=== PATIENT | female | born 1960 | race Caucasian/White ===

== ENCOUNTER → 2016-09-11 | Outpatient (CLI) | payer OTHER ==
[~2016-09-11] MED LIST: ADV500INH INH; AGGR1CAP PO; ALBU17IN INH; AMLO10TA2 PO; ASMA220A2 INH; ASPI81TA7 PO; ASPI81TAEC PO; ATOR1TAB21 PO; ATOR40TA PO; BLOOKIT XX; BUSP15TA47 PO; CLOP75TA2 PO; COUM2.5T11 PO; CYMB1CAP PO; GABA300C3 PO; GLIM2TAB PO; GLIP5TAB2 PO; HUMA100I SC; HYDR-4274 PO; INSUDET SC; INSUH10VL SC; INSULADS SC; LANTINJ4 SC; LISI20TA PO; LORA0.5T PO; LOSA50TA21 PO; LYRI75CA PO; METF1000 PO; NEUR600T PO; NICO21PAT TD; NICO7PA TD; NICODIS TD; NORCOBULK PO; OMEP20CA3 PO; ONGL5TAB PO; PLAV75TA38 PO; PROAAER IN; SERT-141 PO; SERT25TA85 PO; SIMV40TA2 PO; SING10TA32 PO; TEMA30CA PO; TRIA EXT; WARF-18 PO; ZOLO50TA PO; ZYRT10TA2 PO
--- NOTE | 2016-09-12 22:03 | REP ---
PA and lateral chest 09/11/2016 Indication: Cough Comparison: AP portable chest 08/17/2016, PA and lateral chest 10/22/2015 Findings: Cardiomediastinal silhouette is normal. Lungs are clear bilaterally. There are mild degenerative changes in the thoracic spine. Soft tissues are within normal limits. Impression: No acute cardiopulmonary process or interval change Signed by Jennie Zaman MD 09/12/2016 09:54 P
== END ==
LOC: M RAD 14:58
PROVIDERS: ATTEND Physician Assistant
DX: R05 Cough (principal); R06.02 Shortness of breath

== ENCOUNTER 2016-09-15 14:30 | Outpatient (RCR) | payer OTHER | END 2016-09-22 | LOC: M PT 14:30 | PROVIDERS: ATTEND Family Medicine Addiction Medicine | DX: Z51.89 Encounter for other specified aftercare (principal); I63.9 Cerebral infarction, unspecified ==

== ENCOUNTER → 2016-09-30 | Outpatient (CLI) | payer OTHER ==
[~2016-09-30] MED LIST changes: +ALBU83IN INH; +ASPI32ECTA PO; +FLUTISP; +INSULANT SC; +NICO7DIS23 TD; +OMEP40CA2 PO
[2016-09-30 13:46] LABS: INR 2.2
== END ==
LOC: M LAB 12:53
PROVIDERS: ATTEND Family Medicine Addiction Medicine
DX: I63.9 Cerebral infarction, unspecified (principal)

== ENCOUNTER 2016-10-01 20:31 | Inpatient (IN) | payer OTHER ==
[~2016-10-01] VITALS: Ht 157.5 cm; Wt 81.7 kg
[~2016-10-01 20:31] MED LIST changes: -ALBU83IN INH; -ASPI32ECTA PO; -FLUTISP; -INSULANT SC; -NICO7DIS23 TD; -OMEP40CA2 PO
[2016-10-01 21:19] LABS: EOS # 0.3 K/mm3 (0.0-0.50); EOS % 6.2 % (0.0-3.0); LARGE UNSTAINED CELL # 0.1 K/mm3 (0.0-0.4); LARGE UNSTAINED CELL % 1.9 % (0.0-4.0); LYMPH # 1.4 K/mm3 (1.5-4.5); LYMPH % 26.9 % (24.0-44.0); MEAN CORPUSCULAR HEMOGLOBIN 29.2 pg (27.0-33.0); MEAN CORPUSCULAR HGB CONC 32.6 g/dl (32.0-36.5); MEAN CORPUSCULAR VOLUME 89.7 fl (80.0-96.0); MONO # 0.3 K/mm3 (0.0-0.8); NEUTROPHILS # 2.7 K/mm3 (1.8-7.7); NEUTROPHILS % 56.9 % (36.0-66.0); PLATELET COUNT, AUTOMATED 149 k/mm3 (150-450); RED CELL DISTRIBUTION WIDTH 11.7 % (11.5-14.5); WHITE BLOOD COUNT 4.7 K/mm3 (4.0-10.0)
--- NOTE | 2016-10-01 21:20 | REPUSA ---
CT of the head Clinical history: CVA. Comparison: 1220 16,016. Technique: Multiple axial CT images were obtained through the head without administration of contrast . Findings: The ventricles and sulci are symmetric bilaterally. There is no evidence of acute hemorrhag e or infarct. Diffuse scattered areas of low attenuation are seen throughout the subcortical white ma tter, and are grossly stable. There is no midline shift, mass effect, or extra-axial fluid collection . The osseous structures are unremarkable. The visualized paranasal sinuses and mastoid air cells are clear. Impression: No evidence of acute hemorrhage or infarct. Scattered subcortical low attenuation changes are stable since the prior study. This is consistent with chronic ischemic changes. If there is furt her clinical concern, MRI could be performed.
[2016-10-01 21:26] LABS: ANION GAP 8 MEQ/L (8-16); BLOOD UREA NITROGEN 5 MG/DL (7-18); CALCIUM LEVEL 8.8 MG/DL (8.5-10.1); CARBON DIOXIDE LEVEL 28 MEQ/L (21-32); CHLORIDE LEVEL 101 MEQ/L (98-107); CREATININE FOR GFR 0.84 MG/DL (0.55-1.02); GLOMERULAR FILTRATION RATE > 60.0 (>51); GLUCOSE, FASTING 367 MG/DL (70-105); POTASSIUM SERUM 3.7 MEQ/L (3.5-5.1); SODIUM LEVEL 137 MEQ/L (136-145)
[2016-10-01 21:29] LABS: INR 2.45
[2016-10-01] MEDS ORDERED: LORazepam 2 MG/ML VIAL (J2060) As Ordered ONE (23:39)
--- NOTE | 2016-10-02 00:40 | REPUSA ---
MRI of the brain without contrast clinical history: CVA. Comparison: CT, 10/01/2016, MRI 05/12/2016. Technique: Multiecho multiplanar MRI images of the brain were obtained without administration of cont rast. Diffusion weighted images with ADC mapping was also obtained. Findings: The ventricles and sulci are symmetric bilaterally. The brain parenchyma demonstrates extensive scatt ered areas of T2 hyperintensity throughout the periventricular and subcortical white matter. There is a focus of T2 shine through in the right sub cortical region, which is stable since the prior study . There is no midline shift, mass effect, or extra-axial fluid collection. The midline intracranial s tructures do not demonstrate any gross abnormalities. The cervical cranial junction is intact. The or bits are unremarkable. The visualized paranasal sinuses and mastoid air cells are clear. The osseous structures and superficial soft tissues are unremarkable. The vascular structures demonstrate appropr iate flow voids. Impression: No evidence of acute hemorrhage. Extensive diffuse chronic small vessel ischemic disease is stable since the prior study. No other acute findings.
--- NOTE | 2016-10-02 00:50 | REPUSA ---
MRA of the brain clinical history: CVA. Technique: [id number] MRA images of the brain were obtained without administration of contrast. 3 -D MIP images were also obtained. Findings: The focal stenosis of the left MCA M1 segment is grossly stable. There is moderate focal na rrowing of the right M1 segment. The distal MCA segments appear grossly unremarkable. Mild narrowing of the proximal right A1 segment is stable. The left A1 segment is unremarkable. The distal segments are within normal limits. The patient is left vertebral artery dominant, and the left vertebral arter y is hypertrophy. Basilar artery is within normal limits. Impression: 1. Focal stenosis of the distal half of the left M1 segment. 2. Focal stenosis of the middle third of the right M1 segment. 3. Mild stenosis of the right A1 segment. 4. Overall, no significant change since the prior study.
--- NOTE | 2016-10-02 01:35 | REP ---
Clinical: Cerebrovascular accident . Comparison: 09/11/2016 . Technique: PA view of the chest . Findings: The mediastinum and cardiac silhouette are normal. The lung byers are clear and without acute consolidation, effusion, or pneumothorax. The skeletal structures are intact and normal. Impression: 1. No acute cardiopulmonary process. Signed by Willis Dale MD 10/02/2016 01:27 A
[2016-10-02] MEDS ORDERED: ONDANSETRON 4MG/2ML VIAL (J2405) IV PRN (03:15)
[2016-10-02] MEDS ORDERED: FLUTISP (03:17)
[2016-10-02] MEDS ORDERED: SERT-141 PO (03:17)
[2016-10-02] MEDS ORDERED: OMEP40CA2 PO (03:17)
[2016-10-02] MEDS ORDERED: ALBU83IN INH (03:17)
[2016-10-02] MEDS ORDERED: NICO7DIS23 TD (03:19)
[2016-10-02] MEDS ORDERED: ASPI81TAEC PO (03:19)
[2016-10-02] MEDS ORDERED: INSULANT SC (03:19)
--- NOTE | 2016-10-02 03:20 | HPEPDOC ---
General Date of Admission 10/02/2016 Chief Complaint The patient is a 56-year-old female admitted with a reason for visit of Stroke Symptoms. History of Present Illness 56-year-old [id number] female with past medical history of recurrent CVAs, hypertension, uncontrolled diabetes mellitus, significant tobacco abuse, osteoporosis, fibromyalgia, anxiety, and depression presented to the ER with a chief complaint of right-sided paresthesias. Of note, the patient has unfortunately had four CVAs since February 2016. Her baseline deficits include left upper and left lower extremity paresthesias and mild weakness. The patient states that she has been adherent to her regimen of Coumadin and aspirin. She follows with Dr. Gregorio of neurology as an outpatient. At this time, the patient states that she started to feel paresthesias of the right upper and right lower extremities with associated visual blurring which began about 24-36 hours ago. She notes that the visual blurring has resolved but she still feels numbness and tingling in the right upper and right lower extremities. She notes that it has become difficult for her to ambulate with her walker due to the alteration in sensation. She denies any weakness in her extremities on the right side at this time. In addition, the patient denies any fevers, chills, facial droop, slurring of speech, abdominal pain, urinary/fecal incontinence, or any nausea/vomiting/diarrhea. In the ER, a CT scan of the head, and MRI/MRA of the brain were done which revealed no acute changes. The patient will be admitted to the hospitalist service under Dr. Chaney for further evaluation and management. Home Medications Scheduled (Asmanex 60 Metered Doses) 220 Mcg/Inh Aer 220 MCG INH QHS (Reported) (Losartan Potassium/Hydroc 50-12.5 mg) 1 Tab Tab 1 TAB PO DAILY (Reported) Aspirin (Aspirin EC) 325 Mg Tabec 325 MG PO DAILY Atorvastatin Calcium (Atorvastatin Calcium) 40 Mg Tab 40 MG PO QHS (Reported) Buspirone HCl (Buspirone HCl) 15 Mg Tab 15 MG PO TID (Reported) TAKES AT 0800, 1200, 1700 Cetirizine HCl (Zyrtec Allergy) 10 Mg Tab 10 MG PO DAILY (Reported) Fluticasone Propionate (Fluticasone Propionate) 50 Mcg/Act Spr 2 SPRAY NA DAILY (Reported) Gabapentin (Gabapentin) 300 Mg Cap 300 MG PO TID (Reported) TAKES AT 0800, 1200, 1700 Glimepiride (Glimepiride) 2 Mg Tab 2 MG PO DAILY (Reported) Insulin Aspart (Novolog) 100 U/Ml Inj 1 DOSE SC AC (Reported) PER SLIDING SCALE Insulin Glargine (Lantus) 1 Units/0.01 Ml Susp 38 UNITS SC QHS (Reported) Metformin Hydrochloride (Metformin HCl) 1,000 Mg Tab 1,000 MG PO BID (Reported ) Montelukast Sodium (Singulair) 10 Mg Tab 10 MG PO QHS (Reported) Nicotine (Nicotine 7MG Patch) 1 Patch Tdsy 1 PATCH TD DAILY (Reported) Omeprazole (Omeprazole) 40 Mg Cap 40 MG PO DAILY (Reported) Sertraline Hcl (Sertraline HCl) 50 Mg Tab 50 MG PO DAILY (Reported) Warfarin Sod (Warfarin Sodium) 2.5 Mg Tab 2.5 MG PO DAILY (Reported) TAKES AT 1700 WITH ASPIRIN 81 MG Scheduled PRN Albuterol Sulfate (Ventolin Hfa) 200 Puff/8 Gm Aers 2 PUFF INH Q4H PRN PRN SOB/ WHEEZING (Reported) Albuterol Sulfate (Albuterol Sulfate) 2.5 Mg/3 Ml Nebu 2.5 MG INH QID PRN PRN SHORTNESS OF BREATH (Reported) Hydroxyzine HCl (Hydroxyzine HCl) 50 Mg Tab 50 MG PO QHS PRN PRN SLEEP (Reported ) Allergies Coded Allergies: Ranitidine (Verified Allergy, Unknown, 03/22/16) Hives Past Medical History Medical History As noted in HPI Family History The patient's grandmother had COPD and CHF Social History * Smoker: other (the patient apparently smoked 3 packs per day at one point in the past. However, the patient states that she was smoking up to half a pack a day, but quit 3 days ago.) Alcohol: denies Drugs: denies Patient lives with her son and her brother. Ambulates with a rolling walker at baseline. Review of Symptoms Other systems 10 point review of systems negative unless otherwise specified in HPI. Physical Examination General Exam: Positive: Alert, Cooperative, No Acute Distress Eye Exam: Positive: EOMI, PERRLA ENT Exam: Positive: Atraumatic, Mucous membr. moist/pink Neck Exam: Negative: JVD Chest Exam: Positive: Clear to auscultation, Normal air movement Heart Exam: Positive: Normal S1, Normal S2, Rate Normal Telemetry: Positive: Sinus Abdomen Exam: Positive: Soft, Negative: Tenderness Extremity Exam: Negative: Edema, Tenderness Neuro Exam: Positive: Other (patient with intact 5 out of 5 strength of the right upper and right lower extremities. 4 out of 5 strength noted in the left upper and left lower extremities area. Decreased sensation to light palpation on the right sided extremities. Sensation to light palpation even more decreased on the left side.) Vital Signs As noted in EMR Laboratory Data Labs 24H Laboratory Tests 2 10/01/16 21:00: Activated Partial Thromboplast Time 54.5H, Anion Gap 8, White Blood Count 4.7, Red Blood Count 4.26, Hemoglobin 12.5, Hematocrit 38.2, Mean Corpuscular Volume 89.7, Mean Corpuscular Hemoglobin 29.2, Mean Corpuscular Hemoglobin Concent 32.6 , Red Cell Distribution Width 11.7, Platelet Count 149L, Neutrophils (%) (Auto) 56.9, Lymphocytes (%) (Auto) 26.9, Monocytes (%) (Auto) 7.0H, Eosinophils (%) ( Auto) 6.2H, Basophils (%) (Auto) 1.0, Neutrophils # (Auto) 2.7, Lymphocytes # ( Auto) 1.4L, Monocytes # (Auto) 0.3, Eosinophils # (Auto) 0.3, Basophils # (Auto ) 0.0, Blood Urea Nitrogen 5L, Creatinine 0.84, Sodium Level 137, Potassium Level 3.7, Chloride Level 101, Carbon Dioxide Level 28, Calcium Level 8.8, Glomerular Filtration Rate > 60.0, Large Unclassified Cells # 0.1, Large Unclassified Cells % 1.9, Prothromb Time International Ratio 2.45, Prothrombin Time 26.6H 10/01/16 21:25: Bedside Glucose (Misc Panel) 376H CBC/BMP Laboratory Tests 10/01/16 21:00 Calcium Level 8.8, Red Blood Count 4.26, Mean Corpuscular Volume 89.7, Mean Corpuscular Hemoglobin 29.2, Mean Corpuscular Hemoglobin Concent 32.6, Red Cell Distribution Width 11.7, Neutrophils (%) (Auto) 56.9, Lymphocytes (%) (Auto) 26.9, Monocytes (%) (Auto) 7.0 H, Eosinophils (%) (Auto) 6.2 H, Basophils (%) ( Auto) 1.0, Neutrophils # (Auto) 2.7, Lymphocytes # (Auto) 1.4 L, Monocytes # ( Auto) 0.3, Eosinophils # (Auto) 0.3, Basophils # (Auto) 0.0 Plan / VTE VTE Prophylaxis Ordered?: Yes (already on Coumadin with therapeutic INR) Plan Plan 1. Right sided Paresthesia of the upper and lower extremities in a patient with a history of recurrent CVA(s) CT scan of the head, MRI/MRA of the brain with no acute findings noted EKG noted to be in normal sinus rhythm Continue aspirin, Coumadin for now Transesophageal echo from 06/07 with no cardio-embolic source identified. Continue home Lipitor. Neurological checks Physical therapy I have extensively discussed the importance of the patient abstaining from tobacco use, as the patient states that she is still smoking as recently as 3 days ago. I also discussed the importance of the patient to control her blood sugar levels and monitor her blood pressure in an effort to decrease her risk of recurrent CVAs. Continue to monitor the patient on telemetry 2. Diabetes mellitus type 2 Hemoglobin A1c noted to be 9.2% approximately 6 weeks ago Continue Levemir 38 units daily at bedtime Sliding scale insulin 3. Asthma: Continue home Zyrtec, Singulair, and as needed albuterol 4. GERD: Continue PPI. 5. Fibromyalgia: Continue home Zoloft, BuSpar, Neurontin, and nightly Atarax. 6. Hypertension: Continue home losartan and hydrochlorothiazide. 7. Tobacco abuse: smoking cessation discussed as noted above DVT prophylaxis: on Coumadin The patient will be admitted under the service of , who will be following the patient starting on 10/02/2016 at 7 AM. MIGEL ALFARO MD Oct 02, 2016 03:20
[2016-10-02] MEDS ORDERED: GLUCOSE 4 GM CHEW TABLET PO PRN (03:30)
[2016-10-02] MEDS ORDERED: hydrOXYzine 50 MG TAB PO PRN (03:30)
[2016-10-02] MEDS ORDERED: ALBUTEROL SULFATE 2.5 MG/0.5 ML INH NEB SOLN INH PRN (03:30)
[2016-10-02] MEDS ORDERED: ALBUTEROL 90 MCG/ACT 8GM HFA INHALER INH PRN (03:30)
[2016-10-02] MEDS ORDERED: DEXTROSE 50% 50 ML SYRINGE IV PRN (03:30)
[2016-10-02] MEDS ORDERED: GLUCAGON FOR INJ 1 MG VIAL (J1610) SC PRN (03:30)
[2016-10-02 04:10] VITALS: BP 130/81
[2016-10-02] MEDS ORDERED: ACETAMINOPHEN TAB 650MG DOSE (2X325MG) As Ordered ONE ×2 (04:26→12:48)
[2016-10-02] MEDS: ACETAMINOPHEN TAB 650MG DOSE (2X325MG) PO PRN ×2 (04:32→12:49)
[2016-10-02 07:22] LABS: MEAN CORPUSCULAR HEMOGLOBIN 29.7 pg (27.0-33.0); MEAN CORPUSCULAR HGB CONC 33.3 g/dl (32.0-36.5); MEAN CORPUSCULAR VOLUME 89.1 fl (80.0-96.0); RED CELL DISTRIBUTION WIDTH 11.4 % (11.5-14.5); WHITE BLOOD COUNT 4.8 K/mm3 (4.0-10.0)
[2016-10-02 07:32] LABS: ANION GAP 7 MEQ/L (8-16); BLOOD UREA NITROGEN 6 MG/DL (7-18); CALCIUM LEVEL 8.5 MG/DL (8.5-10.1); CARBON DIOXIDE LEVEL 30 MEQ/L (21-32); CHLORIDE LEVEL 102 MEQ/L (98-107); CREATININE FOR GFR 0.73 MG/DL (0.55-1.02); GLOMERULAR FILTRATION RATE > 60.0 (>51); GLUCOSE, FASTING 160 MG/DL (70-105); POTASSIUM SERUM 3.5 MEQ/L (3.5-5.1); SODIUM LEVEL 139 MEQ/L (136-145)
[2016-10-02 07:44] LABS: INR 2.66
[2016-10-02 08:00] VITALS: BP 145/79
[2016-10-02] MEDS ORDERED: busPIRone 5 MG TAB As Ordered ONE (08:10)
[2016-10-02] MEDS ORDERED: HumaLOG INSULIN (NovoLOG) PER UNIT As Ordered ONE ×2 (08:19→12:43)
[2016-10-02] MEDS: busPIRone 5 MG TAB PO SCH ×3 (08:20→16:51)
[2016-10-02] MEDS: HumaLOG INSULIN (NovoLOG) PER UNIT SC SCH ×4 (08:21→21:00)
[2016-10-02] MEDS: OMEPRAZOLE 20 MG CAP PO SCH (08:28)
[2016-10-02] MEDS: SERTRALINE HCL 50 MG TAB PO SCH (08:29)
[2016-10-02] MEDS: NICOTINE 7 MG/24 HR TRANSDERMAL TD SCH (08:29)
[2016-10-02] MEDS: GABAPENTIN 300 MG CAP PO SCH ×3 (08:29→21:45)
[2016-10-02] MEDS: hydroCHLOROthiazide 12.5 MG CAPSULE PO SCH (08:29)
[2016-10-02] MEDS: LOSARTAN 50 MG TAB PO SCH (08:29)
[2016-10-02] MEDS: CETIRIZINE (ZyrTEC) 10 MG TAB PO SCH (08:29)
[2016-10-02] MEDS ORDERED: ALBUTEROL SULFATE 2.5 MG/0.5 ML INH NEB SOLN As Ordered ONE (08:29)
[2016-10-02 12:00] VITALS: BP 138/84
[2016-10-02 15:19] VITALS: BP 125/75
--- NOTE | 2016-10-02 15:24 | EDDOCDS ---
Nurse's Notes [facility] Name: Arlin Reardon Age: 56 yrs Sex: Female : 1960 Arrival Date: 10/01/2016 Time: 20:31 Bed I9 / 22 Private MD: Lana Jacobo Diagnosis: Transient cerebral ischemic attack, unspecified Presentation: 10/01 20:36 Presenting complaint: Patient states: Right arm numbness and right leg numbness started rs3 yesterday. reports of dizziness on and off since 6 pm. denies headache, blurred vision, slurred speech. H/o multiple TIA's. The last date and time the patient was known to be well was was at an unknown time on September 30, 2016. No acute neurological deficit is noted. Pre-hospital glucose is not applicable to this patient. Adult Sepsis Screening: The patient does not have new or worsening altered mentation. Patient's respiratory rate is less than 22. Systolic blood pressure is greater than 100. Patient has a qSOFA score of 0- Negative Sepsis Screen. Suicide/Homicide risk assessment- the patient denies having any suicidal and/or homicidal ideations and does not present with any other emotional, behavioral or mental health complaints. 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 Transition of care: patient was not received from another setting of care. 20:36 Acuity: CLARK Level 2 rs3 20:36 Method Of Arrival: Wheelchair rs3 Triage Assessment: 20:40 The onset of the patients symptoms was more than three hours ago. General: Appears in rs3 no apparent distress. Pain: Denies pain. HIV screening NA for this visit Offered previously. Neurological: Level of Consciousness is awake, alert, Reports numbness. Historical: - Allergies: Zantac (Hives); - Home Meds: 1. albuterol sulfate 90 mcg/actuation Inhl HFAA 2 puffs every 4 hours as needed 2. Asmanex Twisthaler 220 mcg (120 doses) inhalation aepb 1 puff once daily 3. atorvastatin 40 mg oral tab nightly 4. buspirone 15 mg Oral tab three times a day 5. cetirizine 10 mg oral tab 1 tab once daily 6. Coumadin 2.5 mg Oral tab 1 tab once daily 7. gabapentin 300 mg Oral cap 1 cap 3 times per day 8. glimepiride 2 mg Oral tab once daily 9. hydroxyzine HCl 50 mg Oral tab nightly as needed 10. Lantus 38 units Sub-Q nightly 11. losartan-hydrochlorothiazide 50-12.5 mg oral tab 1 tab once daily 12. metformin 1,000 mg Oral tab daily 13. Novolog sliding scale Sub-Q before meals 14. Singulair 10 mg Oral tab 1 tab once daily - PMHx: Asthma; CVA; Diabetes - IDDM: controlled; feet and hands go numb; GERD; - PSHx: Hysterectomy; Cholecystectomy; - Social history: Smoking status: Patient uses tobacco products, light tobacco smoker. No barriers to communication noted, Speaks appropriately for age. - Family history: Not pertinent. - : The pt / caregiver states he / she is on anticoagulants: coumadin. Home medication list is obtained from the patient. - Exposure Risk Screening:: None identified. Screenin/10 02:13 Screening information is obtained from the patient, family members. Fall risk: At risk ld5 due to numbness to legs. Assistance ADL's: requires no assistance with activities of daily living. Abuse/DV Screen: The patient / caregiver reports he/she is: not in a situation that causes fear, pain or injury. Nutritional screening: No deficits noted. Advance Directives: There is no active DNR order. home support is adequate. Assessment: 10/01 21:10 General: Appears in no apparent distress, Behavior is cooperative, pleasant. Pain: ld5 Denies pain. Neurological: Level of Consciousness is awake, alert, obeys commands, Oriented to person, place, time, Credit Adjuster are equal bilaterally Moves all extremities. Speech is normal, Facial symmetry appears normal, Facial symmetry: tongue is midline, Numbness in face, right arm, left arm, right leg and left leg Pt reports numbness worse on right side than left. Respiratory: Airway is patent Respiratory effort is even, unlabored, Reports cough that is non-productive, since yesterday. GI: Abdomen is obese, Bowel sounds present X 4 quads. Abd is soft and non tender X 4 quads. Reports nausea, Denies vomiting. Derm: Skin is intact, Skin is dry, Skin is redness to face. 21:36 General: Pt returned from CT. Tolerated well. Will continue to monitor. ld5 22:09 General: Pt laying in bed watching TV. A&O x3. Water and diet scott naomi given. Will ld5 continue to monitor. 22:40 General: Appears in no apparent distress, Behavior is appropriate for age, cooperative, ld5 Aware of plan for MRI. Will continue to monitor. 23:34 General: Pt resting quietly in bed. No complaints at this time. No change in symptoms. ld5 Will continue to monitor. 23:51 General: Pt having difficulty laying through MRI. This RN to MRI to medicate pt. Will ld5 continue to monitor. 10/02 00:18 General: Pt remains in MRI. ld5 01:01 General: Pt returned from MRI. Tolerated well. Denies pain. Respirations easy and ld5 unlabored. Will continue to monitor. 01:25 General: Appears in no apparent distress, Pt laying in bed with eyes closed. Call tian ld5 within reach. Will continue to monitor. 02:10 General: Pt sleeping. Aroused to voice. Updated pt and family on MRI result status. Pt ld5 reports comfortable at this time. Call tian within reach. Will continue to monitor. 02:47 General: Appears in no apparent distress. Respiratory: Airway is patent Respiratory ld5 effort is even, unlabored. 02:49 General: Hospitalist in to assess pt. ld5 03:05 General: Appears in no apparent distress, Behavior is appropriate for age, cooperative, ko2 pleasant. Pain: Denies pain. Neurological: Level of Consciousness is awake, alert, obeys commands. Neurological: Oriented to person, place, time, Credit Adjuster are equal bilaterally Moves all extremities. Speech is normal, Facial symmetry appears normal, Facial symmetry: tongue is midline, Pupils are PERRLA. Respiratory: Airway is patent Respiratory effort is even, unlabored. Derm: Skin is. 03:50 General: Report given to Derek Dodd RN. Please see [employer] for further ko2 documentation. Vital Signs: 10/01 20:32 BP 178 / 106; Pulse 94; Resp 18 S; Pulse Ox 97% on R/A; Weight 73.94 kg (R); Height 5 gr2 ft. 2 in. (157.48 cm) (R); Pain 4/10; 20:52 BP 137 / 93 (auto/); ld5 20:56 Pulse 92 MON; Pulse Ox 96% ; ld5 21:23 BP 130 / 72 (auto/); ld5 21:23 Pulse 84 MON; Pulse Ox 95% ; ld5 21:49 Temp 98.2; ld5 21:53 BP 129 / 83 (auto/); ld5 21:53 Pulse 86 MON; Pulse Ox 95% ; ld5 22:16 BP 128 / 77 (auto/); ld5 22:16 Pulse 82 MON; Pulse Ox 94% ; ld5 22:24 BP 120 / 78 (auto/); ld5 22:24 Pulse 84 MON; Pulse Ox 94% ; ld5 22:39 BP 137 / 72 (auto/); ld5 22:39 Pulse 80 MON; Pulse Ox 95% ; ld5 22:54 BP 142 / 76 (auto/); ld5 22:54 Pulse 78 MON; Pulse Ox 94% ; ld5 23:09 BP 128 / 66 (auto/); ld5 23:09 Pulse 78 MON; Pulse Ox 94% ; ld5 02 00:54 BP 141 / 87 (auto/); ld5 00:56 Pulse 80 MON; Resp 18; Temp 98; Pulse Ox 94% ; Pain 0/10; ld5 01:24 BP 134 / 74 (auto/); ld5 01:24 Pulse 76 MON; Pulse Ox 92% ; ld5 01:54 BP 132 / 72 (auto/); ld5 01:54 Pulse 74 MON; Pulse Ox 93% ; ld5 02:24 BP 149 / 84 (auto/); ld5 02:24 Pulse 72 MON; Pulse Ox 93% ; ld5 10/01 20:32 Body Mass Index 29.81 (73.94 kg, 157.48 cm) gr2 10/01 20:32 TEMP NEEDS TO BE TAKEN gr2 Vitals: 20:32 Log In Time: October 01, 2016 at 20:32. RN notified that patient meets Red Flag gr2 criteria. 21:26 Glucose Measurement D-stick in Triage- Hyperglycemia. ld5 ED Course: 20:32 Patient visited by Jeane Joyner. gr2 20:32 Lana Jacobo is Private Physician. gr2 20:32 Patient moved to Waiting gr2 20:35 Patient visited by Jeane Joyner. gr2 20:35 Patient moved to Pre RCE gr2 20:39 Triage Initiated rs3 20:41 Patient moved to 6 rs3 20:43 Derek Haque DO is Attending Physician. mm11 20:43 Patient visited by Derek Haque DO. mm11 20:55 Patient visited by Derek Haque DO. mm11 21:02 Basic Metabolic Profile Sent. ld5 21:02 CBC with Diff Sent. ld5 21:02 Partial Thromboplastin Time Sent. ld5 21:02 Prothrombin Time Profile\E\INR Sent. ld5 21:02 Type & Screen Sent. ld5 21:21 Patient visited by Zeinab Rivas PCA. cln 21:21 Patient visited by Barbara Mukherjee,ESTEFANIA. ld5 21:21 The patient / caregiver is instructed regarding the plan of care and ED course. ld5 Accompanied by Family Member, Patient has correct armband on for positive identification. Placed in gown. Bed in low position. Call light in reach. electronic device monitor on. Pulse ox on. NIBP on. 21:21 EKG done. (by ED staff). Reviewed by Derek Haque DO. cln 21:21 Inserted saline lock: 20 gauge in left forearm and blood collected. The patient ld5 tolerated the procedure well. Labs drawn. (by ED staff). Sent per order to lab. 21:34 Fingerstick Blood Sugar Sent. ld5 21:36 Patient visited by Barbara Mukherjee RN. ld5 21:50 Patient visited by Barbara Mukherjee RN. ld5 21:58 Patient moved to OBSERVATION mm11 22:09 Patient visited by Barbara Mukherjee RN. ld5 22:10 CT Head Without Contrast Returned. EDMS 22:19 [facility] Payment Agreement was scanned into [employer] and attached to record. ks16 23:35 Patient visited by Barbara Mukherjee RN. ld5 23:37 Patient moved to MRI ml3 23:37 Patient moved to OBSERVATION ml3 23:52 Patient visited by Barbara Mukherjee,ESTEFANIA. ld5 02 00:19 Patient visited by Barbara Mukherjee RN. ld5 00:41 -MRI-Brain without Returned. EDMS 01:02 Patient visited by Barbara Mukherjee RN. ld5 01:18 -MRA-Brain without contrast Returned. EDMS 01:25 Patient visited by Barbara Mukherjee RN. ld5 01:56 Chest, 1 View Returned. EDMS 02:14 Patient visited by Barbara Mukherjee RN. ld5 02:27 Edil Medellin is Hospitalizing Provider. mm11 02:47 Patient visited by Barbara Mukherjee RN. ld5 03:19 Patient moved to 7 aug 03:19 Patient moved to Admit Hold aug 07:55 Patient moved to I js13 09:30 T-Sheet-- Draft Copy was scanned into [employer] and attached to record. gb 15:21 No procedures done that require assistance. bcj 15:22 Patient visited by Ghanshyam Frankel RN. bcj Administered Medications: 10/01 23:48 Drug: LORazepam 1 mg [lorazepam 2 mg/mL injection solution (0.5 mL)] Route: IVP; Site: ld5 left forearm; Point of Care Testing: Blood Glucose: 21:26 Blood Glucose: 376 mg/dL; ld5 Ranges: Order Results: Lab Order: Basic Metabolic Profile; SPEC'M 10/01/16 21:00 Test: GLUCOSE, FASTING; Value: 367; Range: 70-105; Abnormal: Above high normal; Units: MG/DL; Status: F Test: BLOOD UREA NITROGEN; Value: 5; Range: 7-18; Abnormal: Below low normal; Units: MG/DL; Status: F Test: CREATININE FOR GFR; Value: 0.84; Range: 0.55-1.02; Units: MG/DL; Status: F Test: GLOMERULAR FILTRATION RATE; Value: > 60.0; Range: >51; Status: F Test: SODIUM LEVEL; Value: 137; Range: 136-145; Units: MEQ/L; Status: F Test: POTASSIUM SERUM; Value: 3.7; Range: 3.5-5.1; Units: MEQ/L; Status: F Test: CHLORIDE LEVEL; Value: 101; Range: 98-107; Units: MEQ/L; Status: F Test: CARBON DIOXIDE LEVEL; Value: 28; Range: 21-32; Units: MEQ/L; Status: F Test: ANION GAP; Value: 8; Range: 8-16; Units: MEQ/L; Status: F Test: CALCIUM LEVEL; Value: 8.8; Range: 8.5-10.1; Units: MG/DL; Status: F Test Note: ; Units are mL/min/1.73 m2 Chronic Kidney Disease Staging per NKF: Stage I & II GFR >=60 Normal to Mildly Decreased Stage III GFR 30-59 Moderately Decreased Stage IV GFR 15-29 Severely Decreased Stage V GFR <15 Very Little GFR Left ESRD GFR <15 on POULTRY PACKER Lab Order: CBC with Diff; SPEC'M 10/01/16 21:00 Test: WHITE BLOOD COUNT; Value: 4.7; Range: 4.0-10.0; Units: K/mm3; Status: F Test: RED BLOOD COUNT; Value: 4.26; Range: 4.00-5.40; Units: M/mm3; Status: F Test: HEMOGLOBIN; Value: 12.5; Range: 12.0-16.0; Units: g/dl; Status: F Test: HEMATOCRIT; Value: 38.2; Range: 36.0-47.0; Units: %; Status: F Test: MEAN CORPUSCULAR VOLUME; Value: 89.7; Range: 80.0-96.0; Units: fl; Status: F Test: MEAN CORPUSCULAR HEMOGLOBIN; Value: 29.2; Range: 27.0-33.0; Units: pg; Status: F Test: MEAN CORPUSCULAR HGB CONC; Value: 32.6; Range: 32.0-36.5; Units: g/dl; Status: F Test: RED CELL DISTRIBUTION WIDTH; Value: 11.7; Range: 11.5-14.5; Units: %; Status: F Test: PLATELET COUNT, AUTOMATED; Value: 149; Range: 150-450; Abnormal: Below low normal; Units: k/mm3; Status: F Test: NEUTROPHILS %; Value: 56.9; Range: 36.0-66.0; Units: %; Status: F Test: LYMPH %; Value: 26.9; Range: 24.0-44.0; Units: %; Status: F Test: MONO %; Value: 7.0; Range: 0.0-5.0; Abnormal: Above high normal; Units: %; Status: F Test: EOS %; Value: 6.2; Range: 0.0-3.0; Abnormal: Above high normal; Units: %; Status: F Test: BASO %; Value: 1.0; Range: 0.0-1.0; Units: %; Status: F Test: LARGE UNSTAINED CELL %; Value: 1.9; Range: 0.0-4.0; Units: %; Status: F Test: NEUTROPHILS #; Value: 2.7; Range: 1.8-7.7; Units: K/mm3; Status: F Test: LYMPH #; Value: 1.4; Range: 1.5-4.5; Abnormal: Below low normal; Units: K/mm3; Status: F Test: MONO #; Value: 0.3; Range: 0.0-0.8; Units: K/mm3; Status: F Test: EOS #; Value: 0.3; Range: 0.0-0.50; Units: K/mm3; Status: F Test: BASO #; Value: 0.0; Range: 0.0-0.2; Units: K/mm3; Status: F Test: LARGE UNSTAINED CELL #; Value: 0.1; Range: 0.0-0.4; Units: K/mm3; Status: F Lab Order: Partial Thromboplastin Time; [facility] 10/01/16 21:00 Test: PARTIAL THROMBOPLASTIN TIME; Value: 54.5; Range: 26.6-37.1; Abnormal: Above high normal; Units: SECONDS; Status: F Lab Order: Prothrombin Time Profile\E\INR; [facility] 10/01/16 21:00 Test: PROTHROMBIN TIME; Value: 26.6; Range: 12.3-14.5; Abnormal: Above high normal; Units: SECONDS; Status: F Test: INR; Value: 2.45; Status: F Test Note: ; THERAPUTIC HUMAN INR VALUES INDICATIONS NORMAL RANGES PROPHYLAXIS/TREATMENT OF: VENOUS THROMBOSIS 2.0-3.0 PULMONARY EMBOLISM 2.0-3.0 PREVENTION OF SYSTEMIC EMBOLISM FROM: TISSUE HEART VALVES 2.0-3.0 ACUTE MYOCARDIAL INFARCTION 2.0-3.0 VALVULAR HEART DISEASE 2.0-3.0 ATRIAL FIBRILLATION 2.0-3.0 MECHANICAL VALVES(HIGH RISK) 2.5-3.5 RECURRENT MYOCARDIAL INFARCTION 2.5-3.5 Lab Order: Type & Screen; [facility] 10/01/16 21:00 Test: BLOOD TYPE; Value: A POS; Status: F Test: AB SCREEN (INDIRECT FRANCISCO J)VIS; Value: NEGATIVE; Status: F Lab Order: Fingerstick Blood Sugar; [facility] 10/01/16 21:25 Test: BEDSIDE GLUCOSE; Value: 376; Range: 70-105; Abnormal: Above high normal; Units: MG/DL; Status: F Test Note: ; Doctor Notified Lab Order: BASIC METABOLIC PROFILE; [facility]' 10/02/16 07:02 Test: GLUCOSE, FASTING; Value: 160; Range: 70-105; Abnormal: Above high normal; Units: MG/DL; Status: F Test: BLOOD UREA NITROGEN; Value: 6; Range: 7-18; Abnormal: Below low normal; Units: MG/DL; Status: F Test: CREATININE FOR GFR; Value: 0.73; Range: 0.55-1.02; Units: MG/DL; Status: F Test: GLOMERULAR FILTRATION RATE; Value: > 60.0; Range: >51; Status: F Test: SODIUM LEVEL; Value: 139; Range: 136-145; Units: MEQ/L; Status: F Test: POTASSIUM SERUM; Value: 3.5; Range: 3.5-5.1; Units: MEQ/L; Status: F Test: CHLORIDE LEVEL; Value: 102; Range: 98-107; Units: MEQ/L; Status: F Test: CARBON DIOXIDE LEVEL; Value: 30; Range: 21-32; Units: MEQ/L; Status: F Test: ANION GAP; Value: 7; Range: 8-16; Abnormal: Below low normal; Units: MEQ/L; Status: F Test: CALCIUM LEVEL; Value: 8.5; Range: 8.5-10.1; Units: MG/DL; Status: F Test Note: ; Units are mL/min/1.73 m2 Chronic Kidney Disease Staging per NKF: Stage I & II GFR >=60 Normal to Mildly Decreased Stage III GFR 30-59 Moderately Decreased Stage IV GFR 15-29 Severely Decreased Stage V GFR <15 Very Little GFR Left ESRD GFR <15 on POULTRY PACKER Lab Order: COMPLETE BLOOD COUNT; SPEC' 10/02/16 07:02 Test: WHITE BLOOD COUNT; Value: 4.8; Range: 4.0-10.0; Units: K/mm3; Status: F Test: RED BLOOD COUNT; Value: 4.28; Range: 4.00-5.40; Units: M/mm3; Status: F Test: HEMOGLOBIN; Value: 12.7; Range: 12.0-16.0; Units: g/dl; Status: F Test: HEMATOCRIT; Value: 38.1; Range: 36.0-47.0; Units: %; Status: F Test: MEAN CORPUSCULAR VOLUME; Value: 89.1; Range: 80.0-96.0; Units: fl; Status: F Test: MEAN CORPUSCULAR HEMOGLOBIN; Value: 29.7; Range: 27.0-33.0; Units: pg; Status: F Test: MEAN CORPUSCULAR HGB CONC; Value: 33.3; Range: 32.0-36.5; Units: g/dl; Status: F Test: RED CELL DISTRIBUTION WIDTH; Value: 11.4; Range: 11.5-14.5; Abnormal: Below low normal; Units: %; Status: F Test: PLATELET COUNT, AUTOMATED; Value: 154; Range: 150-450; Units: k/mm3; Status: F Lab Order: PROTHROMBIN TIME PROFILE\E\INR; SPEC10/02/16 07:02 Test: PROTHROMBIN TIME; Value: 28.4; Range: 12.3-14.5; Abnormal: Above high normal; Units: SECONDS; Status: F Test: INR; Value: 2.66; Status: F Test Note: ; THERAPUTIC HUMAN INR VALUES INDICATIONS NORMAL RANGES PROPHYLAXIS/TREATMENT OF: VENOUS THROMBOSIS 2.0-3.0 PULMONARY EMBOLISM 2.0-3.0 PREVENTION OF SYSTEMIC EMBOLISM FROM: TISSUE HEART VALVES 2.0-3.0 ACUTE MYOCARDIAL INFARCTION 2.0-3.0 VALVULAR HEART DISEASE 2.0-3.0 ATRIAL FIBRILLATION 2.0-3.0 MECHANICAL VALVES(HIGH RISK) 2.5-3.5 RECURRENT MYOCARDIAL INFARCTION 2.5-3.5 Lab Order: Fingerstick Blood Sugar; SPEC10/02/16 12:00 Test: BEDSIDE GLUCOSE; Value: 188; Range: 70-105; Abnormal: Above high normal; Units: MG/DL; Status: F Radiology Order: CT Head Without Contrast Test: CT Head Without Contrast REASON FOR EXAMINATION: CVA >4.5hrs; ; CT of the head; Clinical history: CVA.; Comparison: 1220 16,016.; Technique: Multiple axial CT images were obtained through the head without administration of contrast; .; Findings: The ventricles and sulci are symmetric bilaterally. There is no evidence of acute hemorrhag; e or infarct. Diffuse scattered areas of low attenuation are seen throughout the subcortical white ma; tter, and are grossly stable. There is no midline shift, mass effect, or extra-axial fluid collection; . The osseous structures are unremarkable. The visualized paranasal sinuses and mastoid air cells are; clear.; Impression: No evidence of acute hemorrhage or infarct. Scattered subcortical low attenuation changes; are stable since the prior study. This is consistent with chronic ischemic changes. If there is furt; her clinical concern, MRI could be performed.; ; Radiology Order: Chest, 1 View Test: Chest, 1 View REASON FOR EXAMINATION: CVA >4.5hrs; Clinical: Cerebrovascular accident .; ; Comparison: 09/11/2016 .; ; Technique: PA view of the chest .; ; Findings:; The mediastinum and cardiac silhouette are normal. The lung byers are clear and; without acute consolidation, effusion, or pneumothorax. The skeletal structures; are intact and normal.; ; Impression:; 1. No acute cardiopulmonary process.; ; ; Signed by; Willis Dale MD 10/02/2016 01:27 A; Radiology Order: -MRA-Brain without contrast Test: -MRA-Brain without contrast REASON FOR EXAMINATION: CVA >4.5hrs; ; MRA of the brain; clinical history: CVA.; Technique: [id number] MRA images of the brain were obtained without administration of contrast. 3; -D MIP images were also obtained.; Findings: The focal stenosis of the left MCA M1 segment is grossly stable. There is moderate focal na; rrowing of the right M1 segment. The distal MCA segments appear grossly unremarkable. Mild narrowing; of the proximal right A1 segment is stable. The left A1 segment is unremarkable. The distal segments; are within normal limits. The patient is left vertebral artery dominant, and the left vertebral arter; y is hypertrophy. Basilar artery is within normal limits.; Impression:; 1. Focal stenosis of the distal half of the left M1 segment.; 2. Focal stenosis of the middle third of the right M1 segment.; 3. Mild stenosis of the right A1 segment.; 4. Overall, no significant change since the prior study.; ; Radiology Order: -MRI-Brain without Test: -MRI-Brain without REASON FOR EXAMINATION: CVA >4.5hrs; ; MRI of the brain without contrast; clinical history: CVA.; Comparison: CT, 10/01/2016, MRI 05/12/2016.; Technique: Multiecho multiplanar MRI images of the brain were obtained without administration of cont; rast. Diffusion weighted images with ADC mapping was also obtained.; Findings:; The ventricles and sulci are symmetric bilaterally. The brain parenchyma demonstrates extensive scatt; ered areas of T2 hyperintensity throughout the periventricular and subcortical white matter. There is; a focus of T2 shine through in the right sub cortical region, which is stable since the prior study; . There is no midline shift, mass effect, or extra-axial fluid collection. The midline intracranial s; tructures do not demonstrate any gross abnormalities. The cervical cranial junction is intact. The or; bits are unremarkable. The visualized paranasal sinuses and mastoid air cells are clear. The osseous; structures and superficial soft tissues are unremarkable. The vascular structures demonstrate appropr; iate flow voids.; Impression: No evidence of acute hemorrhage. Extensive diffuse chronic small vessel ischemic disease; is stable since the prior study. No other acute findings.; ; Outcome: 10/02 02:13 CT Study completed. MRI Study completed. ld5 02:28 Decision to Hospitalize by Provider. mm11 15:21 Discharge Assessment: patient administered narcotics - no. The following High Risk j Discharge criteria are identified: None. Admitted to PCU accompanied by nurse, accompanied by tech, via stretcher, on monitor, with chart. Condition: stable. Property :Personal belongings accompany Pt. 15:23 Patient left the ED. j Signatures: Dispatcher [employer] EDGhanshyam Aguirre RN RN bcj Newman, Jill New, RN RN jan Barnhardt, Gloria, Reg Reg Ten Michel, Automation Control Technician Unit ml3 Derek Haque DO DO mm11 Joy Padilla,RN RN rs3 Barbara Mukherjee,RN RN ld5 Isabel Martinez,RN RN js13 Jeane Joyner2 Sweetie PerryRN RN ko2 Lali Newton, Reg Reg ks16 Rob, Zeinab, STACK CLERK STACK CLERK cln MTDD
--- NOTE | 2016-10-02 15:24 | EDDOCDS ---
Physician Documentation [facility] Name: Arlin Reardon Age: 56 yrs Sex: Female : 1960 Arrival Date: 10/01/2016 Time: 20:31 Bed I9 Private MD: Lana Jacobo Disposition: 10/02/16 02:28 Hospitalization ordered by Edil Medellin for Inpatient Admission. Preliminary diagnosis is Transient cerebral ischemic attack, unspecified. - Bed requested for PCU. - Status is Inpatient Admission. bcj - Condition is Stable. - Problem is an acute exacerbation. - Symptoms have improved. Historical: - Allergies: Zantac (Hives); - Home Meds: 1. albuterol sulfate 90 mcg/actuation Inhl HFAA 2 puffs every 4 hours as needed 2. Asmanex Twisthaler 220 mcg (120 doses) inhalation aepb 1 puff once daily 3. atorvastatin 40 mg oral tab nightly 4. buspirone 15 mg Oral tab three times a day 5. cetirizine 10 mg oral tab 1 tab once daily 6. Coumadin 2.5 mg Oral tab 1 tab once daily 7. gabapentin 300 mg Oral cap 1 cap 3 times per day 8. glimepiride 2 mg Oral tab once daily 9. hydroxyzine HCl 50 mg Oral tab nightly as needed 10. Lantus 38 units Sub-Q nightly 11. losartan-hydrochlorothiazide 50-12.5 mg oral tab 1 tab once daily 12. metformin 1,000 mg Oral tab daily 13. Novolog sliding scale Sub-Q before meals 14. Singulair 10 mg Oral tab 1 tab once daily - PMHx: Asthma; CVA; Diabetes - IDDM: controlled; feet and hands go numb; GERD; - PSHx: Hysterectomy; Cholecystectomy; - Social history: Smoking status: Patient uses tobacco products, light tobacco smoker. No barriers to communication noted, Speaks appropriately for age. - Family history: Not pertinent. - : The pt / caregiver states he / she is on anticoagulants: coumadin. Home medication list is obtained from the patient. - Exposure Risk Screening:: None identified. Vital Signs: 10/01 20:32 BP 178 / 106; Pulse 94; Resp 18 S; Pulse Ox 97% on R/A; Weight 73.94 kg / 163.01 lbs gr2 (R); Height 5 ft. 2 in. (157.48 cm) (R); Pain 4/10; 20:52 BP 137 / 93 (auto/); ld5 20:56 Pulse 92 MON; Pulse Ox 96% ; ld5 21:23 BP 130 / 72 (auto/); ld5 21:23 Pulse 84 MON; Pulse Ox 95% ; ld5 21:49 Temp 98.2; ld5 21:53 BP 129 / 83 (auto/); ld5 21:53 Pulse 86 MON; Pulse Ox 95% ; ld5 22:16 BP 128 / 77 (auto/); ld5 22:16 Pulse 82 MON; Pulse Ox 94% ; ld5 22:24 BP 120 / 78 (auto/); ld5 22:24 Pulse 84 MON; Pulse Ox 94% ; ld5 22:39 BP 137 / 72 (auto/); ld5 22:39 Pulse 80 MON; Pulse Ox 95% ; ld5 22:54 BP 142 / 76 (auto/); ld5 22:54 Pulse 78 MON; Pulse Ox 94% ; ld5 23:09 BP 128 / 66 (auto/); ld5 23:09 Pulse 78 MON; Pulse Ox 94% ; ld5 02/ 00:54 BP 141 / 87 (auto/); ld5 00:56 Pulse 80 MON; Resp 18; Temp 98; Pulse Ox 94% ; Pain 0/10; ld5 01:24 BP 134 / 74 (auto/); ld5 01:24 Pulse 76 MON; Pulse Ox 92% ; ld5 01:54 BP 132 / 72 (auto/); ld5 01:54 Pulse 74 MON; Pulse Ox 93% ; ld5 02:24 BP 149 / 84 (auto/); ld5 02:24 Pulse 72 MON; Pulse Ox 93% ; ld5 10/01 20:32 Body Mass Index 29.81 (73.94 kg, 157.48 cm) gr2 10/01 20:32 TEMP NEEDS TO BE TAKEN gr2 MDM: 20:56 RN interventions must not delay CT ordered. mm11 20:56 Captain/Airline Pilot/Pulse Ox/q 15 min VS ordered. mm11 20:56 Accucheck ordered. mm11 20:56 IV Saline Lock ordered. mm11 20:56 Neuro VS q 15 Minutes ordered. mm11 20:56 Patient must be on CC stretcher and weighed via bed scale ordered. mm11 20:56 Rhythm Strip to chart ordered. mm11 20:58 Chest, 1 View Ordered. EDMS 20:58 Basic Metabolic Profile Ordered. EDMS 20:58 CBC with Diff Ordered. EDMS 20:58 Partial Thromboplastin Time Ordered. EDMS 20:58 Prothrombin Time Profile\E\INR Ordered. EDMS 20:58 Type & Screen Ordered. EDMS 20:58 CT Head Without Contrast Ordered. EDMS 20:58 ECG WITH READING ER PHYS+CARDIAG ordered. EDMS 21:34 Fingerstick Blood Sugar Ordered. EDMS 21:41 Basic Metabolic Profile Reviewed. mm11 21:41 CBC with Diff Reviewed. mm11 21:41 Partial Thromboplastin Time Reviewed. mm11 21:41 Prothrombin Time Profile\E\INR Reviewed. mm11 21:41 Fingerstick Blood Sugar Reviewed. mm11 21:58 MRI Screening Tool - Place on chart, inform RN ordered. mm11 21:58 Misc. Nursing Order ordered. mm11 22:00 -MRA-Brain without contrast Ordered. EDMS 22:00 -MRI-Brain without Ordered. EDMS 22:02 Financial registration complete. [email or web address] 22:06 Type & Screen Reviewed. mm11 22:19 [facility] Payment Agreement was scanned into [employer] and attached to record. [email or web address] 22:23 The patient was assigned to Observation Status due to uncertainty of mm11 diagnosis/disposition, and remained under my care. 22:26 MRI Screening Tool - Place on chart, inform RN complete. ml3 22:35 CT Head Without Contrast Reviewed. mm11 23:38 LORazepam 1 mg IVP once ordered. mm11 10/02 02:20 BED REQUEST+ADM ordered. EDMS 03:08 CONSISTENT CARBOHYDRATES ordered. EDMS 03:08 BASIC METABOLIC PROFILE Ordered. EDMS 03:08 COMPLETE BLOOD COUNT Ordered. EDMS 03:08 PROTHROMBIN TIME PROFILE\E\INR Ordered. EDMS 03:09 PHYSICAL THERAPY EVAL & TREAT ordered. EDMS 03:09 Admission / Observation Status ordered. EDMS 09:30 T-Sheet-- Draft Copy was scanned into [employer] and attached to record. gb Point of Care Testing: Blood Glucose: 10/01 21:26 Blood Glucose: 376 mg/dL; ld5 Ranges: Administered Medications: 23:48 Drug: LORazepam 1 mg [lorazepam 2 mg/mL injection solution (0.5 mL)] Route: IVP; Site: ld5 left forearm; Signatures: Dispatcher [employer] EDGhanshyam Aguirre, RN RN Sona Liu, Reg Reg gb CandidoPaulinaRachel, Electromechanical Equipment Assembler Unit ml3 Derke Haque, DO mm11 Joy Padilla RN RN rs3 Barbara Mukherjee RN RN ld5 Francesco Goodrich, JOB COUNSELOR JOB COUNSELOR jrd Lali Newton, Reg Reg ks16 The chart was reviewed and I authenticate all verbal orders and agree with the evaluation and treatment provided.Attachments: 22:19 [facility] Payment Agreement [email or web address] 10/02 09:30 T-Sheet-- Draft Copy gb MTDD
[2016-10-02 15:45] VITALS: BP 130/74
[2016-10-02] MEDS: WARFARIN SOD 2.5 MG TAB PO SCH (16:51)
[2016-10-02] MEDS ORDERED: ASPIRIN 81 MG ENTERIC TAB PO SCH (17:00)
[2016-10-02] MEDS ORDERED: SLF 3 ML SYR IV PRN (18:15)
[2016-10-02 20:00] VITALS: BP 130/72
[2016-10-02] MEDS ORDERED: LEVEMIR (INSULIN DETEMIR) 1 UNITS/0.01ML SC SCH (21:00)
--- NOTE | 2016-10-02 21:16 | ECGEPIP ---
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
[2016-10-02] MEDS: SLF 3 ML SYR IV SCH (21:45)
[2016-10-02] MEDS: ATORVASTATIN 20 MG TAB PO SCH (21:45)
[2016-10-02] MEDS: MONTELUKAST 10 MG TAB PO SCH (21:45)
[2016-10-03] VITALS: BP 121/67
[2016-10-03 04:00] VITALS: BP 167/82
[2016-10-03] MEDS: SLF 3 ML SYR IV SCH ×3 (05:43→20:41)
[2016-10-03 05:48] LABS: MEAN CORPUSCULAR HEMOGLOBIN 29.3 pg (27.0-33.0); MEAN CORPUSCULAR HGB CONC 32.9 g/dl (32.0-36.5); MEAN CORPUSCULAR VOLUME 89.3 fl (80.0-96.0); RED CELL DISTRIBUTION WIDTH 11.6 % (11.5-14.5)
[2016-10-03 05:59] LABS: INR 2.59
[2016-10-03 06:00] LABS: ANION GAP 6 MEQ/L (8-16); BLOOD UREA NITROGEN 9 MG/DL (7-18); CALCIUM LEVEL 8.7 MG/DL (8.5-10.1); CARBON DIOXIDE LEVEL 31 MEQ/L (21-32); CHLORIDE LEVEL 103 MEQ/L (98-107); CREATININE FOR GFR 0.69 MG/DL (0.55-1.02); GLOMERULAR FILTRATION RATE > 60.0 (>51); GLUCOSE, FASTING 205 MG/DL (70-105); POTASSIUM SERUM 3.5 MEQ/L (3.5-5.1); SODIUM LEVEL 140 MEQ/L (136-145)
[2016-10-03 08:00] VITALS: BP 138/87
[2016-10-03] MEDS: GABAPENTIN 300 MG CAP PO SCH ×3 (08:39→20:40)
[2016-10-03] MEDS: CETIRIZINE (ZyrTEC) 10 MG TAB PO SCH (08:39)
[2016-10-03] MEDS: NICOTINE 7 MG/24 HR TRANSDERMAL TD SCH (08:39)
[2016-10-03] MEDS: hydroCHLOROthiazide 12.5 MG CAPSULE PO SCH (08:39)
[2016-10-03] MEDS: busPIRone 5 MG TAB PO SCH ×3 (08:39→17:14)
[2016-10-03] MEDS: LOSARTAN 50 MG TAB PO SCH (08:39)
[2016-10-03] MEDS: SERTRALINE HCL 50 MG TAB PO SCH (08:39)
[2016-10-03] MEDS: OMEPRAZOLE 20 MG CAP PO SCH (08:39)
[2016-10-03] MEDS: HumaLOG INSULIN (NovoLOG) PER UNIT SC SCH ×4 (08:40→20:17)
--- NOTE | 2016-10-03 11:34 | REP ---
CT BRAIN WITHOUT CONTRAST: 10/03/2016. Comparison: MRI brain, MRA brain, CT brain 10/01/2016. History: Recurrent TIAs. New numbness right chest. Noncontrast images of the brain were provided. Soft tissue and bone windows are reviewed. Old lacunar infarcts in the right basal ganglia noted. Extensive heterogeneous low attenuation white matter findings bilaterally suggesting small vessel ischemic change. There is no intra or extra-axial hemorrhage, mass, mass effect or edema. No atrophy evident. No midline shift, lateral, third and fourth ventricles were normal. Basal cisterns intact. There is heavy vascular calcification in the basilar artery, less severe in the carotid siphons. Mastoids intact. Sinuses show mucosal thickening bilateral ethmoids, frontal, sphenoid sinuses intact. Calvarium and skull base without fracture or focal lesion. Impression: 1. Fairly extensive chronic small vessel white matter ischemic changes of aging, old lacunar infarct right basal ganglia without vascular territory infarct, hemorrhage, mass or mass effect. 2. No ventriculomegaly or atrophy. No midline shift. 3. No intra or extra-axial hemorrhage, acute infarct, mass, edema or other significant finding. Signed by Twin Lundy MD 10/03/2016 07:33 P
[2016-10-03] MEDS ORDERED: GABAPENTIN 100 MG CAP PO ONE (11:45)
[2016-10-03] MEDS ORDERED: MORPHINE 2 MG/ML 1ML SYRINGE IV ONE (11:45)
[2016-10-03 12:00] VITALS: BP 133/77
[2016-10-03] MEDS: ASPIRIN ENTERIC 325 MG TAB PO SCH (12:20)
[2016-10-03] MEDS: metFORMIN (GLUCOPHAGE) 1000 MG TABLET PO SCH ×2 (12:20→20:40)
[2016-10-03 16:00] VITALS: BP 128/70
--- NOTE | 2016-10-03 16:21 | IPN ---
DATE: 10/03/2016 Patient is seen and examined at the bedside. Chart has been reviewed. She complains of right upper chest numbness which is new from yesterday. Continues to have left upper extremity weakness and numbness and right lower extremity and upper extremity paresthesias. Patient is currently on aspirin and Coumadin. VITAL SIGNS: Temperature 97.1, pulse 70, respiratory rate 18, blood pressure 138/87, 95% on room air. Generally, patient's face is symmetric, patient answers questions appropriately, speech is fluent. Some dysmetria [id number] testing, otherwise upper extremity motor function is 4/5, left lower extremity and left upper extremity, sensation is diminished on the right side, on the chest, right arm, and lower extremity. Lungs are clear to auscultation. No wheezing, rales, or rhonchi. Heart S1, S2, sinus rhythm. Abdomen is soft, nontender, nondistended. Positive bowel sounds. Extremities have no cyanosis or clubbing. LABORATORY DATA: CBC and metabolic panel have been reviewed. INR is therapeutic at 2.59. Glucose 188-376. White count 5, hemoglobin 11, hematocrit 36, platelet count 156. Sodium 140, potassium 3.5, chloride 103, bicarbonate 31, BUN 9, creatinine 0.69, glucose 205. Imaging studies have been reviewed. ASSESSMENT AND PLAN: This is a 56-year-old female with history of recurrent CVAs, on chronic Coumadin, therapeutic INR, on aspirin 81 daily, hypertension, uncontrolled diabetes, tobacco abuse, osteoporosis, fibromyalgia, anxiety and depression, presented to the emergency room with complaints of right-sided paresthesias with four prior CVAs in February 2016. Imaging studies included MRI and MRA of the brain which appears to be unchanged since prior study, there is focal stenosis, distal half of the left M1 segment, as well as middle third of the right M1 segment, mild stenosis right A1 segment. MRI of the brain shows no evidence of acute hemorrhage, extensive diffuse chronic small vessel ischemic disease which is stable since the prior study, no other acute findings. Patient was admitted to telemetry. Vital signs remain stable, sinus rhythm, with episodes of bradycardia, ventricular rate of 57 at 4 a.m. this morning while patient was asleep. Patient, otherwise, still continues to complain of paresthesias, now on the right chest. No other neurological complaints this morning. 1. Recurrent transient ischemic attacks (TIAs) with persistent complaints of right-sided paresthesias. Will repeat CT of the head today. Continue with neurological checks. Recommendations, per the patient, from neurology was to increase aspirin to 325, continue with Coumadin, continue on Lipitor. 2. Physical therapy evaluation and treatment. 3. Type 2 diabetes. Continue on Levemir 38 units nightly. Consistent carbohydrate diet. 4. Neuropathy. Continue with gabapentin. 5. Hyperlipidemia. Continue on Lipitor. 6. History of asthma. Continue on Singulair. 7. Reflux disease. On Prilosec. 8. Depression. On Zoloft. 9. Hypertension. Stable on hydrochlorothiazide and Cozaar. DISPOSITION: Patient, if repeat CT of the head is unremarkable, may be transferred to medical/surgical floor. Physical therapy (PT) clearance prior to discharge home. Await further recommendations from neurology. EZIO
[2016-10-03] MEDS: WARFARIN SOD 2.5 MG TAB PO SCH (17:14)
[2016-10-03 20:00] VITALS: BP 124/70
[2016-10-03] MEDS: MONTELUKAST 10 MG TAB PO SCH (20:40)
[2016-10-03] MEDS: LEVEMIR (INSULIN DETEMIR) 1 UNITS/0.01ML SC SCH (20:40)
[2016-10-03] MEDS: ATORVASTATIN 20 MG TAB PO SCH (20:40)
[2016-10-04] VITALS: BP 131/90
[2016-10-04 05:23] LABS: MEAN CORPUSCULAR HEMOGLOBIN 29.4 pg (27.0-33.0); MEAN CORPUSCULAR HGB CONC 33.2 g/dl (32.0-36.5); MEAN CORPUSCULAR VOLUME 88.6 fl (80.0-96.0); RED CELL DISTRIBUTION WIDTH 11.7 % (11.5-14.5); WHITE BLOOD COUNT 6.1 K/mm3 (4.0-10.0)
[2016-10-04] MEDS: SLF 3 ML SYR IV SCH ×3 (05:26→20:56)
[2016-10-04 05:31] LABS: INR 2.33
[2016-10-04 05:40] LABS: ANION GAP 7 MEQ/L (8-16); BLOOD UREA NITROGEN 10 MG/DL (7-18); CALCIUM LEVEL 8.8 MG/DL (8.5-10.1); CARBON DIOXIDE LEVEL 30 MEQ/L (21-32); CHLORIDE LEVEL 105 MEQ/L (98-107); CREATININE FOR GFR 0.73 MG/DL (0.55-1.02); GLOMERULAR FILTRATION RATE > 60.0 (>51); GLUCOSE, FASTING 142 MG/DL (70-105); POTASSIUM SERUM 3.7 MEQ/L (3.5-5.1); SODIUM LEVEL 142 MEQ/L (136-145)
[2016-10-04] MEDS: HumaLOG INSULIN (NovoLOG) PER UNIT SC SCH ×4 (07:57→20:56)
[2016-10-04 08:12] VITALS: BP 162/94
[2016-10-04] MEDS: hydroCHLOROthiazide 12.5 MG CAPSULE PO SCH (08:27)
[2016-10-04] MEDS: GABAPENTIN 300 MG CAP PO SCH ×3 (08:27→20:55)
[2016-10-04] MEDS: metFORMIN (GLUCOPHAGE) 1000 MG TABLET PO SCH ×2 (08:28→20:55)
[2016-10-04] MEDS: ASPIRIN ENTERIC 325 MG TAB PO SCH (08:28)
[2016-10-04] MEDS: LOSARTAN 50 MG TAB PO SCH (08:29)
[2016-10-04] MEDS: SERTRALINE HCL 50 MG TAB PO SCH (08:29)
[2016-10-04] MEDS: OMEPRAZOLE 20 MG CAP PO SCH (08:29)
[2016-10-04] MEDS: CETIRIZINE (ZyrTEC) 10 MG TAB PO SCH (08:29)
[2016-10-04] MEDS ORDERED: ASPI32ECTA PO (08:38)
[2016-10-04] MEDS: busPIRone 5 MG TAB PO SCH ×3 (10:37→17:25)
[2016-10-04 11:23] VITALS: BP_SYST 156; BP_DIAS 70; BP_DIAS 71
[2016-10-04] MEDS: NICOTINE 7 MG/24 HR TRANSDERMAL TD SCH (12:25)
[2016-10-04 14:00] VITALS: BP 138/68
--- NOTE | 2016-10-04 16:24 | EDDOCDS ---
Physician Documentation [facility] Name: Arlin Reardon Age: 56 yrs Sex: Female : 1960 Arrival Date: 10/01/2016 Time: 20:31 Bed I9 Private MD: Lana Jacobo Disposition: 10/02/16 02:28 Hospitalization ordered by Edil Medellin for Inpatient Admission. Preliminary diagnosis is Transient cerebral ischemic attack, unspecified. - Bed requested for PCU. - Status is Inpatient Admission. bcj - Condition is Stable. - Problem is an acute exacerbation. - Symptoms have improved. Historical: - Allergies: Zantac (Hives); - Home Meds: 1. albuterol sulfate 90 mcg/actuation Inhl HFAA 2 puffs every 4 hours as needed 2. Asmanex Twisthaler 220 mcg (120 doses) inhalation aepb 1 puff once daily 3. atorvastatin 40 mg oral tab nightly 4. buspirone 15 mg Oral tab three times a day 5. cetirizine 10 mg oral tab 1 tab once daily 6. Coumadin 2.5 mg Oral tab 1 tab once daily 7. gabapentin 300 mg Oral cap 1 cap 3 times per day 8. glimepiride 2 mg Oral tab once daily 9. hydroxyzine HCl 50 mg Oral tab nightly as needed 10. Lantus 38 units Sub-Q nightly 11. losartan-hydrochlorothiazide 50-12.5 mg oral tab 1 tab once daily 12. metformin 1,000 mg Oral tab daily 13. Novolog sliding scale Sub-Q before meals 14. Singulair 10 mg Oral tab 1 tab once daily - PMHx: Asthma; CVA; Diabetes - IDDM: controlled; feet and hands go numb; GERD; - PSHx: Hysterectomy; Cholecystectomy; - Social history: Smoking status: Patient uses tobacco products, light tobacco smoker. No barriers to communication noted, Speaks appropriately for age. - Family history: Not pertinent. - : The pt / caregiver states he / she is on anticoagulants: coumadin. Home medication list is obtained from the patient. - Exposure Risk Screening:: None identified. Vital Signs: 10/01 20:32 BP 178 / 106; Pulse 94; Resp 18 S; Pulse Ox 97% on R/A; Weight 73.94 kg / 163.01 lbs gr2 (R); Height 5 ft. 2 in. (157.48 cm) (R); Pain 4/10; 20:52 BP 137 / 93 (auto/); ld5 20:56 Pulse 92 MON; Pulse Ox 96% ; ld5 21:23 BP 130 / 72 (auto/); ld5 21:23 Pulse 84 MON; Pulse Ox 95% ; ld5 21:49 Temp 98.2; ld5 21:53 BP 129 / 83 (auto/); ld5 21:53 Pulse 86 MON; Pulse Ox 95% ; ld5 22:16 BP 128 / 77 (auto/); ld5 22:16 Pulse 82 MON; Pulse Ox 94% ; ld5 22:24 BP 120 / 78 (auto/); ld5 22:24 Pulse 84 MON; Pulse Ox 94% ; ld5 22:39 BP 137 / 72 (auto/); ld5 22:39 Pulse 80 MON; Pulse Ox 95% ; ld5 22:54 BP 142 / 76 (auto/); ld5 22:54 Pulse 78 MON; Pulse Ox 94% ; ld5 23:09 BP 128 / 66 (auto/); ld5 23:09 Pulse 78 MON; Pulse Ox 94% ; ld5 02/ 00:54 BP 141 / 87 (auto/); ld5 00:56 Pulse 80 MON; Resp 18; Temp 98; Pulse Ox 94% ; Pain 0/10; ld5 01:24 BP 134 / 74 (auto/); ld5 01:24 Pulse 76 MON; Pulse Ox 92% ; ld5 01:54 BP 132 / 72 (auto/); ld5 01:54 Pulse 74 MON; Pulse Ox 93% ; ld5 02:24 BP 149 / 84 (auto/); ld5 02:24 Pulse 72 MON; Pulse Ox 93% ; ld5 10/01 20:32 Body Mass Index 29.81 (73.94 kg, 157.48 cm) gr2 10/01 20:32 TEMP NEEDS TO BE TAKEN gr2 MDM: 20:56 RN interventions must not delay CT ordered. mm11 20:56 Air Transport Professionals/Pulse Ox/q 15 min VS ordered. mm11 20:56 Accucheck ordered. mm11 20:56 IV Saline Lock ordered. mm11 20:56 Neuro VS q 15 Minutes ordered. mm11 20:56 Patient must be on CC stretcher and weighed via bed scale ordered. mm11 20:56 Rhythm Strip to chart ordered. mm11 20:58 Chest, 1 View Ordered. EDMS 20:58 Basic Metabolic Profile Ordered. EDMS 20:58 CBC with Diff Ordered. EDMS 20:58 Partial Thromboplastin Time Ordered. EDMS 20:58 Prothrombin Time Profile\E\INR Ordered. EDMS 20:58 Type & Screen Ordered. EDMS 20:58 CT Head Without Contrast Ordered. EDMS 20:58 ECG WITH READING ER PHYS+CARDIAG ordered. EDMS 21:34 Fingerstick Blood Sugar Ordered. EDMS 21:41 Basic Metabolic Profile Reviewed. mm11 21:41 CBC with Diff Reviewed. mm11 21:41 Partial Thromboplastin Time Reviewed. mm11 21:41 Prothrombin Time Profile\E\INR Reviewed. mm11 21:41 Fingerstick Blood Sugar Reviewed. mm11 21:58 MRI Screening Tool - Place on chart, inform RN ordered. mm11 21:58 Misc. Nursing Order ordered. mm11 22:00 -MRA-Brain without contrast Ordered. EDMS 22:00 -MRI-Brain without Ordered. EDMS 22:02 Financial registration complete. [email or web address] 22:06 Type & Screen Reviewed. mm11 22:19 [facility] Payment Agreement was scanned into [employer] and attached to record. [email or web address] 22:23 The patient was assigned to Observation Status due to uncertainty of mm11 diagnosis/disposition, and remained under my care. 22:26 MRI Screening Tool - Place on chart, inform RN complete. ml3 22:35 CT Head Without Contrast Reviewed. mm11 23:38 LORazepam 1 mg IVP once ordered. mm11 10/02 02:20 BED REQUEST+ADM ordered. EDMS 03:08 CONSISTENT CARBOHYDRATES ordered. EDMS 03:08 BASIC METABOLIC PROFILE Ordered. EDMS 03:08 COMPLETE BLOOD COUNT Ordered. EDMS 03:08 PROTHROMBIN TIME PROFILE\E\INR Ordered. EDMS 03:09 PHYSICAL THERAPY EVAL & TREAT ordered. EDMS 03:09 Admission / Observation Status ordered. EDMS 09:30 T-Sheet-- Draft Copy was scanned into [employer] and attached to record. gb 10/03 17:24 ECG/EKG was scanned into [employer] and attached to record. gb 17:25 Radiology Report was scanned into [employer] and attached to record. gb Point of Care Testing: Blood Glucose: 10/01 21:26 Blood Glucose: 376 mg/dL; ld5 Ranges: Administered Medications: 23:48 Drug: LORazepam 1 mg [lorazepam 2 mg/mL injection solution (0.5 mL)] Route: IVP; Site: ld5 left forearm; Signatures: Dispatcher [employer] EDMS Ghanshyam Frankel, RN RN bcj Sona Liang, Reg Reg gb CandidoPaulinaRachel, Seo Engineer Unit ml3 Derek Haque, DO DO mm11 Joy Padilla RN RN rs3 Barbara Mukherjee RN RN ld5 Fracnesco Goodrich, BELT SEWER BELT SEWER Lali Wayne, Reg Reg [email or web address] The chart was reviewed and I authenticate all verbal orders and agree with the evaluation and treatment provided.Attachments: 22:19 [facility] Payment Agreement [email or web address] 10/02 09:30 T-Sheet-- Draft Copy 10/03 17:24 ECG/EKG Chart Complete MTDD
--- NOTE | 2016-10-04 16:24 | EDDOCDS ---
Nurse's Notes [facility] Name: Arlin Reardon Age: 56 yrs Sex: Female : 1960 Arrival Date: 10/01/2016 Time: 20:31 Bed I9 / 22 Private MD: Lana Jacobo Diagnosis: Transient cerebral ischemic attack, unspecified Presentation: 10/01 20:36 Presenting complaint: Patient states: Right arm numbness and right leg numbness started rs3 yesterday. reports of dizziness on and off since 6 pm. denies headache, blurred vision, slurred speech. H/o multiple TIA's. The last date and time the patient was known to be well was was at an unknown time on September 30, 2016. No acute neurological deficit is noted. Pre-hospital glucose is not applicable to this patient. Adult Sepsis Screening: The patient does not have new or worsening altered mentation. Patient's respiratory rate is less than 22. Systolic blood pressure is greater than 100. Patient has a qSOFA score of 0- Negative Sepsis Screen. Suicide/Homicide risk assessment- the patient denies having any suicidal and/or homicidal ideations and does not present with any other emotional, behavioral or mental health complaints. Status: Patient is not a counseling services manager or dependent. Transition of care: patient was not received from another setting of care. 20:36 Acuity: CLARK Level 2 rs3 20:36 Method Of Arrival: Wheelchair rs3 Triage Assessment: 20:40 The onset of the patients symptoms was more than three hours ago. General: Appears in rs3 no apparent distress. Pain: Denies pain. HIV screening NA for this visit Offered previously. Neurological: Level of Consciousness is awake, alert, Reports numbness. Historical: - Allergies: Zantac (Hives); - Home Meds: 1. albuterol sulfate 90 mcg/actuation Inhl HFAA 2 puffs every 4 hours as needed 2. Asmanex Twisthaler 220 mcg (120 doses) inhalation aepb 1 puff once daily 3. atorvastatin 40 mg oral tab nightly 4. buspirone 15 mg Oral tab three times a day 5. cetirizine 10 mg oral tab 1 tab once daily 6. Coumadin 2.5 mg Oral tab 1 tab once daily 7. gabapentin 300 mg Oral cap 1 cap 3 times per day 8. glimepiride 2 mg Oral tab once daily 9. hydroxyzine HCl 50 mg Oral tab nightly as needed 10. Lantus 38 units Sub-Q nightly 11. losartan-hydrochlorothiazide 50-12.5 mg oral tab 1 tab once daily 12. metformin 1,000 mg Oral tab daily 13. Novolog sliding scale Sub-Q before meals 14. Singulair 10 mg Oral tab 1 tab once daily - PMHx: Asthma; CVA; Diabetes - IDDM: controlled; feet and hands go numb; GERD; - PSHx: Hysterectomy; Cholecystectomy; - Social history: Smoking status: Patient uses tobacco products, light tobacco smoker. No barriers to communication noted, Speaks appropriately for age. - Family history: Not pertinent. - : The pt / caregiver states he / she is on anticoagulants: coumadin. Home medication list is obtained from the patient. - Exposure Risk Screening:: None identified. Screenin/10 02:13 Screening information is obtained from the patient, family members. Fall risk: At risk ld5 due to numbness to legs. Assistance ADL's: requires no assistance with activities of daily living. Abuse/DV Screen: The patient / caregiver reports he/she is: not in a situation that causes fear, pain or injury. Nutritional screening: No deficits noted. Advance Directives: There is no active DNR order. home support is adequate. Assessment: 10/01 21:10 General: Appears in no apparent distress, Behavior is cooperative, pleasant. Pain: ld5 Denies pain. Neurological: Level of Consciousness is awake, alert, obeys commands, Oriented to person, place, time, Appeals Referee are equal bilaterally Moves all extremities. Speech is normal, Facial symmetry appears normal, Facial symmetry: tongue is midline, Numbness in face, right arm, left arm, right leg and left leg Pt reports numbness worse on right side than left. Respiratory: Airway is patent Respiratory effort is even, unlabored, Reports cough that is non-productive, since yesterday. GI: Abdomen is obese, Bowel sounds present X 4 quads. Abd is soft and non tender X 4 quads. Reports nausea, Denies vomiting. Derm: Skin is intact, Skin is dry, Skin is redness to face. 21:36 General: Pt returned from CT. Tolerated well. Will continue to monitor. ld5 22:09 General: Pt laying in bed watching TV. A&O x3. Water and diet scott naomi given. Will ld5 continue to monitor. 22:40 General: Appears in no apparent distress, Behavior is appropriate for age, cooperative, ld5 Aware of plan for MRI. Will continue to monitor. 23:34 General: Pt resting quietly in bed. No complaints at this time. No change in symptoms. ld5 Will continue to monitor. 23:51 General: Pt having difficulty laying through MRI. This RN to MRI to medicate pt. Will ld5 continue to monitor. 10/02 00:18 General: Pt remains in MRI. ld5 01:01 General: Pt returned from MRI. Tolerated well. Denies pain. Respirations easy and ld5 unlabored. Will continue to monitor. 01:25 General: Appears in no apparent distress, Pt laying in bed with eyes closed. Call tian ld5 within reach. Will continue to monitor. 02:10 General: Pt sleeping. Aroused to voice. Updated pt and family on MRI result status. Pt ld5 reports comfortable at this time. Call tian within reach. Will continue to monitor. 02:47 General: Appears in no apparent distress. Respiratory: Airway is patent Respiratory ld5 effort is even, unlabored. 02:49 General: Hospitalist in to assess pt. ld5 03:05 General: Appears in no apparent distress, Behavior is appropriate for age, cooperative, ko2 pleasant. Pain: Denies pain. Neurological: Level of Consciousness is awake, alert, obeys commands. Neurological: Oriented to person, place, time, Appeals Referee are equal bilaterally Moves all extremities. Speech is normal, Facial symmetry appears normal, Facial symmetry: tongue is midline, Pupils are PERRLA. Respiratory: Airway is patent Respiratory effort is even, unlabored. Derm: Skin is. 03:50 General: Report given to Derek Dodd RN. Please see [facility] for further ko2 documentation. Vital Signs: 10/01 20:32 BP 178 / 106; Pulse 94; Resp 18 S; Pulse Ox 97% on R/A; Weight 73.94 kg (R); Height 5 gr2 ft. 2 in. (157.48 cm) (R); Pain 4/10; 20:52 BP 137 / 93 (auto/); ld5 20:56 Pulse 92 MON; Pulse Ox 96% ; ld5 21:23 BP 130 / 72 (auto/); ld5 21:23 Pulse 84 MON; Pulse Ox 95% ; ld5 21:49 Temp 98.2; ld5 21:53 BP 129 / 83 (auto/); ld5 21:53 Pulse 86 MON; Pulse Ox 95% ; ld5 22:16 BP 128 / 77 (auto/); ld5 22:16 Pulse 82 MON; Pulse Ox 94% ; ld5 22:24 BP 120 / 78 (auto/); ld5 22:24 Pulse 84 MON; Pulse Ox 94% ; ld5 22:39 BP 137 / 72 (auto/); ld5 22:39 Pulse 80 MON; Pulse Ox 95% ; ld5 22:54 BP 142 / 76 (auto/); ld5 22:54 Pulse 78 MON; Pulse Ox 94% ; ld5 23:09 BP 128 / 66 (auto/); ld5 23:09 Pulse 78 MON; Pulse Ox 94% ; ld5 02 00:54 BP 141 / 87 (auto/); ld5 00:56 Pulse 80 MON; Resp 18; Temp 98; Pulse Ox 94% ; Pain 0/10; ld5 01:24 BP 134 / 74 (auto/); ld5 01:24 Pulse 76 MON; Pulse Ox 92% ; ld5 01:54 BP 132 / 72 (auto/); ld5 01:54 Pulse 74 MON; Pulse Ox 93% ; ld5 02:24 BP 149 / 84 (auto/); ld5 02:24 Pulse 72 MON; Pulse Ox 93% ; ld5 10/01 20:32 Body Mass Index 29.81 (73.94 kg, 157.48 cm) gr2 10/01 20:32 TEMP NEEDS TO BE TAKEN gr2 Vitals: 20:32 Log In Time: October 01, 2016 at 20:32. RN notified that patient meets Red Flag gr2 criteria. 21:26 Glucose Measurement D-stick in Triage- Hyperglycemia. ld5 ED Course: 20:32 Patient visited by Jeane Joyner. gr2 20:32 Lana Jacobo is Private Physician. gr2 20:32 Patient moved to Waiting gr2 20:35 Patient visited by Jeane Joyner. gr2 20:35 Patient moved to Pre RCE gr2 20:39 Triage Initiated rs3 20:41 Patient moved to 6 rs3 20:43 Derek Haque DO is Attending Physician. mm11 20:43 Patient visited by Derek Haque DO. mm11 20:55 Patient visited by Derek Haque DO. mm11 21:02 Basic Metabolic Profile Sent. ld5 21:02 CBC with Diff Sent. ld5 21:02 Partial Thromboplastin Time Sent. ld5 21:02 Prothrombin Time Profile\E\INR Sent. ld5 21:02 Type & Screen Sent. ld5 21:21 Patient visited by Zeinab Rivas PCA. cln 21:21 Patient visited by Barbara Mukherjee,ESTEFANIA. ld5 21:21 The patient / caregiver is instructed regarding the plan of care and ED course. ld5 Accompanied by Family Member, Patient has correct armband on for positive identification. Placed in gown. Bed in low position. Call light in reach. snuff packing machine operator on. Pulse ox on. NIBP on. 21:21 EKG done. (by ED staff). Reviewed by Derek Haque DO. cln 21:21 Inserted saline lock: 20 gauge in left forearm and blood collected. The patient ld5 tolerated the procedure well. Labs drawn. (by ED staff). Sent per order to lab. 21:34 Fingerstick Blood Sugar Sent. ld5 21:36 Patient visited by Barbara Mukherjee RN. ld5 21:50 Patient visited by Barbara Mukherjee RN. ld5 21:58 Patient moved to OBSERVATION mm11 22:09 Patient visited by Barbara Mukherjee RN. ld5 22:10 CT Head Without Contrast Returned. EDMS 22:19 [facility] Payment Agreement was scanned into [employer] and attached to record. ks16 23:35 Patient visited by Barbara Mukherjee RN. ld5 23:37 Patient moved to MRI ml3 23:37 Patient moved to OBSERVATION ml3 23:52 Patient visited by Barbara Mukherjee,ESTEFANIA. ld5 02 00:19 Patient visited by Barbara Mukherjee RN. ld5 00:41 -MRI-Brain without Returned. EDMS 01:02 Patient visited by Barbara Mukherjee RN. ld5 01:18 -MRA-Brain without contrast Returned. EDMS 01:25 Patient visited by Barbara Mukherjee RN. ld5 01:56 Chest, 1 View Returned. EDMS 02:14 Patient visited by Barbara Mukherjee RN. ld5 02:27 Edil Medellin is Hospitalizing Provider. mm11 02:47 Patient visited by Barbara Mukherjee RN. ld5 03:19 Patient moved to 7 aug 03:19 Patient moved to Admit Hold aug 07:55 Patient moved to I js13 09:30 T-Sheet-- Draft Copy was scanned into [employer] and attached to record. gb 15:21 No procedures done that require assistance. bcj 15:22 Patient visited by Ghanshyam Frankel RN. bcj 10/03 17:24 ECG/EKG was scanned into [employer] and attached to record. gb 17:25 Radiology Report was scanned into [employer] and attached to record. gb Administered Medications: 10/01 23:48 Drug: LORazepam 1 mg [lorazepam 2 mg/mL injection solution (0.5 mL)] Route: IVP; Site: ld5 left forearm; Point of Care Testing: Blood Glucose: 21:26 Blood Glucose: 376 mg/dL; ld5 Ranges: Order Results: Lab Order: Basic Metabolic Profile; [facility] 10/01/16 21:00 Test: GLUCOSE, FASTING; Value: 367; Range: 70-105; Abnormal: Above high normal; Units: MG/DL; Status: F Test: BLOOD UREA NITROGEN; Value: 5; Range: 7-18; Abnormal: Below low normal; Units: MG/DL; Status: F Test: CREATININE FOR GFR; Value: 0.84; Range: 0.55-1.02; Units: MG/DL; Status: F Test: GLOMERULAR FILTRATION RATE; Value: > 60.0; Range: >51; Status: F Test: SODIUM LEVEL; Value: 137; Range: 136-145; Units: MEQ/L; Status: F Test: POTASSIUM SERUM; Value: 3.7; Range: 3.5-5.1; Units: MEQ/L; Status: F Test: CHLORIDE LEVEL; Value: 101; Range: 98-107; Units: MEQ/L; Status: F Test: CARBON DIOXIDE LEVEL; Value: 28; Range: 21-32; Units: MEQ/L; Status: F Test: ANION GAP; Value: 8; Range: 8-16; Units: MEQ/L; Status: F Test: CALCIUM LEVEL; Value: 8.8; Range: 8.5-10.1; Units: MG/DL; Status: F Test Note: ; Units are mL/min/1.73 m2 Chronic Kidney Disease Staging per NKF: Stage I & II GFR >=60 Normal to Mildly Decreased Stage III GFR 30-59 Moderately Decreased Stage IV GFR 15-29 Severely Decreased Stage V GFR <15 Very Little GFR Left ESRD GFR <15 on SUPERSONIC ENGINEER Lab Order: CBC with Diff; SPEC'M 10/01/16 21:00 Test: WHITE BLOOD COUNT; Value: 4.7; Range: 4.0-10.0; Units: K/mm3; Status: F Test: RED BLOOD COUNT; Value: 4.26; Range: 4.00-5.40; Units: M/mm3; Status: F Test: HEMOGLOBIN; Value: 12.5; Range: 12.0-16.0; Units: g/dl; Status: F Test: HEMATOCRIT; Value: 38.2; Range: 36.0-47.0; Units: %; Status: F Test: MEAN CORPUSCULAR VOLUME; Value: 89.7; Range: 80.0-96.0; Units: fl; Status: F Test: MEAN CORPUSCULAR HEMOGLOBIN; Value: 29.2; Range: 27.0-33.0; Units: pg; Status: F Test: MEAN CORPUSCULAR HGB CONC; Value: 32.6; Range: 32.0-36.5; Units: g/dl; Status: F Test: RED CELL DISTRIBUTION WIDTH; Value: 11.7; Range: 11.5-14.5; Units: %; Status: F Test: PLATELET COUNT, AUTOMATED; Value: 149; Range: 150-450; Abnormal: Below low normal; Units: k/mm3; Status: F Test: NEUTROPHILS %; Value: 56.9; Range: 36.0-66.0; Units: %; Status: F Test: LYMPH %; Value: 26.9; Range: 24.0-44.0; Units: %; Status: F Test: MONO %; Value: 7.0; Range: 0.0-5.0; Abnormal: Above high normal; Units: %; Status: F Test: EOS %; Value: 6.2; Range: 0.0-3.0; Abnormal: Above high normal; Units: %; Status: F Test: BASO %; Value: 1.0; Range: 0.0-1.0; Units: %; Status: F Test: LARGE UNSTAINED CELL %; Value: 1.9; Range: 0.0-4.0; Units: %; Status: F Test: NEUTROPHILS #; Value: 2.7; Range: 1.8-7.7; Units: K/mm3; Status: F Test: LYMPH #; Value: 1.4; Range: 1.5-4.5; Abnormal: Below low normal; Units: K/mm3; Status: F Test: MONO #; Value: 0.3; Range: 0.0-0.8; Units: K/mm3; Status: F Test: EOS #; Value: 0.3; Range: 0.0-0.50; Units: K/mm3; Status: F Test: BASO #; Value: 0.0; Range: 0.0-0.2; Units: K/mm3; Status: F Test: LARGE UNSTAINED CELL #; Value: 0.1; Range: 0.0-0.4; Units: K/mm3; Status: F Lab Order: Partial Thromboplastin Time; [facility] 10/01/16 21:00 Test: PARTIAL THROMBOPLASTIN TIME; Value: 54.5; Range: 26.6-37.1; Abnormal: Above high normal; Units: SECONDS; Status: F Lab Order: Prothrombin Time Profile\E\INR; [facility] 10/01/16 21:00 Test: PROTHROMBIN TIME; Value: 26.6; Range: 12.3-14.5; Abnormal: Above high normal; Units: SECONDS; Status: F Test: INR; Value: 2.45; Status: F Test Note: ; THERAPUTIC HUMAN INR VALUES INDICATIONS NORMAL RANGES PROPHYLAXIS/TREATMENT OF: VENOUS THROMBOSIS 2.0-3.0 PULMONARY EMBOLISM 2.0-3.0 PREVENTION OF SYSTEMIC EMBOLISM FROM: TISSUE HEART VALVES 2.0-3.0 ACUTE MYOCARDIAL INFARCTION 2.0-3.0 VALVULAR HEART DISEASE 2.0-3.0 ATRIAL FIBRILLATION 2.0-3.0 MECHANICAL VALVES(HIGH RISK) 2.5-3.5 RECURRENT MYOCARDIAL INFARCTION 2.5-3.5 Lab Order: Type & Screen; [facility] 10/01/16 21:00 Test: BLOOD TYPE; Value: A POS; Status: F Test: AB SCREEN (INDIRECT FRANCISCO J)VIS; Value: NEGATIVE; Status: F Lab Order: Fingerstick Blood Sugar; [facility] 10/01/16 21:25 Test: BEDSIDE GLUCOSE; Value: 376; Range: 70-105; Abnormal: Above high normal; Units: MG/DL; Status: F Test Note: ; Doctor Notified Lab Order: BASIC METABOLIC PROFILE; [facility] 10/02/16 07:02 Test: GLUCOSE, FASTING; Value: 160; Range: 70-105; Abnormal: Above high normal; Units: MG/DL; Status: F Test: BLOOD UREA NITROGEN; Value: 6; Range: 7-18; Abnormal: Below low normal; Units: MG/DL; Status: F Test: CREATININE FOR GFR; Value: 0.73; Range: 0.55-1.02; Units: MG/DL; Status: F Test: GLOMERULAR FILTRATION RATE; Value: > 60.0; Range: >51; Status: F Test: SODIUM LEVEL; Value: 139; Range: 136-145; Units: MEQ/L; Status: F Test: POTASSIUM SERUM; Value: 3.5; Range: 3.5-5.1; Units: MEQ/L; Status: F Test: CHLORIDE LEVEL; Value: 102; Range: 98-107; Units: MEQ/L; Status: F Test: CARBON DIOXIDE LEVEL; Value: 30; Range: 21-32; Units: MEQ/L; Status: F Test: ANION GAP; Value: 7; Range: 8-16; Abnormal: Below low normal; Units: MEQ/L; Status: F Test: CALCIUM LEVEL; Value: 8.5; Range: 8.5-10.1; Units: MG/DL; Status: F Test Note: ; Units are mL/min/1.73 m2 Chronic Kidney Disease Staging per NKF: Stage I & II GFR >=60 Normal to Mildly Decreased Stage III GFR 30-59 Moderately Decreased Stage IV GFR 15-29 Severely Decreased Stage V GFR <15 Very Little GFR Left ESRD GFR <15 on SUPERSONIC ENGINEER Lab Order: COMPLETE BLOOD COUNT; [facility] 10/02/16 07:02 Test: WHITE BLOOD COUNT; Value: 4.8; Range: 4.0-10.0; Units: K/mm3; Status: F Test: RED BLOOD COUNT; Value: 4.28; Range: 4.00-5.40; Units: M/mm3; Status: F Test: HEMOGLOBIN; Value: 12.7; Range: 12.0-16.0; Units: g/dl; Status: F Test: HEMATOCRIT; Value: 38.1; Range: 36.0-47.0; Units: %; Status: F Test: MEAN CORPUSCULAR VOLUME; Value: 89.1; Range: 80.0-96.0; Units: fl; Status: F Test: MEAN CORPUSCULAR HEMOGLOBIN; Value: 29.7; Range: 27.0-33.0; Units: pg; Status: F Test: MEAN CORPUSCULAR HGB CONC; Value: 33.3; Range: 32.0-36.5; Units: g/dl; Status: F Test: RED CELL DISTRIBUTION WIDTH; Value: 11.4; Range: 11.5-14.5; Abnormal: Below low normal; Units: %; Status: F Test: PLATELET COUNT, AUTOMATED; Value: 154; Range: 150-450; Units: k/mm3; Status: F Lab Order: PROTHROMBIN TIME PROFILE\E\INR; SPEC10/02/16 07:02 Test: PROTHROMBIN TIME; Value: 28.4; Range: 12.3-14.5; Abnormal: Above high normal; Units: SECONDS; Status: F Test: INR; Value: 2.66; Status: F Test Note: ; THERAPUTIC HUMAN INR VALUES INDICATIONS NORMAL RANGES PROPHYLAXIS/TREATMENT OF: VENOUS THROMBOSIS 2.0-3.0 PULMONARY EMBOLISM 2.0-3.0 PREVENTION OF SYSTEMIC EMBOLISM FROM: TISSUE HEART VALVES 2.0-3.0 ACUTE MYOCARDIAL INFARCTION 2.0-3.0 VALVULAR HEART DISEASE 2.0-3.0 ATRIAL FIBRILLATION 2.0-3.0 MECHANICAL VALVES(HIGH RISK) 2.5-3.5 RECURRENT MYOCARDIAL INFARCTION 2.5-3.5 Lab Order: Fingerstick Blood Sugar; SPEC'10/02/16 12:00 Test: BEDSIDE GLUCOSE; Value: 188; Range: 70-105; Abnormal: Above high normal; Units: MG/DL; Status: F Radiology Order: CT Head Without Contrast Test: CT Head Without Contrast REASON FOR EXAMINATION: CVA >4.5hrs; ; CT of the head; Clinical history: CVA.; Comparison: 1220 16,016.; Technique: Multiple axial CT images were obtained through the head without administration of contrast; .; Findings: The ventricles and sulci are symmetric bilaterally. There is no evidence of acute hemorrhag; e or infarct. Diffuse scattered areas of low attenuation are seen throughout the subcortical white ma; tter, and are grossly stable. There is no midline shift, mass effect, or extra-axial fluid collection; . The osseous structures are unremarkable. The visualized paranasal sinuses and mastoid air cells are; clear.; Impression: No evidence of acute hemorrhage or infarct. Scattered subcortical low attenuation changes; are stable since the prior study. This is consistent with chronic ischemic changes. If there is furt; her clinical concern, MRI could be performed.; ; Radiology Order: Chest, 1 View Test: Chest, 1 View REASON FOR EXAMINATION: CVA >4.5hrs; Clinical: Cerebrovascular accident .; ; Comparison: 09/11/2016 .; ; Technique: PA view of the chest .; ; Findings:; The mediastinum and cardiac silhouette are normal. The lung byers are clear and; without acute consolidation, effusion, or pneumothorax. The skeletal structures; are intact and normal.; ; Impression:; 1. No acute cardiopulmonary process.; ; ; Signed by; Willis Dale MD 10/02/2016 01:27 A; Radiology Order: -MRA-Brain without contrast Test: -MRA-Brain without contrast REASON FOR EXAMINATION: CVA >4.5hrs; ; MRA of the brain; clinical history: CVA.; Technique: [id number] MRA images of the brain were obtained without administration of contrast. 3; -D MIP images were also obtained.; Findings: The focal stenosis of the left MCA M1 segment is grossly stable. There is moderate focal na; rrowing of the right M1 segment. The distal MCA segments appear grossly unremarkable. Mild narrowing; of the proximal right A1 segment is stable. The left A1 segment is unremarkable. The distal segments; are within normal limits. The patient is left vertebral artery dominant, and the left vertebral arter; y is hypertrophy. Basilar artery is within normal limits.; Impression:; 1. Focal stenosis of the distal half of the left M1 segment.; 2. Focal stenosis of the middle third of the right M1 segment.; 3. Mild stenosis of the right A1 segment.; 4. Overall, no significant change since the prior study.; ; Radiology Order: -MRI-Brain without Test: -MRI-Brain without REASON FOR EXAMINATION: CVA >4.5hrs; ; MRI of the brain without contrast; clinical history: CVA.; Comparison: CT, 10/01/2016, MRI 05/12/2016.; Technique: Multiecho multiplanar MRI images of the brain were obtained without administration of cont; rast. Diffusion weighted images with ADC mapping was also obtained.; Findings:; The ventricles and sulci are symmetric bilaterally. The brain parenchyma demonstrates extensive scatt; ered areas of T2 hyperintensity throughout the periventricular and subcortical white matter. There is; a focus of T2 shine through in the right sub cortical region, which is stable since the prior study; . There is no midline shift, mass effect, or extra-axial fluid collection. The midline intracranial s; tructures do not demonstrate any gross abnormalities. The cervical cranial junction is intact. The or; bits are unremarkable. The visualized paranasal sinuses and mastoid air cells are clear. The osseous; structures and superficial soft tissues are unremarkable. The vascular structures demonstrate appropr; iate flow voids.; Impression: No evidence of acute hemorrhage. Extensive diffuse chronic small vessel ischemic disease; is stable since the prior study. No other acute findings.; ; Outcome: 10/02 02:13 CT Study completed. MRI Study completed. ld5 02:28 Decision to Hospitalize by Provider. mm11 15:21 Discharge Assessment: patient administered narcotics - no. The following High Risk [facility] Discharge criteria are identified: None. Admitted to PCU accompanied by nurse, accompanied by tech, via stretcher, on monitor, with chart. Condition: stable. Property :Personal belongings accompany Pt. 15:23 Patient left the ED. [facility] Signatures: Dis[facility] Ghanshyam Nelson RN RN bcj Newman, Jill New, RN RN jan Barnhardt, Sona, Reg Reg gb Candido, Ten, Asset Protection Detective Unit ml3 Derek Haque, DO DO mm11 Joy Padilla,RN RN rs3 Barbara Mukherjee,RN RN ld5 Isabel Martinez,RN RN js13 Jeane Joyner gr2 Sweetie Perry,RN RN [id number] Lali Newton, Reg Reg ks16 Rob, Zeinab, VISUAL MERCHANDISING SPECIALIST VISUAL MERCHANDISING SPECIALIST cln Chart Complete MTDD
--- NOTE | 2016-10-04 16:24 | EDDOCDS ---
Physician Documentation [facility] Name: Arlin Reardon Age: 56 yrs Sex: Female : 1960 Arrival Date: 10/01/2016 Time: 20:31 Bed I9 Private MD: Lana Jacobo Disposition: 10/02/16 02:28 Hospitalization ordered by Edil Medellin for Inpatient Admission. Preliminary diagnosis is Transient cerebral ischemic attack, unspecified. - Bed requested for PCU. - Status is Inpatient Admission. bcj - Condition is Stable. - Problem is an acute exacerbation. - Symptoms have improved. Historical: - Allergies: Zantac (Hives); - Home Meds: 1. albuterol sulfate 90 mcg/actuation Inhl HFAA 2 puffs every 4 hours as needed 2. Asmanex Twisthaler 220 mcg (120 doses) inhalation aepb 1 puff once daily 3. atorvastatin 40 mg oral tab nightly 4. buspirone 15 mg Oral tab three times a day 5. cetirizine 10 mg oral tab 1 tab once daily 6. Coumadin 2.5 mg Oral tab 1 tab once daily 7. gabapentin 300 mg Oral cap 1 cap 3 times per day 8. glimepiride 2 mg Oral tab once daily 9. hydroxyzine HCl 50 mg Oral tab nightly as needed 10. Lantus 38 units Sub-Q nightly 11. losartan-hydrochlorothiazide 50-12.5 mg oral tab 1 tab once daily 12. metformin 1,000 mg Oral tab daily 13. Novolog sliding scale Sub-Q before meals 14. Singulair 10 mg Oral tab 1 tab once daily - PMHx: Asthma; CVA; Diabetes - IDDM: controlled; feet and hands go numb; GERD; - PSHx: Hysterectomy; Cholecystectomy; - Social history: Smoking status: Patient uses tobacco products, light tobacco smoker. No barriers to communication noted, Speaks appropriately for age. - Family history: Not pertinent. - : The pt / caregiver states he / she is on anticoagulants: coumadin. Home medication list is obtained from the patient. - Exposure Risk Screening:: None identified. Vital Signs: 10/01 20:32 BP 178 / 106; Pulse 94; Resp 18 S; Pulse Ox 97% on R/A; Weight 73.94 kg / 163.01 lbs gr2 (R); Height 5 ft. 2 in. (157.48 cm) (R); Pain 4/10; 20:52 BP 137 / 93 (auto/); ld5 20:56 Pulse 92 MON; Pulse Ox 96% ; ld5 21:23 BP 130 / 72 (auto/); ld5 21:23 Pulse 84 MON; Pulse Ox 95% ; ld5 21:49 Temp 98.2; ld5 21:53 BP 129 / 83 (auto/); ld5 21:53 Pulse 86 MON; Pulse Ox 95% ; ld5 22:16 BP 128 / 77 (auto/); ld5 22:16 Pulse 82 MON; Pulse Ox 94% ; ld5 22:24 BP 120 / 78 (auto/); ld5 22:24 Pulse 84 MON; Pulse Ox 94% ; ld5 22:39 BP 137 / 72 (auto/); ld5 22:39 Pulse 80 MON; Pulse Ox 95% ; ld5 22:54 BP 142 / 76 (auto/); ld5 22:54 Pulse 78 MON; Pulse Ox 94% ; ld5 23:09 BP 128 / 66 (auto/); ld5 23:09 Pulse 78 MON; Pulse Ox 94% ; ld5 02/ 00:54 BP 141 / 87 (auto/); ld5 00:56 Pulse 80 MON; Resp 18; Temp 98; Pulse Ox 94% ; Pain 0/10; ld5 01:24 BP 134 / 74 (auto/); ld5 01:24 Pulse 76 MON; Pulse Ox 92% ; ld5 01:54 BP 132 / 72 (auto/); ld5 01:54 Pulse 74 MON; Pulse Ox 93% ; ld5 02:24 BP 149 / 84 (auto/); ld5 02:24 Pulse 72 MON; Pulse Ox 93% ; ld5 10/01 20:32 Body Mass Index 29.81 (73.94 kg, 157.48 cm) gr2 10/01 20:32 TEMP NEEDS TO BE TAKEN gr2 MDM: 20:56 RN interventions must not delay CT ordered. mm11 20:56 Sales Attendant/Pulse Ox/q 15 min VS ordered. mm11 20:56 Accucheck ordered. mm11 20:56 IV Saline Lock ordered. mm11 20:56 Neuro VS q 15 Minutes ordered. mm11 20:56 Patient must be on CC stretcher and weighed via bed scale ordered. mm11 20:56 Rhythm Strip to chart ordered. mm11 20:58 Chest, 1 View Ordered. EDMS 20:58 Basic Metabolic Profile Ordered. EDMS 20:58 CBC with Diff Ordered. EDMS 20:58 Partial Thromboplastin Time Ordered. EDMS 20:58 Prothrombin Time Profile\E\INR Ordered. EDMS 20:58 Type & Screen Ordered. EDMS 20:58 CT Head Without Contrast Ordered. EDMS 20:58 ECG WITH READING ER PHYS+CARDIAG ordered. EDMS 21:34 Fingerstick Blood Sugar Ordered. EDMS 21:41 Basic Metabolic Profile Reviewed. mm11 21:41 CBC with Diff Reviewed. mm11 21:41 Partial Thromboplastin Time Reviewed. mm11 21:41 Prothrombin Time Profile\E\INR Reviewed. mm11 21:41 Fingerstick Blood Sugar Reviewed. mm11 21:58 MRI Screening Tool - Place on chart, inform RN ordered. mm11 21:58 Misc. Nursing Order ordered. mm11 22:00 -MRA-Brain without contrast Ordered. EDMS 22:00 -MRI-Brain without Ordered. EDMS 22:02 Financial registration complete. [email or web address] 22:06 Type & Screen Reviewed. mm11 22:19 [facility] Payment Agreement was scanned into SendGrid and attached to record. ks16 22:23 The patient was assigned to Observation Status due to uncertainty of mm11 diagnosis/disposition, and remained under my care. 22:26 MRI Screening Tool - Place on chart, inform RN complete. ml3 22:35 CT Head Without Contrast Reviewed. mm11 23:38 LORazepam 1 mg IVP once ordered. mm11 10/02 02:20 BED REQUEST+ADM ordered. EDMS 03:08 CONSISTENT CARBOHYDRATES ordered. EDMS 03:08 BASIC METABOLIC PROFILE Ordered. EDMS 03:08 COMPLETE BLOOD COUNT Ordered. EDMS 03:08 PROTHROMBIN TIME PROFILE\E\INR Ordered. EDMS 03:09 PHYSICAL THERAPY EVAL & TREAT ordered. EDMS 03:09 Admission / Observation Status ordered. EDMS 09:30 T-Sheet-- Draft Copy was scanned into SendGrid and attached to record. gb 10/03 17:24 ECG/EKG was scanned into [employer] and attached to record. gb 17:25 Radiology Report was scanned into SendGrid and attached to record. gb Point of Care Testing: Blood Glucose: 10/01 21:26 Blood Glucose: 376 mg/dL; ld5 Ranges: Administered Medications: 23:48 Drug: LORazepam 1 mg [lorazepam 2 mg/mL injection solution (0.5 mL)] Route: IVP; Site: ld5 left forearm; Signatures: Dispatcher [employer] EDMS Ghanshyam Frankel, RN RN bcj Sona Liang, Reg Reg gb CandidoPaulinaRachel, Assistant Manager Retail Unit ml3 Derek Haque, DO DO mm11 Joy Padilla RN RN rs3 Barbara Mukherjee RN RN ld5 Francesco Goodrich, RENDERING EQUIPMENT TENDER RENDERING EQUIPMENT TENDER Lali Wayne, Reg Reg ks16 The chart was reviewed and I authenticate all verbal orders and agree with the evaluation and treatment provided.Attachments: 22:19 [facility] Payment Agreement [email or web address] 10/02 09:30 T-Sheet-- Draft Copy 10/03 17:24 ECG/EKG Chart Complete MTDD
--- NOTE | 2016-10-04 17:16 | IPN ---
DATE: 10/04/2016 The patient has no new complaints aside from chronic right lower extremity and left lower extremity weakness. Repeat CT of the head was unremarkable yesterday despite complaints of paresthesia on the right anterior chest. Temperature 97.1, pulse 63, respiratory rate 18, blood pressure 162/94, 95% on room air. LUNGS: Clear to auscultation. No wheezing, rales or rhonchi. HEART: S1, S2. Sinus rhythm. ABDOMEN: Soft, nontender, nondistended. Positive bowel sounds. EXTREMITIES: No cyanosis, clubbing or pitting edema. NEUROLOGIC: The patient continues to have decreased motor function in the left lower and upper extremities, 4/5, sensation is diminished on the right side on the chest, right arm and lower extremity. Tongue is midline. The patient is able to speak in full sentences. No facial asymmetry. Complete blood count (CBC) and metabolic panel and fingersticks have been reviewed. ASSESSMENT AND PLAN: This is a 56-year-old female with a history of CVA, multiple transient ischemic attacks on chronic Coumadin, therapeutic, on aspirin 81 mg daily, hypertension, diabetes, tobacco abuse, osteoporosis, fibromyalgia, anxiety, and depression, who presented to the emergency room with complaints of right sided paresthesias with four prior CVAs in February 2016. Imaging studies included MRI and MRA, appears to be unchanged since prior study with focal stenosis in the distal half of the left M1 segment, as well as middle third of the right M1 segment, mild stenosis of right A1 segment. No acute hemorrhage. No other acute findings. The patient was admitted to telemetry. Remains stable. The patient had an episode of sinus bradycardia with a ventricular rate of 47 at 4:00 a.m. while the patient was asleep. Continues to complain of some paresthesia in the right chest. Repeat CT of the head was unremarkable. Recurrent TIA, prior history of CVA. The patient has been taking Coumadin and appears to be therapeutic. She appears to be compliant with her medications. Her aspirin has been changed to 325 mg daily. Awaiting any other formal recommendations from Dr. Zamora. Physical therapy (PT) has cleared the patient for discharge home. If no further recommendations from Dr. Zamora, neurology, the patient may be discharged home on Wednesday on increased dose of aspirin. 2. Type 2 diabetes. Levemir has been increased to 40 units for better glycemic control. 3. Neuropathy. On gabapentin. 4. Hyperlipidemia. On Lipitor. 5. History of asthma. On Singulair. Nebulizers as needed. 6. Reflux. On Prilosec. 7. Depression. On Zoloft. 8. Hypertension. Stable on hydrochlorothiazide and Cozaar. DISPOSITION: The patient is medically stable for transfer to medical/surgical floor. Await clearance from neurology prior to discharge home on Wednesday. GABID
[2016-10-04] MEDS: WARFARIN SOD 2.5 MG TAB PO SCH (17:25)
[2016-10-04] MEDS: ACETAMINOPHEN TAB 650MG DOSE (2X325MG) PO PRN (17:25)
[2016-10-04] MEDS ORDERED: MORPHINE 2 MG/ML 1ML SYRINGE IV ONE (19:00)
[2016-10-04] MEDS ORDERED: GABAPENTIN 100 MG CAP PO ONE (19:00)
[2016-10-04] MEDS: MONTELUKAST 10 MG TAB PO SCH (20:55)
[2016-10-04] MEDS: ATORVASTATIN 20 MG TAB PO SCH (20:55)
[2016-10-04] MEDS: LEVEMIR (INSULIN DETEMIR) 1 UNITS/0.01ML SC SCH (20:56)
[2016-10-04 22:00] VITALS: BP 134/77
[2016-10-05 06:00] VITALS: BP 156/88
[2016-10-05] MEDS: SLF 3 ML SYR IV SCH ×2 (06:18→14:00)
[2016-10-05] MEDS: ACETAMINOPHEN TAB 650MG DOSE (2X325MG) PO PRN ×2 (06:19→12:27)
[2016-10-05 06:24] LABS: MEAN CORPUSCULAR HEMOGLOBIN 29.8 pg (27.0-33.0); MEAN CORPUSCULAR HGB CONC 33.4 g/dl (32.0-36.5); MEAN CORPUSCULAR VOLUME 89.1 fl (80.0-96.0); RED CELL DISTRIBUTION WIDTH 11.9 % (11.5-14.5); WHITE BLOOD COUNT 6.2 K/mm3 (4.0-10.0)
[2016-10-05 06:25] LABS: INR 2.27
[2016-10-05 06:26] LABS: ANION GAP 7 MEQ/L (8-16); BLOOD UREA NITROGEN 12 MG/DL (7-18); CALCIUM LEVEL 8.9 MG/DL (8.5-10.1); CARBON DIOXIDE LEVEL 31 MEQ/L (21-32); CHLORIDE LEVEL 105 MEQ/L (98-107); GLOMERULAR FILTRATION RATE > 60.0 (>51); GLUCOSE, FASTING 180 MG/DL (70-105); POTASSIUM SERUM 3.8 MEQ/L (3.5-5.1); SODIUM LEVEL 143 MEQ/L (136-145)
[2016-10-05] MEDS: HumaLOG INSULIN (NovoLOG) PER UNIT SC SCH ×2 (08:52→12:22)
[2016-10-05] MEDS: NICOTINE 7 MG/24 HR TRANSDERMAL TD SCH (08:53)
[2016-10-05] MEDS: busPIRone 5 MG TAB PO SCH ×2 (08:53→12:23)
[2016-10-05] MEDS: OMEPRAZOLE 20 MG CAP PO SCH (08:53)
[2016-10-05 08:54] VITALS: BP 163/77
[2016-10-05] MEDS: ASPIRIN ENTERIC 325 MG TAB PO SCH (08:54)
[2016-10-05] MEDS: GABAPENTIN 300 MG CAP PO SCH (08:54)
[2016-10-05] MEDS: SERTRALINE HCL 50 MG TAB PO SCH (08:54)
[2016-10-05] MEDS: metFORMIN (GLUCOPHAGE) 1000 MG TABLET PO SCH (08:54)
[2016-10-05] MEDS: CETIRIZINE (ZyrTEC) 10 MG TAB PO SCH (08:54)
[2016-10-05] MEDS: hydroCHLOROthiazide 12.5 MG CAPSULE PO SCH (08:54)
[2016-10-05] MEDS: LOSARTAN 50 MG TAB PO SCH (08:54)
--- NOTE | 2016-10-05 13:06 | DSES ---
DATE OF ADMISSION: 10/02/2016 DATE OF DISCHARGE: CONSULTANTS: Dr. Zamora, neurologist. PRIMARY DISCHARGE DIAGNOSES: 1. Recurrent transient ischemic attack. 2. CVA with right upper and lower extremity paresthesias. 3. Type 2 diabetes. 4. Chronic neuropathy. 5. Hyperlipidemia. 6. Asthma. 7. Reflux. 8. Depression. 9. Hypertension. DISCHARGE MEDICATIONS: - aspirin 325 daily - albuterol sulfate 2 puffs every 4 hours as needed - albuterol nebulizer four times a day as needed - Asmanex 220 mcg inhaled at bedtime - atorvastatin 40 at bedtime - buspirone 15 mg three times a day - Zyrtec 10 mg daily - fluticasone 2 sprays daily - gabapentin 300 mg three times a day - glimepiride 2 mg daily - hydroxyzine 50 mg at bedtime - insulin sliding scale - Lantus insulin 30 units at bedtime - losartan 50/12.5 one tablet daily - metformin 1 gram twice a day - Singulair 10 mg at bedtime - nicotine patch 7 mg patch daily - Prilosec 40 daily - Sertraline 50 daily - warfarin 2.5 mg daily The patient requested reevaluation of her neuropathic medication gabapentin due to persistent neuropathy in the right lower extremity for her outpatient primary care physician to adjust. The patient is to have immediate followup with Dr. Zamora due to recurrent transient ischemic attack (TIA) symptoms for further management. HOSPITAL COURSE: This is a 56-year-old female with history of CVA, multiple TIAs on chronic Coumadin, therapeutic on admission, on chronic 81 mg of aspirin, hypertension, diabetes, tobacco abuse, osteoporosis, fibromyalgia, anxiety, and depression who presented to the emergency room (ER) with complaints of right sided paresthesias with four prior CVAs in February 2016 who had been on chronic Coumadin which was therapeutic on admission. Imaging studies to evaluate right sided paresthesias included MRI/MRA that appears to be unchanged since prior study with focal stenosis distal half of the left M1 segment as well as middle third of the right M1 segment, mild stenosis of the right A1 segment. No acute hemorrhage or other acute findings. The patient was admitted to telemetry and remained stable with sinus bradycardiac with ventricular rate of 47 at 4:00 a.m. while the patient was asleep. No other issues on telemetry. The patient was stable for transfer to the medical-surgical floor. She complained of right sided numbness on the chest. Repeat CT of the head was unremarkable. The patient was increased on the aspirin to 325 daily and continued on her therapeutic dose of Coumadin. She has passed a home safety evaluation, but did have multiple complaints of right leg paresthesias with gabapentin resumed in the hospital. The patient is to follow up with her neurologist as an outpatient for further evaluation of her paresthesias. EZIO
== END 2016-10-05 15:04 | disposition home or self-care (01) | DRG 47 ==
LOC: M ED 20:31 → M ED INP 10-02 03:01 → M PCU 10-02 15:28 → M MSPAV 10-04 08:05
PROVIDERS: ADMIT Internal Medicine; ATTEND General Practice
DX: G45.9 Transient cerebral ischemic attack, unspecified (principal); G62.9 Polyneuropathy, unspecified; I10 Essential (primary) hypertension; I69.961 Other paralytic syndrome following unspecified cerebrovascular disease affecting right dominant side; E11.9 Type 2 diabetes mellitus without complications; E78.5 Hyperlipidemia, unspecified; J45.909 Unspecified asthma, uncomplicated; K21.9 Gastro-esophageal reflux disease without esophagitis; F32.9 Major depressive disorder, single episode, unspecified; M79.7 Fibromyalgia; Z87.891 Personal history of nicotine dependence; Z79.82 Long term (current) use of aspirin; Z79.01 Long term (current) use of anticoagulants; Z79.899 Other long term (current) drug therapy; Z79.51 Long term (current) use of inhaled steroids; Z86.73 Personal history of transient ischemic attack (TIA), and cerebral infarction without residual deficits; Z79.4 Long term (current) use of insulin; Z88.8 Allergy status to other drugs, medicaments and biological substances

== ENCOUNTER → 2016-11-13 | Outpatient (CLI) | payer OTHER ==
[~2016-11-13] MED LIST changes: +ALBU83IN INH; +ASPI32ECTA PO; +FLUTISP; +INSULANT SC; +NICO7DIS23 TD; +OMEP40CA2 PO; -SERT-141 PO; +SERT25TA PO; -SERT25TA85 PO; +SERT50TA PO
--- NOTE | 2016-11-13 16:12 | REP ---
MRI LUMBAR SPINE WITHOUT CONTRAST: HISTORY: Paresthesias. COMPARISON: 05/06/2012 Decreased signal intensity on T2-weighted images is present in the L3-4 through L5-S1 intervertebral discs. The discs are decreased in height. These findings are consistent with disc degeneration. There is no disc bulge or herniation at the L1-2 through L3-4 levels. The nerves exit the neural foramina without compression. A diffuse disc bulge is present at the L4-5 level. There is minimal compression of the thecal sac. There is hypertrophy of the posterior articulating facets. The L4 nerves exit the neural foramina without compression. A diffuse disc bulge and small left paracentral disc protrusion are present at the L5-S1 level. The disc protrusion abuts the left S1 nerve. There is no thecal sac compression. The right S1 nerve is normal. There is hypertrophy of the posterior articulating facets. The L5 nerves exit the neural foramina without compression. The conus medullaris is normal in appearance terminating at the level of the T12-L1 intervertebral disc. A hemangioma is present in the T11 vertebral body. Normal signal intensity is present in the lumbar vertebral bodies. IMPRESSION: 1. Diffuse disc bulge at the L4-5 level with minimal thecal sac compression. 2. Diffuse disc bulge and small left paracentral disc protrusion at the L5-S1 level. The disc protrusion abuts the left S1 nerve. There is no significant change compared to the previous study. Signed by Jones Goetz MD 11/13/2016 04:13 P
--- NOTE | 2016-11-13 16:15 | REP ---
MR CERVICAL SPINE WITHOUT CONTRAST: HISTORY: Paresthesias. COMPARISON: 05/06/2012 A small right paracentral disc protrusion is present at the C3-4 level. There is minimal effacement of the thecal sac without spinal cord compression. Uncinate process hypertrophy is present on the right. This produces moderate narrowing of the right C3 neural foramen. The left C3 neural foramina is patent. A disc bulge is present at the C5-6 level. There is minimal effacement of the thecal sac without spinal cord compression. The C5 neural foramina are patent. A disc bulge is present at the C6-7 level. There is minimal effacement of the thecal sac without spinal cord compression. The C6 neural foramina are patent. There is no other disc bulge or herniation. The remaining neural foramina are patent. The spinal cord is normal in signal intensity. Normal signal intensity is present in the cervical vertebral bodies. 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 Normal signal intensity is present in the cervical vertebral bodies. IMPRESSION: There is cervical spondylosis at the C3-4, C5-6, and C6-7 levels without spinal cord compression. The foraminal narrowing at the C3-4 level is a new finding. Signed by Jones Goetz MD 11/13/2016 04:25 P
== END ==
LOC: M RAD 13:20
PROVIDERS: ATTEND Psychiatry & Neurology Neurology
DX: M43.02 Spondylolysis, cervical region (principal); R20.2 Paresthesia of skin; M51.26 Other intervertebral disc displacement, lumbar region

== ENCOUNTER → 2017-05-13 | Outpatient (REF) | payer OTHER, MEDICAID ==
[~2017-05-13] MED LIST changes: +ASPI1TAB PO; +ASPI1TAB15 PO; +ASPI325T24 PO; -ASPI32ECTA PO; -ASPI81TA7 PO; -ATOR40TA PO; +ATOR40TA75 PO; -COUM2.5T11 PO; +COUM2.5T17 PO; +CYCL10TA PO; +GABA-282 PO; -GABA300C3 PO; +GABA600T PO; -HYDR-4274 PO; +HYDR50TA70 PO; -LOSA50TA21 PO; +LOSA50TA5 PO; +METF10004 PO; +NICO7DIS2 TD; -NICO7DIS23 TD; +PLAV1TAB2 PO; -PLAV75TA38 PO
[2017-05-13 14:46] LABS: INR 1.66
[2017-05-13 14:49] LABS: ALBUMIN 3.2 GM/DL (3.2-5.2); ALBUMIN/GLOBULIN RATIO 0.73 (1.00-1.93); ALKALINE PHOSPHATASE 116 U/L (45-117); ALT/SGPT 41 U/L (12-78); ANION GAP 7 MEQ/L (8-16); AST/SGOT 35 U/L (15-37); BILIRUBIN,TOTAL 0.3 MG/DL (0.2-1.0); BLOOD UREA NITROGEN 11 MG/DL (7-18); CALCIUM LEVEL 9.3 MG/DL (8.5-10.1); CARBON DIOXIDE LEVEL 30 MEQ/L (21-32); CHLORIDE LEVEL 103 MEQ/L (98-107); CHOLESTEROL LEVEL 130 MG/DL (<200); GLOMERULAR FILTRATION RATE > 60.0 (>51); GLUCOSE, FASTING 367 MG/DL (70-105); POTASSIUM SERUM 4.3 MEQ/L (3.5-5.1); SODIUM LEVEL 140 MEQ/L (136-145); TOTAL PROTEIN 7.6 GM/DL (6.4-8.2); TRIGLYCERIDES LEVEL 149 MG/DL (<150)
== END ==
LOC: M LAB REF 08:05
PROVIDERS: ATTEND Family Medicine Addiction Medicine
DX: I63.9 Cerebral infarction, unspecified (principal); E11.9 Type 2 diabetes mellitus without complications

== ENCOUNTER 2017-05-25 13:47 | Inpatient (IN) | payer MEDICAID, OTHER ==
[~2017-05-25] VITALS: Ht 157.5 cm; Wt 78.6 kg
[2017-05-25] MEDS: BUDESONIDE 180MCG INHALER (PULMICORT FLEXHALER) INH SCH (00:16)
[~2017-05-25 13:47] MED LIST changes: -ASPI1TAB PO; -CYCL10TA PO; -GABA600T PO
[2017-05-25] MEDS ORDERED: CYCL10TA PO (14:22)
--- NOTE | 2017-05-25 14:29 | REP ---
CT Head without contrast HISTORY: Infarction COMPARISON: 10/03/2016 Areas of decreased attenuation are present in the basal ganglia. These represent old lacunar infarctions. Areas of decreased attenuation are present in the periventricular and subcortical white matter. This represents small-vessel ischemic disease. There is no intraparenchymal hemorrhage, acute infarct, mass or midline shift. The ventricular system is normal in appearance. There is no extra cerebral collection. There is no fracture. The visualized sinuses are clear. IMPRESSION: 1. Old bilateral basal ganglia lacunar infarctions. 2. Small vessel ischemic disease. Signed by Jones Goetz MD 05/25/2017 02:20 P
[2017-05-25 14:56] LABS: BASO # 0.1 10^3/uL (0.0-0.2); BASO % 0.9 % (0.0-1.0); EOS # 0.1 10^3/uL (0.0-0.50); EOS % 1.6 % (0.0-3.0); IMMATURE GRANULOCYTE % 0.4 % (0-0); LYMPH # 1.9 10^3/uL (1.5-4.5); MEAN CORPUSCULAR HEMOGLOBIN 28.9 pg (27.0-33.0); MEAN CORPUSCULAR HGB CONC 34.2 g/dl (32.0-36.5); MEAN CORPUSCULAR VOLUME 84.5 fl (80.0-96.0); MONO # 0.6 10^3/uL (0.0-0.8); MONO % 7.4 % (0.0-5.0); NEUTROPHILS # 5.2 10^3/uL (1.8-7.7); NEUTROPHILS % 65.7 % (36.0-66.0); PLATELET COUNT, AUTOMATED 165 10^3/uL (150-450); WHITE BLOOD COUNT 7.9 10^3/uL (4.0-10.0)
[2017-05-25 15:00] LABS: ADD MORPHOLOGY? NO
[2017-05-25 15:03] LABS: INR 1.52
[2017-05-25 15:12] LABS: ANION GAP 9 MEQ/L (8-16); BLOOD UREA NITROGEN 9 MG/DL (7-18); CALCIUM LEVEL 9.1 MG/DL (8.5-10.1); CARBON DIOXIDE LEVEL 28 MEQ/L (21-32); CHLORIDE LEVEL 97 MEQ/L (98-107); CREATININE FOR GFR 0.74 MG/DL (0.55-1.02); GLOMERULAR FILTRATION RATE > 60.0 (>51); GLUCOSE, FASTING 344 MG/DL (70-105); POTASSIUM SERUM 3.8 MEQ/L (3.5-5.1); SODIUM LEVEL 134 MEQ/L (136-145)
--- NOTE | 2017-05-25 15:21 | REP ---
CHEST, PORTABLE, SINGLE VIEW: COMPARISON: 10/01/2016 There is no evidence of acute infiltrate. No pleural effusion is seen. The heart is normal in size. The mediastinal silhouette is unremarkable. The visualized osseous structures are intact. IMPRESSION: No acute pulmonary disease. Signed by Dhaval Kelly MD 05/25/2017 04:16 P
[2017-05-25] MEDS ORDERED: ASPI325T24 PO (16:11)
[2017-05-25] MEDS ORDERED: GABA600T PO (16:11)
[2017-05-25] MEDS ORDERED: LORazepam 2 MG/ML VIAL (J2060) IV STA (16:34)
[2017-05-25] MEDS ORDERED: CYCLOBENZAPRINE 10 MG TAB PO PRN (16:45)
[2017-05-25] MEDS ORDERED: hydrOXYzine 50 MG TAB PO PRN (16:45)
[2017-05-25] MEDS ORDERED: GLUCOSE 4 GM CHEW TABLET PO PRN (16:45)
[2017-05-25] MEDS ORDERED: ALBUTEROL 90 MCG/ACT 8GM HFA INHALER INH PRN (16:45)
[2017-05-25] MEDS ORDERED: DEXTROSE 50% 50 ML SYRINGE IV PRN (16:45)
[2017-05-25] MEDS ORDERED: GLUCAGON FOR INJ 1 MG VIAL (J1610) SC PRN (16:45)
[2017-05-25] MEDS ORDERED: ONDANSETRON 4MG/2ML VIAL (J2405) IV PRN (16:45)
[2017-05-25] MEDS: HumaLOG INSULIN (NovoLOG) PER UNIT SC SCH ×2 (17:30→21:00)
--- NOTE | 2017-05-25 17:49 | HPEPDOC ---
General Date of Admission 05/25/17 Other Providers PCP: Donnell Ariza MD Chief Complaint The patient is a 57-year-old female admitted with a reason for visit of WEAK. Source: Patient Exam Limitations: No limitations History of Present Illness Mrs. Reardon is a 57 y/o female with hx of recurrent CVA's, last one occurring 09/2016, HTN, DM, and hx of tobacco abuse presenting for paresthesias to right side of her body accompanied by weakness. Pt notes that at baseline she has numbness and weakness to both her left upper and lower extremities due to deficits from previous strokes and ambulates with a walker due to this. She reports that two weeks ago she initially noted RLE "numbness" that she further describes as ants crawling on the affected areas and tingling. She notes that has progressively worsened and is still present now. She states that 2 days ago the sxs progressed further and she began to experience them in her right upper extremity also including the hand and fingertips. She notes that she has also had intermittent right arm shooting pain associated with neck pain. notes that she does not currently have neck pain, but that the area is tender to palpation. She reports that she now feels unsteady even with the walker due to the progression of her sxs. Pt also notes having a TINOCO yesterday that resolved this AM. She states the TINOCO was associated with nausea, phonophobia and photophobia. Pt denies any other focal neurological deficits, confusion, or any vomiting. Pt had negative CT head in the ED. MRI/MRA brain pending. Home Medications Scheduled (Asmanex 60 Metered Doses) 220 Mcg/Inh Aer, 220 MCG INH QHS, (Reported) (Losartan Potassium/Hydroc 50-12.5 mg) 1 Tab Tab, 1 TAB PO DAILY, (Reported) Aspirin (Aspirin EC) 325 Mg Tabec, 325 MG PO QPM, (Reported) TAKES AT 1700 WITH WARFARIN Atorvastatin Calcium (Atorvastatin Calcium) 40 Mg Tab, 40 MG PO QHS, (Reported) Cetirizine HCl (Zyrtec Allergy) 10 Mg Tab, 10 MG PO DAILY, (Reported) Fluticasone Propionate (Fluticasone Propionate) 50 Mcg/Act Spr, 2 SPRAY NA DAILY , (Reported) Gabapentin (Gabapentin) 600 Mg Tab, 600 MG PO BID, (Reported) Glimepiride (Glimepiride) 2 Mg Tab, 2 MG PO DAILY, (Reported) Insulin Aspart (Novolog) 100 U/Ml Inj, 1 DOSE SC AC, (Reported) PER SLIDING SCALE Insulin Glargine (Lantus) 1 Units/0.01 Ml Susp, 50 UNITS SC QHS, (Reported) Metformin Hydrochloride (Metformin HCl) 1,000 Mg Tab, 1,000 MG PO BID, (Reported ) Montelukast Sodium (Singulair) 10 Mg Tab, 10 MG PO QHS, (Reported) Omeprazole (Omeprazole) 40 Mg Cap, 40 MG PO DAILY, (Reported) Sertraline Hcl (Sertraline HCl) 50 Mg Tab, 50 MG PO DAILY, (Reported) Warfarin Sod (Warfarin Sodium) 2.5 Mg Tab, 2.5 MG PO QPM, (Reported) TAKES AT 1700 WITH ASPIRIN Scheduled PRN Albuterol Sulfate (Ventolin Hfa) 200 Puff/8 Gm Aers, 2 PUFF INH Q4H PRN for SOB/ WHEEZING, (Reported) Cyclobenzaprine HCl (Cyclobenzaprine HCl) 10 Mg Tab, 10 MG PO TID PRN for MUSCLE SPASMS, (Reported) Hydroxyzine HCl (Hydroxyzine HCl) 50 Mg Tab, 50 MG PO QHS PRN for SLEEP, ( Reported) Allergies Coded Allergies: Ranitidine (Verified Allergy, Unknown, 03/22/16) Hives SEASONAL ALLERGIES (Unverified Allergy, Unknown, 05/25/17) Past Medical History Medical History 1. Recurrent CVAs 2. HTN 3. DM 4. Osteoporosis 5. Fibromyalgia 6. Anxiety 7. Depression 8. Tobacco abuse Surgical History 1. Hysterectomy 2. Cholecystectomy Family History Father- COPD, [place] Mother-COPD Social History * Smoker: current smoker (smokes 1ppd, used to smoke 3-4ppd until last year) Alcohol: Denies Drugs: denies Recent Travel/Sick Contacts: Reports: Recent travel Review of Symptoms Constitutional: Reports: Weakness, Denies: Chills, Fever, Malaise, Night Sweats, Fatigue, Weight Loss, Lethargy , Other Eyes: Reports: Vision change (A few days ago in the AM, resolved on its own), Denies: Pain, Conjunctivae inflammation, Eyelid inflammation, Redness, Other ENT: Reports: Head Aches (resolved), Denies: Ear Pain, Dysphagia, Sinus Congestion, Post Nasal Drip, Sore Throat, Epistaxis, Other Symptoms Skin: Denies: Rash Pulmonary: Denies: Dyspnea, Cough, Pleuritic Chest Pain, Other Symptoms Cardiovascular: Denies: Chest Pain, Palpitations, Orthopnea, Paroxysmal Noc. Dyspnea, Edema, Lt Headedness, Other Symptoms Gastrointestinal: Reports: Nausea (resolved, associated with TINOCO), Denies: Vomiting, Abdominal Pain, Diarrhea, Constipation, Melena, Hematochezia, Other Symptoms Genitourinary: Denies: Dysuria, Frequency, Incontinence, Hematuria, Retention, Other Symptoms Hematologic: Denies: Bruising Musculoskeletal: Reports: Neck Pain, Shoulder Pain, Arm Pain, Hand Pain, Muscle Pain, Denies: Back Pain, Leg Pain, Foot Pain, Joint Pain Neurological: Reports: Weakness, Numbness, Denies: Incoordination, Change in speech, Confusion Psych: Reports: Mood Normal, Denies: Anxiety Physical Examination General Exam: Positive: Alert, Cooperative, No Acute Distress Eye Exam: Positive: PERRLA, Conjunctiva & lids normal, EOMI, Negative: Sclera icteric, Ptosis ENT Exam: Positive: Atraumatic, Mucous membr. moist/pink, Pharynx Normal Neck Exam: Positive: Supple, +2 carotid pulse wo bruit, Negative: JVD, Lymphadenopathy Chest Exam: Positive: Clear to auscultation, Normal air movement, Negative: Rales, Rhonchi, Wheezing, Diminished Heart Exam: Positive: Rate Normal, Regular Rhythm, Normal S1, Normal S2, Negative: Gallops, Murmurs, Rubs Telemetry: Positive: No significant arrhythmia, Sinus Abdomen Exam: Positive: Normal bowel sounds, Soft, Negative: Tenderness, Hepatospenomegaly Extremity Exam: Positive: Normal pulses, Negative: Edema Skin Exam: Positive: Nl turgor and temperature, Negative: Rash Neuro Exam: Positive: Normal Speech, Strength at 5/5 X4 ext (LLE 4/5 strength, strength 5/5 RLE, 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, normal dorsi and plantarflexion, strength 5/5 both upper and lower extremities.), Sensation Intact (patient reports paresthesias, however, sensation intact and equal on both upper and lower extremities bilaterally), Cranial Nerves 3-12 NL, Reflexes 2+ (biceps, triceps, patellar) Psych Exam: Positive: Mental status NL, Oriented x 3 Vital Signs Vital Signs Date Time Temp Pulse Resp B/P (MAP) Pulse Ox O2 Delivery O2 Flow Rate FiO2 05/25/17 15:38 60 164/89 (114) 95 05/25/17 14:06 96.7 20 Room Air Laboratory Data Labs 24H Laboratory Tests 2 05/25/17 14:31: Bedside Glucose (Misc Panel) 333H 05/25/17 14:35: Immature Granulocyte % (Auto) 0.4H, White Blood Count 7.9, Red Blood Count 4.84 , Hemoglobin 14.0, Hematocrit 40.9, Mean Corpuscular Volume 84.5, Mean Corpuscular Hemoglobin 28.9, Mean Corpuscular Hemoglobin Concent 34.2, Red Cell Distribution Width 12.0, Platelet Count 165, Neutrophils (%) (Auto) 65.7, Lymphocytes (%) (Auto) 24.0, Monocytes (%) (Auto) 7.4H, Eosinophils (%) (Auto) 1.6, Basophils (%) (Auto) 0.9, Neutrophils # (Auto) 5.2, Lymphocytes # (Auto) 1.9, Monocytes # (Auto) 0.6, Eosinophils # (Auto) 0.1, Basophils # (Auto) 0.1, Immature Granulocyte # (Auto) 0.0, Nucleated Red Blood Cells % (auto) 0.0, Prothrombin Time 18.7H, Prothromb Time International Ratio 1.52, Activated Partial Thromboplast Time 34.9, Anion Gap 9, Glomerular Filtration Rate > 60.0, Blood Urea Nitrogen 9, Creatinine 0.74, Sodium Level 134L, Potassium Level 3.8, Chloride Level 97L, Carbon Dioxide Level 28, Calcium Level 9.1 CBC/BMP Laboratory Tests 05/25/17 14:35 Red Blood Count 4.84, Mean Corpuscular Volume 84.5, Mean Corpuscular Hemoglobin 28.9, Mean Corpuscular Hemoglobin Concent 34.2, Red Cell Distribution Width 12.0 , Neutrophils (%) (Auto) 65.7, Lymphocytes (%) (Auto) 24.0, Monocytes (%) (Auto ) 7.4 H, Eosinophils (%) (Auto) 1.6, Basophils (%) (Auto) 0.9, Neutrophils # ( Auto) 5.2, Lymphocytes # (Auto) 1.9, Monocytes # (Auto) 0.6, Eosinophils # (Auto ) 0.1, Basophils # (Auto) 0.1, Calcium Level 9.1 RAD Interpretation STUDY: CT head without contrast Rad Actions: Report Reviewed (Old bilateral basal ganglia lacunar infarctions. Small vessel ischemic disease.) STUDY: CXR Rad Actions: Report Reviewed (No acute pulmonary disease.) Problems (1) Paresthesia of right upper and lower extremity Status: Acute Problem Text: Pt with hx of recurrent CVAs, has had extensive workup for other causes of recurrent strokes and is on chronic anticoagulation. Initial CT head in the ED with no evidence of acute ischemia, EKG without acute changes. Pt had echo completed 05/2016 without evidence of cardio embolic source. She remains symptomatic. Because of the progressive worsening paresthesias over the prolonged course though, there is a possibility that this may be neuropathy. Plan for neuro checks q4hrs, MRI/MRA of the brain, continue patient's ASA 325mg daily, as well as her statin. Pt will be observed on telemetry and will have PT consult. We will increase patient's statin from 40mg to 80mg and patient's Coumadin to 3mg from 2.5mg as patient's INR is subtherapeutic at 1.5. (2) Type 2 diabetes mellitus with neurologic complication, with long-term current use of insulin Status: Chronic Response to Treatment: Stable Problem Text: Will continue patient's Glimepiride and Levemir and ISS for added coverage if needed. (3) HTN (hypertension) Status: Chronic Response to Treatment: Stable Problem Text: Will continue to monitor her BP and at this time will continue her home regimen of Losartan and HCTZ. (4) Asthma, mild intermittent Status: Chronic Response to Treatment: Stable Problem Text: will continue patient's albuterol prn, singulair and pulmicort. (5) Chronic GERD Status: Chronic Problem Text: Continue home Omeprazole. (6) Tobacco dependence Status: Chronic Response to Treatment: Stable Problem Text: Smoking cessation was discussed with the patient. (7) Hypercholesterolemia Status: Chronic Response to Treatment: Stable Problem Text: Patient's statin increased to high dose. Atorvastatin increased from 40mg to 80mg. (8) Fibromyalgia Status: Chronic Response to Treatment: Stable Problem Text: will continue patient's Gabapentin, Zoloft, Atarax and Flexeril. (9) Depression Status: Chronic Response to Treatment: Stable Problem Text: Continue patient's Zoloft. (10) Lacunar stroke Status: Chronic Plan / VTE VTE Prophylaxis Ordered?: Yes (Pt currently on Coumadin, dose increased. ) ANDREA MG DO May 25, 2017 17:29
[2017-05-25] MEDS ORDERED: NICOTINE POLACRILEX 2 MG GUM PO PRN (18:45)
--- NOTE | 2017-05-25 19:00 | REPUSA ---
MRA of the brain clinical history: bilateral weakness. Comparison: 10/01/2016. Technique: [id number] MRA images of the brain were obtained without administration of contrast. 3 -D MIP images were also obtained. Findings: The focal high-grade stenosis of the right M1 segment of the middle cerebral artery is slig htly worsened when compared to the prior study. Moderate focal narrowing of the M1 segment of the lef t middle cerebral artery is stable. The left vertebral arteries dominant. The narrowing of the right A1 segment of the anterior cerebral artery is not well visualized on the current examination. No evid ence of aneurysm or thrombosis is demonstrated. The basilar artery is within normal limits. Impression: 1. Slight worsening of the focal high-grade stenosis of the right M1 segment of the right middle cere bral artery. 2. Stable focal stenosis of the M1 segment of the left middle cerebral artery. 3. No other new findings.
--- NOTE | 2017-05-25 19:00 | REPUSA ---
MRI of the brain. Clinical history: bilateral weakness. Comparison: 10/01/2016 Technique: Multiecho multiplanar MRI images of the brain were obtained without administration of cont rast. Diffusion weighted images with ADC mapping was also obtained. Findings: The ventricles and sulci are symmetric bilaterally. The brain parenchyma demonstrates extensive, diff use T2 hyperintensity throughout the periventricular and subcortical white matter. There is no midlin e shift, mass effect, or extra-axial fluid collection. The midline intracranial structures do not dem onstrate any gross abnormalities. The cervical cranial junction is intact. The orbits are unremarkabl e. The visualized paranasal sinuses and mastoid air cells are clear. The osseous structures and super ficial soft tissues are unremarkable. The vascular structures demonstrate appropriate flow voids. Impression: No acute evidence of hemorrhage or infarct. Moderately severe stable chronic small vessel ischemic disease.
[2017-05-25] MEDS: LEVEMIR (INSULIN DETEMIR) 1 UNITS/0.01ML SC SCH (21:00)
[2017-05-25 23:15] VITALS: BP 145/84
[2017-05-25] MEDS: MONTELUKAST 10 MG TAB PO SCH (23:29)
[2017-05-25] MEDS: ATORVASTATIN 20 MG TAB PO SCH (23:29)
[2017-05-25] MEDS: ASPIRIN ENTERIC 325 MG TAB PO SCH (23:30)
[2017-05-25] MEDS: GABAPENTIN 300 MG CAP PO SCH (23:30)
[2017-05-25] MEDS: WARFARIN SOD 3 MG TAB PO SCH (23:30)
[2017-05-25] MEDS ORDERED: SLF 3 ML SYR IV PRN (23:45)
[2017-05-26 04:00] VITALS: BP 120/85
[2017-05-26] MEDS: SLF 3 ML SYR IV SCH ×3 (05:06→21:22)
[2017-05-26 06:00] LABS: MEAN CORPUSCULAR HGB CONC 34.2 g/dl (32.0-36.5); WHITE BLOOD COUNT 8.6 10^3/uL (4.0-10.0)
[2017-05-26 06:14] LABS: INR 1.65
--- NOTE | 2017-05-26 06:23 | ECGEPIP ---
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
[2017-05-26 06:25] LABS: ANION GAP 5 MEQ/L (8-16); BLOOD UREA NITROGEN 15 MG/DL (7-18); CALCIUM LEVEL 8.8 MG/DL (8.5-10.1); CARBON DIOXIDE LEVEL 29 MEQ/L (21-32); CHLORIDE LEVEL 101 MEQ/L (98-107); CREATININE FOR GFR 0.63 MG/DL (0.55-1.02); GLOMERULAR FILTRATION RATE > 60.0 (>51); GLUCOSE, FASTING 333 MG/DL (70-105); POTASSIUM SERUM 3.5 MEQ/L (3.5-5.1); SODIUM LEVEL 135 MEQ/L (136-145)
[2017-05-26 08:00] VITALS: BP 119/77
[2017-05-26] MEDS: HumaLOG INSULIN (NovoLOG) PER UNIT SC SCH ×4 (08:05→21:00)
[2017-05-26] MEDS: SERTRALINE HCL 50 MG TAB PO SCH (08:06)
[2017-05-26] MEDS: GABAPENTIN 300 MG CAP PO SCH ×2 (08:06→21:21)
[2017-05-26] MEDS: hydroCHLOROthiazide 12.5 MG CAPSULE PO SCH (08:06)
[2017-05-26] MEDS: OMEPRAZOLE 20 MG CAP PO SCH (08:06)
[2017-05-26] MEDS: CETIRIZINE (ZyrTEC) 10 MG TAB PO SCH (08:06)
[2017-05-26] MEDS: LOSARTAN 50 MG TAB PO SCH (08:06)
[2017-05-26] MEDS: BUDESONIDE 180MCG INHALER (PULMICORT FLEXHALER) INH SCH ×2 (09:00→20:05)
[2017-05-26 12:00] VITALS: BP 125/85
[2017-05-26] MEDS: GLIMEPIRIDE 2 MG TAB PO SCH (12:24)
[2017-05-26] MEDS: FLUTICASONE PROP 0.05% NASAL SPRAY 16 GM (FLONASE) SCH (12:25)
[2017-05-26] MEDS ORDERED: LORazepam 2 MG/ML VIAL (J2060) IV ONE (13:00)
[2017-05-26] MEDS ORDERED: LEVEMIR (INSULIN DETEMIR) 1 UNITS/0.01ML SC ONE (14:30)
[2017-05-26 16:00] VITALS: BP 116/75
[2017-05-26] MEDS: WARFARIN SOD 3 MG TAB PO SCH (16:57)
[2017-05-26 20:00] VITALS: BP 119/69
[2017-05-26] MEDS: LEVEMIR (INSULIN DETEMIR) 1 UNITS/0.01ML SC SCH (21:20)
[2017-05-26] MEDS: ASPIRIN ENTERIC 325 MG TAB PO SCH (21:21)
[2017-05-26] MEDS: MONTELUKAST 10 MG TAB PO SCH (21:21)
[2017-05-26] MEDS: ATORVASTATIN 20 MG TAB PO SCH (21:21)
[2017-05-27 00:43] VITALS: BP 107/71
--- NOTE | 2017-05-27 01:30 | REPUSA ---
REASON FOR EXAM: Paresthesia. TECHNIQUE: Axial and sagittal T1 and T2 weighted images were obtained. Fat suppressed images were als o obtained. COMPARISON: None. FINDINGS: Moderate diffuse spondylotic changes. Findings are demonstrated by disc dehydration, disc space narro wing, osteophyte formation and degenerative endplate changes. There is normal signal intensity from the visualized bone marrow without evidence of replacement or a cute fracture. The visualized portions of the spinal cord are unremarkable. The visualized portions of the posterior fossa are unremarkable. There is normal cervical lordosis. The vertebral alignment is within normal limits. Evaluation of the individual levels revealed the following: C1-C2: There is no evidence of disk herniation. The spinal canal is not narrowed. There is no evidenc e of neural foramina narrowing. C2-C3: There is a diffuse disc bulge. The spinal canal is not narrowed. There is mild bilateral neura l foramina narrowing. C3-C4: There is mild diffuse disc bulge. The spinal canal is not narrowed. There is moderate right an d mild left neural foramina narrowing. C4-C5: There is mild diffuse disc bulge. The spinal canal is not narrowed. There is moderate right an d mild left neural foramina narrowing. C5-C6: There is mild diffuse disc bulge. The spinal canal is not narrowed. There is moderate right an d mild left neural foramina narrowing. C6-C7: There is mild diffuse disc bulge. The spinal canal is not narrowed. There is moderate right an d mild left neural foramina narrowing. Impression: Spondylosis. Multilevel degenerative disc disease. Thank you for your kind referral of this patient. We appreciate opportunity to participate in this pa tient's care.
--- NOTE | 2017-05-27 01:30 | REPUSA ---
PROCEDURE: MRI LUMBAR SPINE. REASON FOR EXAM: Right lower extremity numbness. TECHNIQUE: Axial and sagittal T1 and T2 weighted images were obtained. Fat suppressed images were als o obtained. COMPARISON: None. FINDINGS: Mild diffuse spondylotic changes. Findings are demonstrated by diffuse disc dehydration, disc space n arrowing, osteophyte formation and degenerative endplate changes. There is normal signal intensity from the visualized bone marrow without evidence of replacement or a cute fracture. The conus is unremarkable. Straightening of the lumbar lordosis. This can be secondary to muscular spasm and pain. The vertebral alignment is within normal limits. Evaluation of the individual levels revealed the following: L5-S1: There is mild diffuse disc bulge. Superimposed broad-based left paracentral/posterolateral dis c protrusion measuring 4.5 mm in its largest anteroposterior dimension. Bilateral facet joint arthrop athy. The spinal canal is not narrowed. There is mild bilateral neural foramina narrowing. L4-5: There is mild diffuse disc bulge. Bilateral facet joint arthropathy and ligamentum flavum hyper trophy. The spinal canal is not narrowed. There is mild bilateral neural foramina narrowing. L3-4: There is mild diffuse disc bulge. Bilateral facet joint arthropathy and ligamentum flavum hyper trophy. The spinal canal is not narrowed. There is mild bilateral neural foramina narrowing. L2-3: There is mild diffuse disc bulge. Bilateral facet joint arthropathy and ligamentum flavum hyper trophy. The spinal canal is not narrowed. There is mild bilateral neural foramina narrowing. L1-2: There is no evidence of disk herniation. The spinal canal is not narrowed. There is no evidence of neural foramina narrowing. Normal visualized paraspinous soft tissue structures. Impression: Spondylosis. Multilevel degenerative disc disease. Thank you for your kind referral of this patient. We appreciate the opportunity to participate in thi s patient's care.
[2017-05-27 04:00] VITALS: BP 121/89
[2017-05-27 05:44] LABS: MEAN CORPUSCULAR HEMOGLOBIN 29.1 pg (27.0-33.0); MEAN CORPUSCULAR HGB CONC 34.1 g/dl (32.0-36.5); MEAN CORPUSCULAR VOLUME 85.4 fl (80.0-96.0); RED CELL DISTRIBUTION WIDTH 12.1 % (11.5-14.5); WHITE BLOOD COUNT 9.2 10^3/uL (4.0-10.0)
[2017-05-27 05:59] LABS: INR 1.9
[2017-05-27 06:10] LABS: ANION GAP 7 MEQ/L (8-16); BLOOD UREA NITROGEN 15 MG/DL (7-18); CALCIUM LEVEL 8.7 MG/DL (8.5-10.1); CARBON DIOXIDE LEVEL 31 MEQ/L (21-32); CHLORIDE LEVEL 101 MEQ/L (98-107); GLOMERULAR FILTRATION RATE > 60.0 (>51); GLUCOSE, FASTING 172 MG/DL (70-105); POTASSIUM SERUM 3.6 MEQ/L (3.5-5.1); SODIUM LEVEL 139 MEQ/L (136-145)
[2017-05-27] MEDS: SLF 3 ML SYR IV SCH ×2 (06:25→15:24)
[2017-05-27 08:00] VITALS: BP 117/77
[2017-05-27] MEDS: BUDESONIDE 180MCG INHALER (PULMICORT FLEXHALER) INH SCH (08:18)
[2017-05-27] MEDS ORDERED: INFLUENZA QUADRIVALENT PF VACCINE 0.5ML SYRINGE (90686) IM ONE (09:00)
[2017-05-27] MEDS: HumaLOG INSULIN (NovoLOG) PER UNIT SC SCH ×2 (09:15→12:27)
[2017-05-27 09:17] VITALS: BP 121/89
[2017-05-27] MEDS: GLIMEPIRIDE 2 MG TAB PO SCH (09:17)
[2017-05-27] MEDS: GABAPENTIN 300 MG CAP PO SCH (09:17)
[2017-05-27] MEDS: LOSARTAN 50 MG TAB PO SCH (09:17)
[2017-05-27] MEDS: OMEPRAZOLE 20 MG CAP PO SCH (09:18)
[2017-05-27] MEDS: hydroCHLOROthiazide 12.5 MG CAPSULE PO SCH (09:18)
[2017-05-27] MEDS: SERTRALINE HCL 50 MG TAB PO SCH (09:18)
[2017-05-27] MEDS: FLUTICASONE PROP 0.05% NASAL SPRAY 16 GM (FLONASE) SCH (09:18)
[2017-05-27] MEDS: CETIRIZINE (ZyrTEC) 10 MG TAB PO SCH (09:18)
[2017-05-27] MEDS ORDERED: ASPI1TAB PO (11:16)
[2017-05-27] MEDS ORDERED: WARF-18 PO (11:16)
--- NOTE | 2017-05-27 17:06 | DS.PDOC ---
Discharge Summary General Date of Admission May 25, 2017 at 18:26 Date of Discharge 05/27/17 Attending Physician: VANESA RODRIGUEZ MD Discharge Summary PROCEDURES PERFORMED DURING STAY: None. ADMITTING/DISCHARGE DIAGNOSES: 1. Paresthesia in the right upper and lower extremity 2. Disc herniation in the cervical and lumbar spine 3. Right and left MCA stenosis 4. Diabetes mellitus 5. GERD 6. Hypertension 7. Tobacco abuse 8. Fibromyalgia 9. Depression 10. 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 H/o DVT COMPLICATIONS/CHIEF COMPLAINT: Paresthesia on the right upper extremity and lower extremity. HISTORY OF PRESENT ILLNESS/HOSPITAL COURSE: This is a 57-year-old female past medical history of CVA, depression, fibromyalgia, hypertension presents complaining of paresthesias in the right upper and lower extremities. Patient stated that she was moving many objects out of her house, after which she started to develop right upper and lower extremity paresthesias. Patient denied any focal weakness. No facial droop. Or ataxia. The patient was noted to have intact sensation as well as strength in the bilateral upper and lower extremity is. She did have MRI brain that was negative for stroke. She did however have stenosis of the right and left MCA. This was discussed with , who recommended observation as stenting does not improve mortality. The patient does follow-up with Dr. Zamora outpatient. He did recommend continuation of the Coumadin as well as 81 mg of aspirin daily. She also had MRI of the cervical and lumbar spine as disc herniation was likely the cause of her paresthesias. She had no spinal cord compromise. Patient is now hemodynamically stable, and will be discharged home. She will need to follow-up with PCP and neurology in 1 week. DISCHARGE MEDICATIONS: Please see below. ALLERGIES: Please see below. PHYSICAL EXAMINATION ON DISCHARGE: Vitals: (see below) General: No acute distress, laying comfortably in bed. HEENT: Moist mucous membranes. Neck: No JVD or lymphadenopathy Cardiac: RRR, No murmurs Pulm: Clear to auscultation b/l. No wheezing, rhonchi Abd: NT/ND + BS Ext: No edema or cyanosis Neuro: Strength 5/5 BUE and BLE. CN 2-12 intact. ; Mildly aphasia from prior stroke F to N intact Negative pronator drift. Negative Babinki. Sensation to fine touch/pinprick intact. LABORATORY DATA: Please see below. IMAGING: MRI brain on 05/25/17 Impression: No acute evidence of hemorrhage or infarct. Moderately severe stable chronic small vessel ischemic disease. MRA brain on 05/25/17 Impression: 1. Slight worsening of the focal high-grade stenosis of the right M1 segment of the right middle cerebral artery. 2. Stable focal stenosis of the M1 segment of the left middle cerebral artery. 3. No other new findings. MRI cervical spine 05/26/17 Impression: Spondylosis. Multilevel degenerative disc disease. MRI lumbar spine 05/26/17 Impression: Spondylosis. Multilevel degenerative disc disease PROGNOSIS: Guarded ACTIVITY: As tolerated. DIET: Low-sodium DISCHARGE PLAN/DISPOSITION: Home with home health DISCHARGE INSTRUCTIONS: 1. Follow-up with PCP and neurology in 1 week. Return to the ED in if symptoms worsen. Patient was also given a prescription for an INR checked as her INR was subtherapeutic. This result on the to be sent to her primary care physician. DISCHARGE CONDITION: Stable. TIME SPENT ON DISCHARGE: Greater than 30 minutes. Vital Signs/I&Os Vital Signs Date Time Temp Pulse Resp B/P (MAP) Pulse Ox O2 Delivery O2 Flow Rate FiO2 05/27/17 09:17 121/89 05/27/17 08:00 97.0 83 18 93 Room Air I&O- Last 24 Hours up to 6 AM 05/28/17 06:00 Intake Total 720 ml Output Total 1400 ml Balance -680 ml Laboratory Data Labs 24H Laboratory Tests 2 05/26/17 21:19: Bedside Glucose (Misc Panel) 156H 05/27/17 05:26: Prothrombin Time 22.4H, Prothromb Time International Ratio 1.90, Anion Gap 7L, Glomerular Filtration Rate > 60.0, Blood Urea Nitrogen 15, Creatinine 0.70, Sodium Level 139, Potassium Level 3.6, Chloride Level 101, Carbon Dioxide Level 31, Calcium Level 8.7 05/27/17 11:47: Bedside Glucose (Misc Panel) 240H CBC/BMP Laboratory Tests 05/27/17 05:26 Red Blood Count 4.74, Mean Corpuscular Volume 85.4, Mean Corpuscular Hemoglobin 29.1, Mean Corpuscular Hemoglobin Concent 34.1, Red Cell Distribution Width 12.1 , Calcium Level 8.7 FSBS Laboratory Tests Test 05/26/17 21:19 05/27/17 11:47 Range/Units Bedside Glucose (Misc Panel) 156 240 70-105 MG/DL Discharge Medications Scheduled (Asmanex 60 Metered Doses) 220 Mcg/Inh Aer, 220 MCG INH QHS, (Reported) (Losartan Potassium/Hydroc 50-12.5 mg) 1 Tab Tab, 1 TAB PO DAILY, (Reported) Aspirin (Aspirin 81) 81 Mg Tab, 81 MG PO DAILY Atorvastatin Calcium (Atorvastatin Calcium) 40 Mg Tab, 40 MG PO QHS, (Reported) Cetirizine HCl (Zyrtec Allergy) 10 Mg Tab, 10 MG PO DAILY, (Reported) Fluticasone Propionate (Fluticasone Propionate) 50 Mcg/Act Spr, 2 SPRAY NA DAILY , (Reported) Gabapentin (Gabapentin) 600 Mg Tab, 600 MG PO BID, (Reported) Glimepiride (Glimepiride) 2 Mg Tab, 2 MG PO DAILY, (Reported) Insulin Aspart (Novolog) 100 U/Ml Inj, 1 DOSE SC AC, (Reported) PER SLIDING SCALE Insulin Glargine (Lantus) 1 Units/0.01 Ml Susp, 50 UNITS SC QHS, (Reported) Metformin Hydrochloride (Metformin HCl) 1,000 Mg Tab, 1,000 MG PO BID, (Reported ) Montelukast Sodium (Singulair) 10 Mg Tab, 10 MG PO QHS, (Reported) Omeprazole (Omeprazole) 40 Mg Cap, 40 MG PO DAILY, (Reported) Sertraline Hcl (Sertraline HCl) 50 Mg Tab, 50 MG PO DAILY, (Reported) Warfarin Sod (Warfarin Sodium) 2.5 Mg Tab, 3 MG PO QPM TAKES AT 1700 WITH ASPIRIN Scheduled PRN Albuterol Sulfate (Ventolin Hfa) 200 Puff/8 Gm Aers, 2 PUFF INH Q4H PRN for SOB/ WHEEZING, (Reported) Cyclobenzaprine HCl (Cyclobenzaprine HCl) 10 Mg Tab, 10 MG PO TID PRN for MUSCLE SPASMS, (Reported) Hydroxyzine HCl (Hydroxyzine HCl) 50 Mg Tab, 50 MG PO QHS PRN for SLEEP, ( Reported) Allergies Coded Allergies: Ranitidine (Verified Allergy, Unknown, 03/22/16) Hives SEASONAL ALLERGIES (Unverified Allergy, Unknown, 05/25/17) VANESA RODRIGUEZ MD May 27, 2017 17:06
--- NOTE | 2017-05-27 17:22 | IPNPDOC ---
Text Note Date of Service The patient was seen on 05/26/17. Late note. NOTE Subjective: Patient feels well her paresthesias on the right upper and lower extremity has resolved. No focal weakness. States she was moving boxes with her family which they took to the dump. After which, she started to develop numbness and tingling in her right upper and lower extremity. No dysphagia/ facial droop. Objective: Vitals: (see below) General: No acute distress, laying comfortably in bed. HEENT: Moist mucous membranes. Neck: No JVD or lymphadenopathy Cardiac: RRR, No murmurs Pulm: Clear to auscultation b/l. No wheezing, rhonchi Abd: NT/ND + BS Ext: No edema or cyanosis Vitals: (see below) General: No acute distress, laying comfortably in bed. HEENT: Moist mucous membranes. Neck: No JVD or lymphadenopathy Cardiac: RRR, No murmurs Pulm: Clear to auscultation b/l. No wheezing, rhonchi Abd: NT/ND + BS Ext: No edema or cyanosis Neuro: Strength 5/5 BUE and BLE. CN 2-12 intact. ; Mildly aphasia from prior stroke F to N intact Negative pronator drift. Negative Babinki. Sensation to fine touch/pinprick intact. Labs (see below) Images: MRI brain on 05/25/17 Impression: No acute evidence of hemorrhage or infarct. Moderately severe stable chronic small vessel ischemic disease. MRA brain on 05/25/17 Impression: 1. Slight worsening of the focal high-grade stenosis of the right M1 segment of the right middle cerebral artery. 2. Stable focal stenosis of the M1 segment of the left middle cerebral artery. 3. No other new findings. Assessment/Plan 1. Right Upper and lower extremity paresthesias likely from disc herniation. We will obtain MRI of the cervical and lumbar spine. Neurologically intact. MRI of the brain negative for stroke. Likely secondary to her extensive activities while moving. 2. Disc herniation in the cervical and lumbar spine- physical therapy 3. Right and left MCA stenosis - will speak to Dr. Gunter about this today and obtain recommendations 4. Diabetes mellitus- SSI 5. GERD, PPI 6. Hypertension - continue current meds 7. Tobacco abuse- cessation counseling 8. Fibromyalgia - continue home meds 9. Depression- continue home meds 10. 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 History of DVT on Coumadin. Coumadin dosage increased 3 mg daily. DVT prophy: Coumadin Prognosis guarded. I did go for the patient's MRI results and she verbalized understanding. She follows up with Dr. Zamora, however her last one was in September. VS,Fishbone, I+O VS, Fishbone, I+O Laboratory Tests 05/27/17 05:26 Red Blood Count 4.74, Mean Corpuscular Volume 85.4, Mean Corpuscular Hemoglobin 29.1, Mean Corpuscular Hemoglobin Concent 34.1, Red Cell Distribution Width 12.1 , Calcium Level 8.7 Vital Signs Date Time Temp Pulse Resp B/P (MAP) Pulse Ox O2 Delivery O2 Flow Rate FiO2 05/27/17 09:17 121/89 05/27/17 08:00 97.0 83 18 93 Room Air I&O- Last 24 Hours up to 6 AM 05/28/17 06:00 Intake Total 720 ml Output Total 1400 ml Balance -680 ml VANESA RODRIGUEZ MD May 27, 2017 17:22
== END 2017-05-27 16:51 | disposition home health service (06) | DRG 347 ==
LOC: EDBD 13:47 → M ED 13:47 → M ED INP 18:26 → M PCU 23:16
PROVIDERS: ADMIT Internal Medicine; ATTEND Internal Medicine
DX: M51.26 Other intervertebral disc displacement, lumbar region (principal); I69.954 Hemiplegia and hemiparesis following unspecified cerebrovascular disease affecting left non-dominant side; I10 Essential (primary) hypertension; M50.20 Other cervical disc displacement, unspecified cervical region; E11.9 Type 2 diabetes mellitus without complications; K21.9 Gastro-esophageal reflux disease without esophagitis; F17.200 Nicotine dependence, unspecified, uncomplicated; M79.7 Fibromyalgia; F32.9 Major depressive disorder, single episode, unspecified; I69.920 Aphasia following unspecified cerebrovascular disease; Z79.899 Other long term (current) drug therapy; Z79.82 Long term (current) use of aspirin; Z79.4 Long term (current) use of insulin; R29.818 Other symptoms and signs involving the nervous system; E78.00 Pure hypercholesterolemia, unspecified

== ENCOUNTER → 2017-08-11 | Outpatient (REF) | payer OTHER, MEDICAID ==
[~2017-08-11] MED LIST changes: +ASPI1TAB PO; +CYCL10TA PO; +GABA600T PO
[2017-08-11 17:31] LABS: INR 1.67
== END ==
LOC: M LAB REF 16:53
PROVIDERS: ATTEND Family Medicine Addiction Medicine
DX: I63.9 Cerebral infarction, unspecified (principal)

== ENCOUNTER → 2017-09-14 | Outpatient (REF) | payer OTHER ==
[2017-09-14 17:37] LABS: INR 1.65
== END ==
LOC: M LAB REF 16:41
DX: I63.9 Cerebral infarction, unspecified (principal)

== ENCOUNTER → 2018-02-15 | Outpatient (REF) | payer OTHER ==
[2018-02-15 17:55] LABS: INR 2.66; PROTHROMBIN TIME 29.5 SECONDS (12.4-14.5)
== END ==
LOC: M LAB REF 16:26
DX: I63.9 Cerebral infarction, unspecified (principal); Z79.01 Long term (current) use of anticoagulants

== ENCOUNTER → 2018-04-28 | Outpatient (REF) | payer OTHER ==
[2018-04-28 12:58] LABS: BASO # 0.1 10^3/uL (0.0-0.2); EOS # 0.2 10^3/uL (0.0-0.50); EOS % 2.1 % (0.0-3.0); HEMATOCRIT 44.9 % (36.0-47.0); HEMOGLOBIN 15.1 g/dl (12.0-15.5); IMMATURE GRANULOCYTE % 0.1 % (0-3.0); LYMPH # 2.5 10^3/uL (1.5-4.5); MEAN CORPUSCULAR HEMOGLOBIN 29.5 pg (27.0-33.0); MEAN CORPUSCULAR HGB CONC 33.6 g/dl (32.0-36.5); MEAN CORPUSCULAR VOLUME 87.7 fl (80.0-96.0); MONO # 0.5 10^3/uL (0.0-0.8); MONO % 6.8 % (0.0-5.0); NEUTROPHILS # 4.1 10^3/uL (1.8-7.7); PLATELET COUNT, AUTOMATED 172 10^3/uL (150-450); RED BLOOD COUNT 5.12 10^6/uL (4.00-5.40); RED CELL DISTRIBUTION WIDTH 12.1 % (11.5-14.5); WHITE BLOOD COUNT 7.2 10^3/uL (4.0-10.0)
[2018-04-28 13:23] LABS: ALBUMIN 3.6 GM/DL (3.2-5.2); ALBUMIN/GLOBULIN RATIO 0.73 (1.00-1.93); ALKALINE PHOSPHATASE 91 U/L (45-117); ALT/SGPT 31 U/L (12-78); ANION GAP 9 MEQ/L (8-16); AST/SGOT 20 U/L (7-37); BILIRUBIN,TOTAL 0.3 MG/DL (0.2-1.0); BLOOD UREA NITROGEN 9 MG/DL (7-18); CALCIUM LEVEL 9.7 MG/DL (8.5-10.1); CARBON DIOXIDE LEVEL 32 MEQ/L (21-32); CHLORIDE LEVEL 99 MEQ/L (98-107); CREATININE FOR GFR 0.69 MG/DL (0.55-1.30); GLOMERULAR FILTRATION RATE > 60.0 (>51); GLUCOSE, FASTING 260 MG/DL (70-100); POTASSIUM SERUM 4.1 MEQ/L (3.5-5.1); SODIUM LEVEL 140 MEQ/L (136-145); TOTAL PROTEIN 8.5 GM/DL (6.4-8.2)
[2018-04-28 15:33] LABS: ESTIMATED AVERAGE GLUCOSE 286 MG/DL (60-110); HEMOGLOBIN A1c 11.6 %
== END ==
LOC: M SFHCPLAZ 10:23
DX: I10 Essential (primary) hypertension (principal); E11.69 Type 2 diabetes mellitus with other specified complication

== ENCOUNTER → 2018-05-12 | Outpatient (REF) | payer OTHER ==
[2018-05-12 13:44] LABS: INR 1.32; PROTHROMBIN TIME 16.6 SECONDS (12.1-14.4)
== END ==
LOC: M SFHCPLAZ 11:08
DX: Z51.81 Encounter for therapeutic drug level monitoring (principal)

== ENCOUNTER → 2018-05-23 | Outpatient (REF) | payer OTHER ==
[2018-05-23 13:34] LABS: CHOLESTEROL LEVEL 200 MG/DL (<200); CHOLESTEROL RISK RATIO 5.882 (<5); FREE T4 0.96 NG/DL (0.76-1.46); HDL CHOLESTEROL 34 MG/DL (>40); LDL CHOLESTEROL 118 MG/DL (<100); NON-HDL-C 166 MG/DL; TRIGLYCERIDES LEVEL 239 MG/DL (<150)
== END ==
LOC: M SFHCPLAZ 09:30
DX: F41.9 Anxiety disorder, unspecified (principal); Z51.81 Encounter for therapeutic drug level monitoring; E78.00 Pure hypercholesterolemia, unspecified

== ENCOUNTER 2018-08-04 18:15 | Emergency (ER) | payer OTHER ==
[2018-08-04] MEDS: NS 1,000 ML IV (20:04)
[2018-08-04] MEDS: ACETAMINOPHEN 325 MG TAB PO (20:04)
[2018-08-04 20:13] LABS: BASO # 0.1 10^3/uL (0.0-0.2); EOS # 0.1 10^3/uL (0.0-0.50); EOS % 2.4 % (0.0-3.0); HEMATOCRIT 38.3 % (36.0-47.0); HEMOGLOBIN 12.9 g/dl (12.0-15.5); IMMATURE GRANULOCYTE % 0.3 % (0-3.0); LYMPH # 1.9 10^3/uL (1.5-4.5); LYMPH % 31.3 % (24.0-44.0); MEAN CORPUSCULAR HEMOGLOBIN 29.4 pg (27.0-33.0); MEAN CORPUSCULAR HGB CONC 33.7 g/dl (32.0-36.5); MEAN CORPUSCULAR VOLUME 87.2 fl (80.0-96.0); MONO # 0.6 10^3/uL (0.0-0.8); MONO % 9.2 % (0.0-5.0); NEUTROPHILS # 3.3 10^3/uL (1.8-7.7); NEUTROPHILS % 55.8 % (36.0-66.0); PLATELET COUNT, AUTOMATED 132 10^3/uL (150-450); RED BLOOD COUNT 4.39 10^6/uL (4.00-5.40); RED CELL DISTRIBUTION WIDTH 11.9 % (11.5-14.5)
[2018-08-04 20:39] LABS: ANION GAP 6 MEQ/L (8-16); BLOOD UREA NITROGEN 11 MG/DL (7-18); CALCIUM LEVEL 8.4 MG/DL (8.5-10.1); CARBON DIOXIDE LEVEL 28 MEQ/L (21-32); CHLORIDE LEVEL 102 MEQ/L (98-107); CREATININE FOR GFR 0.83 MG/DL (0.55-1.30); GLOMERULAR FILTRATION RATE > 60.0 (>51); GLUCOSE, FASTING 434 MG/DL (70-100); POTASSIUM SERUM 4.3 MEQ/L (3.5-5.1); SODIUM LEVEL 136 MEQ/L (136-145)
[2018-08-04] MEDS ORDERED: ISOVUE-370 76% 100ML VIAL (Q9967) As Ordered (20:55)
[2018-08-04] MEDS: HumuLIN R (REGULAR) INSULIN (NovoLIN R) **100U/ML** PER UNIT IV (21:17)
[2018-08-04 22:16] LABS: APPEARANCE, URINE CLEAR (CLEAR); BACTERIA, URINE AUTO NEGATIVE (NEGATIVE); BILIRUBIN, URINE AUTO NEGATIVE (NEGATIVE); BLOOD, URINE BLOOD NEGATIVE (NEGATIVE); COLOR, URINE STRAW (YELLOW); GLUCOSE, URINE (UA) AUTO 3+ mg/dL (NEGATIVE); KETONE, URINE AUTO NEGATIVE (NEGATIVE); LEUKOCYTE ESTERASE, URINE AUTO TRACE (NEGATIVE); NITRITE, URINE AUTO NEGATIVE (NEGATIVE); PROTEIN, URINE AUTO NEGATIVE (NEGATIVE); RBC, URINE AUTO 2 /HPF (0-3); SQUAMOUS EPITHELIAL CELL UR AU 2 /HPF (0-6); UROBILINOGEN, URINE AUTO 0.2 mg/dL (0.0-2.0); WBC, URINE AUTO 2 /HPF (0-3)
[2018-08-04 22:49] LABS: BEDSIDE GLUCOSE 278 MG/DL (70-105)
[2018-08-04] MEDS: FLUCONAZOLE 50MG TABLET PO (22:59)
== END 2018-08-04 23:08 | disposition home or self-care (01) ==
LOC: M ED 18:15
DX: B37.3 Candidiasis of vulva and vagina (principal); R10.2 Pelvic and perineal pain; N95.2 Postmenopausal atrophic vaginitis; E11.65 Type 2 diabetes mellitus with hyperglycemia; K76.0 Fatty (change of) liver, not elsewhere classified; I10 Essential (primary) hypertension; E78.5 Hyperlipidemia, unspecified; Z86.718 Personal history of other venous thrombosis and embolism; Z86.73 Personal history of transient ischemic attack (TIA), and cerebral infarction without residual deficits; K57.32 Diverticulitis of large intestine without perforation or abscess without bleeding; J30.2 Other seasonal allergic rhinitis; Z72.0 Tobacco use; Z79.01 Long term (current) use of anticoagulants; Z79.899 Other long term (current) drug therapy; Z88.8 Allergy status to other drugs, medicaments and biological substances
CPT/HCPCS: Q9967

== ENCOUNTER → 2018-09-05 | Outpatient (REF) | payer OTHER ==
[~2018-09-05] MED LIST changes: +ADME100I2 SQ; -AMLO10TA2 PO; +AMLO10TA5 PO; -ASPI325T24 PO; +ASPI325T25 PO; +DIFL150T PO; -GABA-282 PO; +GABA-843 PO; -GABA600T PO; +GABA600T4 PO; +LEVO25TA5 PO; +NICO21DI34 TD; -NICODIS TD; +TOUJ1.2I SQ; +ZYRT10CA5 PO; -ZYRT10TA2 PO
[2018-09-05 13:56] LABS: BASO # 0.1 10^3/uL (0.0-0.2); BASO % 0.9 % (0.0-1.0); EOS # 0.1 10^3/uL (0.0-0.50); EOS % 1.6 % (0.0-3.0); HEMATOCRIT 42.1 % (36.0-47.0); HEMOGLOBIN 14.2 g/dl (12.0-15.5); LYMPH # 2.1 10^3/uL (1.5-4.5); LYMPH % 25.8 % (24.0-44.0); MEAN CORPUSCULAR HEMOGLOBIN 29.5 pg (27.0-33.0); MEAN CORPUSCULAR HGB CONC 33.7 g/dl (32.0-36.5); MEAN CORPUSCULAR VOLUME 87.5 fl (80.0-96.0); MONO # 0.5 10^3/uL (0.0-0.8); MONO % 5.6 % (0.0-5.0); NEUTROPHILS # 5.4 10^3/uL (1.8-7.7); NEUTROPHILS % 65.6 % (36.0-66.0); PLATELET COUNT, AUTOMATED 213 10^3/uL (150-450); RED BLOOD COUNT 4.81 10^6/uL (4.00-5.40); WHITE BLOOD COUNT 8.2 10^3/uL (4.0-10.0)
[2018-09-05 14:03] LABS: INR 1.19; PROTHROMBIN TIME 15.3 SECONDS (12.1-14.4)
[2018-09-05 14:29] LABS: ALBUMIN 3.5 GM/DL (3.2-5.2); ALT/SGPT 33 U/L (12-78); BILIRUBIN,TOTAL 0.3 MG/DL (0.2-1.0); BLOOD UREA NITROGEN 11 MG/DL (7-18); CALCIUM LEVEL 9.2 MG/DL (8.5-10.1); CARBON DIOXIDE LEVEL 30 MEQ/L (21-32); CHLORIDE LEVEL 98 MEQ/L (98-107); FREE T4 1.07 NG/DL (0.76-1.46); GLOMERULAR FILTRATION RATE > 60.0 (>51); GLUCOSE, FASTING 302 MG/DL (70-100); POTASSIUM SERUM 4.1 MEQ/L (3.5-5.1); SODIUM LEVEL 136 MEQ/L (136-145); TOTAL PROTEIN 8.5 GM/DL (6.4-8.2)
[2018-09-05 14:45] LABS: HEMOGLOBIN A1c 13.5 %
[2018-09-06 10:42] LABS: DRVV SCREEN 52.5 SEC
[2018-09-06 10:53] LABS: PTT LUPUS TYPE ANTICOAG SCREEN 1.2 (0-1.2)
[2018-09-06 11:01] LABS: DRVV CONFIRM 44.8 SEC; LUPUS CONFIRM RATIO 1.1
[2018-09-06 11:05] LABS: NORMALIZED RATIO 1.09 (0.00-1.20)
[2018-09-07 00:10] LABS: CARDIOLIPIN IGA ANTIBODY <9 APL U/mL (0-11); CARDIOLIPIN IGG ANTIBODY <9 GPL U/mL (0-14); CARDIOLIPIN IGM ANTIBODY 38 MPL U/mL (0-12)
== END ==
LOC: M SFHCPLAZ 10:59
PROVIDERS: ATTEND Physician Assistant Medical
DX: Z51.81 Encounter for therapeutic drug level monitoring (principal); Z79.899 Other long term (current) drug therapy; Z86.718 Personal history of other venous thrombosis and embolism; K21.9 Gastro-esophageal reflux disease without esophagitis; E11.69 Type 2 diabetes mellitus with other specified complication; E03.9 Hypothyroidism, unspecified

== ENCOUNTER → 2018-10-04 | Outpatient (CLI) | payer OTHER ==
[~2018-10-04] MED LIST changes: +GASTROGRAFIN SOLUTION 30ML (Q9963) As Ordered ONE; +ISOVUE-370 76% 100ML VIAL (Q9967) As Ordered ONE
--- NOTE | 2018-10-04 14:36 | REP ---
CT of the abdomen and pelvis without and with IV contrast and with oral contrast: Comparison is 08/04/2018. The visualized lung byers are unremarkable. The hepatic parenchyma is homogeneous on both phases of the study. There are surgical clips in the gallbladder fossa. The pancreas and spleen are normal size and unremarkable. The adrenals are unremarkable. The kidneys are unremarkable. The abdominal aorta is unremarkable. There is no periaortic adenopathy or mass. There is no bowel distension or obstruction. There are diverticula in the descending colon and sigmoid colon without CT evidence of acute diverticulitis. There is no ascites. Pelvis: There is no ascites or adenopathy. There is a hysterectomy. Vaginal cuff and adnexa are unremarkable. The bladder is unremarkable. There is fullness of the perivaginal soft tissues on the right, similar to the comparison study, possibly a Bartholin cyst, unchanged. Impression: Hysterectomy and cholecystectomy. Diverticulosis without diverticulitis. Fullness in the right perivaginal soft tissues, possibly a Bartholin cyst, unchanged. Electronically Signed by Dhaval Rojas MD 10/04/2018 02:27 P
== END ==
LOC: M RAD 11:05
PROVIDERS: ATTEND Physician Assistant Medical
DX: R10.9 Unspecified abdominal pain (principal)
CPT/HCPCS: 74178; Q9963; Q9967

== ENCOUNTER → 2018-10-20 | Outpatient (REF) | payer OTHER ==
[~2018-10-20] MED LIST changes: -GASTROGRAFIN SOLUTION 30ML (Q9963) As Ordered ONE; -ISOVUE-370 76% 100ML VIAL (Q9967) As Ordered ONE
[2018-10-22 00:09] LABS: BETA 2 MICROGLOBULIN 2.6 mg/L (0.6-2.4); CARDIOLIPIN IGA ANTIBODY <9 APL U/mL (0-11); CARDIOLIPIN IGG ANTIBODY <9 GPL U/mL (0-14); CARDIOLIPIN IGM ANTIBODY 28 MPL U/mL (0-12)
== END ==
LOC: M SFHCPLAZ 08:14
PROVIDERS: ATTEND Physician Assistant Medical
DX: Z86.718 Personal history of other venous thrombosis and embolism (principal); Z79.01 Long term (current) use of anticoagulants

== ENCOUNTER → 2019-11-24 | Outpatient (CLI) | payer OTHER ==
[~2019-11-24] MED LIST changes: +ASPI-255 PO; -ASPI1TAB PO; -ASPI325T25 PO; +ASPI81TA26 PO; -GLIM2TAB PO; +GLIM2TAB4 PO; -LISI20TA PO; +LISI20TA19 PO; +OMEP1CAP73 PO; -OMEP20CA3 PO; -OMEP40CA2 PO; +OMEP40CA97 PO; +SERT-141 PO; -SERT25TA PO; +SERT25TA85 PO; -SERT50TA PO; -TRIA EXT; +[UNRECOGNIZED DRUG - CODE] EXT
[2019-11-24 10:56] LABS: HEMOGLOBIN A1c 11.8 %
[2019-11-24 11:14] LABS: CREATININE, URINE 90.1 MG/DL; MAU/CREAT RATIO 114.3 MCG/MG (0.0-30.0)
[2019-11-24 11:17] LABS: ALBUMIN 3.6 GM/DL (3.2-5.2); ALT/SGPT 50 U/L (12-78); BILIRUBIN,TOTAL 0.4 MG/DL (0.2-1.0); BLOOD UREA NITROGEN 13 MG/DL (7-18); CALCIUM LEVEL 10.1 MG/DL (8.8-10.2); CARBON DIOXIDE LEVEL 32 MEQ/L (21-32); CHLORIDE LEVEL 99 MEQ/L (98-107); CHOLESTEROL LEVEL 160 MG/DL (<200); CHOLESTEROL RISK RATIO 4.102 (<5); CREATININE FOR GFR 0.89 MG/DL (0.55-1.30); FREE T4 0.98 NG/DL (0.76-1.46); GLOMERULAR FILTRATION RATE > 60.0 (>45); GLUCOSE, FASTING 418 MG/DL (70-100); HDL CHOLESTEROL 39 MG/DL (>40); LDL CHOLESTEROL 90 MG/DL (<100); NON-HDL-C 121 MG/DL; POTASSIUM SERUM 3.8 MEQ/L (3.5-5.1); SODIUM LEVEL 134 MEQ/L (136-145); TOTAL PROTEIN 8.4 GM/DL (6.4-8.2); TRIGLYCERIDES LEVEL 156 MG/DL (<150)
== END ==
LOC: M LAB 09:52
PROVIDERS: ATTEND Nurse Practitioner Family
DX: E78.2 Mixed hyperlipidemia (principal); I10 Essential (primary) hypertension; E11.42 Type 2 diabetes mellitus with diabetic polyneuropathy

== ENCOUNTER → 2020-01-08 | Outpatient (CLI) | payer OTHER ==
[~2020-01-08] MED LIST changes: +CYCL-707 PO; -CYCL10TA PO
--- NOTE | 2020-01-09 06:47 | REP ---
Clinical: Lung screening. History smoking. Comparison: None Technique: Axial low-dose noncontrast images from the thoracic inlet to the upper abdomen using lung screening technique. Findings: The lung byers are well-aerated. No consolidation, significant nodule or mass lesion is appreciated. No pleural effusion/reaction or pneumothorax. Tracheobronchial tree is patent. Mediastinum demonstrates mild atherosclerotic changes of the coronary arteries without cardiomegaly. Impression: Lung-RADS category I. No nodule or suspicious abnormality. Electronically Signed by Willis Dale MD 01/09/2020 06:37 A
== END ==
LOC: M RAD 13:26
PROVIDERS: ATTEND Nurse Practitioner Family
DX: Z12.2 Encounter for screening for malignant neoplasm of respiratory organs (principal); F17.210 Nicotine dependence, cigarettes, uncomplicated

== ENCOUNTER 2020-05-15 20:53 | Emergency (ER) | payer OTHER ==
[~2020-05-15] VITALS: Ht 157.5 cm; Wt 70.5 kg
[~2020-05-15 20:53] MED LIST changes: -AMLO10TA5 PO; +AMLO1TAB25 PO; +ASPI-546 PO; -ASPI1TAB15 PO; -LISI20TA19 PO; +LISI20TA35 PO
[2020-05-15 21:45] VITALS: BP 143/59
[2020-05-15] MEDS ORDERED: CLOP75TA2 PO (22:25)
[2020-05-15] MEDS ORDERED: BASA100I SQ (22:25)
[2020-05-15] MEDS ORDERED: AMLO2.5T3 PO (22:25)
--- NOTE | 2020-05-15 22:26 | REPVR ---
PROCEDURE INFORMATION: Exam: XR Chest, 1 View Exam date and time: 05/15/2020 9:51 PM Age: 60 years old Clinical indication: Other: Chest pain TECHNIQUE: Imaging protocol: XR of the chest Views: 1 view. COMPARISON: CR PORTABLE CHEST X-RAY 2017-05-25 14:23 FINDINGS: Lungs: Unremarkable. No consolidation. Pleural space: Unremarkable. No pleural effusion. No pneumothorax. Heart/Mediastinum: Unremarkable. No cardiomegaly. Bones/joints: Unremarkable. IMPRESSION: No acute findings. Electronically signed by: Balta Rhodes On 05/15/2020 22:26:40 PM
--- NOTE | 2020-05-16 20:52 | ECGEPIP ---
[facility] [place] - ED Test Date: 2020-05-15 Pat Name: BRIDGER SALMERON Department: Room: - Gender: Female Drafter Detail: kk : 1960 Requested By: Jose Browne Order Number: [id number] Reading MD: Nadia Avila Measurements Intervals [place] Rate: 87 P: 72 NH: 186 QRS: -5 QRSD: 90 T: 72 QT: 367 QTc: 443 Interpretive Statements SINUS RHYTHM INFERIOR MYOCARDIAL INFARCTION, OF INDETERMINATE AGE ANTERIOR INFARCT, INDETERMINATE AGE DECREASED RATE 05/25/17 Electronically Signed on 05-16-2020 20:52:25 EDT by Nadia Avila
== END 2020-05-15 23:01 | disposition home or self-care (01) ==
LOC: M ED 20:53
DX: R07.89 Other chest pain (principal); I11.0 Hypertensive heart disease with heart failure; E11.9 Type 2 diabetes mellitus without complications; E78.5 Hyperlipidemia, unspecified; J44.9 Chronic obstructive pulmonary disease, unspecified; F33.9 Major depressive disorder, recurrent, unspecified; Z86.718 Personal history of other venous thrombosis and embolism; Z86.73 Personal history of transient ischemic attack (TIA), and cerebral infarction without residual deficits; J30.2 Other seasonal allergic rhinitis; Z88.8 Allergy status to other drugs, medicaments and biological substances; Z79.51 Long term (current) use of inhaled steroids; Z79.899 Other long term (current) drug therapy; Z79.84 Long term (current) use of oral hypoglycemic drugs

== ENCOUNTER 2020-06-07 21:39 | Emergency (ER) | payer OTHER ==
[~2020-06-07] VITALS: Ht 157.5 cm; Wt 68.2 kg
[~2020-06-07 21:39] MED LIST changes: +AMLO2.5T3 PO; +BASA100I SQ
[2020-06-07] MEDS ORDERED: GABA600T4 PO (23:41)
[2020-06-07] MEDS ORDERED: NORCO, ANEXSIA 5/325MG TABLET (HYDROcodone/ACETAMINOPHEN) PO ONE (23:45)
[2020-06-08 00:01] VITALS: BP 178/88
== END 2020-06-08 00:04 | disposition home or self-care (01) ==
LOC: M ED 21:39
DX: E11.40 Type 2 diabetes mellitus with diabetic neuropathy, unspecified (principal); I10 Essential (primary) hypertension; Z86.73 Personal history of transient ischemic attack (TIA), and cerebral infarction without residual deficits; J30.2 Other seasonal allergic rhinitis; Z79.4 Long term (current) use of insulin; Z79.899 Other long term (current) drug therapy

== ENCOUNTER → 2020-06-10 | Outpatient (CLI) | payer OTHER ==
[~2020-06-10] MED LIST changes: +NEUR300C PO; +OXYC1TAB23 PO
--- NOTE | 2020-06-10 09:16 | REP ---
INDICATION: ESSENTIAL HYPERTENSION CKD 1 COMPARISON: None TECHNIQUE: Real time reardon scale ultrasound examination using curved array transducer followed by color Doppler evaluation of the renal vasculature. FINDINGS: The bilateral kidneys demonstrate mild cortical thinning and increased central sinus fat consistent with chronic age-related renal changes. No hydronephrosis, nephrolithiasis, significant cystic or renal mass lesion appreciated. Right kidney measures 11.5 x 5.9 x 5.9 cm. Left kidney measures 10.9 x 4.8 x 5.0 cm. Bladder is under distended. Color Doppler evaluation was significantly limited due to overlying bowel gas primarily obscuring visualization of the left renal artery. Peak aortic velocity: 73 centimeters/second RIGHT KIDNEY Renal arterial velocity: 96 centimeters/second Renal-aortic ratio: 1.31 Intrarenal resistive indices: 0.69-0.73 Intrarenal acceleration times: 0.031-0.045 LEFT KIDNEY Renal arterial velocity: Not obtainable Renal-aortic ratio: Not obtainable Intrarenal resistive indices: 0.67-0.70 Intrarenal acceleration times: 0.022-0.033 IMPRESSION: 1. Kidneys demonstrate generalized age-related changes as noted above. 2. Limited Doppler interrogation without definite evidence for renal arterial stenosis. Consider MRA or CTA for further investigation if necessary. <Electronically signed by Willis Dale > 06/10/20 [id number]
== END ==
LOC: M RAD 07:10
PROVIDERS: ATTEND Nurse Practitioner Family
DX: I12.9 Hypertensive chronic kidney disease with stage 1 through stage 4 chronic kidney disease, or unspecified chronic kidney disease (principal); N18.1 Chronic kidney disease, stage 1

== ENCOUNTER 2020-06-16 15:53 | Emergency (ER) | payer OTHER ==
[~2020-06-16] VITALS: Ht 157.5 cm; Wt 68.2 kg
[~2020-06-16 15:53] MED LIST changes: -NEUR300C PO; -OXYC1TAB23 PO
[2020-06-16 16:15] VITALS: BP 152/81
[2020-06-16] MEDS ORDERED: PERCOCET 5MG/325MG TAB PO ONE (16:45)
--- NOTE | 2020-06-16 17:09 | REPVR ---
PROCEDURE INFORMATION: Exam: US Duplex Lower Extremity Veins, Bilateral Exam date and time: 06/16/2020 5:00 PM Age: 60 years old Clinical indication: Pain; Other: Bilateral legs - neuropathy; Additional info: Foot/calf pain TECHNIQUE: Imaging protocol: Real-time duplex ultrasound of the extremities with 2-D reardon scale, color Doppler flow and spectral waveform analysis with image documentation. Complete exam focused on the bilateral lower extremity veins. COMPARISON: US Duplex, Ext,LOWER veins,unilat 06/17/2017 2:47 PM FINDINGS: Right deep veins: Unremarkable. The common femoral, femoral and popliteal veins are patent without thrombus. Normal Doppler waveforms. Normal compressibility and/or augmentation response. Right superficial veins: Saphenofemoral junction is patent without thrombus. Left deep veins: Unremarkable. The common femoral, femoral and popliteal veins are patent without thrombus. Normal Doppler waveforms. Normal compressibility and/or augmentation response. Left superficial veins: Saphenofemoral junction is patent without thrombus. Soft tissues: Unremarkable. IMPRESSION: No evidence of deep vein thrombosis in the lower extremities bilaterally. Electronically signed by: Antonio Nieves On 06/16/2020 17:08:58 PM
[2020-06-16] MEDS ORDERED: OXYC1TAB23 PO (17:15)
[2020-06-16] MEDS ORDERED: OXYCODONE/APAP 5MG/325MG(BULK FOR ED) 1 TABLET PO ONE (17:30)
== END 2020-06-16 17:29 | disposition home or self-care (01) ==
LOC: M ED 15:53 → EDBD 15:53 → M ED 17:29
DX: E11.40 Type 2 diabetes mellitus with diabetic neuropathy, unspecified (principal); I25.10 Atherosclerotic heart disease of native coronary artery without angina pectoris; K21.9 Gastro-esophageal reflux disease without esophagitis; Z86.718 Personal history of other venous thrombosis and embolism; Z86.73 Personal history of transient ischemic attack (TIA), and cerebral infarction without residual deficits; Z79.899 Other long term (current) drug therapy

== ENCOUNTER 2020-06-23 20:58 | Emergency (ER) | payer OTHER ==
[~2020-06-23] VITALS: Ht 157.5 cm; Wt 73.5 kg
[~2020-06-23 20:58] MED LIST changes: +OXYC1TAB23 PO
[2020-06-23 20:59] VITALS: BP 189/81
[2020-06-23] MEDS ORDERED: HumuLIN R (REGULAR) INSULIN (NovoLIN R) **100U/ML** PER UNIT SC STA (22:18)
[2020-06-23] MEDS ORDERED: GABAPENTIN 300 MG CAP PO ONE (22:30)
[2020-06-23] MEDS ORDERED: PERCOCET 5MG/325MG TAB PO ONE (22:30)
--- NOTE | 2020-06-23 23:14 | REPVR ---
PROCEDURE INFORMATION: Exam: US Duplex Lower Extremity Veins, Bilateral Exam date and time: 06/23/2020 11:03 PM Age: 60 years old Clinical indication: Pain; Leg, lower; Bilateral; Additional info: Calf pain/tenderness, diff walking TECHNIQUE: Imaging protocol: Real-time duplex ultrasound of the extremities with 2-D reardon scale, color Doppler flow and spectral waveform analysis with image documentation. Complete exam focused on the bilateral lower extremity veins. COMPARISON: US Duplex, Ext LOWER veins, bilat 06/16/2020 4:50 PM FINDINGS: Right deep veins: Unremarkable. The common femoral, femoral and popliteal veins are patent without thrombus. Normal Doppler waveforms. Normal compressibility and/or augmentation response. Right superficial veins: Saphenofemoral junction is patent without thrombus. Left deep veins: Unremarkable. The common femoral, femoral and popliteal veins are patent without thrombus. Normal Doppler waveforms. Normal compressibility and/or augmentation response. Left superficial veins: Saphenofemoral junction is patent without thrombus. Soft tissues: Unremarkable. IMPRESSION: No sonographic evidence of deep vein thrombosis. Electronically signed by: Nimesh Velez On 06/23/2020 23:14:48 PM
[2020-06-23] MEDS ORDERED: NEUR300C PO (23:29)
[2020-06-23] MEDS ORDERED: OXYCODONE/APAP 5MG/325MG(BULK FOR ED) 1 TABLET PO ONE (23:45)
== END 2020-06-23 23:48 | disposition home or self-care (01) ==
LOC: M ED 20:58
DX: M79.671 Pain in right foot (principal); M79.672 Pain in left foot; E11.9 Type 2 diabetes mellitus without complications; I10 Essential (primary) hypertension; J44.9 Chronic obstructive pulmonary disease, unspecified; Z86.73 Personal history of transient ischemic attack (TIA), and cerebral infarction without residual deficits; Z87.891 Personal history of nicotine dependence; J30.2 Other seasonal allergic rhinitis; Z88.8 Allergy status to other drugs, medicaments and biological substances; Z79.84 Long term (current) use of oral hypoglycemic drugs; Z79.899 Other long term (current) drug therapy

== ENCOUNTER 2020-06-30 15:06 | Emergency (ER) | payer OTHER ==
[~2020-06-30] VITALS: Ht 157.5 cm; Wt 73.2 kg
[~2020-06-30 15:06] MED LIST changes: +NEUR300C PO
[2020-06-30] MEDS ORDERED: ACET-897 PO (15:28)
[2020-06-30] MEDS ORDERED: GABA-843 (15:28)
[2020-06-30] MEDS ORDERED: traMADol 50 MG TAB PO ONE (16:45)
[2020-06-30] MEDS ORDERED: TRAM50TA2 PO (17:29)
[2020-06-30] MEDS ORDERED: METF-877 PO (17:29)
[2020-06-30 17:43] VITALS: BP 170/87
== END 2020-06-30 17:46 | disposition home or self-care (01) ==
LOC: M ED 15:06
DX: E11.40 Type 2 diabetes mellitus with diabetic neuropathy, unspecified (principal); Z79.4 Long term (current) use of insulin; Z79.51 Long term (current) use of inhaled steroids; Z79.899 Other long term (current) drug therapy; Z87.891 Personal history of nicotine dependence; Z88.8 Allergy status to other drugs, medicaments and biological substances

== ENCOUNTER 2020-07-21 12:42 | Emergency (ER) | payer OTHER ==
[~2020-07-21] VITALS: Ht 157.5 cm; Wt 68.2 kg
[~2020-07-21 12:42] MED LIST changes: +ACET-897 PO; +METF-877 PO; +TRAM50TA2 PO
[2020-07-21] MEDS ORDERED: LOSA100T5 (12:54)
[2020-07-21] MEDS ORDERED: DULO1CAP6 (12:54)
[2020-07-21] MEDS ORDERED: PANT40TA29 (12:54)
[2020-07-21] MEDS ORDERED: GABAPENTIN 300 MG CAP PO ONE (14:00)
[2020-07-21] MEDS ORDERED: ONDANSETRON 4 MG ORAL DISINTEGRATING TAB PO ONE (14:00)
[2020-07-21] MEDS ORDERED: ONDA4TAB6 PO (14:25)
[2020-07-21 14:29] VITALS: BP 136/85
== END 2020-07-21 14:33 | disposition home or self-care (01) ==
LOC: M ED 12:42
DX: E11.40 Type 2 diabetes mellitus with diabetic neuropathy, unspecified (principal); M79.671 Pain in right foot; M79.672 Pain in left foot; R11.0 Nausea; Z86.73 Personal history of transient ischemic attack (TIA), and cerebral infarction without residual deficits; Z79.899 Other long term (current) drug therapy; Z79.4 Long term (current) use of insulin; Z79.51 Long term (current) use of inhaled steroids
CPT/HCPCS: 99284; Q0162

== ENCOUNTER 2020-09-04 21:11 | Emergency (ER) | payer OTHER ==
[~2020-09-04] VITALS: Ht 165.1 cm; Wt 77.3 kg
[~2020-09-04 21:11] MED LIST changes: +DULO1CAP6; +GABA-282 PO; -GABA-843 PO; +LOSA100T5; +ONDA4TAB6 PO; +PANT40TA29
--- OUTSIDE RECORDS SUMMARY | 2020-09-04 21:16 | CCD ---
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 Interpretation Code Description Data Octavia e(s) Supporting Document(s) Glucose, Fasting 418 mg/dL 70-100 Above upper panic limits [facility] Creatinine For GFR 0.89 mg/dL 0.55-1.30 [facility] ([facility] Blood Urea Nitrogen 13 mg/dL 7-18 [facility] ([facility] Glomerular Filtration Rate Laboratory test result [facility] ([facility] <content>Units are mL/min/1.73 m2</content>
<content></content>
<content>Chronic Kidney Disease Staging per [facility]:</content>
<content></content>
<content>Stage I & II GFR >=60 Normal to Mildly Decreased</content>
<content>Stage III GFR 30- 59 Moderately Decreased</content>
<content>Stage IV GFR 15-29 Severely Decreased</content>
<content>Stage V GFR <15 Very Little GFR Left</content>
<content>ESRD GFR <15 on STARCH TREATING ASSISTANT</content>
<content></content> Sodium Level 134 meq/L 136-145 [facility] ([facility] Potassium Serum 3.8 meq/L 3.5-5.1 [facility] Chloride Level 99 meq/L 98-107 [facility] Carbon Dioxide Level 32 meq/L 21-32 [facility] ([facility] Anion Gap 3 meq/L 8-16 [facility] Ast/Sgot 49 U/L 7-37 [facility] Alt/SGPT 50 U/L 12-78 [facility] ([facility] Calcium Level 10.1 mg/dL 8.8-10.2 [facility] ([facility] Albumin 3.6 GM/DL 3.2-5.2 [facility] ([facility] Total Protein 8.4 GM/DL 6.4-8.2 [facility] ([facility] Bilirubin,Total 0.4 mg/dL 0.2-1.0 [facility] ([facility] Alkaline Phosphatase 119 U/L 45-117 [facility] ([facility] Albumin/Globulin Ratio 0.75 1.00-1.93 AL [facility] ([facility] Procedure Social History Code Duration Value Status Description Data Source(s ) Smoking 11/08/2019 12:00:00 AM EDT Unknown if ever smoked comp leted Unknown if ever smoked [facility] ([facility]) Smoking 10/25/2019 12:00:00 AM EST Unknown if ever smoked comp leted Unknown if ever smoked [facility] ([facility]) Smoking 10/13/2019 12:00:00 AM EST Unknown if ever smoked comp leted Unknown if ever smoked [facility] ([facility]) Smoking 09/20/2019 12:00:00 AM EST Unknown if ever smoked comp leted Unknown if ever smoked [facility] ([facility]) Vital Signs ID Date Data Source UNK Name Value Range Interpretation Code Description Data Source(s) Body mass index (BMI) [Ratio] 30.2 kg/m2 30.2 k g/m2 [facility] Heart rate 97 /min 97 /min [facility] Diastolic blood pressure 101 mm[Hg] 101 mm[Hg] [facility] Systolic blood pressure 180 mm[Hg] 180 mm[Hg] M [facility] ([facility] Body weight 165.00 [lb_av] 165.00 [lb_av] [facility] ([facility] Body height 62 [in_i] 62 [in_i] [facility] ([facility] 5'2" Body mass index (BMI) [Ratio] 28.2 kg/m2 28.2 k g/m2 [facility] ([facility] Oxygen saturation in Arterial blood by Pulse oximetry 97 % 97 % [facility] Body weight 159.38 [lb_av] 159.38 [lb_av] [facility] ([facility] Body height 63 [in_i] 63 [in_i] [facility] 5'3" Respiratory rate 20 /min 20 /min [facility] ( [facility] Body temperature 98.3 [degF] 98.3 [degF] [facility] Heart rate 96 /min 96 /min [facility] Diastolic blood pressure 77 mm[Hg] 77 mm[Hg] [facility] Systolic blood pressure 120 mm[Hg] 120 mm[Hg] M [facility] ([facility] Diastolic blood pressure 88 mm[Hg] 88 mm[Hg] [facility] P-98 Systolic blood pressure 157 mm[Hg] 157 mm[Hg] M [facility] ([facility] P-98 Body mass index (BMI) [Ratio] 28.5 kg/m2 28.5 k g/m2 [facility] Oxygen saturation in Arterial blood by Pulse oximetry 94 % 94 % [facility] Body weight 161.12 [lb_av] 161.12 [lb_av] [facility] ([facility] Body height 63 [in_i] 63 [in_i] [facility] 5'3" Respiratory rate 16 /min 16 /min [facility] ( [facility] Body temperature 96.8 [degF] 96.8 [degF] [facility] Heart rate 86 /min 86 /min [facility] Diastolic blood pressure 65 mm[Hg] 65 mm[Hg] [facility] Systolic blood pressure 105 mm[Hg] 105 mm[Hg] [facility] ([facility] Body mass index (BMI) [Ratio] 28.3 kg/m2 28.3 k g/m2 [facility] Heart rate 103 /min 103 /min [facility] Diastolic blood pressure 90 mm[Hg] 90 mm[Hg] [facility] Systolic blood pressure 160 mm[Hg] 160 mm[Hg] M [facility] ([facility] Body weight 155.00 [lb_av] 155.00 [lb_av] [facility] ([facility] Body height 62 [in_i] 62 [in_i] [facility] ([facility] 5'2"
--- OUTSIDE RECORDS SUMMARY | 2020-09-04 21:16 | CCD | Continuity of Care Document ---
Author Author Arlin MATTHEW DPNora Organization Unknown Address [address] [place] [address], [facility] [address] [place] [address] Phone [phone] Care Team Providers Care [employer] Librarian Name Role Phone Jones Weaver DO SARITHAM [phone] Problems Active Problems Provider Date Osteochondropathy Phill Matthew DPM Onset: 09/22/2019 Onychomycosis Phill Matthew DPM Onset: 09/22/2019 Type 2 diabetes mellitus with diabetic polyneuropathy Phill Matthew DPM Onset: 09/22/2019 Plantar fascial fibromatosis Phill Matthew DPM Onset: 09/2019 Social History Type Date Description Comments Sex Unknown ETOH Use Denies alcohol use Tobacco Use Start: Unknown Patient is a current smoker, smo kes every day 3-4 ppd smoker since 1989 Allergies, Adverse Reactions, Alerts Description No Known Drug Allergies Medications Active Medications SIG Qnty Indications Ordering Provide r Date Duloxetine HCL 60mg Caps DR Part 1 by mouth every day 60caps Phill Matthew DPM 07/11/2020 Aspercreme W/Lidocaine 4% Cream apply to foot 2-3 times daily as needed 1units Phill Matthew DPM 03/20/2020 Gabapentin 600mg Tablets Take One Tablet By Mouth Twice Daily Unknown Metformin HCL 1000mg Tablets Take One Tablet By Mouth Twice Daily With Meals Unknown Clopidogrel Bisulfate 75mg Tablets Take One Tablet By Mouth Once Daily Unknown 0 Cetirizine HCL 10mg Tablets Take One Tablet By Mouth Once Daily Unknown Losartan Potassium/Hydrochlorothiazide 100-25mg Tablets Take One Tablet By Mouth Every Day Unknow n Sertraline HCL 50mg Tablets Take One And One-Half Tablets By Mouth Once Daily Unknown Amlodipine Besylate 2.5mg Tablets Take One Tablet By Mouth Once Daily Unknown Montelukast Sodium 10mg Tablets Take One Tablet By Mouth Once Daily Unknown Admelog Solostar 100 Unit/ML Solution Pen-Inject Inject as Directed Per Sliding Scale Thr ee Times Daily With Meals, Max Daily Dose50 units Unknown Basaglar Kwikpen 100 Unit/ML Solution Pen-Inject Inject 50 Units Subcutaneously AT Bedtime Unknown Hydroxyzine HCL 50mg Tablets Unknown Immunizations Description No Information Available Vital Signs Date Vital Result Comment 03/20/2020 9:38am Height 62 inches 5'2" Weight 165.00 lb BP Systolic 180 mmHg BP Diastolic 101 mmHg Heart Rate 97 /min BMI (Body Mass Index) 30.2 kg/m2 09/15/2019 9:25am Height 62 inches 5'2" Weight 155.00 lb BP Systolic 160 mmHg BP Diastolic 90 mmHg Heart Rate 103 /min BMI (Body Mass Index) 28.3 kg/m2 Results Description No Information Available Procedures Date Code Description Status 07/11/2020 71733 Debridement 6-10 Nails Electric Completed 07/11/2020 86887 Paring/Cut Benign Lesion 2 To 4 Completed Medical Devices Description No Information Available Encounters Type Date Location Provider Dx Diagnosis Office Visit 03/20/2020 9:45a [facility] Phill Matthew DPM M72.2 Plantar fascial fibromatosis E11.42 Type 2 diabetes mellitus wit h diabetic polyneuropathy Assessments Date Code Description Provider 07/11/2020 B35.1 Tinea unguium Phill Matthew DPM 07/11/2020 E11.42 Type 2 diabetes mellitus with di abetic polyneuropathy Phill Matthew DPM 07/11/2020 L84 Corns and callosities Phill Matthew DPM 05/22/2020 E11.42 Type 2 diabetes mellitus with di abetic polyneuropathy Phill Matthew DPM 05/22/2020 M72.2 Plantar fascial fibromatosis And paz Matthew DPM 03/20/2020 M72.2 Plantar fascial fibromatosis And paz Matthew DPM 03/20/2020 E11.42 Type 2 diabetes mellitus with di abetic polyneuropathy Phill Matthew DPM Plan of Treatment Future Appointment(s):* 09/19/2020 2:45 pm - Phill Matthew DPM at [facility] Functional Status Description No Information Available Mental Status Description No Information Available Referrals Description No Information Available
--- OUTSIDE RECORDS SUMMARY | 2020-09-04 21:16 | CCD | Continuity of Care Document ---
Author Author Arlin MATTHEW DPNora Organization Unknown Address [address] [place] [address], [address] [place] [address] Phone [phone] Care Team Providers Care Belt Turner Name Role Phone Jones Weaver DO SARITHAM [phone] Problems Active Problems Provider Date Osteochondropathy Phill [...] kg/m2 Results Description No Information Available Procedures Description No Information Available Medical Devices Description No Information Available Encounters Type Date Location Provider Dx Diagnosis Office Visit 03/20/2020 9:45a [place] [facility] Phill Matthew DPM M72.2 Plantar fascial fibromatosis E11.42 Type 2 diabetes mellitus wit h diabetic polyneuropathy Assessments Date Code Description Provider 05/22/2020 E11.42 Type 2 diabetes mellitus with di abetic polyneuropathy Phill Matthew DPM 05/22/2020 M72.2 Plantar fascial fibromatosis And paz Matthew DPM 03/20/2020 M72.2 Plantar fascial fibromatosis And paz Matthew DPM 03/20/2020 E11.42 Type 2 diabetes mellitus with di abetic polyneuropathy Phill Matthew DPM Plan of Treatment Future Appointment(s):* 09/19/2020 2:45 pm - Phill Matthew DPM at [facility] Functional Status Description No Information Available Mental Status Description No Information Available Referrals Description No Information Available
[2020-09-04 21:19] VITALS: BP 135/93
--- NOTE | 2020-09-04 22:55 | REPVR ---
PROCEDURE INFORMATION: Exam: CT Maxillofacial Without Contrast Exam date and time: 09/04/2020 10:17 PM Age: 60 years old Clinical indication: Eye pain and nose pain; Bilateral; Additional info: Fall TECHNIQUE: Imaging protocol: Computed tomography images of the face without contrast. Radiation optimization: All CT scans at this facility use at least one of these dose optimization techniques: automated exposure control; mA and/or kV adjustment per patient size (includes targeted exams where dose is matched to clinical indication); or iterative reconstruction. COMPARISON: No relevant prior studies available. FINDINGS: Orbital cavity: Orbital emphysema. Associated opacification of the right ethmoid sinus and right medial orbital extraconal hemorrhage. Bones/joints: Comminuted displaced right lamina papyracea fracture. Comminuted displaced right frontal process maxilla and nasal bone. Subtle nondisplaced nasal septal fracture. Paranasal sinuses: Opacification of the right ethmoid sinus related to fractures Soft tissues: Right periorbital soft tissue swelling and soft tissue emphysema. Prominent left vertebral calcification. IMPRESSION: Right periorbital soft tissue swelling and soft tissue emphysema. Orbital emphysema. Comminuted displaced right lamina papyracea fracture. Associated opacification of the right ethmoid sinus and right medial orbital extraconal hemorrhage. Comminuted displaced right frontal process maxilla and nasal bone. Subtle nondisplaced nasal septal fracture. Electronically signed by: Balta Rhodes On 09/04/2020 22:54:53 PM
--- NOTE | 2020-09-04 23:00 | REPVR ---
PROCEDURE INFORMATION: Exam: CT Head Without Contrast Exam date and time: 09/04/2020 10:17 PM Age: 60 years old Clinical indication: Injury or trauma; Fall; Blunt trauma (contusions or hematomas) TECHNIQUE: Imaging protocol: Computed tomography of the head without contrast. Radiation optimization: All CT scans at this facility use at least one of these dose optimization techniques: automated exposure control; mA and/or kV adjustment per patient size (includes targeted exams where dose is matched to clinical indication); or iterative reconstruction. COMPARISON: CT Head without contrast 05/25/2017 2:10 PM FINDINGS: Brain: Extensive white matter changes have worsened since the previous exam. No intracranial hemorrhage or infarct. No midline shift or mass effect. Cerebral ventricles: No ventriculomegaly. Bones/joints: Comminuted mildly displaced right nasal bone fractures. Mildly displaced fracture of the right lamina papyracea. Paranasal sinuses: Visualized sinuses are unremarkable. No fluid levels. Mastoid air cells: Visualized mastoid air cells are well aerated. Orbital cavity: Small amount of air is noted in the right orbit. Globes appear intact. No orbital hematoma. Soft tissues: Mild facial soft tissue swelling. IMPRESSION: 1. Worsening white matter microvascular disease. 2. No acute intracranial abnormality. 3. Displaced right nasal bone fractures and lamina papyracea fracture. Electronically signed by: Balaji Marcus On 09/04/2020 23:00:13 PM
--- NOTE | 2020-09-04 23:05 | REPVR ---
PROCEDURE INFORMATION: Exam: CT Cervical Spine Without Contrast Exam date and time: 09/04/2020 10:17 PM Age: 60 years old Clinical indication: Injury or trauma; Fall; Blunt trauma TECHNIQUE: Imaging protocol: Computed tomography images of the cervical spine without contrast. Radiation optimization: All CT scans at this facility use at least one of these dose optimization techniques: automated exposure control; mA and/or kV adjustment per patient size (includes targeted exams where dose is matched to clinical indication); or iterative reconstruction. COMPARISON: No relevant prior studies available. 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 Normal spinal curvature, vertebral body heights, and alignment. No spinal fracture or acute subluxation. Discs/Spinal canal/Neural foramina: Diffuse degenerative disc space loss with degenerative disc osteophyte complexes, facet arthropathy, and ligamentum flavum thickening causes up to mild to moderate spinal and foraminal stenosis, greatest at C4-C6. Lungs: Lung apices are normal. Soft tissues: Unremarkable. IMPRESSION: No acute vertebral fracture/subluxation. Electronically signed by: Balta Rhodes On 09/04/2020 23:05:11 PM
[2020-09-04] MEDS ORDERED: NORCO, ANEXSIA 5/325MG TABLET (HYDROcodone/ACETAMINOPHEN) PO ONE (23:30)
[2020-09-04] MEDS ORDERED: AUGM875T28 PO (23:34)
[2020-09-04] MEDS ORDERED: CIPR0.3S6 OD (23:34)
[2020-09-04] MEDS ORDERED: CIPROFLOXACIN 0.3% OPHTH SOLN 2.5ML OD ONE (23:45)
[2020-09-04] MEDS ORDERED: NORCO 5/325MG TABLET (BULK FOR ED) PO ONE (23:45)
[2020-09-04] MEDS ORDERED: AUGMENTIN 875 MG TAB PO ONE (23:45)
--- OUTSIDE RECORDS SUMMARY | 2020-09-04 23:58 | CCD ---
Author Author [facility] Organization [facility] Address Unknown Phone Unavailable Care Team Providers Care Director Automotive Name Role Phone Prisca CHICAS DPM Unavailable [...] Unavailable Unavailable Patsy Ariza MD Unavailable Unavailable Patys Ariza MD Unavailable Unavailable Patsy Ariza MD [...] Patsy Ariza MD Unavailable Unavailable Pleskach, Jennifer VALET Unavailable Unavailable Pleskach, Jennifer VALET Unavailable Unavailable Pleskach, Jennifer VALET Unavailable Unavailable Pleskach, Jennifer VALET Unavailable Unavailable Pleskach, Jennifer VALET Unavailable Unavailable Pleskach, Jennifer VALET Unavailable Unavailable Pleskach, Jennifer VALET Unavailable Unavailable Pleskach, Jennifer VALET Unavailable Unavailable Pleskach, Jennifer VALET Unavailable Unavailable Pleskach, Jennifer VALET Unavailable Unavailable Pleskach, Jennifer VALET Unavailable Unavailable Pleskach, Jennifer VALET Unavailable Unavailable Pleskach, Jennifer VALET Unavailable Unavailable Pleskach, Jennifer VALET Unavailable Unavailable Pleskach, Jennifer VALET Unavailable Unavailable Pleskach, Jennifer VALET Unavailable Unavailable Pleskach, Jennifer VALET Unavailable Unavailable Pleskach, Jennifer VALET Unavailable Unavailable Pleskach, Jennifer VALET Unavailable Unavailable Pleskach, Jennifer VALET Unavailable Unavailable Pleskach, Jennifer VALET Unavailable Unavailable Pleskach, Jennifer VALET Unavailable Unavailable Pleskach, Jennifer VALET Unavailable Unavailable Pleskach, Jennifer VALET Unavailable Unavailable Pleskach, Jennifer VALET Unavailable Unavailable Pleskach, Jennifer VALET Unavailable Unavailable Pleskach, Jennifer VALET Unavailable Unavailable Pleskach, Jennifer VALET Unavailable Unavailable Omayra Burks Unavailable Jessee Zamora MD Unavailable Unavailable Jessee [...] is protected by Article 27-F of the [facility] Public Health law. If you continue you may have access to information: Regarding HIV / AIDS; Provided by facilities licensed or operated by the [facility] Office of Mental Health; or Provided by the [facility] Office for People With Developmental Disabilities. If such information is present, then the following [facility] mandated warning applies: This information has [...] law may result in a fine or intermediate sentence or both. A general authorization for the release of medical or other information is NOT sufficient authorization for further disc losure. Allergies and Adverse Reactions Type Description Substance Reaction Status Data Source(s ) Propensity to adverse reactions to substance Hay Fever Hay Fever Active [facility] ([facility]) Drug Allergy Drug Allergy NKDA [facility] ([facility] Family History Family Member Name Family Member Gender Family Member Status Date o f Status Description Data Source(s) Unknown Male Problem [facility] ([facility]) Unknown Female Problem [facility] ([facility]) Unknown Female Problem [facility] ([facility]) Encounters Encounter Providers Location Date Indications Data Source(s ) Outpatient Attender: Donnell Ariza MD 04/03/2020 01:52:01 PM EDT [facility] Outpatient Attender: JOHANNA CHICAS [facility] Office 02/21 09:45:00 AM EDT [facility] ([facility] Outpatient Referrer: Catherine Zamora MD 01/23/2020 06:00:0 0 AM EDT [facility] Radiology Imaging Outpatient Attender: Jennifer Acevedo [facility] Main Office 12/26/2019 0 1:00:00 PM EDT [facility] ([facility] [id number]"Psychotherapy Attender: Omayra Burks [facility] 11/08/2019 03:15:00 AM EDT - 11/08/2019 03:15:00 AM EDT [facility] ([facility]) Attender: Omayra Burks 11/08/2019 12:00:00 AM EDT [facility] ([facility]) CPST Service Professional Individual Counseling (Adult ) Attender: Omayra Burks [facility] 10/25/2019 12:15:00 PM EST - 10/25/2019 12 :15:00 PM EST [facility] ([facility]) Attender: Omayra Burks 10/25/2019 12:00:00 AM EST [facility] ([facility]) Extended Individual Psychotherapy - 45 min Attender: Tommy Burks [facility] 10/13/2019 12:30:00 PM EST - 10/13/2019 12:30:00 PM EST [facility] ([facility]) Attender: Omayra Burks 10/13/2019 12:00:00 AM EST [facility] ([facility]) Outpatient Attender: Jennifer Acevedo [facility] Main Office 10/04/2019 0 9:00:00 AM EST [facility] ([facility] CPST Service Professional Individual Counseling (Adult ) Attender: Omayra Burks [facility] 09/20/2019 01:15:00 AM EST - 09/20/2019 01 :15:00 AM EST [facility] ([facility]) Attender: Omayra Burks 09/20/2019 12:00:00 AM EST [facility] ([facility]) Outpatient Attender: Donnell Ariza MD 08/18/2019 09:01:00 PM [facility] Outpatient Attender: Donnell Ariza MD FP 08/18/2019 12:11:00 PM [facility] Outpatient Attender: Donnell Ariza MD FP 08/11/2019 12:27:00 PM [facility] Immunizations Vaccine Date Status Description Data Source(s) New in 2012. IIV4 10/04/2019 08:44:00 AM EST completed [facility] ([facility] Medications Medication Brand Name Start Date Product Form Dose Route Admi nistrative Instructions Pharmacy Instructions Status Indications Reaction Description Data Source(s) duloxetine 60 MG Delayed Release Oral Capsule Duloxetine HCL 07/11/2020 12:00:00 AM EST ORAL active [facility] ([facility] 600 mg 06/09/2020 12:00:00 AM EDT tablet 90 TAKE ONE TABLET BY MOUTH THREE TIMES A DAY TAKE ONE TABLET BY MOUTH THREE TIMES A DAY SOLD: 06/09/2020 [employer] Lidocaine Hydrochloride 40 MG/ML Topical Cream Aspercreme [...] [facility] ([facility] B-D Pen Marathon Ultra Fine 3 12/26/2019 12:00:00 AM EDT active [facility] ([facility] Azithromycin 250 MG Oral Tablet Azithromycin 10/04/2019 12:00:00 AM EST completed [facility] ([facility] 100-25 mg 07/15/2019 12:00:00 AM EST tablet 30 TAKE ONE TABLET BY MOUTH EVERY DAY TAKE ONE TABLET BY MOUTH EVERY DAY SOLD: 07/26/2019 [facility] Insurance Providers Payer name Policy type / Coverage type Policy ID Covered republican ID Covered republican's relationship to recio Policy Recio Plan Information [facility] COMMUNITY PLAN MCDHMO [id number] SP [id number] [facility](MCAID) O [id number] S [id number] Managed Care - [facility] P [id number] S [id number] Medicaid S [id number] S [id number] [employer] COMMUNITY PLAN MCDHMO [id number] SP [id number] [facility] COMMUNTY PLAN [id number] 18 [id number] No Fault (NF) Workers Compensation [id number] Self [id number] [place] Part [place] [id number] Self [id number] Private Insurance Medigap Part B [id number] Self [id number] [facility] Community Plan Commercial [id number] Self [id number] [facility] Community Plan Commercial [id number] Self [id number] UNHC COMMUNITY PLAN XIX MC [id number] 18 [id number] UNHC COMMUNITY PLAN MCDHMO [id number] SP [id number] [facility] Communty Plan Medicaid [id number] Self [id number] [facility] Communty Plan Medicaid [id number] Self [id number] [facility]-Medicaid [id number] UNHC COMMUNITY PLAN MCDHMO [id number] SP [id number] [facility]-Medicaid [id number] [facility]-Medicaid [id number] [facility] [id number] [facility]-Medicaid [id number] [facility]-Medicaid [id number] [facility] [id number] ANSI-Medicaid [id number] ANSI-Medicaid [id number] ANSI-Medicaid [id number] ANSI-Medicaid [id number] ANSI-Medicaid [id number] ANSI-Medicaid [id number] ANSI-Medicaid [id number] ANSI-Medicaid [id number] ANSI-Medicaid [id number] ANSI-Medicaid [id number] ANSI-Medicaid [id number] ANSI-Medicaid [id number] ANSI-Medicaid [id number] ANSI-Medicaid [id number] ANSI-Medicaid [id number] ANSI-Medicaid [id number] ANSI-Medicaid [id number] ANSI-Medicaid [id number] ANSI-Medicaid [id number] ANSI-Medicaid [id number] ANSI-Medicaid [id number] ANSI-Medicaid [id number] ANSI-Medicaid [id number] [employer]HC COMMUNITY PLAN MCDHMO [id number] SP [id number] Managed Care - [facility] P [id number] S [id number] MEDICAID [id number] SP [id number] Medicaid S [id number] S [id number] UNHC COMMUNITY PLAN MCDHMO [id number] SP [id number] UNHC COMMUNITY PLAN MCDHMO [id number] SP [id number] [employer]HC COMMUNITY PLAN MCDHMO [id number] SP [id number] [employer]HC COMMUNITY PLAN MCDHMO [id number] SP [id number] [facility](MCAID) O [id number] S [id number] [employer]HC COMMUNITY PLAN MCDHMO [id number] SP [id number] [facility](MCAID) O [id number] S [id number] MEDICAID PIA [id number] S [id number] UNHC COMMUNITY PLAN MCDHMO [id number] SP [id number] Medicaid S [id number] S [id number] Managed Care - [facility] P [id number] S [id number] [place]ig[place] Part B Self Private Insurance Medigap Part B Self [facility] Community Plan Commercial Self Managed Care - [facility] P UNAVAILABLE S UNAVAILABLE BLUE CROSS PETER PLAN [id number] SP [id number] UNHC AMERICHOICE XIX HMO [id number] 18 [id number] EXCE[employer] BCBS P [id number] S [id number] BLUE CROSS PETER PLAN [id number] SP [id number] BLUE CROSS BLUE SHIELD-CLINIC [id number] 18 [id number] MEDICAID W [id number] S [id number] MEDICAID - CLINIC [id number] Problems, Conditions, and Diagnoses Code Display Name Description Problem Type Effective Dates Data Source(s) 78275008 Plantar fascial fibromatosis Plantar fascial fibromato sis Problem 03/24/2020 12:00:00 AM EDT [facility] ([facility] F33.0 Major depressive disorder, recurrent, mi ld Major Depressive Disorder, Recurrent episode, Mild Condition 11/08/2019 12:00:00 AM EDT [facility] ([facility]) Type 2 diabetes mellitus with diabetic p olyneuropathy Type 2 diabetes mellitus with diabetic polyneuropathy Problem 09/22/2019 12:00:00 AM EST [facility] ([facility] 625360581 Onychomycosis Onychomycosis Problem 09/22/2019 12:00:00 AM EST [facility] ([facility] [id number] Osteochondropathy Osteochondropathy Problem 09/22/2019 12:00:00 AM EST [facility] Surgeries/Procedures Procedure Description Date Indications Data Source(s) PARING/CUTTING BENIGN HYPERKERATOTIC LESION 2-4 2019 12:00:00 AM EST [facility] DEBRIDEMENT NAIL ANY METHOD 6/> 07/11/2020 12:00:00 AM EST [facility] ([facility] [id number]"Psychotherapy 0 12:00:00 AM EDT - 11/08/2019 12:00:00 AM EDT [facility] ([facility]) [id number]"Psychotherapy 11/08/2019 12:00:00 AM [facility] CPST Service Professional Individual Counseling (Adult) 10/25/2019 12:00:00 AM EST - 10/25/2019 12:00:00 AM EST [facility] ([facility]) CPST Service Professional Individual Counseling (Adult) 10/25/2019 12:00:00 AM EST [facility] ([facility]) Extended Individual Psychotherapy - 45 min 10/13/2019 12:00:00 AM EST - 10/13/2019 12:00:00 AM EST [facility] ([facility]) Extended Individual Psychotherapy - 45 min 0 12:00:00 AM EST [facility] ([facility]) Brief Emotional/Behav Assessment W/ Scoring Doc Per Standard Inst 10/04/2019 12:00:00 AM EST [facility] ([facility] CPST Service Professional Individual Counseling (Adult) 09/20/2019 12:00:00 AM EST - 09/20/2019 12:00:00 AM EST [facility] ([facility]) CPST Service Professional Individual Counseling (Adult) 09/20/2019 12:00:00 AM EST [facility] ([facility]) Results ID Date Data Source [id number] 11/24/2019 09:58:00 AM EDT [facility] ([facility] Name Value Range Interpretation Code Description Data Octavia rce(s) Supporting Document(s) Thyrotropin [Units/volume] in Serum or Plasma 1.740 uIU/ML 0.358-3.74 0 [facility] ([facility] Thyroxine (T4) free [Mass/volume] in Serum or Plasma 0.98 ng/dL 0.76- 1.46 [facility] ([facility] ID Date Data Source [id number] 11/24/2019 09:58:00 AM EDT [facility] ([facility] Name Value Range Interpretation Code Description Data Octavia rce(s) Supporting Document(s) Creatinine, Urine 90.1 mg/dL [facility] ([facility] Malb Urine Siemens 103.0 mg/L [facility] ([facility] Jaya/Creat Ratio 114.3 MCG/MG 0.0-30.0 [facility] ([facility] THE [place] [employer] STATES THAT MICROALBUMINURIA IS PRESENT IF THE MICROALBUMIN/CREATININE RATIO EXCEEDS 30 MCG/MG. THE THRESHOLD FOR CLINICAL ALBUMINURIA IS REACHED AT 300 MCG/MG. THE CLASSIFICATION OF A PATIENT SHOULD BE BASED UPON AT LEAST 2 OF 3 ABNORMAL RESULTS ON SPECIMENS COLLECTED WITHIN A 3 TO 6 MONTH TIME FRAME. ID Date Data Source [id number] 11/24/2019 09:58:00 AM EDT [facility] ([facility] Name Value Range Interpretation Code Description Data Octavia rce(s) Supporting Document(s) Estimated Average Glucose 292 mg/dL 60-110 [facility] ([facility] Hemoglobin A1c 11.8 % [facility] ([facility] REFERENCE RANGES: 4.5-5.6% NORMAL 5.7-6.4% SUGGESTS IMPAIRED GLUCOSE META BOLISM >= 6.5% ABNORMAL ID Date Data Source [id number] 11/24/2019 09:58:00 AM EDT [facility] ([facility] [...] [facility] ID Date Data Source [id number] 11/24/2019 09:58:00 AM EDT [facility] ([facility] [...] Little GFR Left</content>
<content>ESRD GFR <15 on SEED PACKER</content>
<content></content> Sodium Level 134 meq/L 136-145 [facility] [...] [facility] Albumin/Globulin Ratio 0.75 1.00-1.93 SC [facility] ([facility] Procedure Social History Code Duration Value Status Description Data Source(s ) Smoking 11/08/2019 12:00:00 AM EDT Unknown if ever smoked comp leted Unknown if ever smoked [facility] ([facility]) Smoking 10/25/2019 12:00:00 AM EST Unknown if ever smoked comp leted Unknown if ever smoked [facility] ([facility]) Smoking 10/13/2019 12:00:00 AM EST Unknown if ever smoked comp leted Unknown if ever smoked [facility] ([facility]) Smoking 09/20/2019 12:00:00 AM EST Unknown if ever smoked comp leted Unknown if ever smoked [facility] ([facility]) Vital Signs ID Date Data Source UNK [...] weight 155.00 [lb_av] 155.00 [lb_av] [facility] T ([facility] Body height 62 [in_i] 62 [in_i] [facility] ([facility] 5'2"
--- NOTE | 2020-09-07 06:48 | ED PDOC ---
Post-Departure Follow-Up ct head and ct max fac faxed to [facility] and dr joon berry for fu Jeni Esteves MD Sep 07, 2020 06:48
== END 2020-09-05 00:03 | disposition home or self-care (01) ==
LOC: M ED 21:11
DX: S02.2XXA Fracture of nasal bones, initial encounter for closed fracture (principal); S02.31XA Fracture of orbital floor, right side, initial encounter for closed fracture; S01.81XA Laceration without foreign body of other part of head, initial encounter; S05.11XA Contusion of eyeball and orbital tissues, right eye, initial encounter; W22.09XA Striking against other stationary object, initial encounter; Y92.019 Unspecified place in single-family (private) house as the place of occurrence of the external cause; Y93.9 Activity, unspecified; Y99.9 Unspecified external cause status; I11.9 Hypertensive heart disease without heart failure; Z86.73 Personal history of transient ischemic attack (TIA), and cerebral infarction without residual deficits; E11.9 Type 2 diabetes mellitus without complications; Z79.4 Long term (current) use of insulin; Z79.899 Other long term (current) drug therapy; Z88.8 Allergy status to other drugs, medicaments and biological substances; F17.200 Nicotine dependence, unspecified, uncomplicated

== ENCOUNTER 2021-01-25 09:38 | Inpatient (IN) | payer OTHER ==
[~2021-01-25] VITALS: Ht 160 cm; Wt 66.4 kg
[~2021-01-25 09:38] MED LIST changes: +ASPI-569 PO; -ASPI81TAEC PO; +AUGM875T28 PO; +CIPR0.3S6 OD; -DULO1CAP6; +DULO1CAP6 PO; -PANT40TA29; +PANT40TA29 PO
[2021-01-25 10:09] LABS: BASO # 0.1 10^3/uL (0.0-0.2); BASO % 0.9 % (0.0-1.0); EOS # 0.2 10^3/uL (0.0-0.5); EOS % 3.1 % (0.0-3.0); HEMATOCRIT 36.8 % (36.0-47.0); HEMOGLOBIN 12.5 g/dl (12.0-15.5); LYMPH % 38.4 % (24.0-44.0); MEAN CORPUSCULAR HEMOGLOBIN 29.5 pg (27.0-33.0); MEAN CORPUSCULAR VOLUME 86.8 fl (80.0-96.0); MONO # 0.6 10^3/uL (0.0-0.8); MONO % 8.3 % (2.0-8.0); NEUTROPHILS # 3.8 10^3/uL (1.5-8.5); NEUTROPHILS % 48.9 % (36.0-66.0); PLATELET COUNT, AUTOMATED 165 10^3/uL (150-450); RED BLOOD COUNT 4.24 10^6/uL (4.00-5.40); WHITE BLOOD COUNT 7.7 10^3/uL (4.0-10.0)
[2021-01-25] MEDS ORDERED: ISOVUE-370 76% 100ML VIAL As Ordered ONE (10:18)
--- NOTE | 2021-01-25 10:24 | REP ---
INDICATION: DKA COMPARISON: 05/15/2020 TECHNIQUE: Portable AP view of the chest FINDINGS: The mediastinum and cardiac silhouette are stable and within normal limits for portable technique. The lung byers are clear without acute consolidation, effusion, or pneumothorax. Skeletal structures are intact. IMPRESSION: No acute cardiopulmonary process appreciated. <Electronically signed by Willis Dale > 01/25/21 1026
[2021-01-25 10:43] LABS: HEMOGLOBIN A1c 11.8 %
[2021-01-25 10:46] LABS: ALBUMIN 3.1 GM/DL (3.2-5.2); ALT/SGPT 28 U/L (12-78); BILIRUBIN,DIRECT < 0.1 MG/DL (0.0-0.2); BILIRUBIN,TOTAL 0.3 MG/DL (0.2-1.0); CK-MB VALUE MASS < 1.0 NG/ML (<3.6); CPK CREATINE PHOSPHOKINASE 53 U/L (26-192); LIPASE 312 U/L (73-393); MAGNESIUM LEVEL 1.6 MG/DL (1.8-2.4); MB/CK RELATIVE INDEX 1.89 (< OR =4); PHOSPHORUS LEVEL 3.8 MG/DL (2.5-4.9); TOTAL PROTEIN 7.4 GM/DL (6.4-8.2); TROPONIN I 0.02 NG/ML (< 0.10)
[2021-01-25 10:52] LABS: VENOUS BASE EXCESS 3.8 (-2.0-2.0); VENOUS HCO3 30.4 MEQ/L (23.0-27.0); VENOUS O2 SATURATION 84.8 % (60.0-80.0); VENOUS PARTIAL PRESSURE CO2 55.1 mmHg (38.0-50.0); VENOUS PARTIAL PRESSURE O2 48.9 mmHg (30.0-50.0); VENOUS STANDARD HCO3 27.6 MEQ/L; VENOUS TOTAL CO2 32.1 MEQ/L (24.0-28.0)
--- NOTE | 2021-01-25 11:00 | REP ---
INDICATION: CVA - Nursing interventions must not delay CT COMPARISON: 09/04/2020 TECHNIQUE: Axial noncontrast images from the skull base to the thoracic inlet with coronal reformations. This CT examination was performed using the following dose reduction techniques: Automated exposure control, adjustment of mA and/or kv according to the patient's size, and use of iterative reconstruction technique. FINDINGS: Atrophy with significant periventricular leukomalacia and microvascular ischemic changes are appreciated and similar to recent prior examination. The ventricles and sulci are symmetric. Kelly-white differentiation is maintained. There is no evidence for acute intracranial hemorrhage, mass/mass effect, pathology or infarction. No extra-axial fluid collection. Calvarium is intact. Paranasal sinuses and mastoid air cells are clear. Extensive atherosclerotic changes again noted to the internal carotid arteries and vertebrobasilar system. IMPRESSION: Atrophy and microvascular ischemic changes. No acute intracranial hemorrhage, infarction, or mass/mass effect. <Electronically signed by Willis Dale > 01/25/21 [id number]
--- NOTE | 2021-01-25 11:05 | REP ---
INDICATION: CVA - Nursing interventions must not delay CT. COMPARISON: None. TECHNIQUE: Axial contrast-enhanced images were obtained from the thoracic inlet to the skull base with coronal and sagittal reformations using 100 cc Isovue 370 intravenous contrast material. Maximal intensity projection and multiplanar re-formation images along with 3-D rendered imaging of the arterial vasculature. This CT examination was performed using the following dose reduction techniques: Automated exposure control, adjustment of mA and/or kv according to the patient's size, and the use of iterative reconstruction technique. FINDINGS: The common carotid arteries, carotid bulbs and visualized portions of the external and the internal carotid arteries are essentially symmetric and normal. There is minimal bilateral calcified plaque at the level of the carotid bulbs without significant stenosis or occlusion. The vertebral bodies are patent with dominant left vertebral artery noted and very narrow but patent right vertebral artery to the level of the skull base where significant atheromatous plaquing is then identified of the left vertebral artery without occlusion. IMPRESSION: Essentially normal CT angiography of the carotid arteries through the neck <Electronically signed by Willis Dale > 01/25/21 1102
[2021-01-25 11:06] LABS: INR 0.99; PROTHROMBIN TIME 13.3 SECONDS (12.5-14.3)
[2021-01-25 11:07] LABS: PARTIAL THROMBOPLASTIN TIME 27.2 SECONDS (24.2-38.5)
--- NOTE | 2021-01-25 11:20 | REPVR ---
PROCEDURE INFORMATION: Exam: CT Angiography Head With Contrast, Arteriography Exam date and time: 01/25/2021 10:26 AM Age: 60 years old Clinical indication: Other: CVA - nursing interventions must not delay CT TECHNIQUE: Imaging protocol: Computed tomography angiography of the head with contrast. Exam focused on the arteries. 3D rendering (Not supervised by radiologist): MIP and/or 3D reconstructed images were created by the technologist. Radiation optimization: All CT scans at this facility use at least one of these dose optimization techniques: automated exposure control; mA and/or kV adjustment per patient size (includes targeted exams where dose is matched to clinical indication); or iterative reconstruction. Contrast material: ISOVUE 370; Contrast volume: 75 ml; Contrast route: INTRAVENOUS (IV); COMPARISON: CT Head without contrast 09/04/2020 9:59 PM FINDINGS: There is no high-grade stenosis, occlusion, aneurysm, dissection, or other acute abnormality of the distal internal carotid arteries, basilar artery, anterior, middle, or posterior cerebral arteries. No evidence of high flow vascular malformation. Severe calcified intracranial atherosclerosis. There is likely a stent in the distal left vertebral artery and potentially small stents versus severe atherosclerotic calcifications in the distal internal carotid arteries. No intracranial mass, mass effect or midline shift, hemorrhage, or abnormal extra-axial fluid collection. No obstructive ventriculomegaly. IMPRESSION: No high-grade stenosis or occlusion of the major [place] vasculature. Electronically signed by: Richard Au On 01/25/2021 11:20:06 AM
[2021-01-25] MEDS ORDERED: HumuLIN R (REGULAR) INSULIN (NovoLIN R) **100U/ML** PER UNIT IV ONE (11:45)
[2021-01-25 12:34] LABS: OSMOLALITY SERUM 307 MOSM/KG (280-301)
[2021-01-25] MEDS ORDERED: MAG SULF 1GM/100ML (MAG RUN) 1 GM in IV 1 EA IV ONE (12:35)
[2021-01-25] MEDS ORDERED: POTASSIUM CHLORIDE 10 MEQ SR TABLET PO ONE (12:35)
[2021-01-25] MEDS ORDERED: LORazepam 2 MG/ML VIAL IV STA (12:50)
[2021-01-25] MEDS ORDERED: DEXTROSE 50% 50 ML SYRINGE IV PRN (13:10)
[2021-01-25] MEDS ORDERED: GLUCAGON INJ 1MG VIAL SC PRN (13:10)
[2021-01-25] MEDS ORDERED: GLUCOSE 4GM CHEW TABLET PO PRN (13:10)
--- NOTE | 2021-01-25 14:15 | HPEPDOC ---
General Date of Admission January 25, 2021 Date of Service: Jan 25, 2021 Chief Complaint The patient is a 60-year-old female admitted with a reason for visit of lightheadedness and weakness Source: Patient History of Present Illness Mrs. Reardon is a 60-year-old female with 4 previous CVAs, diabetes mellitus, and current smoker who presents dizziness and worsening weakness. She has residual symptoms from her previous CVAs. This morning when she woke up, she felt lightheaded. Denies vertigo. Her left side felt weaker than normal. She went to go speak with her son who was concerned that her speech was more slurred than normal. When she arrived to the ED, her vitals were stable. No fever, tachycardia, tachypnea, or hypertension. She was doing well at room air. Glucose is elevated at 436. ED provider performed at NIH score of 6. 1 for left arm, 1 for left leg, 1 for moderate aphasia, 1 for left sensory, and 2 for vision. She had trouble with left field of view with both eyes. She also is positive for ataxic gait. Otherwise, CT head negative ICH or CVA, CT angio neck is normal, CT angio head is negative for high grade stenosis. Admission was called for stroke like symptoms. When I saw the patient, she denied any fever, chest pain, abdominal pain, diarrhea, or dysuria. She has a chronic cough due to COPD and current smoking. She denies dyspnea, but reports pleuritic chest pain with deep breath. Her symptoms has not improved since this morning. Patient will be admitted for CVA work up, weakness, and slurred speech. Home Medications Scheduled Amlodipine Besylate (Amlodipine Besylate) 2.5 Mg Tablet, 2.5 M PO DAILY, (Reported) Atorvastatin Calcium (Atorvastatin Calcium) 40 Mg Tab, 40 MG PO QHS, (Reported) Clopidogrel Bisulfate (Clopidogrel) 75 Mg Tablet, 75 MG PO DAILY, (Reported) Duloxetine Hcl (Duloxetine HCl) 60 Mg Capsule.dr, 60 MG PO DAILY, (Reported) Insulin Glargine,Hum.rec.anlog (Basaglar Kwikpen U-100) 100 Unit/1 Ml Insuln.pen, 50 UNITS SQ BID, (Reported) Insulin Lispro (Admelog Solostar) 100 Unit/Ml Inj, 1 DOSE SQ TID, (Reported) PER SLIDING SCALE Losartan/Hydrochlorothiazide (Losartan-Hctz 50-12.5 mg Tab) 1 Tab Tab, 1 TAB PO DAILY, (Reported) Metformin HCl (Metformin HCl) 1,000 Mg Tab, 1,000 MG PO BID, (Reported) Pantoprazole Sodium (Pantoprazole Sodium) 40 Mg Tablet.dr, 40 MG PO DAILY, (Reported) Allergies Coded Allergies: SEASONAL ALLERGIES (Verified Allergy, Unknown, 06/23/20) ranitidine (Verified Allergy, Unknown, 06/23/20) Past Medical History Medical History 1. Type 2 diabetes mellitus on insulin. 2. Hypertension 3. GERD 4. CAD 5. Allergic rhinitis 6. Depression 7. History of CVA 4 with residual effects. Speech, left arm, left leg, right leg. Difficulty walking up and down the stairs. Uses a walker and a cane 8. Chronic diastolic dysfunction on echocardiogram 9. Mild pulmonary hypertension on echocardiogram 10. History of TIA 11. Internal hemorrhoids 12. Diverticulosis Surgical History 1. Cholecystectomy 2. Salpingectomy Family History Father: , history of heart disease Mother: , history of heart disease Social History * Smoker: current smoker (4 years) Alcohol: Denies Drugs: denies A-FIB/CHADSVASC A-FIB History Current/History of A-Fib/PAF?: No Review of Systems Constitutional: Reports: Weakness; Denies: Chills, Fever Eyes: Denies: Vision change ENT: Denies: Sore Throat Skin: Denies: Rash Pulmonary: Reports: Cough (chronic), Pleuritic Chest Pain (with deep breath); Denies: Dyspnea Cardiovascular: Denies: Chest Pain Gastrointestinal: Denies: Abdominal Pain, Diarrhea Genitourinary: Denies: Dysuria Hematologic: Denies: Bruising Neurological: Reports: Other Symptoms (paresthesias in hands and legs) Psych: Denies: Anxiety, Depression Physical Examination General Exam: Positive: Alert, Cooperative Eye Exam: Positive: EOMI; Negative: Sclera icteric ENT Exam: Positive: Atraumatic Neck Exam: Positive: Supple Chest Exam: Positive: Clear to auscultation, Diminished Heart Exam: Positive: Rate Normal, Regular Rhythm Abdomen Exam: Positive: Normal bowel sounds, Soft; Negative: Tenderness Extremity Exam: Negative: Edema Neuro Exam: Positive: Other (mild right facial droop otherwise cranial nerves II through XII grossly within normal limits); Negative: Normal Speech (slurred speech) Psych Exam: Positive: Mental status NL, Mood NL Vital Signs Vital Signs Date Time Temp Pulse Resp B/P (MAP) Pulse Ox O2 Delivery O2 Flow Rate FiO2 01/25/21 11:00 84 16 153/83 (106) 97 Room Air 01/25/21 09:47 98.1 Laboratory Data Labs 24H Laboratory Tests 2 01/25/21 09:58: Immature Granulocyte % (Auto) 0.4, Neutrophils (%) (Auto) 48.9, Lymphocytes (%) (Auto) 38.4, Monocytes (%) (Auto) 8.3H, Eosinophils (%) (Auto) 3.1H, Basophils (%) (Auto) 0.9, Neutrophils # (Auto) 3.8, Lymphocytes # (Auto) 3.0, Monocytes # (Auto) 0.6, Eosinophils # (Auto) 0.2, Basophils # (Auto) 0.1, Nucleated Red Blood Cells % (auto) 0.0, Estimated Mean Plasma Glucose 292H, Hemoglobin A1c 11.8, Osmolality 307H, Phosphorus Level 3.8, Magnesium Level 1.6L, Total Bilirubin 0.3, Direct Bilirubin < 0.1, Aspartate Amino Transf (AST/SGOT) 24, Alanine Aminotransferase (ALT/SGPT) 28, Alkaline Phosphatase 99, Total Creatine Kinase 53, Creatine Kinase MB < 1.0, Creatine Kinase MB Relative Index 1.89, Troponin I 0.02, Total Protein 7.4, Albumin 3.1L, Albumin/Globulin Ratio 0.7L, Lipase 312, B-Hydroxybutyrate 0.70 01/25/21 10:03: POC Glucose (Misc Panel) 436H, POC Sodium (Misc Panel) 138, POC Potassium (Misc Panel) 3.3L, POC Chloride (Misc Panel) 95L, POC Total CO2 (Misc Panel) 31.0H, POC Blood Urea Nitrogen (Misc Panel 14, POC Ionized Calcium (Misc Panel) 5.0, POC Creatinine (Misc Panel) 0.7, POC Hematocrit (Misc Panel) 39.0 01/25/21 10:20: Prothrombin Time 13.3, Prothromb Time International Ratio 0.99, Activated Partial Thromboplast Time 27.2 01/25/21 10:24: Blood Gas Bicarbonate Standard 27.6, Venous Blood pH 7.360, Venous Blood Partial Pressure CO2 55.1H, Venous Blood Partial Pressure O2 48.9, Venous Blood Total Carbon Dioxide 32.1H, Venous Blood HCO3 30.4H, Venous Blood Oxygen Saturation 84.8H, Venous Blood Base Excess 3.8H 01/25/21 10:38: Bedside Glucose (Misc Panel) 387H CBC/BMP Laboratory Tests 01/25/21 09:58 Microbiology Microbiology 01/25/21 Respiratory Virus Panel (PCR) ([facility]) - Final, Complete Assessment/Plan Mrs. Reardon is a 60-year-old female with 4 previous CVAs, diabetes mellitus, and current smoker who presents dizziness and worsening weakness. Patient will be admitted for CVA work up. CT head negative ICH or CVA, CT angio neck is normal, CT angio head is negative for high grade stenosis. Will obtain MRI. Will monitor on telemetry. Otherwise, HbA1c of 11.8. PT/OT/ST ordered. MRI returned negative. Patient may have other causes for weakness. We'll optimize blood sugar and blood pressure. We'll look for UTI. Plan / VTE VTE Prophylaxis Ordered?: Yes Plan Plan 1. Worsening slurred speech and weakness -CT head negative ICH or CVA, CT angio neck is normal, CT angio head is negative for high grade stenosis -MRI negative for acute stroke Unclear etiology, will check UA for UTI. We'll work on optimizing blood sugar and blood pressure. -HbA1c of 11.8 -Monitor on telemetry -PT/OT/ST 2. Diabetes mellitus HbA1c of 11.8 -Continue Basal insulin -Add on sliding scale insulin -Carbohydrate consistent diet 3. COPD -Not in acute exacerbation -Continue inhalers 4. Hypertension Continue losartan, amlodipine, and hydrocodone thiazide 5. History of CVAs No acute stroke during this admission Continue Plavix and Cymbalta Continue atorvastatin 6. DVT ppx -SCD and TEDs Disposition: Pending clinical improvement JOSE HAAS DO Jan 25, 2021 14:15
--- NOTE | 2021-01-25 14:26 | REPVR ---
PROCEDURE INFORMATION: Exam: MR Head Without Contrast Exam date and time: 01/25/2021 1:59 PM Age: 60 years old Clinical indication: Weakness, extremity; Patient HX: Leftg sided wkness - HX CVA x 4 TECHNIQUE: Imaging protocol: MR of the head without contrast. COMPARISON: CT Head without contrast 01/25/2021 10:25 AM FINDINGS: Brain: Mild generalized cerebral volume loss. There are extensive scattered and confluent areas of white matter T2 hyperintensity including involvement of the periventricular white matter, nonspecific in distribution. No acute ischemic infarction. No acute intracranial hemorrhage. Cerebral ventricles: No ventriculomegaly. Bones/joints: Unremarkable. Paranasal sinuses: Normal as visualized. Mastoid air cells: No mastoid effusion. Orbital cavity: Unremarkable. Soft tissues: Unremarkable. IMPRESSION: 1. No acute intracranial abnormality. 2. Extensive white matter disease. Electronically signed by: Richard Au On 01/25/2021 14:26:07 PM
[2021-01-25 14:57] VITALS: BP 164/96
[2021-01-25] MEDS: CLOPIDOGREL 75 MG TAB PO SCH (15:58)
[2021-01-25] MEDS: PANTOPRAZOLE 40MG TAB (PROTONIX) PO SCH (15:58)
[2021-01-25] MEDS: DULoxetine 30 MG CAP (CYMBALTA) PO SCH (15:58)
[2021-01-25] MEDS: hydroCHLOROthiazide 12.5 MG CAPSULE PO SCH (15:59)
[2021-01-25] MEDS: LOSARTAN 50MG TABLET PO SCH (15:59)
[2021-01-25] MEDS ORDERED: **hydrALAZINE HCL** 25 MG TAB PO PRN (17:20)
[2021-01-25] MEDS: HumaLOG INSULIN (NovoLOG) PER UNIT SC SCH ×2 (18:28→20:04)
--- NOTE | 2021-01-25 19:51 | ECGEPIP ---
[facility] - ED Test Date: 2021-01-25 Pat Name: BRIDGER SALMERON Department: Room: - Gender: Female Cardiac Cath Lab Technologist: HC : 1960 Requested By: Jeni Dominguez Order Number: [id number] Reading MD: Jeni Dominguez Measurements Intervals [place] Rate: 92 P: 71 LA: 172 QRS: 3 QRSD: 94 T: 58 QT: 408 QTc: 504 Interpretive Statements Normal sinus rhythm Cannot rule out Inferior infarct , age undetermined Cannot rule out Anterior infarct , age undetermined Nonspecific ST T wave changes cw 05/15/[address] T wave changes Electronically Signed on 01-25-2021 19:50:53 EDT by Jeni Dominguez
[2021-01-25] MEDS: ATORVASTATIN 20 MG TAB PO SCH (20:03)
[2021-01-25] MEDS: LEVEMIR (INSULIN DETEMIR) 1 UNITS/0.01ML SC SCH (20:04)
[2021-01-25 22:00] VITALS: BP 168/74
[2021-01-26 06:00] VITALS: BP 157/87
[2021-01-26 06:47] LABS: HEMATOCRIT 37.6 % (36.0-47.0); HEMOGLOBIN 12.6 g/dl (12.0-15.5); MEAN CORPUSCULAR HEMOGLOBIN 29.1 pg (27.0-33.0); MEAN CORPUSCULAR HGB CONC 33.5 g/dl (32.0-36.5); MEAN CORPUSCULAR VOLUME 86.8 fl (80.0-96.0); PLATELET COUNT, AUTOMATED 172 10^3/uL (150-450); RED BLOOD COUNT 4.33 10^6/uL (4.00-5.40); WHITE BLOOD COUNT 7.8 10^3/uL (4.0-10.0)
[2021-01-26 07:15] LABS: BLOOD UREA NITROGEN 18 MG/DL (7-18); CALCIUM LEVEL 9.2 MG/DL (8.8-10.2); CARBON DIOXIDE LEVEL 31 MEQ/L (21-32); CHLORIDE LEVEL 104 MEQ/L (98-107); CREATININE FOR GFR 0.73 MG/DL (0.55-1.30); GLOMERULAR FILTRATION RATE > 60.0 (>45); GLUCOSE, FASTING 245 MG/DL (70-100); POTASSIUM SERUM 3.9 MEQ/L (3.5-5.1); SODIUM LEVEL 140 MEQ/L (136-145)
[2021-01-26] MEDS: hydroCHLOROthiazide 12.5 MG CAPSULE PO SCH (08:54)
[2021-01-26] MEDS: LOSARTAN 50MG TABLET PO SCH (08:55)
[2021-01-26] MEDS: CLOPIDOGREL 75 MG TAB PO SCH (08:55)
[2021-01-26] MEDS: DULoxetine 30 MG CAP (CYMBALTA) PO SCH (08:55)
[2021-01-26] MEDS: PANTOPRAZOLE 40MG TAB (PROTONIX) PO SCH (08:55)
[2021-01-26] MEDS: LEVEMIR (INSULIN DETEMIR) 1 UNITS/0.01ML SC SCH ×2 (08:56→20:10)
[2021-01-26] MEDS: HumaLOG INSULIN (NovoLOG) PER UNIT SC SCH ×4 (08:57→20:09)
[2021-01-26 14:00] VITALS: BP 173/99
[2021-01-26] MEDS: cefTRIAXone SOD 1 GM in D5W MINI-BAG PLUS 50 ML IV SCH (15:50)
--- NOTE | 2021-01-26 16:20 | IPNPDOC ---
Subjective Date Seen The patient was seen on 01/26/21. Subjective Chief Complaint/HPI Mrs. Reardon is a 60-year-old female with 4 previous CVAs, diabetes mellitus, and current smoker who presents dizziness and worsening weakness. This morning, she was still feeling weaker than normal. It has not improved since last night and it is worsen than 2 weeks ago. We were able to obtain a urine sample which demonstrates pyuria and bacteria. Her UTI is most likely causing her weakness. Patient was started on Ceftriaxone, pending urine cultures Objective Physical Examination General Exam: Positive: Alert, Cooperative Eye Exam: Positive: EOMI; Negative: Sclera icteric ENT Exam: Positive: Atraumatic Neck Exam: Positive: Supple Chest Exam: Positive: Clear to auscultation, Diminished Heart Exam: Positive: Rate Normal, Regular Rhythm Abdomen Exam: Positive: Normal bowel sounds, Soft; Negative: Tenderness Extremity Exam: Negative: Edema Neuro Exam: Positive: Other (mild right facial droop otherwise cranial nerves II through XII grossly within normal limits); Negative: Normal Speech (slurred speech) Psych Exam: Positive: Mental status NL, Mood NL Assessment /Plan Assessment Mrs. Reardon is a 60-year-old female with 4 previous CVAs, diabetes mellitus, and current smoker who presents dizziness and worsening weakness. Patient will be admitted for CVA work up. CT head negative ICH or CVA, CT angio neck is normal, CT angio head is negative for high grade stenosis. Will obtain MRI. Will monitor on telemetry. Otherwise, HbA1c of 11.8. PT/OT/ST ordered. MRI returned negative, but her UA is suggestive of UTI. This may be the cause of her weakness. Patient was empirically started on ceftriaxone, pending culture results. Plan/VTE VTE Prophylaxis Ordered?: Yes Plan 1. Worsening slurred speech and weakness -CT head negative ICH or CVA, CT angio neck is normal, CT angio head is negative for high grade stenosis -MRI negative for acute stroke -Monitor on telemetry -PT/OT/ST -UA suggestive of UTI which could explain her symptoms 2. UTI -Started on Ceftriaxone -Pending urine cultures 3. Diabetes mellitus HbA1c of 11.8 -Increased Basal insulin from 40u BID to 50u BID -Continue sliding scale insulin -Carbohydrate consistent diet 4. COPD -Not in acute exacerbation -Continue inhalers 5. Hypertension Continue losartan and hydrochlorothiazide -Increased amlodipine from 2.5mg qD to 5mg qD 6. History of CVAs No acute stroke during this admission Continue Plavix and Cymbalta Continue atorvastatin 7. DVT ppx -SCD and TEDs Disposition: Pending clinical improvement VS, I&O, 24H, [place] Vital Signs/I&O Vital Signs Date Time Temp Pulse Resp B/P (MAP) Pulse Ox O2 Delivery O2 Flow Rate FiO2 01/26/21 08:55 157/87 01/26/21 08:55 77 01/26/21 06:00 98.0 18 100 Room Air I&O- Last 24 Hours up to 6 AM 01/26/21 06:00 Intake Total 810 ml Output Total 1000 ml Balance -190 ml Laboratory Data 24H LABS Laboratory Tests 2 01/25/21 14:50: Bedside Glucose (Misc Panel) 315H 01/25/21 18:14: Bedside Glucose (Misc Panel) 294H 01/25/21 19:30: Bedside Glucose (Misc Panel) 286H 01/26/21 05:36: Nucleated Red Blood Cells % (auto) 0.0, Anion Gap 5L, Glomerular Filtration Rate > 60.0, Calcium Level 9.2 01/26/21 08:51: Urine Color YELLOW, Urine Appearance CLOUDYH, Urine pH 5.0, Urine Specific [place] 1.026, Urine Protein 1+H, Urine Glucose (UA) 3+H, Urine Ketones NEGATIVE, Urine Blood NEGATIVE, Urine Nitrite NEGATIVE, Urine Bilirubin NEGATIVE, Urine Urobilinogen 2.0H, Urine Leukocyte Esterase TRACEH, Urine WBC (Auto) 35H, Urine RBC (Auto) 2, Urine Hyaline Casts (Auto) 0, Urine Bacteria (Auto) 3+H, Urine Squamous Epithelial Cells 1, Urine Mucus (Auto) SMALL, Urine Sperm (Auto) 01/26/21 11:39: Bedside Glucose (Misc Panel) 240H CBC/BMP Laboratory Tests 01/26/21 05:36 Microbiology Microbiology 01/26/21 Urine Culture, Received Pending 01/25/21 Respiratory Virus Panel (PCR) ([facility]) - Final, Complete JOSE HAAS DO Jan 26, 2021 14:14
[2021-01-26 18:00] VITALS: BP 152/89
[2021-01-26] MEDS: ATORVASTATIN 20 MG TAB PO SCH (20:09)
[2021-01-26 22:00] VITALS: BP 151/81
[2021-01-27 06:00] VITALS: BP 123/69
[2021-01-27 06:29] LABS: BLOOD UREA NITROGEN 18 MG/DL (7-18); CALCIUM LEVEL 9.3 MG/DL (8.8-10.2); CARBON DIOXIDE LEVEL 31 MEQ/L (21-32); CHLORIDE LEVEL 104 MEQ/L (98-107); CREATININE FOR GFR 0.72 MG/DL (0.55-1.30); GLOMERULAR FILTRATION RATE > 60.0 (>45); GLUCOSE, FASTING 136 MG/DL (70-100); POTASSIUM SERUM 3.5 MEQ/L (3.5-5.1); SODIUM LEVEL 140 MEQ/L (136-145)
[2021-01-27 06:31] LABS: HEMATOCRIT 38.1 % (36.0-47.0); HEMOGLOBIN 13.2 g/dl (12.0-15.5); MEAN CORPUSCULAR HEMOGLOBIN 29.9 pg (27.0-33.0); MEAN CORPUSCULAR HGB CONC 34.6 g/dl (32.0-36.5); MEAN CORPUSCULAR VOLUME 86.4 fl (80.0-96.0); PLATELET COUNT, AUTOMATED 170 10^3/uL (150-450); RED BLOOD COUNT 4.41 10^6/uL (4.00-5.40)
[2021-01-27] MEDS: hydroCHLOROthiazide 12.5 MG CAPSULE PO SCH (08:33)
[2021-01-27] MEDS: DULoxetine 30 MG CAP (CYMBALTA) PO SCH (08:33)
[2021-01-27] MEDS: PANTOPRAZOLE 40MG TAB (PROTONIX) PO SCH (08:33)
[2021-01-27] MEDS: HumaLOG INSULIN (NovoLOG) PER UNIT SC SCH ×4 (08:34→20:48)
[2021-01-27] MEDS: CLOPIDOGREL 75 MG TAB PO SCH (08:34)
[2021-01-27] MEDS: amLODIPine 5 MG TAB PO SCH (08:34)
[2021-01-27] MEDS: LOSARTAN 50MG TABLET PO SCH (08:35)
[2021-01-27] MEDS: LEVEMIR (INSULIN DETEMIR) 1 UNITS/0.01ML SC SCH ×2 (08:35→20:48)
--- NOTE | 2021-01-27 10:20 | IPNPDOC ---
Subjective Date Seen The patient was seen on 01/27/21. Subjective Chief Complaint/HPI Mrs. Reardon is a 60-year-old female with 4 previous CVAs, diabetes mellitus, and current smoker who presents dizziness and worsening weakness. Yesterday, she was started on antibiotics for UTI. This morning, she is feeling better. Slurred speech has improved and weakness has improved. Will still have PT/OT/ST evaluate. Otherwise, pending urine culture results. Objective Physical Examination General Exam: Positive: Alert, Cooperative Eye Exam: Positive: EOMI; Negative: Sclera icteric ENT Exam: Positive: Atraumatic Neck Exam: Positive: Supple Chest Exam: Positive: Clear to auscultation, Diminished Heart Exam: Positive: Rate Normal, Regular Rhythm Abdomen Exam: Positive: Normal bowel sounds, Soft; Negative: Tenderness Extremity Exam: Negative: Edema Neuro Exam: Positive: Other (mild right facial droop otherwise cranial nerves II through XII grossly within normal limits) Psych Exam: Positive: Mental status NL, Mood NL Assessment /Plan Assessment Mrs. Reardon is a 60-year-old female with 4 previous CVAs, diabetes mellitus, and current smoker who presents dizziness and worsening weakness. Patient will be admitted for CVA work up. CT head negative ICH or CVA, CT angio neck is normal, CT angio head is negative for high grade stenosis. Will obtain MRI. Will monitor on telemetry. Otherwise, HbA1c of 11.8. PT/OT/ST ordered. MRI returned negative, but her UA is suggestive of UTI. This may be the cause of her weakness. Patient was empirically started on ceftriaxone, pending culture results. Plan/VTE VTE Prophylaxis Ordered?: Yes Plan 1. Worsening slurred speech and weakness -CT head negative ICH or CVA, CT angio neck is normal, CT angio head is negative for high grade stenosis -MRI negative for acute stroke -Monitor on telemetry -PT/OT/ST -UA suggestive of UTI which could explain her symptoms. Started on antibiotics and weakness and speech improved 2. UTI -Ceftriaxone day 2 -Pending urine cultures 3. Diabetes mellitus HbA1c of 11.8 -Increased Basal insulin from 40u BID to 50u BID -Continue sliding scale insulin -Carbohydrate consistent diet 4. COPD -Not in acute exacerbation -Continue inhalers 5. Hypertension Continue losartan and hydrochlorothiazide -Increased amlodipine from 2.5mg qD to 5mg qD 6. History of CVAs No acute stroke during this admission Continue Plavix and Cymbalta Continue atorvastatin 7. DVT ppx -SCD and TEDs Disposition: Pending urine culture results VS, I&O, 24H, [place] Vital Signs/I&O Vital Signs Date Time Temp Pulse Resp B/P (MAP) Pulse Ox O2 Delivery O2 Flow Rate FiO2 01/27/21 08:34 79 149/89 01/27/21 06:00 97.1 17 98 Room Air I&O- Last 24 Hours up to 6 AM 01/27/21 06:00 Intake Total 1380 ml Output Total 300 ml Balance 1080 ml Laboratory Data 24H LABS Laboratory Tests 2 01/26/21 11:39: Bedside Glucose (Misc Panel) 240H 01/26/21 16:24: Bedside Glucose (Misc Panel) 224H 01/26/21 20:03: Bedside Glucose (Misc Panel) 224H 01/27/21 05:45: Nucleated Red Blood Cells % (auto) 0.0, Anion Gap 5L, Glomerular Filtration Rate > 60.0, Calcium Level 9.3 CBC/BMP Laboratory Tests 01/27/21 05:45 Microbiology Microbiology 01/26/21 Urine Culture, Received Pending 01/25/21 Respiratory Virus Panel (PCR) ([facility]) - Final, Complete JOSE HAAS DO Jan 27, 2021 10:20
[2021-01-27 14:00] VITALS: BP 131/83
[2021-01-27] MEDS: cefTRIAXone SOD 1 GM in D5W MINI-BAG PLUS 50 ML IV SCH (16:10)
[2021-01-27] MEDS: ATORVASTATIN 20 MG TAB PO SCH (20:48)
[2021-01-27] MEDS ORDERED: traMADol 50 MG TAB PO ONE (21:55)
[2021-01-27 22:00] VITALS: BP 125/75
[2021-01-28 06:00] VITALS: BP 142/79
[2021-01-28 06:27] LABS: HEMATOCRIT 38.3 % (36.0-47.0); HEMOGLOBIN 12.9 g/dl (12.0-15.5); MEAN CORPUSCULAR HEMOGLOBIN 29.4 pg (27.0-33.0); MEAN CORPUSCULAR HGB CONC 33.7 g/dl (32.0-36.5); MEAN CORPUSCULAR VOLUME 87.2 fl (80.0-96.0); PLATELET COUNT, AUTOMATED 165 10^3/uL (150-450); RED BLOOD COUNT 4.39 10^6/uL (4.00-5.40); WHITE BLOOD COUNT 8.5 10^3/uL (4.0-10.0)
[2021-01-28 06:46] LABS: BLOOD UREA NITROGEN 18 MG/DL (7-18); CALCIUM LEVEL 9.4 MG/DL (8.8-10.2); CARBON DIOXIDE LEVEL 33 MEQ/L (21-32); CHLORIDE LEVEL 104 MEQ/L (98-107); CREATININE FOR GFR 0.71 MG/DL (0.55-1.30); GLOMERULAR FILTRATION RATE > 60.0 (>45); GLUCOSE, FASTING 124 MG/DL (70-100); SODIUM LEVEL 140 MEQ/L (136-145)
[2021-01-28] MEDS: PANTOPRAZOLE 40MG TAB (PROTONIX) PO SCH (08:11)
[2021-01-28] MEDS: LOSARTAN 50MG TABLET PO SCH (08:11)
[2021-01-28] MEDS: hydroCHLOROthiazide 12.5 MG CAPSULE PO SCH (08:11)
[2021-01-28] MEDS: DULoxetine 30 MG CAP (CYMBALTA) PO SCH (08:11)
[2021-01-28] MEDS: amLODIPine 5 MG TAB PO SCH (08:12)
[2021-01-28] MEDS: CLOPIDOGREL 75 MG TAB PO SCH (08:12)
[2021-01-28] MEDS: LEVEMIR (INSULIN DETEMIR) 1 UNITS/0.01ML SC SCH ×2 (08:12→21:11)
[2021-01-28] MEDS: HumaLOG INSULIN (NovoLOG) PER UNIT SC SCH ×4 (08:13→21:11)
[2021-01-28 14:00] VITALS: BP 150/82
[2021-01-28] MEDS: cefTRIAXone SOD 1 GM in D5W MINI-BAG PLUS 50 ML IV SCH (14:16)
[2021-01-28] MEDS ORDERED: AMLO1TAB25 PO (14:59)
[2021-01-28] MEDS ORDERED: LOSA50TA5 PO (14:59)
[2021-01-28] MEDS ORDERED: CIPR-249 PO (14:59)
[2021-01-28] MEDS ORDERED: CEPH500T PO (15:56)
[2021-01-28] MEDS ORDERED: QC A650T3 PO (15:58)
[2021-01-28] MEDS: ATORVASTATIN 20 MG TAB PO SCH (21:10)
[2021-01-28 22:00] VITALS: BP 146/78
[2021-01-29 06:00] VITALS: BP 141/80
[2021-01-29 06:39] LABS: HEMATOCRIT 39.3 % (36.0-47.0); HEMOGLOBIN 13.4 g/dl (12.0-15.5); MEAN CORPUSCULAR HEMOGLOBIN 29.4 pg (27.0-33.0); MEAN CORPUSCULAR HGB CONC 34.1 g/dl (32.0-36.5); MEAN CORPUSCULAR VOLUME 86.2 fl (80.0-96.0); PLATELET COUNT, AUTOMATED 153 10^3/uL (150-450); RED BLOOD COUNT 4.56 10^6/uL (4.00-5.40); WHITE BLOOD COUNT 7.5 10^3/uL (4.0-10.0)
[2021-01-29 07:09] LABS: BLOOD UREA NITROGEN 17 MG/DL (7-18); CALCIUM LEVEL 9.6 MG/DL (8.8-10.2); CARBON DIOXIDE LEVEL 30 MEQ/L (21-32); CHLORIDE LEVEL 103 MEQ/L (98-107); CREATININE FOR GFR 0.63 MG/DL (0.55-1.30); GLOMERULAR FILTRATION RATE > 60.0 (>45); GLUCOSE, FASTING 143 MG/DL (70-100); POTASSIUM SERUM 3.8 MEQ/L (3.5-5.1); SODIUM LEVEL 138 MEQ/L (136-145)
[2021-01-29] MEDS: HumaLOG INSULIN (NovoLOG) PER UNIT SC SCH ×2 (07:43→11:59)
[2021-01-29] MEDS: PANTOPRAZOLE 40MG TAB (PROTONIX) PO SCH (08:55)
[2021-01-29] MEDS: LEVEMIR (INSULIN DETEMIR) 1 UNITS/0.01ML SC SCH (08:55)
[2021-01-29] MEDS: CLOPIDOGREL 75 MG TAB PO SCH (08:55)
[2021-01-29] MEDS: hydroCHLOROthiazide 12.5 MG CAPSULE PO SCH (08:55)
[2021-01-29 08:56] VITALS: BP 141/80
[2021-01-29] MEDS: LOSARTAN 50MG TABLET PO SCH (08:56)
[2021-01-29] MEDS: DULoxetine 30 MG CAP (CYMBALTA) PO SCH (08:56)
[2021-01-29] MEDS: amLODIPine 5 MG TAB PO SCH (08:56)
--- NOTE | 2021-01-29 10:55 | IPNPDOC ---
Date Seen The patient was seen on 01/29/21. Progress Note SUBJECTIVE: Patient is a -year-old [RACE] [GENDER] with OBJECTIVE PHYSICAL EXAMINATION: VITAL SIGNS: Please see below. GENERAL: HEENT: CARDIOVASCULAR: . RESPIRATORY: . ABDOMINAL: EXTREMITIES: NEUROLOGICAL: PSYCHOLOGICAL: LABORATORY DATA, IMAGING STUDIES, MICROBIOLOGY: Please see below. Echocardiogram: . DVT prophylaxis ordered?: ASSESSMENT AND PLAN: This is a -year-old [RACE] [GENDER] with . PROBLEMS: 1. : . 2. : . 3. : . DISPOSITION: . VS, I&O, 24H, Fishbone Vital Signs/I&O Vital Signs Date Time Temp Pulse Resp B/P (MAP) Pulse Ox O2 Delivery O2 Flow Rate FiO2 01/29/21 08:56 68 141/80 01/29/21 06:00 96.9 18 96 01/28/21 14:00 Room Air I&O- Last 24 Hours up to 6 AM 01/29/21 06:00 Intake Total 1260 ml Output Total 2350 ml Balance -1090 ml Laboratory Data 24H LABS Laboratory Tests 2 01/28/21 11:19: Bedside Glucose (Misc Panel) 246H 01/28/21 16:36: Bedside Glucose (Misc Panel) 348H 01/28/21 20:51: Bedside Glucose (Misc Panel) 285H 01/29/21 06:01: Nucleated Red Blood Cells % (auto) 0.0, Anion Gap 5L, Glomerular Filtration Rate > 60.0, Calcium Level 9.6 CBC/BMP Laboratory Tests 01/29/21 06:01 Microbiology Microbiology 01/26/21 Urine Culture - Preliminary, Resulted Escherichia Coli 01/25/21 Respiratory Virus Panel (PCR) ([facility]) - Final, Complete FREEDOM LAND MD Jan 29, 2021 10:55
== END 2021-01-29 14:52 | disposition home health service (06) | DRG 463 ==
LOC: EDBD 09:38 → M ED 09:38 → M ED INP 13:06 → ENRESERV 13:18 → M MSPAV 15:38
PROVIDERS: ADMIT Internal Medicine; ATTEND Family Medicine
DX: N39.0 Urinary tract infection, site not specified (principal); I27.20 Pulmonary hypertension, unspecified; E11.9 Type 2 diabetes mellitus without complications; J44.9 Chronic obstructive pulmonary disease, unspecified; I10 Essential (primary) hypertension; I69.342 Monoplegia of lower limb following cerebral infarction affecting left dominant side; F17.200 Nicotine dependence, unspecified, uncomplicated; Z79.899 Other long term (current) drug therapy; K21.9 Gastro-esophageal reflux disease without esophagitis; F32.9 Major depressive disorder, single episode, unspecified; K57.30 Diverticulosis of large intestine without perforation or abscess without bleeding; I25.10 Atherosclerotic heart disease of native coronary artery without angina pectoris

== ENCOUNTER → 2021-01-30 | Outpatient (CLI) | payer OTHER ==
[~2021-01-30] MED LIST changes: +CEPH500T PO; +CIPR-249 PO; +QC A650T3 PO
--- NOTE | 2021-01-31 05:40 | REP ---
INDICATION: PVD COMPARISON: None. TECHNIQUE: Real time reardon scale and color Doppler evaluation of the bilateral lower extremity arterial vasculature using linear high frequency transducer. FINDINGS: The bilateral ankle-brachial indices were not obtainable due to elevated blood pressure and significantly calcified vessels. Right lower extremity demonstrates moderate mixed atheromatous plaquing with significant elements of calcification limiting sonographic evaluation. Predominantly triphasic wave patterns are appreciated to the level of the distal posterior tibial and anterior tibial arteries where monophasic wave patterns are noted. Left lower extremity demonstrates moderate mixed atheromatous plaquing with significant elements of calcification limiting sonographic evaluation. Predominately triphasic/biphasic wave patterns are appreciated to the level of the distal posterior tibial and anterior tibial arteries where monophasic wave patterns are noted. Peak systolic velocities (cm/sec) Common femoral artery: Right 108; Left 77 Profunda femoris: Right 47; Left 70 SFA (proximal): Right 83; Left 53 SFA (mid): Right 78; Left 67 SFA (distal): Right 62; Left 59 Popliteal artery: Right 57; Left 60 [place] (prox.): Right 63; Left 21 Tibioperoneal trunk: Right 36; Left 38 BIOSOLIDS MANAGEMENT TECHNICIAN (prox.): Right 42; Left 46 BIOSOLIDS MANAGEMENT TECHNICIAN (distal): Right 9; Left 10 ALLYSON (distal): Right 29; Left 21 IMPRESSION: Significant mixed atheromatous plaquing limits evaluation. Decreased flow is identified bilaterally but no obvious focal area of significant stenosis or occlusion is appreciated. <Electronically signed by Willis Dale > 01/31/21 0537
== END ==
LOC: M RAD 11:47
PROVIDERS: ATTEND Podiatrist Foot & Ankle Surgery
DX: I73.9 Peripheral vascular disease, unspecified (principal)

== ENCOUNTER 2021-03-28 19:18 | Observation (INO) | payer OTHER ==
[~2021-03-28] VITALS: Ht 157.5 cm; Wt 68.3 kg
[~2021-03-28 19:18] MED LIST changes: +OMEP40CA4 PO; -OMEP40CA97 PO
[2021-03-28] MEDS ORDERED: LOSA100T5 PO (19:39)
[2021-03-28 20:29] LABS: BASO # 0.1 10^3/uL (0.0-0.2); BASO % 1.1 % (0.0-1.0); EOS # 0.2 10^3/uL (0.0-0.5); EOS % 2.6 % (0.0-3.0); HEMATOCRIT 37.2 % (36.0-47.0); HEMOGLOBIN 12.6 g/dl (12.0-15.5); LYMPH # 1.8 10^3/uL (1.5-5.0); LYMPH % 27.6 % (24.0-44.0); MEAN CORPUSCULAR HEMOGLOBIN 29.8 pg (27.0-33.0); MEAN CORPUSCULAR HGB CONC 33.9 g/dl (32.0-36.5); MEAN CORPUSCULAR VOLUME 87.9 fl (80.0-96.0); MONO # 0.6 10^3/uL (0.0-0.8); MONO % 9.5 % (2.0-8.0); NEUTROPHILS # 3.8 10^3/uL (1.5-8.5); NEUTROPHILS % 58.4 % (36.0-66.0); PLATELET COUNT, AUTOMATED 172 10^3/uL (150-450); RED BLOOD COUNT 4.23 10^6/uL (4.00-5.40); WHITE BLOOD COUNT 6.6 10^3/uL (4.0-10.0)
[2021-03-28 20:49] LABS: ALBUMIN 3.1 GM/DL (3.2-5.2); BILIRUBIN,TOTAL 0.4 MG/DL (0.2-1.0); CALCIUM LEVEL 8.5 MG/DL (8.8-10.2); CREATININE FOR GFR 1.01 MG/DL (0.55-1.30); GLOMERULAR FILTRATION RATE 59.1 (>45); MAGNESIUM LEVEL 1.5 MG/DL (1.8-2.4); POTASSIUM SERUM 3.6 MEQ/L (3.5-5.1); TOTAL PROTEIN 7.1 GM/DL (6.4-8.2)
[2021-03-28] MEDS ORDERED: ASPIRIN 81 MG CHEW TABLET PO ONE (21:40)
[2021-03-28] MEDS ORDERED: HumuLIN R (REGULAR) INSULIN (NovoLIN R) **100U/ML** PER UNIT IV ONE (21:45)
[2021-03-28] MEDS ORDERED: ISOVUE-370 76% 100ML VIAL As Ordered ONE (21:50)
[2021-03-29] MEDS ORDERED: GLUCAGON INJ 1MG VIAL SC PRN (00:30)
[2021-03-29] MEDS ORDERED: MAALOX 30 ML SUSP *UDC PO PRN (00:30)
[2021-03-29] MEDS ORDERED: DEXTROSE 50% 50 ML SYRINGE IV PRN (00:30)
[2021-03-29] MEDS ORDERED: MOM 30ML SUSPENSION UDC PO PRN (00:30)
[2021-03-29] MEDS ORDERED: GLUCOSE 4GM CHEW TABLET PO PRN (00:30)
[2021-03-29] MEDS ORDERED: ACETAMINOPHEN TAB 650MG DOSE (2X325MG) PO PRN (00:30)
[2021-03-29] MEDS ORDERED: AMLO1TAB25 PO (00:43)
[2021-03-29] MEDS ORDERED: MED REC COMMENT (01:02)
[2021-03-29] MEDS ORDERED: HOME MED LIST COMPLETE! XX SCH (01:05)
[2021-03-29 01:28] LABS: RSV AMPLIFICATION NEGATIVE (NEGATIVE)
[2021-03-29] MEDS: DOCUSATE SODIUM 100MG CAPSULE PO SCH ×2 (01:35→08:22)
[2021-03-29 03:37] VITALS: BP 147/88
[2021-03-29] MEDS ORDERED: MECLIZINE 25 MG TABLET PO PRN (05:10)
[2021-03-29 06:00] VITALS: BP 130/86
[2021-03-29] MEDS: HumaLOG INSULIN (NovoLOG) PER UNIT SC SCH ×2 (08:21→12:07)
[2021-03-29 08:25] VITALS: BP 119/69
[2021-03-29] MEDS: MAG SULF 1GM/100ML (MAG RUN) 1 GM in IV 1 EA IV SCH ×2 (08:29→10:36)
[2021-03-29] MEDS ORDERED: LOSARTAN 50MG TABLET PO SCH (09:00)
[2021-03-29] MEDS ORDERED: DULoxetine 30MG CAPSULE (CYMBALTA) PO SCH (09:00)
[2021-03-29] MEDS ORDERED: LEVEMIR (INSULIN DETEMIR) 1 UNITS/0.01ML SC SCH (09:00)
[2021-03-29] MEDS ORDERED: CLOPIDOGREL 75 MG TAB PO SCH (09:00)
[2021-03-29] MEDS ORDERED: PANTOPRAZOLE 40MG TAB (PROTONIX) PO SCH (09:00)
[2021-03-29 10:37] LABS: HEMATOCRIT 36.8 % (36.0-47.0); HEMOGLOBIN 12.3 g/dl (12.0-15.5); MEAN CORPUSCULAR HEMOGLOBIN 29.4 pg (27.0-33.0); MEAN CORPUSCULAR HGB CONC 33.4 g/dl (32.0-36.5); PLATELET COUNT, AUTOMATED 178 10^3/uL (150-450); RED BLOOD COUNT 4.18 10^6/uL (4.00-5.40); WHITE BLOOD COUNT 9.6 10^3/uL (4.0-10.0)
[2021-03-29 10:57] LABS: BLOOD UREA NITROGEN 12 MG/DL (7-18); CALCIUM LEVEL 8.7 MG/DL (8.8-10.2); CARBON DIOXIDE LEVEL 34 MEQ/L (21-32); CHLORIDE LEVEL 104 MEQ/L (98-107); CREATININE FOR GFR 0.78 MG/DL (0.55-1.30); GLOMERULAR FILTRATION RATE > 60.0 (>45); GLUCOSE, FASTING 137 MG/DL (70-100); MAGNESIUM LEVEL 2.5 MG/DL (1.8-2.4); POTASSIUM SERUM 3.3 MEQ/L (3.5-5.1); SODIUM LEVEL 141 MEQ/L (136-145)
[2021-03-29] MEDS ORDERED: MECL-86 PO (11:32)
[2021-03-29] MEDS ORDERED: POTASSIUM CHLORIDE 10MEQ SR TABLET PO ONE (12:00)
[2021-03-29] MEDS ORDERED: ATORVASTATIN 20 MG TAB PO SCH (21:00)
[2021-03-29] MEDS ORDERED: HumaLOG INSULIN (NovoLOG) PER UNIT SC SCH (21:00)
== END 2021-03-29 14:31 | disposition home or self-care (01) ==
LOC: M ED 20:43 → M ED INP 20:44 → M MSPAV 03-29 03:45
PROVIDERS: ADMIT Family Medicine; ATTEND Internal Medicine
DX: R55 Syncope and collapse (principal); E11.9 Type 2 diabetes mellitus without complications; I10 Essential (primary) hypertension; E78.49 Other hyperlipidemia; K21.9 Gastro-esophageal reflux disease without esophagitis; F41.9 Anxiety disorder, unspecified; F32.9 Major depressive disorder, single episode, unspecified; Z79.84 Long term (current) use of oral hypoglycemic drugs; Z79.899 Other long term (current) drug therapy; Z79.4 Long term (current) use of insulin; Z88.8 Allergy status to other drugs, medicaments and biological substances
CPT/HCPCS: 36415; 70450; 70496; 70498; 70544; 70551; 80048; 80053; 81001; 83735; 85025; 85027; 87631; 93005; 93306; 93880; 96374; 97161; 99285; J3475; Q9967

== ENCOUNTER 2021-04-13 21:18 | Emergency (ER) | payer OTHER ==
[~2021-04-13] VITALS: Ht 157.5 cm; Wt 68.3 kg
[~2021-04-13 21:18] MED LIST changes: +LOSA100T5 PO; +MECL-86 PO; +MED REC COMMENT
[2021-04-13] MEDS ORDERED: MECLIZINE 25 MG TABLET PO ONE (21:55)
[2021-04-13 22:03] LABS: HEMATOCRIT 36.2 % (36.0-47.0); HEMOGLOBIN 12.7 g/dl (12.0-15.5); MEAN CORPUSCULAR HEMOGLOBIN 30.1 pg (27.0-33.0); MEAN CORPUSCULAR HGB CONC 35.1 g/dl (32.0-36.5); MEAN CORPUSCULAR VOLUME 85.8 fl (80.0-96.0); PLATELET COUNT, AUTOMATED 174 10^3/uL (150-450); RED BLOOD COUNT 4.22 10^6/uL (4.00-5.40); WHITE BLOOD COUNT 7.5 10^3/uL (4.0-10.0)
--- NOTE | 2021-04-13 22:13 | REPVR ---
PROCEDURE INFORMATION: Exam: CT Head Without Contrast Exam date and time: 04/13/2021 10:01 PM Age: 61 years old Clinical indication: Altered mental status/memory loss TECHNIQUE: Imaging protocol: Computed tomography of the head without contrast. Radiation optimization: All CT scans at this facility use at least one of these dose optimization techniques: automated exposure control; mA and/or kV adjustment per patient size (includes targeted exams where dose is matched to clinical indication); or iterative reconstruction. COMPARISON: MRI-Brain without Contrast 03/29/2021 3:08 AM FINDINGS: Brain: There is moderate patchy low attenuation of deep white matter with small old lacunar infarct in the lateral aspect of the left lenticular nucleus and areas of white matter gliosis. The sulci are within normal limits. Cerebral ventricles: No ventriculomegaly. Paranasal sinuses: Visualized sinuses are unremarkable. No fluid levels. Mastoid air cells: Visualized mastoid air cells are well aerated. Bones/joints: Unremarkable. No acute fracture. Soft tissues: Unremarkable. IMPRESSION: 1. Moderate chronic ischemic white matter change with areas of white matter gliosis and small focus of old lacunar infarct in the lateral aspect of the left lenticular nucleus. 2. Otherwise negative noncontrast head CT. Electronically signed by: Luis Cochran On 04/13/2021 22:12:39 PM
[2021-04-13 22:37] LABS: ATYPICAL LYMPH 1 % (0-5); BASOPHILS 1 % (0-1); EOSINOPHILS 5 % (0-3); LYMPHOCYTES 46 % (16-44); MONOCYTES 4 % (0-5); NEUTROPHILS 43 % (28-66); PLATELET ESTIMATE NORMAL (NORMAL)
[2021-04-13 22:45] LABS: ALBUMIN 2.9 GM/DL (3.2-5.2); ALT/SGPT 27 U/L (12-78); BILIRUBIN,DIRECT 0.1 MG/DL (0.0-0.2); BILIRUBIN,TOTAL 0.3 MG/DL (0.2-1.0); BLOOD UREA NITROGEN 17 MG/DL (7-18); CALCIUM LEVEL 8.5 MG/DL (8.8-10.2); CARBON DIOXIDE LEVEL 27 MEQ/L (21-32); CHLORIDE LEVEL 108 MEQ/L (98-107); CK-MB VALUE MASS < 1.0 NG/ML (<3.6); CPK CREATINE PHOSPHOKINASE 35 U/L (26-192); CREATININE FOR GFR 0.83 MG/DL (0.55-1.30); GLOMERULAR FILTRATION RATE > 60.0 (>45); GLUCOSE, FASTING 245 MG/DL (70-100); MB/CK RELATIVE INDEX 2.86 (< OR =4); POTASSIUM SERUM 3.6 MEQ/L (3.5-5.1); SODIUM LEVEL 141 MEQ/L (136-145); TOTAL PROTEIN 7.1 GM/DL (6.4-8.2); TROPONIN I < 0.02 NG/ML (< 0.10)
[2021-04-13 23:45] VITALS: BP 167/95
--- NOTE | 2021-04-14 05:38 | ECGEPIP ---
[facility] - ED Test Date: 2021-04-13 Pat Name: BRIDGER SALMERON Department: Room: - Gender: Female Juvenile Officer: : 1960 Requested By: RADHA ANDRES Order Number: [id number] Reading MD: Jose Brantley Measurements Intervals [place] Rate: 82 P: 73 CO: 180 QRS: -20 QRSD: 86 T: 63 QT: 434 QTc: 507 Interpretive Statements Normal sinus rhythm POOR R WAVE PROGRESSION Low voltage QRS Prolonged QT SIMILAR TO 03/28/21 Electronically Signed on 04-14-2021 5:38:23 EDT by Jose Brantley
== END 2021-04-14 00:05 | disposition home or self-care (01) ==
LOC: M ED 21:18 → EDBD 21:18 → M ED 04-14 00:05
DX: H81.4 Vertigo of central origin (principal); E78.5 Hyperlipidemia, unspecified; K21.9 Gastro-esophageal reflux disease without esophagitis; I10 Essential (primary) hypertension; F17.200 Nicotine dependence, unspecified, uncomplicated

== ENCOUNTER 2021-04-18 22:52 | Emergency (ER) | payer OTHER ==
[~2021-04-18] VITALS: Ht 157.5 cm; Wt 70.5 kg
[2021-04-19 00:30] LABS: BASO # 0.1 10^3/uL (0.0-0.2); EOS # 0.3 10^3/uL (0.0-0.5); EOS % 3.1 % (0.0-3.0); HEMATOCRIT 42.4 % (36.0-47.0); HEMOGLOBIN 14.5 g/dl (12.0-15.5); LYMPH # 3.2 10^3/uL (1.5-5.0); LYMPH % 36.8 % (24.0-44.0); MEAN CORPUSCULAR HEMOGLOBIN 30.1 pg (27.0-33.0); MEAN CORPUSCULAR HGB CONC 34.2 g/dl (32.0-36.5); MONO # 0.7 10^3/uL (0.0-0.8); MONO % 8.5 % (2.0-8.0); NEUTROPHILS # 4.4 10^3/uL (1.5-8.5); NEUTROPHILS % 50.1 % (36.0-66.0); PLATELET COUNT, AUTOMATED 191 10^3/uL (150-450); RED BLOOD COUNT 4.82 10^6/uL (4.00-5.40); WHITE BLOOD COUNT 8.7 10^3/uL (4.0-10.0)
[2021-04-19 00:40] LABS: INR 0.99; PROTHROMBIN TIME 13.5 SECONDS (12.7-14.5)
[2021-04-19 00:41] LABS: PARTIAL THROMBOPLASTIN TIME 29.3 SECONDS (25.9-37.0)
--- NOTE | 2021-04-19 00:50 | REPVR ---
PROCEDURE INFORMATION: Exam: CT Head Without Contrast Exam date and time: 04/18/2021 12:29 AM Age: 61 years old Clinical indication: CVA TECHNIQUE: Imaging protocol: Computed tomography of the head without contrast. Radiation optimization: All CT scans at this facility use at least one of these dose optimization techniques: automated exposure control; mA and/or kV adjustment per patient size (includes targeted exams where dose is matched to clinical indication); or iterative reconstruction. Other technique: STROKE PROTOCOL was implemented. COMPARISON: CT Head without contrast 04/13/2021 9:53 PM FINDINGS: Brain: Moderate hypodensities in the deep white matter which are consistent with chronic small vessel ischemic disease. Chronic lacunar infarcts in the right thalamus. Chronic lacunar infarcts in the basal ganglia bilaterally. Cortical reardon-white matter differentiation is preserved. No acute intracranial hemorrhage. No acute mass effect. Cerebral ventricles: No ventriculomegaly. Paranasal sinuses: Visualized sinuses are unremarkable. No fluid levels. Mastoid air cells: Visualized mastoid air cells are well aerated. Vasculature: Atherosclerotic calcification of the carotid siphon and left vertebral artery. Bones/joints: Unremarkable. No acute fracture. Soft tissues: Unremarkable. IMPRESSION: 1. No cerebral changes of acute infarct on non-contrast CT at this time. 2. Moderate hypodensities in the deep white matter which are consistent with chronic small vessel ischemic disease. 3. Chronic infarcts as described. ASSESSMENT: ASPECTS ([place] Stroke Program Early CT Score) is 10. Electronically signed by: Sonny Mccall On 04/19/2021 00:50:26 AM
--- NOTE | 2021-04-19 01:00 | REPVR ---
PROCEDURE INFORMATION: Exam: XR Chest Exam date and time: 04/18/2021 12:42 AM Age: 61 years old Clinical indication: CVA TECHNIQUE: Imaging protocol: XR of the chest. Views: 1 view. COMPARISON: CR PORTABLE CHEST X-RAY 01/25/2021 9:57 AM FINDINGS: Lungs: Calcified granuloma in the left lower lobe. No acute infiltrate. Pleural spaces: Unremarkable. No pleural effusion. No pneumothorax. Heart/Mediastinum: Unremarkable. No cardiomegaly. Vasculature: Mild atherosclerotic calcification of the aortic arch. Bones/joints: Unremarkable. IMPRESSION: No acute infiltrate. Electronically signed by: Sonny Mccall On 04/19/2021 00:59:30 AM
[2021-04-19 01:08] LABS: RSV AMPLIFICATION NEGATIVE (NEGATIVE)
[2021-04-19 01:11] LABS: ALBUMIN 3.3 GM/DL (3.2-5.2); ALT/SGPT 30 U/L (12-78); BILIRUBIN,DIRECT 0.2 MG/DL (0.0-0.2); BILIRUBIN,TOTAL 0.4 MG/DL (0.2-1.0); BLOOD UREA NITROGEN 12 MG/DL (7-18); CALCIUM LEVEL 9.3 MG/DL (8.8-10.2); CARBON DIOXIDE LEVEL 30 MEQ/L (21-32); CHLORIDE LEVEL 102 MEQ/L (98-107); CK-MB VALUE MASS < 1.0 NG/ML (<3.6); CPK CREATINE PHOSPHOKINASE 37 U/L (26-192); CREATININE FOR GFR 0.77 MG/DL (0.55-1.30); GLOMERULAR FILTRATION RATE > 60.0 (>45); GLUCOSE, FASTING 252 MG/DL (70-100); POTASSIUM SERUM 3.3 MEQ/L (3.5-5.1); SODIUM LEVEL 139 MEQ/L (136-145); TOTAL PROTEIN 8.1 GM/DL (6.4-8.2); TROPONIN I < 0.02 NG/ML (< 0.10)
[2021-04-19] MEDS ORDERED: POTASSIUM CHLORIDE 10 MEQ SR TABLET PO ONE (02:00)
[2021-04-19] MEDS ORDERED: HOME MED LIST COMPLETE! XX SCH (02:05)
[2021-04-19] MEDS ORDERED: ASPIRIN 81 MG CHEW TABLET PO STA (02:32)
[2021-04-19] MEDS ORDERED: MECLIZINE 25 MG TABLET PO PRN (02:35)
[2021-04-19] MEDS ORDERED: CLOPIDOGREL 75 MG TAB PO SCH (02:35)
[2021-04-19] MEDS ORDERED: ATORVASTATIN 20 MG TAB PO SCH (02:35)
[2021-04-19] MEDS ORDERED: GLUCOSE 4GM CHEW TABLET PO PRN (02:40)
[2021-04-19] MEDS ORDERED: DEXTROSE 50% 50 ML SYRINGE IV PRN (02:40)
[2021-04-19] MEDS ORDERED: GLUCAGON INJ 1MG VIAL SC PRN (02:40)
--- NOTE | 2021-04-19 02:43 | HPEPDOC ---
General Date of Admission 04/19/2021 Date of Service: Apr 19, 2021 Chief Complaint vertigo History of Present Illness Patient was recommended to stay in the hospital for stroke work-up. However, santana mera left AMA from the ED Home Medications Scheduled Acetaminophen (Acetaminophen 8 Hour) 650 Mg Tablet.er, 650 MG PO TID Atorvastatin Calcium (Atorvastatin Calcium) 40 Mg Tab, 40 MG PO QHS, (Reported) Clopidogrel Bisulfate (Clopidogrel) 75 Mg Tablet, 75 MG PO DAILY, (Reported) Duloxetine Hcl (Duloxetine HCl) 60 Mg Capsule.dr, 60 MG PO DAILY, (Reported) Insulin Glargine,Hum.rec.anlog (Basaglar Kwikpen U-100) 100 Unit/1 Ml Insuln.pen, 50 UNITS SQ BID, (Reported) Insulin Lispro (Admelog Solostar) 100 Unit/Ml Inj, 1 DOSE SQ TID, (Reported) PER SLIDING SCALE Losartan/Hydrochlorothiazide (Losartan-Hctz 100-25 mg Tab) 1 Each Tablet, 1 TAB PO DAILY, (Reported) Pantoprazole Sodium (Pantoprazole Sodium) 40 Mg Tablet.dr, 40 MG PO DAILY, (Reported) Scheduled PRN Meclizine HCl (Meclizine HCl) 25 Mg Tablet, 25 MG PO Q6HP PRN for dizziness Allergies Coded Allergies: SEASONAL ALLERGIES (Verified Allergy, Unknown, 04/18/21) ranitidine (Verified Allergy, Unknown, 04/18/21) A-FIB/CHADSVASC A-FIB History Current/History of A-Fib/PAF?: No Vital Signs Vital Signs Date Time Temp Pulse Resp B/P (MAP) Pulse Ox O2 Delivery O2 Flow Rate FiO2 04/19/21 00:22 94 20 98 Room Air 04/19/21 00:15 140/70 (93) 04/18/21 23:07 98.2 Laboratory Data Labs 24H Laboratory Tests 2 04/19/21 00:23: Immature Granulocyte % (Auto) 0.5, Neutrophils (%) (Auto) 50.1, Lymphocytes (%) (Auto) 36.8, Monocytes (%) (Auto) 8.5H, Eosinophils (%) (Auto) 3.1H, Basophils (%) (Auto) 1.0, Neutrophils # (Auto) 4.4, Lymphocytes # (Auto) 3.2, Monocytes # (Auto) 0.7, Eosinophils # (Auto) 0.3, Basophils # (Auto) 0.1, Nucleated Red Blood Cells % (auto) 0.0, Prothrombin Time 13.5, Prothromb Time International Ratio 0.99, Activated Partial Thromboplast Time 29.3, Anion Gap 7L, Glomerular Filtration Rate > 60.0, Calcium Level 9.3, Total Bilirubin 0.4, Direct Bilirubin 0.2, Aspartate Amino Transf (AST/SGOT) 28, Alanine Aminotransferase (ALT/SGPT) 30, Alkaline Phosphatase 84, Total Creatine Kinase 37, Creatine Kinase MB < 1.0, Creatine Kinase MB Relative Index 2.70, Troponin I < 0.02, Total Protein 8.1, Albumin 3.3, Albumin/Globulin Ratio 0.7L, Thyroid Stimulating Hormone (TSH) 5.450H, Free Thyroxine 1.00, Coronavirus (COVID-19)(PCR) NEGATIVE, Influenza Type A (RT-PCR) NEGATIVE, Influenza Type B (RT-PCR) NEGATIVE, Respiratory Syncytial Virus (PCR) NEGATIVE CBC/BMP Laboratory Tests 04/19/21 00:23 Assessment/Plan Patient was recommended to stay in the hospital for stroke work-up. However, patient left AMA from the ED Plan / VTE VTE Prophylaxis Ordered?: No (patient left AMA from ED) GME ATTESTATION GME ATTESTATION My faculty preceptor for this patient encounter was physically present during the encounter and was fully available. All aspects of the patient interview, examination, medical decision making process, and medical care plan development were reviewed and approved by the faculty preceptor. The faculty preceptor is aware and concurs with the plan as stated in the body of this note and will attest to such by his/her cosignature. GME ATTESTATION GME ATTESTATION My faculty preceptor for this patient encounter was physically present during the encounter and was fully available. All aspects of the patient interview, examination, medical decision making process, and medical care plan development were reviewed and approved by the faculty preceptor. The faculty preceptor is aware and concurs with the plan as stated in the body of this note and will a ttest to such by his/her cosignature. ATTENDING NOTE Patient left AMA from the ED before being seen by me. NORMAN BRAND DO Apr 19, 2021 02:43 SHARYN DAVIS MD Apr 19, 2021 03:05
[2021-04-19 02:45] VITALS: BP 160/86
[2021-04-19] MEDS ORDERED: HEPARIN SOD (PORCINE) 5000UNITS/ML 1ML VIAL/SYRINGE SQ SCH (06:00)
[2021-04-19] MEDS ORDERED: HumaLOG INSULIN (NovoLOG) PER UNIT SC SCH ×2 (07:30→21:00)
[2021-04-19] MEDS ORDERED: PANTOPRAZOLE 40MG TAB (PROTONIX) PO SCH (09:00)
[2021-04-19] MEDS ORDERED: LEVEMIR (INSULIN DETEMIR) 1 UNITS/0.01ML SC SCH (09:00)
[2021-04-19] MEDS ORDERED: LOSARTAN 50MG TABLET PO SCH (09:00)
[2021-04-19] MEDS ORDERED: ACETAMINOPHEN 650MG ER TAB (TYLENOL ARTHRITIS) PO SCH (09:00)
[2021-04-19] MEDS ORDERED: DULoxetine 30 MG CAP (CYMBALTA) PO SCH (09:00)
--- NOTE | 2021-04-19 20:11 | ECGEPIP ---
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
== END 2021-04-19 02:53 | disposition left against medical advice (07) ==
LOC: M ED 22:52
DX: I63.9 Cerebral infarction, unspecified (principal); I45.81 Long QT syndrome; Z53.9 Procedure and treatment not carried out, unspecified reason; E11.9 Type 2 diabetes mellitus without complications; I10 Essential (primary) hypertension; E78.5 Hyperlipidemia, unspecified; J44.9 Chronic obstructive pulmonary disease, unspecified; R42 Dizziness and giddiness; F17.200 Nicotine dependence, unspecified, uncomplicated; J30.2 Other seasonal allergic rhinitis; Z88.8 Allergy status to other drugs, medicaments and biological substances; Z79.899 Other long term (current) drug therapy; Z79.4 Long term (current) use of insulin

== ENCOUNTER 2021-06-14 14:42 | Inpatient (IN) | payer OTHER ==
[~2021-06-14] VITALS: Ht 157.5 cm; Wt 66.9 kg
--- OUTSIDE RECORDS SUMMARY | 2021-06-14 14:49 | CCD ---
Author Author [facility] Organization [facility] Address Unknown Phone Unavailable Care Team Providers Care Automotive Service Technician Name Role Phone SYSTEM IN, NOT PROVIDER Unavailable Unavailable Prisca CHICAS DPM Unavailable Unavailable [...] Unavailable MAJAK, R JOHANNA DPM Unavailable Unavailable JUSTIN, ERLINDA SHAFFER Unavailable Unavailable JUSTIN, ERLINDA SHAFFER Unavailable Unavailable JUSTIN, ERLINDA SHAFFER Unavailable Unavailable JUSTIN, ERLINDA SHAFFER Unavailable Unavailable JUSTIN, ERLINDA SHAFFER Unavailable Unavailable JUSTIN, ERLINDA SHAFFER Unavailable Unavailable JUSTIN, ERLINDA SHAFFER Unavailable Unavailable JUSTIN, ERLINDA SHAFFER Unavailable Unavailable JUSTIN, ERLINDA SHAFFER Unavailable Unavailable JUSTIN, ERLINDA SHAFFER Unavailable Unavailable JUSTIN, ERLINDA SHAFFER Unavailable Unavailable JUSTIN, ERLINDA SHAFFER Unavailable Unavailable JUSTIN, ERLINDA SHAFFER Unavailable Unavailable JUSTIN, ERLINDA SHAFFER Unavailable Unavailable JUSTIN, ERLINDA SHAFFER Unavailable Unavailable JUSTIN, ERLINDA SHAFFER Unavailable Unavailable JUSTIN, ERLINDA SHAFFER Unavailable Unavailable JUSTIN, ERLINDA SHAFFER Unavailable Unavailable JUSTIN, ERLINDA SHAFFER Unavailable Unavailable JUSTIN, ERLINDA SHAFFER Unavailable Unavailable JUSTIN, ERLINDA SHAFFER Unavailable Unavailable JUSTIN, ERLINDA SHAFFER Unavailable Unavailable JUSTIN, ERLINDA SHAFFER Unavailable Unavailable JUSTIN, ERLINDA SHAFFER Unavailable Unavailable JUSTIN, ERLINDA SHAFFER Unavailable Unavailable JUSTIN, ERLINDA SHAFFER Unavailable Unavailable JUSTIN, ERLINDA SHAFFER Unavailable Unavailable JUSTIN, ERLINDA SHAFFER Unavailable Unavailable JUSTIN, ERLINDA SHAFFER Unavailable Unavailable JUSTIN, ERLINDA SHAFFER Unavailable Unavailable JUSTIN, ERLINDA SHAFFER Unavailable Unavailable JUSTIN, ERLINDA SHAFFER Unavailable Unavailable JUSTIN, ERLINDA SHAFFER Unavailable Unavailable JUSTIN, ERLINDA SHAFFER Unavailable Unavailable JUSTIN, ERLINDA SHAFFER Unavailable Unavailable JUSTIN, ERLINDA SHAFFER Unavailable Unavailable JUSTIN, ERLINDA SHAFFER Unavailable Unavailable JUSTIN, ERLINDA SHAFFER Unavailable Unavailable JUSTIN, ERLINDA SHAFFER Unavailable Unavailable JUSTIN, ERLINDA SHAFFER Unavailable Unavailable JUSTIN, ERLINDA SHAFFER Unavailable Unavailable JUSTIN, ERLINDA SHAFFER Unavailable Unavailable JUSTIN, ERLINDA SHAFFER Unavailable Unavailable JUSTIN, ERLINDA SHAFFER Unavailable Unavailable JUSTIN, ERLINDA SHAFFER Unavailable Unavailable JUSTIN, ERLINDA SHAFFER Unavailable Unavailable JUSTIN, ERLINDA SHAFFER Unavailable Unavailable JUSTIN, ERLINDA SHAFFER Unavailable Unavailable JUSTIN, ERLINDA SHAFFER Unavailable Unavailable JUSTIN, ERLINDA MD Unavailable Unavailable JUSTIN, ERLINDA MD Unavailable Unavailable JUSTIN, ERLINDA MD Unavailable Unavailable JUSTIN, ERLINDA MD Unavailable Unavailable JUSTIN, ERLINDA MD Unavailable Unavailable JUSTIN, ERLINDA MD Unavailable Unavailable JUSTIN, ERLINDA MD Unavailable Unavailable JUSTIN, ERLINDA MD Unavailable Unavailable JUSTIN, ERLINDA MD Unavailable Unavailable JUSTIN, ERLINDA MD Unavailable Unavailable JUSTIN, ERLINDA MD Unavailable Unavailable JUSTIN, ERLINDA MD Unavailable Unavailable JUSTIN, ERLINDA MD Unavailable Unavailable JUSTIN, ERLINDA MD Unavailable Unavailable Re-disclosure Warning The records [...] is protected by Article 27-F of the [facility] Public Health law. If you continue you may have access to information: Regarding HIV / AIDS; Provided by facilities licensed or operated by the [facility] Office of Mental Health; or Provided by the [facility] Office for People With Developmental Disabilities. If such information is present, then the following [facility] mandated warning applies: This information has [...] law may result in a fine or assisted sentence or both. A general authorization for the release of medical or other information is NOT sufficient authorization for further disc losure. Family History Family Member Name Family Member Gender Family Member Status Date o f Status Description Data Source(s) Unknown Male Problem [facility] ([facility]) Unknown Female Problem [facility] ([facility]) Unknown Female Problem [facility] ([facility]) Encounters Encounter Providers Location Date Indications Data Source(s ) Outpatient Referrer: PROVIDER SYSTEM IN [address] [place] [address] 02/2021 12:05:13 AM EDT - 03/28/2021 11:59:00 PM EDT [facility] Outpatient Attender: JOHANNA CHICAS [facility] Office 09/23 09:45:00 AM EST [facility] ([facility] Outpatient Attender: ERLINDA WEAVER MDReferrer: ERLINDA WEAVER MD 10/02/2020 01:59:00 PM EST - 10/02/2020 04:27:00 PM EST [facility] Medications Medication Brand Name Start Date Product Form Dose Route Admi nistrative Instructions Pharmacy Instructions Status Indications Reaction Description Data Source(s) duloxetine 60 MG Delayed Release Oral Capsule Duloxetine HCL 07/11/2020 12:00:00 AM EST ORAL active [facility] ([facility] 600 mg 06/09/2020 12:00:00 AM EDT tablet 90 TAKE ONE TABLET BY MOUTH THREE TIMES A DAY TAKE ONE TABLET BY MOUTH THREE TIMES A DAY SOLD: 06/09/2020 [facility] Insurance Providers Payer name Policy type / Coverage type Policy ID Covered republican ID Covered republican's relationship to recio Policy Recio Plan Information [place] Med[place] Part B [id number] Self [id number] BLUE CROSS PETER PLAN [id number] SP [id number] MEDICAID [id number] SP [id number] BLUE CROSS PETER PLAN [id number] SP [id number] MEDICAID M [id number] Self [id number] [facility] Community Plan Commercial [id number] Self [id number] [facility] Community Plan Commercial [id number] Self UNHC COMMUNITY PLAN MCDHMO [id number] SP [id number] UNHC COMMUNITY PLAN MCDHMO [id number] SP [id number] UNHC COMMUNITY PLAN MCDHMO [id number] SP [id number] [facility] Care [facility] P [id number] S [id number] UNHC COMMUNITY PLAN MCDHMO [id number] SP [id number] Medicaid S [id number] S [id number] UNHC COMMUNITY PLAN MCDHMO [id number] SP [id number] UNHC COMMUNITY PLAN MCDHMO [id number] SP [id number] Medicaid S [id number] S [id number] Managed Care [facility] P [id number] S [id number] UNHC COMMUNITY PLAN MCDHMO [id number] SP [id number] Medicaid S [id number] S [id number] Managed Care - [facility] P [id number] S [id number] UNHC COMMUNITY PLAN MCDHMO [id number] SP [id number] UNHC COMMUNITY PLAN MCDHMO [id number] SP [id number] UNHC COMMUNITY PLAN MCDHMO [id number] SP [id number] UNHC COMMUNITY PLAN MCDHMO [id number] SP [id number] ANSI-Medicaid [id number] ANSI-Medicaid [id number] ANSI-Medicaid [id number] ANSI-Medicaid [id number] ANSI-Medicaid [id number] ANSI-Medicaid [id number] ANSI-Medicaid [id number] ANSI-Medicaid [id number] ANSI-Medicaid [id number] ANSI-Medicaid [id number] ANSI-Medicaid [id number] ANSI-Medicaid [id number] ANSI-Medicaid [id number] ANSI-Medicaid [id number] ANSI-Medicaid [id number] ANSI-Medicaid [id number] [facility](MCAID) O [id number] S [id number] [facility]) O [id number] S [id number] MEDICAID PIA [id number] S [id number] Medicaid [place] Medigap Part B [id number] Self Private Insurance Medigap Part B [id number] Self Managed Care - [facility] P UNAVAILABLE S UNAVAILABLE UNHC AMERICHOICE XIX HMO [id number] 18 [id number] EXCELLUS BCBS P [id number] S [id number] [id number] BLUE CROSS BLUE SHIELD-CLINIC [id number] 18 [id number] MEDICAID W [id number] S [id number] MEDICAID - CLINIC [id number] UNHC COMMUNITY PLAN MCDO [id number] SP [id number] [facility] O [id number] S [id number] UNHC COMMUNITY PLAN [facility] [id number] SP [id number] [facility] COMMUNTY PLAN [id number] No Fault (NF) Workers Compensation [id number] Self [id number] Private Insurance Medigap Part B [id number] Self [id number] [facility] Community Plan Commercial [id number] Self [id number] UNHC COMMUNITY PLAN XIX [id number] 18 [id number] [facility] Communty Plan Medicaid [id number] Self [id number] [facility] Communty Plan Medicaid [id number] Self [id number] ANSI-Medicaid [id number] UNHC COMMUNITY PLAN MCDO [id number] SP [id number] ANSI-Medicaid [id number] ANSI-Medicaid [id number] ANSI-Medicaid [id number] ANSI-Medicaid [id number] ANSI-Medicaid [id number] ANSI-Medicaid [id number] ANSI-Medicaid [id number] ANSI-Medicaid [id number] ANSI-Medicaid [id number] ANSI-Medicaid [id number] ANSI-Medicaid [id number] ANS-Medicaid [id number] Problems, Conditions, and Diagnoses No Information Surgeries/Procedures Procedure Description Date Indications Data Source(s) PARING/CUTTING BENIGN HYPERKERATOTIC LESION 2-4 2020 12:00:00 AM EST [facility] ([facility] DEBRIDEMENT NAIL ANY METHOD 10/07/2020 12:00:00 AM EST [facility] PARING/CUTTING BENIGN HYPERKERATOTIC LESION 2-4 2019 12:00:00 AM EST [facility] ([facility] DEBRIDEMENT NAIL ANY METHOD 07/11/2020 12:00:00 AM EST [facility] ([facility] Results ID Date Data Source [id number] 04/19/2021 12:23:00 AM EDT [facility] Name Value Range Interpretation Code Description Data Octavia rce(s) Supporting Document(s) SARS coronavirus 2 RNA [Presence] in Res piratory specimen by ANAIS with probe detection NEGATIVE [facility] This lab was ordered by [facility] a nd reported by [facility]. ID Date Data Source [id number] 03/29/2021 12:12:00 AM EDT [facility] Name Value Range Interpretation Code Description Data Octavia rce(s) Supporting Document(s) SARS coronavirus 2 RNA [Presence] in Res piratory specimen by ANAIS with probe detection NEGATIVE [facility] This lab was ordered by [facility] a nd reported by [facility]. ID Date Data Source [id number] 03/29/2021 12:05:13 AM EDT [facility] Name Value Range Interpretation Code Description Data Octavia rce(s) Supporting Document(s) [facility] [id number] lbm [file] [id number]= ID Date Data Source [id number] 01/25/2021 10:24:00 AM EDT [facility] Name Value Range Interpretation Code Description Data Octavia rce(s) Supporting Document(s) SARS-CoV-2 (COVID 19) NEGATIVE - SARS-CoV-2 (COVID19) [facility] This lab was ordered by [facility] a nd reported by [facility]. ID Date Data Source [id number] 10/02/2020 02:38:00 PM [facility] Patient Name: BRIDGER SALMERON : 1960 Sex: F Pt Unit #: [id number] Location:[facility] Provider: Visit Date/Time: 10/02/20 Primary Insurance: [facility] Secondary Insurance: Self Pay Intake Vital Signs 10/02/20 14:38 Current Height 5 ft 3 in Current Weight 153 lb 4 oz Weight Measurement Method Standing Scale BMI 27.1 BP 150/90 Blood Pressure Location Rt brachial Position Sitting Respiration 18 Pulse 113 H Pulse Source Pulse Oximeter Pulse Oximetry (%) 95 Intake Visit Reasons: Neuropathy Nurse Note: 60 year old female here to get established today. [facility]. Has been diabetic for approx. 40 years. Has had 4 strokes. Senior Clinical Data Analyst Required: No Accompanied by: Self / Same as Patient Is patient in pain?: Yes (feet and hands) Pain scale (1-10): 8 Allergies ALLERGIES: Allergy (Unknown, Uncoded 10/02/20 15:07) DRUG: Allergy (Unknown, Uncoded 10/02/20 15:07) Medications - Last Reconciled 10/02/20 by Erlinda Weaver DO atorvastatin 40 mg PO QPM clopidogrel 75 mg PO QDAY fluticasone propion- salmeterol 250-50 mcg/dose (Wixela Inhub) 1 inh inhalation .once a day insulin glargine (Basaglar KwikPen U-100 Insulin) 50 units subcut BID insulin lispro (Admelog SoloStar U-100 Insulin lispro) 8 units subcut TID loperamide (Anti- Diarrheal (loperamide)) 2 mg PO Q6H PRN losartan-hydrochlorothiazide 100-25 mg 1 tab PO QDAY metformin 1,000 mg PO BID ondansetron 4 mg PO Q8H pantoprazole 40 mg PO QDAY Fall Risk History of falls: No Ambulatory Aid:: None Gait/Transferring:: Normal Medications:: Antihypertensives PHQ-2/9 Over the last 2 weeks, how often have you been bothered by any of the following problems? 1. Little interest or pleasure in doing things: several days 2. Feeling down, depressed, or hopeless: several days Total score: 2 3. Trouble falling or staying asleep, or sleeping too much: several days 4. Feeling tired or having little energy: several days 6. Feeling bad about yourself - or that you are a failure or have let yourself and your family down:several days 7. Trouble concentrating on things, such as reading the newspaper or watching television: not at all 8. Moving or speaking so slowly that other people could have noticed? - Or the opposite - being so fidgety or restless that you have been moving around a lot more than usual: not at all 9. Thoughts that you would be better off or of hurting yourself in some way: not at all If you checked off any problems, how difficult have these problems made it for you to do your work, take care of things at home, or get along with other people?: somewhat difficult Source: Developed by Drs. Mike Gates, Cris Doan, Rigo Russell and colleagues, with an educational noris from [employer]. SBIRT Annual Questionnaire Are you currently in recovery for alcohol or substance us e?: No How many times in the past year have you had 4 or more drinks in a day?: None How many times in the past year have you used a recreational drug or used a prescription medication for nonmedical reasons?: None Do you need a note to return Do you need a note to return to daycare/school/sports/work: No Coronavirus Screening Screening Are you currently positive or on isolation for COVID ?: No Do you have any NEW signs of one or more of the following?: no symptoms PFSH Medical History (Updated 10/02/20 @ 15:16 by Erlinda Weaver DO) Asthma CVA (cerebrovascular accident) Diabetes type 2, uncontrolled GERD (gastroesophageal reflux disease) HLD (hyperlipidemia) HTN (hypertension) Neuropathy Overweight Refractive error Tobacco use disorder pneumococcal 23-jassi ps vaccine Performing Provider: Erlinda Weaver DO Administered by: Colleen Ocampo on 10/02/20 16:09 Surgical History (Updated 10/02/20 @ 15:16 by Erlinda Weaver DO) H/O: hysterectomy Hx of cholecystectomy Family History (Updated 10/02/20 @ 15:19 by Erlinda Weaver DO) Mother Heart disease Asthma Father Heart disease Brother No problems noted. Sister No problems noted. Brother Glaucoma Brother No problems noted. Brother No problems noted. Son No problems noted. Daughter No problems noted. Social History (Updated 10/02/20 @ 15:23 by Erlinda Weaver DO) Does the Patient have a Healthcare Proxy: Yes (son, Celestino campuzano, daughter is berkley( back up)) Does Patient have a DNR?: No Does Patient have a Living Will?: No Does the Patient have a MOLST?: No Advance Directives on File or in chart?: No adopted: No caregiver/support person: Yes (brother - Trevor campuzano) household members: caregiver and other details: nephew Francesco campuzano housing: apartment marital status: Legally lives independently: No number of children: 2 number of grandchildren: 7 highest education level completed: 10th grade service: No usp: No current occupational status: disabled pets and animals: Yes leisure activities: other sexually active: No do you think of yourself as: straight/heterosexual current gender identity: female current diet type/program: diabetic HPI Additional HPI HPI Details: 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 she can no longer go there. she agrees to [facility] in [place], [place] she does see dr. Nash , neurologist in [place], [place] for her neuropathy she sees dr. Mcallister , pharmacy technician in [place] Review of Systems Const Reports as per HPI Eyes Reports system reviewed and no additional complaints, except as documented ENT Reports system reviewed and no additional complaints, except as documented Card Reports system reviewed and no additional complaints, except as documented Resp Reports system reviewed and no additional complaints, except as documented GI Reports system reviewed and no additional complaints, except as documented Genitourinary: Reports system reviewed and no additional complaints, except as documented Musc Reports as per HPI Skin/Breast Reports system reviewed and no additional complaints, except as documented Neuro Reports as per [facility] Psych Reports system reviewed and no additional complaints, except as documented Endo Reports as per [facility] Hipolito/Lymph Reports system reviewed and no additional complaints, except as documented Aller/Immun Reports system reviewed and no additional complaints, except as documented Exam Const General: cooperative, healthy appearing and no acute distress Nutritional Appearance: well nourished and overweight Orientation: alert and awake [facility] Head: normal to inspection, normocephalic and atraumatic Ears: hearing grossly normal bilaterally General nose exam: external nose normal Face and sinus: normal facial exam Mouth: oral mucosae normal and lip normal Eyes General: appearance normal, both eyes and all related structures EOM: EOM intact bilaterally Neck Neck: normal visual inspection, full ROM, no lymphadenopathy, supple and no JVD present Neck mass: No Thyroid: thyroid normal Carotids: normal carotid upstroke Resp Effort Inspection: normal respiratory effort Auscultation: clear to auscultation bilaterally Percussion: percussion normal Cardio Jugular venous pressure: no JVD Palpation: normal PMI Rate: regular rate Rhythm: regular rhythm Heart Sounds: S1 normal and S2 normal Pulses: normal peripheral pulses GI Inspection: Yes normal to inspection Palpation: soft Auscultation: normal bowel sounds General: deferred Musc Cervical Spine: normal cervical lordosis and cervical ROM normal Thoracic/Lumbar Spine: thoracic and lumbar spine normal to inspection and thoraco-lumbar ROM normal Skin Lesions: no lesions Rashes: no rashes Trauma: no lacerations or abrasions Wounds: no wounds Other: dry skin , heels Neuro General: patient alert, patient awake and patient oriented x3 Cognition: normal cognition Speech: speech normal Motor: strength abnormal (left upper extremity, left lower extremity decreased muscle) Extrem General: normal exam except as noted Psych Appearance: grossly normal Mental Status: mental status grossly normal Speech and Movement: speech and movement normal Mood: congruent mood Diabetic Foot Pulses: Left dorsalis pedis peripheral pulse: normal, Right dorsalis pedis peripheral pulse: normal,L posterior tibial pulse: normal and Right posterior tibial pulse foot exam: normal Monofilament exam: L 1st metatarsals: absent, Left 3rd metatarsals monofilament exam: absent, L 5th metatarsals: absent, L great toe: absent, L 3rd toe: absent, R 1st metatarsals: absent, R 3rd metatarsals: absent, R 5th metatarsals: absent, R great toe: absent, R 3rd toe: absent and R 5th toe: absent Monofilament foot exam results: Left foot: abnormal and Right foot: abnormal Tuning fork: L great toe: abnormal and R great toe: normal Immunizations pneumococcal 23-jassi ps vaccine Performing Provider: Erlinda Weaver DO Administered by: Colleen Ocampo on 10/02/20 16:09 Dose Route Admin Location Lot Number Expiration Date NDC Manufactu rer 0.5 mL IM Left arm [id number] 01/15/22 8857-0326-58 [employer] D VIS Given Date VIS Provided VIS Publication Date 10/02/20 Single Vaccine 19 Eligibility Eligibility Date Funding Source Not VFC Eligible 10/02/20 Private Assessment Plan Assessment Plan (1) Neuropathy: Code(s): G62.9 - Polyneuropathy, unspecified Plan - Erlinda Weaver DO: continue with gabapentin cymbalta f/u dr. Nash , neurologist in [place] labs ordered f/u dr. Mcallister , pharmacy technician tobacco use disorder counseled about three minutes htn needs better control bp diary, ekg is ordered continue same medications if condition worsens, then go to ER asthma is stable refill albuterol pft is ordered diabetes need better control she stated type II diabetes, labs ordered she has seen dietitian ; feet exam is completed continue current medical treatment f/u [place] if c ondition worsens, then go to ER she agrees to plan she agrees to plan Orders Other Medications: New: albuterol sulfate 90 mcg/actuation 1 inh inhalation QID PRN 8.5 grams 8RF shortness of breath or wheezing clopidogrel 75 mg PO QDAY 90 tabs 0RF Other Orders: Orders: INJ - Pneumovax Vaccine Today Z23 3D DIG MAMMO SCREEN BILAT Today Z12.31 IFOB ICT fecal occult bld Today Z12.11 Microalbumin/Creat Ratio - ACR Today E11.65 HGBA1C + EAG Today E11.65, E78.5, I10 CMP 1 Day Z00.00 Vitamin B12 Today Z00.00 CBC W AUTO DIFF 3 Days Z00.00 LIPID PANEL 1 Day Z00.00 TSH w/ reflex to Free T4 2 Days Z00.00 EKG Standard 12 Lead Today I10 PFT (Spirometry Outpatient) Today J45.616 Follow Up: 1 (test results) Coding Level of Care Code 45608 New Pt Extended Comp Diagnoses Neuropathy G62.9 CPT Codes Tobacco counseling - 40128 (67119) Tobacco cessation counseling Second Hand Smoke Smoking Plan: Benefits of Quitting As soon as you quit, your body begins to repair the damage caused by smoking. See the health benefits you'll experience as soon as 20 minutes to 15 years after quitting. 20 Minutes After Quitting: Your heart rate drops to a normal level. 12 Hours After Quitting: The carbon monoxide level in your blood drops to normal. 2 Weeks to 3 Months After Eros tting: Your risk of having a heart attack begins to drop. Your lung function begins to improve. 1 to 9 Months After Quitting: Your coughing and shortness of breath decrease. 1 Year After Quitting: Your added risk of coronary heart disease is half that of a smoker's. 5 to 15 Years After Quitting: Your risk of having a stroke is reduced to that of a nonsmoker's. Your risk of getting cancer of the mouth, throat, or esophagus is half that of a smoker's. 10 Years After Quitting: Your risk of dying from lung cancer is about half that of a smoker's. Your risk of getting bladder cancer is half that of a smoker's. Your risk of getting cervical cancer or cancer of the larynx, kidney or pancreas decreases. 15 Years After Quitting: Your risk of coronary heart disease is the same as that of a nonsmoker. Tobacco * Identify a support program or team. * Talk with my doctor about ways to quit smoking/tobacco use. Ask about the patch or other medicine to help. * Set a quit date * Tobacco-proofing you home and car. Remove cigarettes, lighters, matches, and ashtrays so there are no reminders of smoking. This can help reduce your urges to smoke. * Recognizing danger situations. Identify events, feelings, or activities that increase your desire to smoke or going back to smokingonce you have quit. Examples: Being around other smokers, having an alcoholic drink, or having a cup of coffee first thing in the morning. Help Numbers [facility] - Alcohol and Substance Abuse [place] [facility]- National Suicide Prevention Lifeline - 798-006-IDYJ (6056) [facility] - [facility] Smokers' Quitline - 3-137-SR-QUITS [facility] Smokers' Quitline -http://[email or web address] Quit Smoking - <Electronically signed by Erlinda Weaver DO> 10/02/20 1651 Name Value Range Interpretation Code Description Data Octavia rce(s) Supporting Document(s) Procedure Social History No Information Vital Signs ID Date Data Source [id number] 04/16/2021 09:37:10 AM EDT [facility] Name Value Range Interpretation Code Description Data Source(s) TRANSFER FROM [facility]
--- OUTSIDE RECORDS SUMMARY | 2021-06-14 14:49 | CCD | Summary of Care ---
Author Author [facility] Organization [facility] Address Unknown Phone Unavailable Care Team Providers Care Product Marketing Programs Manager Name Role Phone Madison Vasquez Patsy TELECOM ENGINEER PCP Encounter Details Care Team Description Date Type Department 03/28/2021 [facility] TRANSFER CE NTER Encounter [address] [place] [address] Allergies No Known Active Allergiesdocumented as of this encounter (statuses as of 04/12/2021) Medications End Date Status Medication Sig Dispensed Refills Start Date Active cetirizine (ZYRTEC) 10 MG Take 10 mg by 0 tablet mouth daily. Active gabapentin (NEURONTIN) Take 400 mg 0 400 MG tablet by mouth 2 (two) times daily. Active topiramate (TOPAMAX) 100 Take 100 mg 0 MG tablet by mouth 3 (three) times daily. Active sumatriptan (IMITREX) 100 Take 100 mg 0 MG tablet by mouth as needed. Active aspirin 81 MG EC tablet Take 81 mg by 0 mouth daily. Active acetone, urine, test As directed 25 each 5 05/17 stripIndications: Type II for high 2 or unspecified type blood glucose diabetes mellitus without mention of complication, not stated as uncontrolled, DM type 2 (diabetes mellitus, type 2) Active pregabalin (LYRICA) 75 MG Take 1 0 05/23 capsule capsule by 2 mouth 2 (two) times daily. Active insulin glargine (LANTUS Inject 38 15 mL 5 0 SOLOSTAR) 100 UNIT/ML Units into 3 injectionIndications: DM the skin type 2 (diabetes nightly. Max mellitus, type 2) Daily Dose: 40 units, inclusive of priming. DX: 250.02 Active metformin (GLUCOPHAGE) Take 1 tablet 60 tablet 5 0 1000 MG by mouth 2 3 tabletIndications: DM (two) times type 2 (diabetes daily with mellitus, type 2) meals. Active simvastatin (ZOCOR) 40 MG Take 1 tablet 30 tablet 5 tabletIndications: by mouth 3 Dyslipidemia nightly. Active ONETOUCH DELICA LANCETS Use as 200 each 5 MISCIndications: DM type directed. 3 2 (diabetes mellitus, Test 4-6 type 2) times daily. Max Daily Dose: 6. DX: 250.02 Active glucose blood (ONE TOUCH Test 4-6 200 each 5 0 ULTRA TEST) test times daily. 3 stripIndications: DM type Max Daily 2 (diabetes mellitus, Dose: 6. type 2) DX: 250.02 Active metformin (GLUCOPHAGE) Take 1 tablet 30 tablet 5 0 500 MG tabletIndications: by mouth 3 Type II or unspecified daily before type diabetes mellitus lunch. Takes without mention of the 500 mg at complication, not stated noon as uncontrolled Active Insulin Pen Needle 31G X Use as 200 each 5 0 8 MM MISCIndications: directed. Use 3 Type II or unspecified 4-5 times type diabetes mellitus daily. Max without mention of Daily Dose: complication, 5. DX uncontrolled 250.02 Active glimepiride (AMARYL) 4 MG Take 1 tablet 60 tablet 0 tabletIndications: Type by mouth Two 4 II or unspecified type times daily diabetes mellitus without before meals. mention of complication, uncontrolled documented as of this encounter (statuses as of 04/12/2021) Active Problems Problem Noted Date Diabetes mellitus type II Overview: Formatting of this note might be differ ent from the original. DX: 1997 L ast Assessment & Plan: Formatting of this note is different fr om the original. Insulin Injection Record Arlin Reardon 02/16/2013 : 1960 Meal Time Insulin Type: Humalog Blood Glucose (Mg/dl) Breakfast Lunch Supper Day Snack Night Snack Correction High Glucose Less than 70 Treat low blood sugar wit h 15 grams carbohydrate, recheck in 15 minutes, retreat until above 70, the n take insulin in 70- 90 row. 70 - 90 0 0 0 91 - 130 2 2 2 131 - 150 4 4 4 151 - 200 6 6 6 201 - 250 8 8 8 251 - 300 10 10 10 301 - 350 12 12 12 351 - 400 14 14 14 401 - 450 16 16 16 Over 450 18 call 18 call 18 call Long-acting Insulin Lantus; 38 units B edtime Hyperlipidemia HTN (hypertension) GERD (gastroesophageal reflux disease) Asthma PCOS (polycystic ovarian syndrome) documented as of this encounter (statuses as of 04/12/2021) Social History Date Tobacco Use Types Packs/Day Years Used Never Smoker Smokeless Tobacco: Never Used Comments Alcohol Use Standard Drinks/Week No 0 (1 standard drink = 0.6 o z pure alcohol) Sex Assigned at Date Recorded Not on file documented as of this encounter Last Filed Vital Signs Not on filedocumented in this encounter Consult Notes * Prem Booker MBBS - 03/28/2021 10:23 PM EDT [facility] [address] [place] [address] PATIENT NAME: Arlin Reardon, DATE OF : 1960 . TELESTROKE Consultation Note: Spoke Hospital: [facility] Spoke Physician/Provider: Dr Willis Jean [employer] Teacher: Prem Booker MBBS Date of Encounter: 03/28/2021 Chief Complaint: Dizziness and left sided weakness Last Known Well: Unknown but > one day Telestroke Consult: 03/28/2021 03/28/2021 10:21 pm Video Connection Time: 03/28/2021 1032 pm Brief History of Present Illness: Arlin Reardon is a 61 y.o. female with prior right-sided brain stroke with r esidual left sided weakness. She presented this [facility] to [facility] wi complaint of dizziness, dysarhrtia and felt her talking was funny. She was se en by Dr Jean at [facility] who gave her an NIHSS of 3 for left arm Drift, dy sarthria and milld sensory loss in the V1 - V3 distribution.. She reported to Dr Jean that her symptoms had started at 7pm (but also told the ED nurse that h er symptoms started at 5pm), given that she was still within the tpa window at t his time, a telestroke consult was called. S On evaluation by me, she gave a time that was inconsistent with what she had dom patsy Jean. She has been having difficulty with walking over the past week. Today she tried to walk and she felt very dizzy ( not room spinning but feeling like she was going to pass out). She felt both of her arms were weak. She also f elt some tingling in both of her arms but she felt that her left arm was weaker than it normally is at baseline. She reported horizontal diplopia when standing and looking at far objects. No difficutly swallowing. No headache or other neuro logical complaints She was actively coughing during our interaction and reports that she has been c oughing for hte past 5 days. No fever. Review of Systems: Complete review of systems unremarkable except as mentioned in the HPI. Pertinent Past Medical History: [] None [] Atrial Fibrillation [x] Prior Ischemic Stroke [] Prior Hemorrhagic Stroke [x] Hypertension [x] Diabetes [] Hyperlipidemia [] Renal failure [] History of Cancer: [] Others: obesity Pertinent Family Medical History. Reviewed and non-contributory. Pertinent Personal/Social History []not reviewed Pertinent Home Medications: [] Not reviewed EXAMINATION: HR normal BP 149/85 RR normal Temp afebrile As reported by spoke provider General exam normal Lungs normal Heart normal Abdomen normal Skin normal Extremities normal NIH Stroke Scale: Category Patient Score 1a. Level of consciousness (Alert, drowsy, etc.) 0 - Alert 1b. LOC Questions (Month, age) 0 - Both questions correct 1c. LOC Commands (Open, close eyes; make fist, let go) 0 - Performs both tasks correctly 2. Best Gaze (Eyes open- patient follows finger or face) 0 - Normal 3. Visual (Introduce visual stimulus to patients visual field quadrants) 0 - No vi sual loss 4. Facial palsy (Show teeth, raise eyebrows and squeeze eyes shut) 0 - Normal, symmetrical move ments 5a. Motor Arm left 5b. Motor Arm right (Elevate extremity to 90 and score drift/movement) Left: 1- Drift (before 1 0 sec) Right: 0- No drift (extends arm 10sec. w/o drift) 6a. Motor Leg left 6b. Motor Leg right (Elevate extremity to 30 and score drift/movement) Left: 1- Drift (before 5 sec) Right: 0- No drift (extends leg 5 sec w/o drift) 7. Limb Ataxia (Finger-nose, heel-henson) 0 - Absent 8. Sensory (Pin prick to face, arm trunk, and leg- compare side to side) 0 - Normal 9. Best Language (Name items, describes a picture, reads sentence) 0 - No aphasia 10. Dysarthria (Evaluate speech clarity by patient repeating listed words) 1 - Mild to moderat e dysarthria 11. Extinction and Inattention (Use information from prior testing to identify neglect or double simultaneous s timuli testing) 0 - No neglect Total Score: 3 CT brain review: I personally reviewed the images in Syntemp/digital DICOM viewer. No evidence of hemorrhage or acute infarction but showed extensive periventriculat white shoshana er disease bilaterally. Labs Review: Blood sugar 300 Assessment: Arlin Reardon is a 61 y.o. female patient with: diabetes,, hypertension and prior stroke with residual left sided weakness that presented to [facility] with one weak of progressively worsening ambulation and worsening speech that started earlier today. ON examination her NIHSS was 3 but this could have been related to her prior stroke. Her current symptoms could be related to recrudescence of prior stroke symptoms in the setting of poorly controlled hyperglycemia, or infe ction but an MRI will be needed to exclude a stroke. She is not a candidate for IV-tPA given her last known well time Plan/Recommendation: [x] Intravenous TPA is not indicated. Obtain MRI when possible Thank you for the consult. Prem Booker MBBS [facility] Stroke Telemedicine Attending documented in this encounter Plan of Treatment Health Maintenance Due Date Last Done Comments MMR Vaccines (1 of - 1960 Standard series) Varicella Vaccines (1 of 1960 2 - 2-dose childhood series) Pneumococcal Vaccine: 65+ 1965 Years (1 of 2 - PPSV23) Pneumococcal Vaccine: 1965 Pediatrics (0 to 5 Years) and At-Risk Patients (6 to 64 Years) (1 of 2 - PPSV23) HIV Screening 1972 Diabetic Foot Exam 1977 Dilated Retinal Exam 1977 Breast Cancer Screening 2 2009 years Colon Cancer Screening 10 2009 yrs Zoster Vaccines (1 of 2) 2009 Hemoglobin A1c 08/18/2013 02/16/2013, 05/17/2012, 04/04/2012, Additional history exists Lipid Disorder Screening 02/16/2014 02/16/2013, 05/17/2012, 11/03/2011 Urine Microalbumin 02/16/2014 02/16/2013, 11/03/2011 Cervical Cancer Screening 05/17/2014 05/17/2009 5 years Influenza Vaccine 05/23/2021 05/21/2016, 06/13/2015 DTaP,Tdap,and Td Vaccines 06/16/2021 12/15/2020, (3 - Td or Tdap) 06/13/2015 Hepatitis C Screening (B. Completed 05/17/2012 [id number]) HIB Vaccines Aged Out No longer eligible based on patient's age to complete this topic Hepatitis A Vaccines Aged Out No longer eligibl e based on patient's age to complete this topic Hepatitis B Vaccines Aged Out No longer eligibl e based on patient's age to complete this topic IPV Vaccines Aged Out No longer eligible based on patient's age to complete this topic documented as of this encounter Goals Goal Patient Associated Recent Progress Patient-Stat Aut hor Goal Type Problems ed? Blood Pressure < 130/80 Blood 102/64 (02/16/2013 No Penree, Pressure 3:59 PM EDT) GINA Queen Jr. LDL CALC,LDL Result 72 (02/16/2013 4:37 No Penr ee, CHOLESTEROL,LDLCHOLESTEROL,LDL Component PM EDT) Antonio Gipson Jr. DIRECT,LDLCHOLESTEROL,DIRECT < PA 100 HEMOGLOBIN A1C < 7.0 Result 8.8 (02/16/2013 No P enree, Component 4:11 PM EDT) GINA Queen Jr. documented as of this encounter Results Not on filedocumented in this encounter
[2021-06-14] MEDS ORDERED: ONDANSETRON 4MG/2ML VIAL IV ONE (15:00)
[2021-06-14 15:12] LABS: BASO # 0.1 10^3/uL (0.0-0.2); EOS # 0.2 10^3/uL (0.0-0.5); EOS % 2.8 % (0.0-3.0); HEMATOCRIT 44.4 % (36.0-47.0); LYMPH # 2.5 10^3/uL (1.5-5.0); LYMPH % 36.7 % (24.0-44.0); MEAN CORPUSCULAR HEMOGLOBIN 29.7 pg (27.0-33.0); MEAN CORPUSCULAR HGB CONC 33.8 g/dl (32.0-36.5); MEAN CORPUSCULAR VOLUME 87.9 fl (80.0-96.0); MONO # 0.5 10^3/uL (0.0-0.8); MONO % 7.8 % (2.0-8.0); NEUTROPHILS # 3.4 10^3/uL (1.5-8.5); NEUTROPHILS % 51.1 % (36.0-66.0); PLATELET COUNT, AUTOMATED 182 10^3/uL (150-450); RED BLOOD COUNT 5.05 10^6/uL (4.00-5.40); WHITE BLOOD COUNT 6.7 10^3/uL (4.0-10.0)
--- NOTE | 2021-06-14 15:20 | REP ---
INDICATION: CVA - Nursing interventions must not delay CT. COMPARISON: 04/19/2021. TECHNIQUE: 5 mm contiguous transaxial sections were obtained from the skull base to the cerebral convexities. FINDINGS: The ventricles and sulci are consistent with the patient's age. There are no extra-axial fluid collections. There is no mass effect. Diffuse lucency is again seen throughout the deep cerebral white matter status quo. There is no evidence of an acute intracranial hemorrhagic or non hemorrhagic event. Heavily calcified basilar skull vessels are noted status quo. The orbital and petrous structures, cerebellopontine angles, and posterior fossa are unremarkable. The sella turcica, cavernous, and paracavernous structures are essentially unremarkable. The visualized portions of the paranasal sinuses and mastoid air cells are clear. Images of the skull base show no gross abnormality. IMPRESSION: No significant change from 04/19/2021. No evidence of acute intracranial pathology. <Electronically signed by Johnson Jerez > 06/14/21 [id number]
[2021-06-14 15:21] LABS: INR 0.95; PROTHROMBIN TIME 13.1 SECONDS (12.7-14.5)
[2021-06-14 15:22] LABS: PARTIAL THROMBOPLASTIN TIME 31.4 SECONDS (25.9-37.0)
[2021-06-14] MEDS ORDERED: LABETALOL 100MG/20ML VIAL IV STA (15:31)
[2021-06-14] MEDS ORDERED: LABETALOL 100MG/20ML VIAL As Ordered ONE (15:32)
[2021-06-14 15:35] LABS: CK-MB VALUE MASS 1.4 NG/ML (<3.6); CPK CREATINE PHOSPHOKINASE 112 U/L (26-192); MB/CK RELATIVE INDEX 1.25 (< OR =4); TROPONIN I < 0.02 NG/ML (< 0.10)
[2021-06-14] MEDS ORDERED: niCARdipine 40MG IN 200ML NACL IV BAG As Ordered ONE (15:39)
[2021-06-14] MEDS ORDERED: ALTEPLASE 100MG VIAL IV ONE (15:40)
[2021-06-14] MEDS ORDERED: ALTEPLASE RECOMBINANT IV ONE (15:40)
--- NOTE | 2021-06-14 15:44 | REP ---
INDICATION: CVA. COMPARISON: 04/18/2021 latest prior also portable TECHNIQUE: Portable FINDINGS: The technique utilized in obtaining the radiograph has magnified the cardiac silhouette and accentuated the interstitial markings. The superior mediastinal structures are midline. The cardiac silhouette is unremarkable in size, shape, and position. The diaphragmatic surfaces of the lungs are regular, and the costophrenic angles are clear. The pulmonary byers are clear. The imaged osseous structures are intact. IMPRESSION: There is no acute cardiopulmonary disease. <Electronically signed by Johnson Jerez > 06/14/21 [id number]
[2021-06-14] MEDS ORDERED: ISOVUE-370 76% 100ML VIAL As Ordered ONE (15:55)
[2021-06-14] MEDS ORDERED: niCARdipine IV 40 MG in IV 1 EA IV SCH (16:15)
--- NOTE | 2021-06-14 16:38 | REPVR ---
PROCEDURE INFORMATION: Exam: CT angiography head with contrast CT Angiography Neck With Contrast Exam date and time: 06/14/2021 4:13 PM Age: 61 years old Clinical indication: Weakness; Additional info: CVA TECHNIQUE: Imaging protocol: Computed tomography angiography of the head and neck with contrast. 3D rendering (Not supervised by radiologist): MIP and/or 3D reconstructed images were created by the technologist. Radiation optimization: All CT scans at this facility use at least one of these dose optimization techniques: automated exposure control; mA and/or kV adjustment per patient size (includes targeted exams where dose is matched to clinical indication); or iterative reconstruction. Contrast material: ISOVUE 370; Contrast volume: 100 ml; Contrast route: INTRAVENOUS (IV); COMPARISON: CT ANGIO NECK 03/28/2021 9:48 PM FINDINGS: There is no significant stenosis or dissection within the common carotid arteries on either side. Calcific atherosclerotic changes within the carotid bulbs bilaterally. No definite evidence of hemodynamically significant stenosis within the internal carotid arteries on either side (less than 20 %). Right vertebral artery is diminutive and appears to end in PICA, a normal variant. Dense concentric calcific atherosclerotic disease within the V4 segment of the left vertebral artery causing at least mild stenosis. There is no evidence of occlusion. Appearance is similar to previous examination. Dense, concentric calcific atherosclerotic disease within the supraclinoid internal carotid arteries bilaterally with no evidence of occlusion. Appearance is similar to previous examination. No significant stenosis, aneurysmal dilatation or large vessel occlusion within the anterior or posterior intracranial arterial circulation. Incidental note is made of patent posterior communicating arteries bilaterally. IMPRESSION: Dense, concentric calcific atherosclerotic disease in the V4 segment of the left vertebral artery causing at least mild stenosis. There is no evidence of occlusion. Appearance is similar to previous examination. No other significant stenosis or occlusion within the carotid or vertebral arteries of the neck. Dense, concentric calcific atherosclerotic disease within the supraclinoid internal carotid arteries bilaterally with no evidence of occlusion, similar to previous examination. No significant stenosis, aneurysmal dilatation or large vessel occlusion within the anterior or posterior intracranial arterial circulation. REFERENCES: NASCET CRITERIA. The degree of internal carotid artery stenosis is based on NASCET criteria. Normal is no stenosis. Mild is less than 50% stenosis. Moderate is 50-69% stenosis. Severe is 70% to 99% stenosis. Total occlusion is no detectable patent lumen. Electronically signed by: Weston Siddiqui On 06/14/2021 16:37:58 PM
--- OUTSIDE RECORDS SUMMARY | 2021-06-14 16:38 | CCD ---
Author Author [facility] Organization [facility] Address Unknown Phone Unavailable Care Team Providers Care Transportation Consultant Name Role Phone SYSTEM IN, NOT PROVIDER [...] Unavailable MAJAK, R JOHANNA DPM Unavailable Unavailable CALE, A ROSALIE Unavailable Unavailable JUSTIN, ERLINDA SHAFFER Unavailable Unavailable JUSTIN, ERLINDA SHAFFER Unavailable Unavailable JUTSIN, ERLINDA SHAFFER Unavailable Unavailable JUSTIN, ERLINDA SHAFFER [...] is protected by Article 27-F of the [facility] Public Health law. If you continue you may have access to information: Regarding HIV / AIDS; Provided by facilities licensed or operated by the [facility] Office of Mental Health; or Provided by the [facility] Office for People With Developmental Disabilities. If such information is present, then the following [facility] mandated warning applies: This information has [...] law may result in a fine or [place] health [place] sentence or both. A general authorization for the release of medical or other information is NOT sufficient authorization for further disc losure. Family History Family Member Name Family Member Gender Family Member Status Date o f Status Description Data Source(s) Unknown Male Problem MEDENT ([facility]) Unknown Female Problem [facility] ([facility]) Unknown Female Problem [facility] ([facility]) Encounters Encounter Providers Location Date Indications Data Source(s ) Outpatient Attender: ROSALIE MADSEN [id number] 06/14/2021 03:51:51 PM [facility] Outpatient Referrer: PROVIDER SYSTEM IN [id number] 02/2021 12:05:13 AM EDT - 03/28/2021 11:59:00 PM [facility] Outpatient Attender: JOHANNA CHICAS [facility] Office 09/23 09:45:00 AM EST [facility] ([facility] Outpatient Attender: ERLINDA WEAVER MDReferrer: ERLINDA WEAVER MD 10/02/2020 01:59:00 PM EST - 10/02/2020 04:27:00 PM EST [facility] Medications Medication Brand Name Start Date Product Form Dose Route Admi nistrative Instructions Pharmacy Instructions Status Indications Reaction Description Data Source(s) duloxetine 60 MG Delayed Release Oral Capsule Duloxetine HCL 07/11/2020 12:00:00 AM EST ORAL active [facility] ([facility] 600 mg 06/09/2020 12:00:00 AM EDT tablet 90 TAKE ONE TABLET BY MOUTH THREE TIMES A DAY TAKE ONE TABLET BY MOUTH THREE TIMES A DAY SOLD: 06/09/2020 [facility] Insurance Providers Payer name Policy type / Coverage type Policy ID Covered constitution party ID Covered constitution party's relationship to recio Policy Recio Plan Information Medicaid [facility] Part B [id number] Self [id number] BLUE CROSS PETER PLAN [id number] SP [id number] MEDICAID [id number] SP [id number] BLUE CROSS PETER PLAN [id number] SP [id number] MEDICAID M [id number] Self [id number] [facility] Community Plan Commercial [id number] Self [id number] [facility] Community Plan Commercial [id number] Self [facility] COMMUNITY [facility]AN [facility] [id number] SP [id number] UNHC COMMUNITY PLAN MCDHMO [id number] SP [id number] UNHC COMMUNITY PLAN MCDHMO [id number] SP [id number] Managed Care - [facility] P [id number] S [id number] UNHC COMMUNITY PLAN MCDHMO [id number] SP [id number] Medicaid S [id number] S [id number] UNHC COMMUNITY PLAN MCDHMO [id number] SP [id number] UNHC COMMUNITY PLAN MCDHMO [id number] SP [id number] Medicaid S [id number] S [id number] Managed Care - [facility] P [id number] S [id number] UNHC COMMUNITY PLAN MCDHMO [id number] SP [id number] Medicaid S [id number] S [id number] Managed Care - [facility] P [id number] S [id number] UNHC COMMUNITY PLAN MCDHMO [id number] SP [id number] UNHC COMMUNITY PLAN MCDHMO [id number] SP [id number] UNHC COMMUNITY PLAN MCDHMO [id number] SP [id number] UNHC COMMUNITY PLAN MCDHMO [id number] SP [id number] ANSI-Medicaid [id number] ANSI-Medicaid [id number] ANSI-Medicaid [id number] ANSI-Medicaid [id number] ANSI-Medicaid [id number] ANSI-Medicaid [id number] ANSI-Medicaid [id number] ANSI-Medicaid [id number] ANSI-Medicaid [id number] ANSI-Medicaid [id number] ANSI-Medicaid [id number] ANSI-Medicaid [id number] ANSI-Medicaid [id number] ANSI-Medicaid [id number] ANSI-Medicaid [id number] ANSI-Medicaid [id number] [facility] O [id number] S [id number] [facility]) O [id number] S [id number] MEDICAID PIA [id number] S [id number] Medicaid [place] Medigap Part B [id number] Self Private Insurance Medigap Part B [id number] Self Managed Care - [facility] P UNAVAILABLE S UNAVAILABLE UNHC AMERICHOICE XIX HMO [id number] 18 [id number] EXCELLUS BCBS P [id number] S [id number] BLUE CROSS BLUE SHIELD-CLINIC [id number] 18 [id number] MEDICAID W [id number] S [id number] MEDICAID - CLINIC [id number] UNHC COMMUNITY PLAN MCDO [id number] SP [id number] [facility](MCA[facility]) O [id number] S [id number] [facility]ITY [id number] SP [id number] [facility] COMMUNTY PLAN [id number] 18 [id number] No Fault (NF) Workers Compensation [id number] Self [id number] Private Insurance Medigap Part B [id number] Self [id number] [facility] Community Plan Commercial [id number] Self [id number] HC COMMUNITY PLAN XIX [id number] [id number] [facility] Communty Plan Medicaid [id number] [facility] Communty Plan Medicaid [id number] Self [id number] [facility]-Medicaid [id number] [facility] [id number] ANSI-Medicaid [id number] ANSI-Medicaid [id number] ANSI-Medicaid [id number] ANSI-Medicaid [id number] ANSI-Medicaid [id number] ANSI-Medicaid [id number] ANSI-Medicaid [id number] ANSI-Medicaid [id number] ANSI-Medicaid [id number] ANSI-Medicaid [id number] ANSI-Medicaid [id number] [facility]-Medicaid [id number] Problems, Conditions, and Diagnoses No Information Surgeries/Procedures Procedure Description Date Indications Data Source(s) PARING/CUTTING BENIGN HYPERKERATOTIC LESION 2-4 2020 12:00:00 AM EST [facility] ([facility] DEBRIDEMENT NAIL ANY METHOD 10/07/2020 12:00:00 AM EST [facility] PARING/CUTTING BENIGN HYPERKERATOTIC LESION 2-4 2019 12:00:00 AM EST [facility] ([facility] DEBRIDEMENT NAIL ANY METHOD > 07/11/2020 12:00:00 AM EST [facility] ([facility] Results ID Date Data Source [id number] 06/14/2021 03:51:51 PM EDT [facility] Name Value Range Interpretation Code Description Data Octavia rce(s) Supporting Document(s) Progress Note [facility] IOSKYr1qHoWDNiSs33/PDXzaKWFvp3NjBZleBNz4JSbjFGNsI8SpHDN9rU1cQLS9EUyDKzCwTuSxJQQr [facility] [file] AgICAgICAgICAgICAgICAgICAgICAgICAgICAgICAg ICAgICAgICAgICAgICAgICAgICAgICAgICAgICAgICAgICAgICAgICAgICAgDQogICAgICAgICAgICAg ICAgICAgICAgICAgICAgICAgICAgICAgICAgICAgICAgICAgICAgICAgICAgICAgICAgICAgICAgICAg ICAgICAgICAgICAgICAgICAgICAgICAgICAgDQogIC AgICAgICAgICAgICAgICAgICAgICAgICAgICAgICAgICAgICAgICAgICAgICAgICAgICAgICAgICAgIC AgICAgICAgICAgICAgICAgICAgICAgICAgICAgICAgICAgICAgDQogICAgICAgICAgICAgICAgICAgIC AgICAgICAgICAgICAgICAgICAgICAgICAgICAgICAg ICAgICAgICAgICAgICAgICAgICAgICAgICAgICAgICAgICAgICAgICAgICAgICAgDQogICAgICAgICAg ICAgICAgICAgICAgICAgICAgICAgICAgICAgICAgICAgICAgICAgICAgICAgICAgICAgICAgICAgICAg ICAgICAgICAgICAgICAgICAgICAgICAgICAgICAgDQ ogICAgICAgICAgICAgICAgICAgICAgICAgICAgICAgICAgICAgICAgICAgICAgICAgICAgICAgICAgIC AgICAgICAgICAgICAgICAgICAgICAgICAgICAgICAgICAgICAgICAgDQogICAgICAgICAgICAgICAgIC AgICAgICAgICAgICAgICAgICAgICAgICAgICAgICAg ICAgICAgICAgICAgICAgICAgICAgICAgICAgICAgICAgICAgICAgICAgICAgICAgICAgDQogICAgICAg ICAgICAgICAgICAgICAgICAgICAgICAgICAgICAgICAgICAgICAgICAgICAgICAgICAgICAgICAgICAg ICAgICAgICAgICAgICAgICAgICAgICAgICAgICAgIC AgDQogICAgICAgICAgICAgICAgICAgICAgICAgICAgICAgICAgICAgICAgICAgICAgICAgICAgICAgIC AgICAgICAgICAgICAgICAgICAgICAgICAgICAgICAgICAgICAgICAgICAgDQogICAgICAgICAgICAgIC AgICAgICAgICAgICAgICAgICAgICAgICAgICAgICAg IIEbEVSaIXFkPNVeJODuOEPwQWMlLIDiBXUrKLJlMVUfBOScGNWxHZLqEZDkYTRiSRTgTSHtACy7F5me TIKnFQHnSW3kBXj3Xn9+GUhAVgUcCGV5kuMmdU6CTW3yu2CgPEofKGVyv5XrXUb9BE2FPZMyVImzFE0A UCgykn8QELAuMCMtkSEPz6yhPiLlGZV2APQePrasQG 6SBUCwE3yirzYjQQIuVXBAOJvzTCUTDSzhELRVGGGsCNVzOkNbDLgxMQ3Xd7IexHC7JNp+Pq5HHX7nr7 TdULvaQEKcCR9uub1LGFqYOkQtJ8EufqM0MIL8CEXoHm6FVWBeONChtJRyCuLrRQFKCcVsM7KziC83JW ENCj4+CDizdjNgMgtHRaH5JOJbz6KkEJq0NE8JXVAq LMv9gCUmVRYjM2Zgr4EsHd35MOAgSfmsIiNtkQLkSNMPqR92GYkjkSezRKIiIRIhQBNqBmUoAwVcMNGq MixaVALILAjQMfVzK2Bbd9TmVlX6BGEeBnCvSGoaWJSsEwR6JO05uJoeGN3NOUVtCVByLE48RNE8GJAd Hv8MMy5LAkVoVH1ppg3ZUwitLXGxIrcPVww9PSliZX 4EuTUqT5BvyBGix8vYNuHgS2HIAWNuXINyBi2YEIPjHzVbKXVzIVmjPA9eGCQxYROUjTupmuP0VU7LWR 4yysMrIJ7GYwFdAk6iZj2UAwFdV4MqG3HuWNJbWYNLRNbrCD3TRMqyDS2rGS1Pl0NOyQGtxW3uhk2PAF BfGWSzYomloo4WEvfpA1T7hEhoQNMrQcZtIJMHUJwl VR5KQNGsYKG5KHBfOPWmPYQBYhDaU63hQU6PF8Ime91vQhC8LJVqSbYwGKizGL98sOunycMfdJBifJbq EM0IWm0+UZrtzmLsEtgEZnqjYHFNWmPuAnlVDiKcWEIhHNCiTYCyDuM6JoSbHz1GQISwKAWuAOJwRqRv IKNoTVUkQFwyHSXsNRY7IDT2ZKXgRFYuNZ5YIaVzYQ GlGhXtJAFrBHFnSNSikl4ERAKfIDXdOUV7VvJkXAUmWFXuOGidLRHmSIQhGYn9QGBwTWVrNB5MUfKePM YkGJU1CRImXMHiKAWlca7JJUWlQVMuRVd6FOXdUGLcAMArMJiaCJIqAFJ9WTy2JGAbZWKoSJ7LRhNfBH BqDVucDcamZIFuJCBlnw3GCMRjGZIaPMD7IKTgPGFq GCVyDWbsCTYcXMPcZwI8BOCpPUEwFT1NWiKaVGXsGLW5UZIdDGVzDUVkwo2MOWUzWFYlWbqgVhInYVGp BIPyAYvmAXOmYAZ9AMAvOLRiEPKbFW6POmQcZFSkHVUhYSHlCKDsUTHxbs8TTVQfRIFkNYQ9JlXzCOQn ICEmSVgtCSToVKS0HuO9TGSzHPAnRZ0LBuQrXTOfQQ S2IeWtTELrOMYmtr5KENJtGJKyIsLiTXIxAQIvINPfWFoqVPEfIFVoKlM8ZCDxZGAvOI5GNiVzIVWuSn E9RAuiQIOgVHKqyt3DGMVhUFQnNYJ2IDGnVCIxERGdSBqdCKKjIJG2DKO1NYHsVGFvNA8VYjMeNUAhZj L5GSGmZQDxGVZsyg4KRUYcJUQvNvW2SyTtTMWpFKOt UKuyBHBmSDB1NoByGTWyQABiFC3FXbPhETBrGdT3YCXqUADwENAdgo6UiAMxmIjuls7TXJjPOm4OrQor FFY4AVxaVn4qkWIoEyJjKAYHUv8ZsyOtUVXzZPOLURleKKJnNOPbJZA4YSHvNDBcPkPuQjh7Fkf5JNw1 RVJsAJO8VFBwZnA1JaN3Nwo3MTQ5MgBmRGIsXJKdQR F4NIheFIMsOrp9IgZ+TU4hHKc+Rl0Nc3GgkjR0ijGcWKseSmliOI5KRWFYU5MBSy== ID Date Data Source [id number] 04/19/2021 12:23:00 AM EDT [facility] Name Value Range Interpretation Code Description Data Octavia rce(s) Supporting Document(s) SARS coronavirus 2 RNA [Presence] in Res piratory specimen by ANAIS with probe detection NEGATIVE [facility] This lab was ordered by [facility] a nd reported by [facility]. ID Date Data Source [id number] 03/29/2021 12:12:00 AM EDT [facility] Name Value Range Interpretation Code Description Data Octavia rce(s) Supporting Document(s) SARS coronavirus 2 RNA [Presence] in Res piratory specimen by ANAIS with probe detection NEGATIVE [facility] This lab was ordered by [facility] a nd reported by [facility]. ID Date Data Source [id number] 03/29/2021 12:05:[address] [facility] Name Value Range Interpretation Code Description Data Octavia rce(s) Supporting Document(s) [facility] AZQKSd6gUqSMQfTx71/SVGiaVYNte9CfNRabJUo8WQnkFBIeM9VvNWM6eR0rHRU6NJaRMaKuPeSxEIM0 m [file] IaW4RIC5uIPjZm2UGkRmCDLOMdYaDM7LBCs= ID Date Data Source [id number] 01/25/2021 10:24:00 AM EDT [facility] Name Value Range Interpretation Code Description Data Octavia rce(s) Supporting Document(s) SARS-CoV-2 (COVID 19) NEGATIVE - SARS-CoV-2 (COVID19) [facility] This lab was ordered by [facility] a nd reported by [facility]. ID Date Data Source [id number] 10/02/2020 02:38:00 PM [facility] Patient Name: BRIDGER SALMERON : 1960 Sex: F Pt Unit #: [id number] Location:[facility] Provider: Visit Date/Time: 10/02/20 Primary Insurance: [facility] Secondary Insurance: Self Pay Intake Vital [...] today. [facility]. Has been diabetic for approx. 40 years. Has had 4 strokes. Lab Assistant Required: No Accompanied by: Self / Same as Patient Is patient in pain?: Yes (feet and hands) Pain scale (1-10): 8 Allergies ALLERGIES: Allergy (Unknown, Uncoded 10/02/20 15:07) DRUG: Allergy (Unknown, Uncoded 10/02/20 15:07) Medications - Last Reconciled 10/02/20 by Erlinda Weaver, atorvastatin 40 mg PO QPM clopidogrel 75 [...] somewhat difficult Source: Developed by Drs. Mike L. YajairaCris tucker, Rigo Russell and colleagues, with an educational noris from [employer]. SBIRT Annual Questionnaire Are you currently in [...] education level completed: 10th grade service: No chcf: No current occupational status: disabled pets and animals: Yes leisure activities: other sexually active: No do you think of yourself as: straight/heterosexual current gender identity: female current diet type/program: diabetic HPI Additional HPI HPI Details: agree with regional economic liaison residual muscle weakness with left upper extremity and left lower extremity she has missed end[place] appt in [place] she can no longer go there. she agrees to [facility] in [place], [place] she does see dr. Nash , neurologist in [place], [place] for her neuropathy she sees dr. Mcallister medical claims processor in [place] Review of Systems Const Reports as [...] except as documented Neuro Reports as per HPI Psych Reports system reviewed and no additional complaints, except as documented Endo Reports as per HPI Hipolito/Lymph Reports system reviewed and no additional complaints, except as documented Aller/Immun Reports system reviewed and no additional complaints, except as documented Exam Const General: cooperative, healthy appearing and no acute distress Nutritional Appearance: well nourished and overweight Orientation: alert and awake [facility] Head: normal to inspection, normocephalic and atraumatic [...] Route Admin Location Lot Number Expiration Date GAC Manufactu rer 0.5 mL IM Left arm [id number] 01/15/22 0053-1236-03 [employer] D VIS Given Date VIS Provided VIS Publication Date 10/02/20 Single Vaccine 19 Eligibility Eligibility Date Funding Source Not [facility] Eligible 10/02/20 Private Assessment Plan Assessment Plan (1) Neuropathy: Code(s): G62.9 - Polyneuropathy, unspecified Plan - Erlinda Weaver DO: continue with gabapentin cymbalta f/u dr. Nash , [place] labs ordered f/u dr. Mcallister , medical claims processor tobacco use disorder counseled about three minutes htn needs better control bp diary, ekg is ordered continue same medications if condition worsens, then go to ER asthma is stable refill albuterol pft is ordered diabetes need better control she stated type II diabetes, labs ordered she has seen dietitian ; feet exam is completed continue current medical treatment f/u [place] if c ondition worsens, then go [...] Lead Today I10 PFT (Spirometry Outpatient) Today J45.894 Follow Up: 1 (test results) Coding Level of Care Code 98595 New Pt Extended Comp Diagnoses Neuropathy G62.9 CPT Codes Tobacco counseling - 37638 (58873) Tobacco cessation counseling Second Hand Smoke Smoking [...] first thing in the morning. Help Numbers [facility] - Alcohol and Substance Abuse [facility]- National Suicide Prevention Lifeline - 514-634-OMZY (3691) [facility] Smokers' Quitline - 4-469-KK-QUITS [facility] Smokers' Quitline -[email or web address] [facility] Quit Smoking - <Electronically signed by Erlinda Weaver DO> 10/02/20 1651 Name Value Range Interpretation Code Description Data Octavia rce(s) Supporting Document(s) Procedure Social History No Information Vital Signs ID Date Data Source [id number] 04/16/2021 09:37:[address] [facility] Name Value Range Interpretation Code Description Data Source(s) [facility]
[2021-06-14] MEDS ORDERED: SODIUM CHLORIDE 0.9% 50 ML IV ONE (16:40)
[2021-06-14 17:00] LABS: RSV AMPLIFICATION NEGATIVE (NEGATIVE)
[2021-06-14] MEDS ORDERED: MECL-58 PO (17:00)
[2021-06-14] MEDS ORDERED: HOME MED LIST COMPLETE! XX SCH (17:05)
[2021-06-14] MEDS ORDERED: LABETALOL 100MG/20ML VIAL IV PRN (18:05)
[2021-06-14] MEDS ORDERED: ONDANSETRON 4 MG TAB PO PRN (18:05)
--- NOTE | 2021-06-14 18:25 | ECGEPIP ---
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
[2021-06-14] MEDS ORDERED: DEXTROSE 50% 50 ML SYRINGE IV PRN (18:30)
[2021-06-14] MEDS ORDERED: GLUCOSE 4GM CHEW TABLET PO PRN (18:30)
[2021-06-14] MEDS ORDERED: GLUCAGON INJ 1MG VIAL SC PRN (18:30)
--- OUTSIDE RECORDS SUMMARY | 2021-06-14 18:38 | CCD ---
Author Author [facility] Organization [facility] Address Unknown Phone Unavailable Care Team Providers Care Dormitory Maid Name Role Phone SYSTEM IN, NOT PROVIDER [...] JUSTIN, ERLINDA SHAFFER Unavailable Unavailable JUSTIN, ERLINDA SHAFEFR Unavailable Unavailable JUSTIN, ERLINDA SHAFFER Unavailable Unavailable [...] is protected by Article 27-F of the [facility] Public Health law. If you continue you may have access to information: Regarding HIV / AIDS; Provided by facilities licensed or operated by the [facility] Office of Mental Health; or Provided by the [facility] Office for People With Developmental Disabilities. If such information is present, then the following [facility] mandated warning applies: This information has [...] law may result in a fine or penitentiary sentence or both. A general authorization for the release of medical or other information is NOT sufficient authorization for further disc losure. Family History Family Member Name Family Member Gender Family Member Status Date o f Status Description Data Source(s) Unknown Male Problem MEDENT ([facility]) Unknown Female Problem MEDENT ([facility]) Unknown Female Problem MEDENT ([facility]) Encounters Encounter Providers Location Date Indications Data Source(s ) Outpatient Attender: ROSALIE MADSEN [id number] 06/14/2021 03:51:51 PM [facility] Outpatient Referrer: PROVIDER SYSTEM IN [id number] 02/2021 12:05:13 AM EDT - 03/28/2021 11:59:00 PM [facility] Outpatient Attender: JOHANNA CHICAS [facility] Office 09/23 09:45:00 AM EST MEDENT ([facility] Outpatient Attender: ERLINDA WEAVER MDReferrer: ERLINDA WEAVER MD 10/02/2020 01:59:00 PM EST - 10/02/2020 04:27:00 PM EST [facility] Medications Medication Brand Name Start Date Product [...] to recio Policy Recio Plan Information Medicaid [facility] Part B [id number] Self [id number] 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 CROSS 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 PLAN [id number] SP [id number] MEDICAID [id number] SP [id number] BLUE CROSS PETER PLAN [id number] SP [id number] MEDICAID M [id number] Self [id number] [facility] Community Plan Commercial [id number] Self [id number] [facility] Community Plan Commercial [id number] Self [facility] COMMUNITY PLAN [facility] [id number] SP [id number] UNHC COMMUNITY PLAN MCDHMO [id number] SP [id number] UNHC COMMUNITY PLAN MCDHMO [id number] SP [id number] Managed Care - [facility] P [id number] S [id number] UNHC COMMUNITY PLAN MCDHMO [id number] SP [id number] Medicaid S [id number] S [id number] UNHC COMMUNITY PLAN MCDHMO [id number] SP [id number] UNHC COMMUNITY PLAN MCDHMO [id number] SP [id number] Medicaid S [id number] S [id number] Managed Care - [facility] P [id number] S [id number] UNHC COMMUNITY PLAN MCDHMO [id number] SP [id number] Medicaid S [id number] S [id number] Managed Care - [facility] P [id number] S [id number] UNHC COMMUNITY PLAN MCDHMO [id number] SP [id number] UNHC COMMUNITY PLAN MCDHMO [id number] SP [id number] UNHC COMMUNITY PLAN MCDHMO [id number] SP [id number] UNHC COMMUNITY PLAN MCDHMO [id number] SP [id number] ANSI-Medicaid [id number] ANSI-Medicaid [id number] ANSI-Medicaid [id number] ANSI-Medicaid [id number] ANSI-Medicaid [id number] ANSI-Medicaid [id number] ANSI-Medicaid [id number] ANSI-Medicaid [id number] ANSI-Medicaid [id number] ANSI-Medicaid [id number] ANSI-Medicaid [id number] ANSI-Medicaid [id number] ANSI-Medicaid [id number] ANSI-Medicaid [id number] ANSI-Medicaid [id number] ANSI-Medicaid [id number] [facility](MCAID) O [id number] S [id number] [facility]) O [id number] S [id number] MEDICAID PIA [id number] S [id number] Medicaid [place] Medigap Part B [id number] Self Private Insurance Medigap Part B [id number] Self Managed Care - [facility] P UNAVAILABLE S UNAVAILABLE UNHC AMERICHOICE XIX HMO [id number] 18 [id number] EXCELLUS BCBS P [id number] S VYT [id number] BLUE CROSS BLUE SHIELD-[facility] [id number] 18 [id number] MEDICAID W [id number] S [id number] MEDICAID - CLINIC [id number] UNHC COMMUNITY PLAN MCDO [id number] SP [id number] [facility](MCAID) O [id number] S [id number] UNHC COMMUNITY PLAN [facility] [id number] SP [id number] [facility] COMMUNTY PLAN [id number] No Fault (NF) Workers Compensation [id number] Self [id number] Private Insurance Medigap Part B [id number] Self [id number] [facility] Community Plan Commercial [id number] Self [id number] HC COMMUNITY PLAN XIX [id number] 18 [id number] [facility] Plan Medicaid [id number] Self [id number] [facility] Plan Medicaid [id number] Self [id number] [facility]-Medicaid [id number] [facility] [id number] ANSI-Medicaid [id number] ANSI-Medicaid [id number] ANSI-Medicaid [id number] ANSI-Medicaid [id number] ANSI-Medicaid [id number] ANSI-Medicaid [id number] ANSI-Medicaid [id number] ANSI-Medicaid [id number] ANSI-Medicaid [id number] ANSI-Medicaid [id number] ANSI-Medicaid [id number] [facility]-Medicaid [id number] Problems, Conditions, and Diagnoses No Information Surgeries/Procedures [...] [facility] Results ID Date Data Source [id number] 06/14/2021 03:51:51 PM EDT [facility] Name Value Range Interpretation Code Description Data Octavia rce(s) Supporting Document(s) Progress Note [facility] ZHIDHt3bFpNVLoTm59/SNRgeJRIjg7SgXExcCAs1GFkgCRIlU8EpZNT3hR2sWLJ1XVzNPvHaGlIxCJRe [facility] [file] U0THghYSKlBml2RjC+OB6yVOg+Nb4Po7TnhlZ3oeKfKLapDaglCZ6RULYJI3WLSe== ID Date Data Source [id number] 04/19/2021 12:23:00 AM EDT [facility] Name Value Range Interpretation Code Description Data Octavia rce(s) Supporting Document(s) SARS coronavirus 2 RNA [Presence] in Res piratory specimen by ANAIS with probe detection NEGATIVE [facility] This lab was ordered by [facility] a nd reported by [facility]. ID Date Data Source [id number] 03/29/2021 12:12:00 AM EDT [facility] Name Value Range Interpretation Code Description Data Octavia rce(s) Supporting Document(s) SARS coronavirus 2 RNA [Presence] in Res piratory specimen by ANAIS with probe detection NEGATIVE [facility] This lab was ordered by [facility] a nd reported by [facility]. ID Date Data Source [id number] 03/29/2021 12:05:13 AM EDT [facility] Name Value Range Interpretation Code Description Data Octavia rce(s) Supporting Document(s) [facility] BYGSBo1eGgKCOeKt16/KCFekIXDvi5RsNQceFIk5RVtvEIWjN7ZjJOE5kV8tIZS6VBdOChGxKfUdKIJ6 m [file] AgICAgICAgICAgICAgICAgICAgICAgICAgICAgICAg JVWsMXVxVZDlZXGqQPOxAUShGIAzOZQiGFWiPTZrBXUiDFUaNIOuHYFvLJ9OGHPqOIAjOIOeOCTiLVIu ICAgICAgICAgICAgICAgICAgICAgICAgICAgICAgICAgICAgICAgICAgICAgICAgICAgICAgICAgICAg VJAsQQXcQJRmOBEwKWPrOKUoWBCuUUSaTC8FRRQgXW AgICAgICAgICAgICAgICAgICAgICAgICAgICAgICAgICAgICAgICAgICAgICAgICAgICAgICAgICAgIC FsAKCwDTMhDCUnAGBqRXAvZOPgGMDaLOCaPSZiRTDrRBYjMO1FZGSnEGEjCDKbFZCtXTGvFLJmDHNlLL AgICAgICAgICAgICAgICAgICAgICAgICAgICAgICAg LUOnQKEkFTDtKQQdZPCgDYCqHQPdNPTzCPBmOBXqOBKhHFCyMNTqYMXyNDWfDL8GSLHbIVSbHMQxWRAe ICAgICAgICAgICAgICAgICAgICAgICAgICAgICAgICAgICAgICAgICAgICAgICAgICAgICAgICAgICAg RCDsJNAwVCUaSHXcNZLcJOLiVECgQHElABKsRN2QCN AgICAgICAgICAgICAgICAgICAgICAgICAgICAgICAgICAgICAgICAgICAgICAgICAgICAgICAgICAgIC ZwSYFcFJAnAIEeEVVmACAnWWLcVLTtXWVsWUCvWNMfGSGgWAKhWR4YIZUcKALiNAPvRNOtGDMoHYZlBQ AgICAgICAgICAgICAgICAgICAgICAgICAgICAgICAg UTWdFFLgZZTqSMQjITJcSUTrGHYvRHIoKRPiDKBlCITzKOIzOTNoTRXlRNTzIWEaQB3PAPBrNGFhRFEs ICAgICAgICAgICAgICAgICAgICAgICAgICAgICAgICAgICAgICAgICAgICAgICAgICAgICAgICAgICAg ICAgICAgICAgICAgICAgICAgICAgICAgICAgICAgIA 0KICAgICAgICAgICAgICAgICAgICAgICAgICAgICAgICAgICAgICAgICAgICAgICAgICAgICAgICAgIC DxNZExTHThZIIjLAQbSIOjGUVdRUTqZYHzMGRxUCNpEGBzJYJoPKKgEP4AFJIuDYByBRLpUIAwIQPgMJ AgICAgICAgICAgICAgICAgICAgICAgICAgICAgICAg ECUkJWMbUGBrPCGcNNRwZBFjZGVnNAHmNTNjZAJyWZYpHRGkXUKlSYXdCWJsKBMcHROiMP2OIB90aLFw c5E7TIJkJB7fbjc/Gm0IMDgseaSlzYUkYS5CAsWsBA4dkd9FPgUnLW5ufa2NOFkLQeKbP6C2sJHkVAIi ELSLNbLeG75pHWmnDg05NTawVHRaWiHvQJh1Jz2PYp FeQ3htJWFqXaP1QWSxPzG7JOGeFcL6NGCmIgExPYqaDV1Nk3SlhJFsFJs+Kk9RQG3gw0TeLXvqZzNbAY 2ztq5EOWaGKqHkO0XtatF3UOZ3WJVeOg4QIVXjCTAawLXbSATmYTNPFyUlM3RkuP03OINDLc4+DQplbm JkMgkTOmM0RADea5VaRMs8UV1TKHQjDMd4kNPcH64b u0DjxUIvUcijOzJwXKNzA5aplcSsOJ55sONeMWAJAoNUDNQ3AGjfUy3bTMUcRTMxFgMaCXCQDZ7ZTGFw UMQsiDAwLHRqPTOVNJ7ZMEtwLNW2LZObftCykONfRSkaIJ6BBFXhfnLoXtXzWVNFWQs+Xr3BIM4ix4Yr UGvtDUFwVF0dlr7DFFvKQcOjF8F8nZMlB1N8QNkxVm 9FHNPpZGKqRwTzIXLPWWhbPB8CBZ5uwiR1SD3OkWBqUKHoTMZpdUNqMLf9I94yrWNsVSjbSB2ZEVJ+Pi A+Bn6TMQCjQSDrCZRsStUvTCSEBiAbA6RgT3LAz1ZwY0WoQF98tOerqmIqRDnqGQ1WSI1jLVXmJTMXEI 1CgWOssI3ssdEsMsJcOBRSOfWpN62zfRTlHCOlPTGo FNArCu6TBKPgW7OmydTgqPotwsWnDVDkMORISJ5VDLvaqlKpgNIfhSanRV68iKtsGA8HIr6YWuFjTV7h fb3IoFLkHz4SNFJzXi2XXFWsAOOdKRRaUOI2RHQkMcFoMTwxQXPeVOFiWKQ8KIXgTQPbKC0GKdXjQCIb DdKnSRMhBJItPVSyka6PUYNbZQSaCizjTHMjPSKsRM PiXSqxBWNpCUBgGHM8ILAhQZVpRP7JFtSpGWRjGXB1BIraLQQgQMJeud1DDYXwWQXrPRFtWsLlDIAcFZ QzHGabEOSrJUH8XXDrBGAoJOKmCJ1MNkMwZTUfNCbfOZkkAEHcPQCjay2MVQNaPRZiROJ8LFLdNPZaNC FqYNlrTAVuZSOfOKrjJLPgWKIrXZ0CNcEmREZfMML3 NmUmGIXnTGLlpy7VMZMaIMEoFERwESPpSLIjKJNmTWfxYKTfJWBeZGFgJOSpFIHdHY2VTvAfFZAkOVZ1 EmNoGARjHGGxti4NMCNsFMIxHhs1RoAxMBOgRQIfXEnvAMCcRCSaGQYrSBZtFMLsUC0IJsKbSQCjBdV6 FpWjRWLeTSNnus6DJIEbGOLxAAZrUnKlUXHvROPjGV eqYDGaZFApGDXuQGRgYICqBZ6SKzUgFFOxGtD2OXWzBYOjJWFvvc1LGQFqGABfGEw0GAUnKLOtPYQvRR bsCKFlHGNmKjq9CBKtYEDmJG2RCcRiDAFhYsN2ZykdRIKiCYOxvk1QIQDpPTZyVohyAJWtOINpWGPbCC lrASFrGBI8VRS8PTNgMPVtZC7MIkDaMUjvVAGEFok4 YXdmJ6e1GYTbAg3ZT8Rtt0QrMxIhMUHYDLmaCN2pdqTlRVWjPz4TP2gYYtt2LYZzKSL4OZGqFTa0FaHu UhU8VRtpUhYvMCUsGta7Et3qDJK7B9G5VALwPDI4QUm4JpZyRAb6TCR5BRPwVpG9ZIg9EpRgJS4IQj9X YvT4DNS3wDXdOe3SJnKlMKBUGzGsZE7KDHo= ID Date Data Source [id number] 01/25/2021 10:24:00 AM EDT [facility] Name Value Range Interpretation Code Description Data Octavia rce(s) Supporting Document(s) SARS-CoV-2 (COVID 19) NEGATIVE - SARS-CoV-2 (COVID19) [facility] This lab was ordered by [facility] a nd reported by [facility]. ID Date Data Source [id number] 10/02/2020 02:38:00 PM [facility] Patient Name: BRIDGER SALMERON : 1960 Sex: F Pt Unit #: [id number] Location:[facility] Provider: Visit Date/Time: 10/02/20 Primary Insurance: [facility] Secondary Insurance: Self Pay Intake Vital Signs [...] today. [facility]. Has been diabetic for approx. 40 years. Has had 4 strokes. 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 she can no longer go there. she agrees to [facility] in [place], [place] she does see dr. Nash , neurologist in [place], [place] for her neuropathy she sees dr. Mcallister small package and bundle sorter clerk in [place] Review of Systems Const Reports as [...] nourished and overweight Orientation: alert and awake [facility] Head: normal to inspection, normocephalic and atraumatic [...] Route Admin Location Lot Number Expiration Date FLC Manufactu rer 0.5 mL IM Left arm [id number] 01/15/22 6402-7538-35 [employer] D VIS Given Date VIS Provided VIS Publication Date 10/02/20 Single Vaccine 19 Eligibility Eligibility Date Funding Source Not [facility] Eligible 10/02/20 Private Assessment Plan Assessment Plan (1) Neuropathy: Code(s): G62.9 - Polyneuropathy, unspecified Plan - Erlinda Weaver DO: continue with gabapentin cymbalta f/u dr. Nash , neurologist in [place] labs ordered f/u dr. Mcallister , small package and bundle sorter clerk tobacco use disorder counseled about three minutes htn needs better control bp diary, ekg is ordered continue same medications if condition worsens, then go to ER asthma is stable refill albuterol pft is ordered diabetes need better control she stated type II diabetes, labs ordered she has seen dietitian ; feet exam is completed continue current medical treatment f/u [place] if c ondition worsens, then go [...] Lead Today I10 PFT (Spirometry Outpatient) Today J45.438 Follow Up: 1 (test results) Coding Level of Care Code 59732 New Pt Extended Comp Diagnoses Neuropathy G62.9 CPT Codes Tobacco counseling - 18983 (53637) Tobacco cessation counseling Second Hand Smoke Smoking [...] first thing in the morning. Help Numbers [facility] - Alcohol and Substance Abuse [place] [facility]- National Suicide Prevention Lifeline - 459-259-SCYZ (5363) [facility] - [facility] Smokers' Quitline - 3-718-UA-QUITS [facility] Smokers' Quitline -[email or web address] Quit Smoking - <Electronically signed by Erlinda Weaver DO> 10/02/20 1651 Name Value Range Interpretation Code Description Data Octavia rce(s) Supporting Document(s) Procedure Social History No Information Vital Signs ID Date Data Source [id number] 04/16/2021 09:37:10 AM [facility] Name Value Range Interpretation Code Description Data Source(s) TRANSFER FROM [facility]
[2021-06-14] MEDS ORDERED: LOSARTAN 50MG TABLET PO ONE (18:40)
--- NOTE | 2021-06-14 19:20 | HPEPDOC ---
[facility], [place] Medical History & Physical Date of Admission Jun 14, 2021 Date of Service: Jun 14, 2021 Attending Physician: KENDALL DAVIES MD History and Physical CHIEF COMPLAINT: Left-sided weakness, slurred speech HISTORY OF PRESENT ILLNESS: Arlin is a 61-year-old female past medical history multiple CVA most recently 6-8 months ago on Plavix who presents to ED with left upper and lower extremity weakness and heaviness and slurred speech. Patient tells me these symptoms are similar to what she had during prior CVAs. Of note, patient denies residual symptoms from prior CVAs. She tells me she uses a walker at home to assist with ambulation. She tells me she was with a friend who noticed her symptoms and brought her to the ED. Reports dry cough, nausea which she claims are unchanged from her baseline. Denies recent trauma, falls in which she hit her head. Denies headache, vision changes, sensation changes, chest pain, palpitations, difficulty breathing, urinary incontinence, stool incontinence, abdominal pain. In the ED, patient was worked up for possible stroke including imaging as noted below, cardiac markers which were all within normal limits. Stroke scale 5 and patient received TPA at 1545, following telemedicine visit and recommendations from [facility] neurosurgery. Patient was found to be in hypertensive urgency, asx, upon initial presentation with BP ranging from 178/121 to 210/114 and she was started on IV labetalol and nicardipine for which she was noted to have adequate response with BP 121/69. PAST MEDICAL HISTORY: 1. CVA x4, most recent 6-8 months ago 2. DM on insulin 3. COPD/asthma 4. GERD 5. Diastolic CHF 6. Chronic migraines 7. CAD 8. HLD 9. HTN 10. CKD 1? 11. Fibromyalgia bilateral feet and hands PAST SURGICAL HISTORY: 1. Cholecystectomy 2. 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 ALLERGIES: Please see below. REVIEW OF SYSTEMS: CONSTITUTIONAL: Denies fevers/chills, unintentional weight changes HEENT: Denies headaches, vision changes CARDIOVASCULAR: Denies chest pain, palpitations RESPIRATORY: Reports dry cough unchanged from baseline. Denies difficulty breathing GASTROINTESTINAL: Reports nausea unchanged from baseline. Denies vomiting, abdominal pain GENITOURINARY: Denies incontinence, urinary symptoms, difficulty urinating MUSCULOSKELETAL: Denies limitations in ROM NEUROLOGICAL: Reports slurred speech, left lower extremity and left upper extremity heaviness/weakness/abnormal sensation HOME MEDICATIONS: Please see below. PHYSICAL EXAMINATION: VITAL SIGNS: Temperature unknown, pulse 68, respiratory rate 20, blood pressure 121/69, pulse oximetry 99% on room air. GENERAL APPEARANCE: Laying in stretcher, NAD awake, alert HEENT: NC/AT, EOMI with inappropriate tracking, diminished peripheral visual byers, PERRLA, nares patent, no dentition, moist mucous membranes CARDIOVASCULAR: RRR, 3/6 systolic murmur, no RG LUNGS: CTA bilaterally, no wheezing rales or rhonchi, no accessory muscles use ABDOMEN: Soft, nontender, nondistended MUSCULOSKELETAL: Normal ROM EXTREMITIES: No edema, faint PT/DP pulses bilaterally NEUROLOGICAL: CNIII-XII grossly intact, PSYCHIATRIC: No depressed/anxious mood LABORATORY DATA: See below. IMAGING: CXR (06/14) There is no acute cardiopulmonary disease. Head CT (06/14) There is no acute cardiopulmonary disease. CTA head (06/14) Dense, concentric calcific atherosclerotic disease in the V4 segment of the left vertebral artery causing at least mild stenosis. There is no evidence of occlusion. Appearance is similar to previous examination. No other significant stenosis or occlusion within the carotid or vertebral arteries of the neck. Dense, concentric calcific atherosclerotic disease within the supraclinoid internal carotid arteries bilaterally with no evidence of occlusion, similar to previous examination. No significant stenosis, aneurysmal dilatation or large vessel occlusion within the anterior or posterior intracranial arterial circulation. CTA neck (06/14) Dense, concentric calcific atherosclerotic disease in the V4 segment of the left vertebral artery causing at least mild stenosis. There is no evidence of occlusion. Appearance is similar to previous examination. No other significant stenosis or occlusion within the carotid or vertebral arteries of the neck. Dense, concentric calcific atherosclerotic disease within the supraclinoid internal carotid arteries bilaterally with no evidence of occlusion, similar to previous examination. No significant stenosis, aneurysmal dilatation or large vessel occlusion within the anterior or posterior intracranial arterial circulation. MICROBIOLOGY: Please see below. ASSESSMENT/PLAN: Arlin is a 61-year-old female with history of multiple CVAs without residual symptoms on Plavix who presents with new onset left-sided heaviness and weakness and slurred speech s/p tPA for suspected stroke, now with unchanged symptoms. #Stroke s/p TPA, acute According to ED, patient's last known well time 1330 06/14. Upon presentation, patient was found to have stroke score 5. [facility] stroke consult recommended TPA, which patient received at 1545 06/14. ED imaging, noted above Repeat head CT 06/15 after 154 Brain MRI to be ordered 06/[address] Echocardiogram, pending Neurochecks every hour BP checks every 30 minutes until 06/14 2345, followed by every hour until 06/15 1545 Start Lipitor 80 mg May resume patient's Plavix 06/15 after 1545, following repeat head CT May start ASA 8106/15 after 154, following repeat head CT On telemetry Neurology on consult, appreciate recommendations #Hypertensive urgency, transient-poorly controlled Patient's BP upon admission evaluation noted to range 121/69-200s/100s Start IV labetalol if SBP> 185 or DBP> 110 We will resume home losartan 100mg if SBP >140 On telemetry Continue close BP monitoring Of note, patient does have a systolic murmur noted on physical examination and tells me she needs to establish care with cardiology. Patient will need to establish care with cardiology upon discharge. #Hypokalemia, asymptomatic Patient's K+ 3.3 upon initial ED labs We will give patient KCl 40 mg once Monitor labs #DM2, chronic Patient found to have POC glucose 258 upon ED evaluation Start Levemir 40 you, SSI Of note, patient denies current PCP as she was "kicked out" of her prior PCP's office. Patient will need to establish care with PCP upon discharge to manage chronic conditions. #Chronic kidney disease, unknown stage Patient's BUN, creatinine noted to be 13, 0.8, respectively upon ED evaluation Patient denies difficulty urinating, urinary symptoms Of note, patient is supposed to see nephrology but tells me she missed her appointment due to recent hospitalization. Patient will need to follow-up with nephrology upon discharge. #GERD, chronic-stable Patient's home pantoprazole will be held, as has been found to decrease effectiveness of Plavix #Fibromyalgia, chronic-stable Continue home duloxetine #Tobacco dependence Start NicoDerm #DVT prophylaxis Lovenox to be started 06/16 DIET: Consistent carb ACTIVITY: Assisted ambulation only, with fall precaution CODE STATUS: DNR/DNI DISPO: Pending clinical improvement Vital Signs Vital Signs Date Time Temp Pulse Resp B/P (MAP) Pulse Ox O2 Delivery O2 Flow Rate FiO2 06/14/21 16:30 121/69 (86) 06/14/21 16:24 68 99 06/14/21 15:12 20 Room Air Laboratory Data Labs 24H Laboratory Tests 2 06/14/21 14:55: POC Glucose (Misc Panel) 258H, POC Sodium (Misc Panel) 138, POC Potassium (Misc Panel) 3.3L, POC Chloride (Misc Panel) 95L, POC Total CO2 (Misc Panel) 29.0H, POC Blood Urea Nitrogen (Misc Panel 13, POC Ionized Calcium (Misc Panel) 5.2, POC Creatinine (Misc Panel) 0.8, POC Hematocrit (Misc Panel) 47.0 06/14/21 14:58: Immature Granulocyte % (Auto) 0.6, Neutrophils (%) (Auto) 51.1, Lymphocytes (%) (Auto) 36.7, Monocytes (%) (Auto) 7.8, Eosinophils (%) (Auto) 2.8, Basophils (%) (Auto) 1.0, Neutrophils # (Auto) 3.4, Lymphocytes # (Auto) 2.5, Monocytes # (Auto) 0.5, Eosinophils # (Auto) 0.2, Basophils # (Auto) 0.1, Nucleated Red Blood Cells % (auto) 0.0, Prothrombin Time 13.1, Prothromb Time International Ratio 0.95, Activated Partial Thromboplast Time 31.4, Total Creatine Kinase 112, Creatine Kinase MB 1.4, Creatine Kinase MB Relative Index 1.25, Troponin I < 0.02 06/14/21 15:52: Coronavirus (COVID-19)(PCR) NEGATIVE, Influenza Type A (RT-PCR) NEGATIVE, Influenza Type B (RT-PCR) NEGATIVE, Respiratory Syncytial Virus (PCR) NEGATIVE CBC/BMP Laboratory Tests 06/14/21 14:58 Home Medications Scheduled Atorvastatin Calcium (Atorvastatin Calcium) 40 Mg Tab, 40 MG PO QHS Clopidogrel Bisulfate (Clopidogrel) 75 Mg Tablet, 75 MG PO DAILY Duloxetine Hcl (Duloxetine HCl) 60 Mg Capsule.dr, 60 MG PO DAILY Insulin Glargine,Hum.rec.anlog (Basaglar Kwikpen U-100) 100 Unit/1 Ml Insuln.pen, 50 UNITS SQ BID Insulin Lispro (Admelog Solostar) 100 Unit/Ml Inj, 1 DOSE SQ AC PER SLIDING SCALE Losartan/Hydrochlorothiazide (Losartan-Hctz 100-25 mg Tab) 1 Each Tablet, 1 TAB PO DAILY Pantoprazole Sodium (Pantoprazole Sodium) 40 Mg Tablet.dr, 40 MG PO DAILY Scheduled PRN Meclizine HCl (Meclizine HCl) 25 Mg Tablet, 25 MG PO TID PRN for MILD DISCOMFORT Allergies Coded Allergies: SEASONAL ALLERGIES (Verified Allergy, Unknown, 04/18/21) ranitidine (Verified Allergy, Unknown, 04/18/21) A-FIB/CHADSVASC A-FIB History Current/History of A-Fib/PAF?: No GME ATTESTATION GME ATTESTATION My faculty preceptor for this patient encounter was physically present during the encounter and was fully available. All aspects of the patient interview, examination, medical decision making process, and medical care plan development were reviewed and approved by the faculty preceptor. The faculty preceptor is aware and concurs with the plan as stated in the body of this note and will attest to such by his/her cosignature. ATTENDING NOTE I, Kendall Davies, have independently examined this patient and performed my own physical exam, as well as reviewed the documentation and edited where necessary with the resident. For medical students we have performed the physical exam together and discussed medical decision making and I have verified the history. I have discussed in detail with the resident / student the findings and plan of treatment as documented by the resident / student and edited their note. I agree with their findings and treatment plan and have edited their documentation. I will continue to follow the patient during this hospital stay. Isabel Méndez DO Jun 14, 2021 19:20 KENDALL DAVIES MD Jun 15, 2021 12:24
[2021-06-14] MEDS ORDERED: POTASSIUM CHLORIDE 10MEQ SR TABLET PO ONE (20:00)
[2021-06-14] MEDS: HumaLOG INSULIN (NovoLOG) PER UNIT SC SCH (21:00)
[2021-06-14] MEDS: ATORVASTATIN 20 MG TAB PO SCH (23:46)
[2021-06-14] MEDS: LEVEMIR (INSULIN DETEMIR) 1 UNITS/0.01ML SC SCH (23:48)
[2021-06-15] MEDS: NICOTINE 21MG/24HR 1 EA TRANSDERMAL TD SCH ×2 (07:35→08:34)
[2021-06-15 07:39] LABS: HEMATOCRIT 36.8 % (36.0-47.0); MEAN CORPUSCULAR HEMOGLOBIN 29.9 pg (27.0-33.0); PLATELET COUNT, AUTOMATED 162 10^3/uL (150-450); RED BLOOD COUNT 4.18 10^6/uL (4.00-5.40)
[2021-06-15 07:50] LABS: HEMOGLOBIN 12.5 g/dl (12.0-15.5)
[2021-06-15 08:10] LABS: BLOOD UREA NITROGEN 12 MG/DL (7-18); CALCIUM LEVEL 8.7 MG/DL (8.8-10.2); CARBON DIOXIDE LEVEL 31 MEQ/L (21-32); CHLORIDE LEVEL 105 MEQ/L (98-107); CHOLESTEROL LEVEL 157 MG/DL (<200); CHOLESTEROL RISK RATIO 4.757 (<5); CREATININE FOR GFR 0.96 MG/DL (0.55-1.30); GLOMERULAR FILTRATION RATE > 60.0 (>45); GLUCOSE, FASTING 225 MG/DL (70-100); HDL CHOLESTEROL 33 MG/DL (>40); LDL CHOLESTEROL 96 MG/DL (<100); MAGNESIUM LEVEL 1.4 MG/DL (1.8-2.4); NON-HDL-C 124 MG/DL; SODIUM LEVEL 139 MEQ/L (136-145); TRIGLYCERIDES LEVEL 141 MG/DL (<150)
[2021-06-15] MEDS: HumaLOG INSULIN (NovoLOG) PER UNIT SC SCH ×4 (08:33→21:00)
[2021-06-15] MEDS: LEVEMIR (INSULIN DETEMIR) 1 UNITS/0.01ML SC SCH ×2 (08:34→22:31)
[2021-06-15] MEDS: DULoxetine 30MG CAPSULE (CYMBALTA) PO SCH (08:34)
[2021-06-15] MEDS: LOSARTAN 50MG TABLET PO SCH (08:42)
[2021-06-15] MEDS ORDERED: ENOXAPARIN 40MG/0.4ML SYRINGE (J1650 PER 10MG) SC SCH (09:00)
[2021-06-15] MEDS ORDERED: PANTOPRAZOLE 40MG TAB (PROTONIX) PO SCH (09:00)
[2021-06-15] MEDS ORDERED: IPRATROPIUM 0.5MG/ALBUTEROL 2.5MG INH SOL UD 3ML (DUONEB) NEB PRN (12:50)
--- NOTE | 2021-06-15 12:52 | IPNPDOC ---
Text Note Date of Service The patient was seen on 06/15/21. NOTE Subjective: Patient is a 61-year-old female with a PMHx of CVA (x4), HTN, Diastolic CHF, CAD, DLP IDDM2, COPD/Asthma, Fibromyalgia, GERD who presented to the ER on 06/14 with slurred speech and weakness/heaviness of her left upper and lower extremity. Patient's last well known time was 1:30PM. Upon arrival to ER at 2:55PM, patient had CT scan completed. [facility] stroke center was contacted; they had recommended providing tPA based on a an NIH stroke scale of 5. Patient received tPA at 3:46PM. Hospital services called for further evaluation and treatment. Neurology was called on consultation. Patient was seen and examined at the bedside, she still remains in ER. Patient reports that her sensation changes of her left upper and lower extremity have resolved completely. She notes that the slurring of her speech has now resolved completely as well. Patient denies any chest pain, shortness of breath, palpitations, nausea, vomiting, abdominal pain, diarrhea, or urinary discomfort. Objective: Vitals (See below) General: Lying in bed, appears comfortable, AAOx3 HEENT: NC, AT CVS: RRR, +S1S2 Lungs: Fair air entry b/l, no wheezing, rales or rhonchi Abdomen: Soft, ND, NT Extremities: - Edema, - Calf tenderness Imaging: CXR (06/14) There is no acute cardiopulmonary disease. Head CT (06/14) There is no acute cardiopulmonary disease. CTA head (06/14) Dense, concentric calcific atherosclerotic disease in the V4 segment of the left vertebral artery causing at least mild stenosis. There is no evidence of occlusion. Appearance is similar to previous examination. No other significant stenosis or occlusion within the carotid or vertebral arteries of the neck. Dense, concentric calcific atherosclerotic disease within the supraclinoid internal carotid arteries bilaterally with no evidence of occlusion, similar to previous examination. No significant stenosis, aneurysmal dilatation or large vessel occlusion within the anterior or posterior intracranial arterial circulation. CTA neck (06/14) Dense, concentric calcific atherosclerotic disease in the V4 segment of the left vertebral artery causing at least mild stenosis. There is no evidence of occlusion. Appearance is similar to previous examination. No other significant stenosis or occlusion within the carotid or vertebral arteries of the neck. Dense, concentric calcific atherosclerotic disease within the supraclinoid internal carotid arteries bilaterally with no evidence of occlusion, similar to previous examination. No significant stenosis, aneurysmal dilatation or large vessel occlusion within the anterior or posterior intracranial arterial circulation. Assessment and plan: Right upper + lower extremity numbness / Slurred speech - possibly 2/2 acute CVA - Patient has reported full resolution of her symptoms - Physical does not reveal any deficits this morning - Cardiac risk profile noted - Imaging noted above - s/p tPA in the ER on 06/14 at 3:46PM - c/w Post-tPA protocol; Frequent vital sign check / Neuro check q1 hour - Will get MRI brain completed today / ECHO pending - c/w Telemetry monitoring - c/w Atorvastatin 80; Will likely resume Plavix and add ASA tonight - Will eventually start PT / OT in next 24 hours - Neurology on consultation; we appreciate their input HTN - Patient's blood pressure yesterday was hypertensive in the 200s - Goal blood pressure of 140-180 - s/p Nicardipine drip - Will hold Losartan today; added specific hold parameters Chronic Diastolic CHF - No evidence of exacerbation - ECHO pending - Patient is not on any diuretics as an outpatient CAD - Patient denies any chest pain, shortness breath, palpitations - EKG reviewed - Troponin negative - c/w Atorvastatin - Will resume antiplatelet therapy today DLP - c/w Atorvastatin Hypomagnesemia - Will supplement s/p Hypokalemia IDDM2 - c/w ISS and Levemir COPD/Asthma - No evidence of exacerbation - c/w inhaled therapy as ordered Fibromyalgia - c/w Duloxetine Tobacco dependence - c/w nicotine patch GERD - Will resume Protonix (Will adjust timing of Plavix) DVT prophylaxis - c/w Lovenox; will be scheduled to start on 06/16 Code status: - DNR / DNI Disposition: - Pending clinical improvement VSMacrina, I+O VSMacrina, I+O Laboratory Tests 06/14/21 14:58 06/15/21 07:20 Vital Signs Date Time Temp Pulse Resp B/P (MAP) Pulse Ox O2 Delivery O2 Flow Rate FiO2 06/15/21 10:30 137/82 (100) 06/15/21 10:20 63 96 06/15/21 08:35 18 Nasal Cannula 2.0 06/15/21 08:15 98.3 I&O- Last 24 Hours up to 6 AM 06/15/21 06:00 Intake Total 71 ml Balance 71 ml DEANNA DAVIES MD Jun 15, 2021 12:52
[2021-06-15] MEDS: ONDANSETRON 4MG/2ML VIAL IV PRN (13:09)
[2021-06-15] MEDS: MAG SULF 1GM/100ML (MAG RUN) 1 GM in IV 1 EA IV SCH ×3 (13:10→15:38)
[2021-06-15 17:35] VITALS: BP 143/66
--- NOTE | 2021-06-15 18:16 | REPVR ---
PROCEDURE INFORMATION: Exam: MR Head Without Contrast Exam date and time: 06/15/2021 4:49 PM Age: 61 years old Clinical indication: Other: Stroke TECHNIQUE: Imaging protocol: MR of the head without contrast. COMPARISON: CT Head without contrast 06/14/2021 2:56 PM FINDINGS: Brain: Multiple foci of T2 lengthening are demonstrated in the subcortical, periventricular and centrum semiovale white matter consistent with age-related small vessel gliosis. No foci of acute ischemia. Mild parenchymal atrophy. Cerebral ventricles: Normal. No ventriculomegaly. Bones/joints: Unremarkable. Paranasal sinuses: Mild inflammatory changes in the ethmoid and right frontal sinuses. Mastoid air cells: Normal as visualized. No mastoid effusion. Orbital cavity: Unremarkable. Soft tissues: Unremarkable. Basilar artery: Tortuous basilar artery. IMPRESSION: 1. Multiple foci of T2 lengthening are demonstrated in the subcortical, periventricular and centrum semiovale white matter consistent with age-related small vessel gliosis. 2. Mild parenchymal atrophy. Electronically signed by: Blu Resendez On 06/15/2021 18:16:00 PM
[2021-06-15 20:00] VITALS: BP 112/66
[2021-06-15] MEDS ORDERED: ASPIRIN 81MG ENTERIC TABLET PO SCH (21:00)
[2021-06-15] MEDS ORDERED: CLOPIDOGREL 75 MG TAB PO SCH (21:00)
[2021-06-15] MEDS: ATORVASTATIN 20 MG TAB PO SCH (21:36)
[2021-06-16 00:51] VITALS: BP 127/74
[2021-06-16 04:00] VITALS: BP 131/74
[2021-06-16 05:58] LABS: HEMATOCRIT 35.9 % (36.0-47.0); HEMOGLOBIN 12.2 g/dl (12.0-15.5); MEAN CORPUSCULAR VOLUME 88.4 fl (80.0-96.0); PLATELET COUNT, AUTOMATED 164 10^3/uL (150-450); RED BLOOD COUNT 4.06 10^6/uL (4.00-5.40); WHITE BLOOD COUNT 8.1 10^3/uL (4.0-10.0)
[2021-06-16 06:17] LABS: BLOOD UREA NITROGEN 14 MG/DL (7-18); CALCIUM LEVEL 8.8 MG/DL (8.8-10.2); CARBON DIOXIDE LEVEL 29 MEQ/L (21-32); CHLORIDE LEVEL 107 MEQ/L (98-107); CREATININE FOR GFR 0.81 MG/DL (0.55-1.30); GLOMERULAR FILTRATION RATE > 60.0 (>45); GLUCOSE, FASTING 114 MG/DL (70-100); POTASSIUM SERUM 4.1 MEQ/L (3.5-5.1); SODIUM LEVEL 141 MEQ/L (136-145)
[2021-06-16 07:54] VITALS: BP 136/67
[2021-06-16] MEDS: DULoxetine 30MG CAPSULE (CYMBALTA) PO SCH (08:08)
[2021-06-16] MEDS: LEVEMIR (INSULIN DETEMIR) 1 UNITS/0.01ML SC SCH (08:09)
[2021-06-16] MEDS: NICOTINE 21MG/24HR 1 EA TRANSDERMAL TD SCH (08:09)
[2021-06-16] MEDS: HumaLOG INSULIN (NovoLOG) PER UNIT SC SCH ×2 (08:09→12:34)
[2021-06-16 08:10] VITALS: BP 136/67
[2021-06-16] MEDS: LOSARTAN 50MG TABLET PO SCH (08:10)
[2021-06-16] MEDS: ONDANSETRON 4MG/2ML VIAL IV PRN (08:21)
[2021-06-16] MEDS ORDERED: ENOXAPARIN 40MG/0.4ML SYRINGE (J1650 PER 10MG) SC SCH (09:00)
--- NOTE | 2021-06-16 11:18 | DS.PDOC ---
Discharge Summary General Date of Admission Jun 14, 2021 at 18:03 Date of Discharge 06/16/21 Attending Physician: KENDALL SWAIN MD Specialist/Consultants Involve: KERRIE HERNANDEZ MD Discharge Summary PROCEDURES PERFORMED DURING STAY: None ADMITTING DIAGNOSES: 1. Stroke s/p TPA DISCHARGE DIAGNOSES: 1. Stroke s/p TPA COMPLICATIONS/CHIEF COMPLAINT: Cerebrovascular Accident. HISTORY OF PRESENT ILLNESS: Arlin is a 61-year-old female past medical history multiple CVA most recently 6-8 months ago on Plavix who presents to ED with left upper and lower extremity weakness and heaviness and slurred speech. Patient tells me these symptoms are similar to what she had during prior CVAs. Of note, patient denies residual symptoms from prior CVAs. She tells me she uses a walker at home to assist with ambulation. She tells me she was with a friend who noticed her symptoms and brought her to the ED. Reports dry cough, nausea which she claims are unchanged from her baseline. Denies recent trauma, falls in which she hit her head. Denies headache, vision changes, sensation changes, chest pain, palpitations, difficulty breathing, urinary incontinence, stool incontinence, abdominal pain. In the ED, patient was worked up for possible stroke including imaging as noted below, cardiac markers which were all within normal limits. Last known well time 1330 (06/14). Stroke scale 5 and patient received TPA at 1545, following telemedicine visit and recommendations from [facility] stroke consultation. 24 patient received BP checks every 15 minutes until 1745. Patient was found to be in hypertensive urgency, asx, upon initial presentation with BP ranging from 178/121 to 210/114 and she was started on IV labetalol and nicardipine for which she was noted to have adequate response with BP 121/69. HOSPITAL COURSE: Patient admitted to ICU on telemetry with Neurochecks were performed every hour until 06/15; BP checks every 30 minutes until 23406/14, followed by every 1 hour until 06/15. Patient restarted on Lipitor 80 mg. Brain MRI performed at 06/15, as noted below, unremarkable for bleeding. Patient was started on ASA, Plavix, and heparin for DVT prophylaxis. Echocardiogram, pending. Patient was recommended to follow up with neurology upon discharge. Of note, patient's home pantoprazole was held upon admission secondary to studies showing decrease effectiveness of Plavix when used concurrently with pantoprazole. In the ED, patient's BP noted to be transiently in hypertensive urgency and IV labetalol started upon admission with parameters SBP>185 or DBP >110, and patient's home losartan resumed upon admission with parameters SBP >140. Patient's BP remained stable during hospitalization. Patient's chronic DM2, CKD of unknown stage, GERD, fibromyalgia, tobacco dependence managed during hospitalization without complications. Patient was seen and evaluated by PT/OT and cleared for discharge home. DISCHARGE MEDICATIONS: Please see below. ALLERGIES: Please see below. PHYSICAL EXAMINATION ON DISCHARGE: VITAL SIGNS: Please see below. GENERAL: Alert, awake, laying in bed, NAD HEENT: AT/NC, EOMI, nares patent, moist mucous membranes NECK: Supple CARDIOVASCULAR EXAMINATION: RRR, 3/6 systolic murmur, no RG RESPIRATORY EXAMINATION: CTA bilaterally, no WRRR, no accessory muscles use ABDOMINAL EXAMINATION: Soft, nontender, nondistended, normal bowel sounds EXTREMITIES: No edema, normal ROM, bilateral feet/hand pain/numbness/tingling 2/2 fibromyalgia unchanged from baseline SKIN: No new rashes/wounds/abrasions NEUROLOGICAL EXAMINATION: CN III-XII grossly intact, no sensation changes PSYCHIATRIC EXAMINATION: No depressed/anxious mood LABORATORY DATA: Please see below. IMAGING: CXR (06/14) There is no acute cardiopulmonary disease. Head CT (06/14) There is no acute cardiopulmonary disease. CTA head (06/14) Dense, concentric calcific atherosclerotic disease in the V4 segment of the left vertebral artery causing at least mild stenosis. There is no evidence of occlusion. Appearance is similar to previous examination. No other significant stenosis or occlusion within the carotid or vertebral arteries of the neck. Dense, concentric calcific atherosclerotic disease within the supraclinoid internal carotid arteries bilaterally with no evidence of occlusion, similar to previous examination. No significant stenosis, aneurysmal dilatation or large vessel occlusion within the anterior or posterior intracranial arterial circulation. CTA neck (06/14) Dense, concentric calcific atherosclerotic disease in the V4 segment of the left vertebral artery causing at least mild stenosis. There is no evidence of occlusion. Appearance is similar to previous examination. No other significant stenosis or occlusion within the carotid or vertebral arteries of the neck. Dense, concentric calcific atherosclerotic disease within the supraclinoid internal carotid arteries bilaterally with no evidence of occlusion, similar to previous examination. No significant stenosis, aneurysmal dilatation or large vessel occlusion within the anterior or posterior intracranial arterial circulation. Brain MRI (06/15) 1. Multiple foci of T2 lengthening are demonstrated in the subcortical, periventricular and centrum semiovale white matter consistent with age-related small vessel gliosis. 2. Mild parenchymal atrophy. PROGNOSIS: Fair ACTIVITY: As tolerated DIET: Consistent carb DISCHARGE PLAN: Establish care with PCP F/U neurology Establish care with cardiology Establish care with nephrology DISPOSITION: Home DISCHARGE INSTRUCTIONS: 1. Stroke s/p tPA Continue ASA, Plavix, Lipitor. F/u Dr. Hernandez (Neuro) 2. GERD Start famotidine. D/c protonix ITEMS TO FOLLOWUP ON ON OUTPATIENT: 1. PCP- f/u hospitalization, GERD (no pantoprazole given interaction with Plavix), tobacco cessation 2. Neurology- hx CVAx4, recent stroke s/p TPA now on ASA and Plavix 3. Cardiology-echocardiogram results, systolic murmur, diastolic CHF 4. Nephrology- possible CKD of unknown stage (as reported by patient) DISCHARGE CONDITION: Stable TIME SPENT ON DISCHARGE: 35 minutes. Vital Signs/I&Os Vital Signs Date Time Temp Pulse Resp B/P (MAP) Pulse Ox O2 Delivery O2 Flow Rate FiO2 06/16/21 08:10 136/67 06/16/21 07:54 97.8 77 18 97 Room Air 06/16/21 04:00 I&O- Last 24 Hours up to 6 AM 06/16/21 06:00 Intake Total 400 ml Balance 400 ml Laboratory Data Labs 24H Laboratory Tests 2 06/15/21 13:09: Bedside Glucose (Misc Panel) 197H 06/15/21 18:10: Bedside Glucose (Misc Panel) 217H 06/15/21 22:21: Bedside Glucose (Misc Panel) 181H 06/16/21 05:28: Nucleated Red Blood Cells % (auto) 0.0, Anion Gap 5L, Glomerular Filtration Rate > 60.0, Calcium Level 8.8, Magnesium Level 2.0 CBC/BMP Laboratory Tests 06/16/21 05:28 FSBS Laboratory Tests Test 06/15/21 13:09 06/15/21 18:10 06/15/21 22:21 Range/Units Bedside Glucose (Misc Panel) 197 217 181 80-115 MG/DL Discharge Medications Scheduled Aspirin (Aspirin EC) 81 Mg Tablet.dr, 81 MG PO QHS Atorvastatin Calcium (Atorvastatin Calcium) 80 Mg Tablet, 1 TAB PO DAILY Clopidogrel Bisulfate (Clopidogrel) 75 Mg Tablet, 75 MG PO DAILY, (Reported) Duloxetine Hcl (Duloxetine HCl) 60 Mg Capsule.dr, 60 MG PO DAILY, (Reported) Famotidine (Pepcid) 20 Mg Tablet, 20 MG PO DAILY Insulin Glargine,Hum.rec.anlog (Basaglar Kwikpen U-100) 100 Unit/1 Ml Insuln.pen, 50 UNITS SQ BID, (Reported) Insulin Lispro (Admelog Solostar) 100 Unit/Ml Inj, 1 DOSE SQ AC, (Reported) PER SLIDING SCALE Losartan/Hydrochlorothiazide (Losartan-Hctz 100-25 mg Tab) 1 Each Tablet, 1 TAB PO DAILY, (Reported) Scheduled PRN Meclizine HCl (Meclizine HCl) 25 Mg Tablet, 25 MG PO TID PRN for MILD DISCOMFORT, (Reported) Allergies Coded Allergies: SEASONAL ALLERGIES (Verified Allergy, Unknown, 04/18/21) ranitidine (Verified Allergy, Unknown, 04/18/21) GME ATTESTATION GME ATTESTATION My faculty preceptor for this patient encounter was physically present during the encounter and was fully available. All aspects of the patient interview, examination, medical decision making process, and medical care plan development were reviewed and approved by the faculty preceptor. The faculty preceptor is aware and concurs with the plan as stated in the body of this note and will attest to such by his/her cosignature. ATTENDING NOTE I, Kendall Swain, have independently examined this patient and performed my own physical exam, as well as reviewed the documentation and edited where necessary with the resident. For medical students we have performed the physical exam together and discussed medical decision making and I have verified the history. I have discussed in detail with the resident / student the findings and plan of treatment as documented by the resident / student and edited their note. I agree with their findings and treatment plan and have edited their documentation. I will continue to follow the patient during this hospital stay. Time spent on discharge 35 minutes Isabel Méndez DO Jun 16, 2021 11:18 KENDALL SWAIN MD Jun 16, 2021 16:06
[2021-06-16] MEDS ORDERED: ATOR80TA59 PO (11:31)
[2021-06-16] MEDS ORDERED: PEPC1TAB5 PO (11:31)
[2021-06-16] MEDS ORDERED: ASPI-551 PO (11:31)
--- NOTE | 2021-06-16 12:49 | CR ---
CONSULTATION DATE: 06/15/2021 REASON FOR CONSULTATION: Acute stroke status post TPA. HISTORY OF PRESENT ILLNESS: The patient is a 61-year-old right handed female with a past medical history significant for past history of stroke occurring approximately 8 to 9 months ago as per the patient. The patient has been on Plavix and had residual left lower extremity weakness from a past stroke. The patient states she developed sudden worsening of left lower extremity weakness, heaviness in the arm and slurred speech. She is brought to [facility], NIH stroke scale was deemed to be 5. [facility] Acute Stroke Management was involved in her care and recommended for TPA administration. TPA was administered, within 20 minutes the patient's symptoms started to improve. TPA was administered at 3:45 p.m. The patient states the symptoms started at 1:30 p.m. while she was sitting at her friend's home and suddenly had trouble getting up to walk. The patient was noted to have hypertensive urgency. Blood pressure was 178/121 to 210/114. She was started on IV Labetalol and Nicardipine. MRI of the brain was ordered and eventually completed which showed there was no further evidence of stroke suggesting the patient was experiencing a stroke. TPA effectively worked to leave the patient with TIA symptoms and resolution of left sided hemiparesis and slurred speech. The patient denies any chest pain, shortness of breath, headache or vision loss, numbness or weakness at the present time. She is a diabetic and has not been taking care of her blood sugars. She states her blood sugars have been in the 500 range at home. She does not have a primary care provider. REVIEW OF SYSTEMS: A 14 point review of systems obtained and is negative except as per HPI. PAST MEDICAL HISTORY: 1. CVA x4, most recent six to eight months ago. 2. Diabetes, on insulin. 3. COPD/asthma. 4. GERD. 5. Diastolic CHF. 6. Chronic migraines. 7. CAD. 8. Hyperlipidemia. 9. Hypertension. 10.CKD I. 11.Fibromyalgia, bilateral ___ hands. 12.Tobacco abuse, ongoing despite past stroke. PAST SURGICAL HISTORY: 1. Cholecystectomy. 2. Bilateral salpingo-oophorectomy. SOCIAL HISTORY: Patient is actively smoking tobacco. She is a former alcoholic. Denies use of any recreational drugs at the present time. FAMILY HISTORY: Noncontributory. ALLERGIES: Ranitidine. HOME MEDICATIONS: 1. Atorvastatin 40 mg q.h.s. 2. Plavix 75 mg daily. 3. Duloxetine 60 mg daily. 4. Insulin Basaglar Quick Pen 15 sub q. b.i.d. 5. Insulin sliding scale Lispro. 6. Losartan Hydrochlorothiazide 100-25 mg p.o. q. day. 7. Pantoprazole 40 mg p.o. q. day. 8. Meclizine [address] completed was negative for any acute stroke. CT angiography of the carotids revealed dense concentric calcific atherosclerotic disease in the V4 segment of the left vertebral artery causing at least mild stenosis. No evidence of occlusion, similar to prior exam. No other significant stenosis or occlusion within the carotid or vertebral arteries of the neck. Dense concentric calcific atherosclerotic disease within the supraclinoid internal carotid arteries bilaterally with no evidence of occlusion, similar to prior exam. CT angiography of the brain revealed no significant intracranial stenosis or aneurysm or vessel occlusion. PHYSICAL EXAMINATION: VITAL SIGNS: Blood pressure is 131/74, pulse rate is 86, oxygen saturation is 94% on 2 liters nasal cannula. Temperature 98.3 degrees Fahrenheit GENERAL: Patient is oriented to person, place and time. Speech, language, comprehension and repetition are intact. NEUROLOGIC: Pupils are 3 mm and round, reactive to light. Extraocular movements are intact. There is no facial weakness. Tongue is midline. Hearing is equal to finger rub. There is no loss of sensation to light touch in the face, arm or leg. There is no ataxia, dysmetria or tremor. Romberg testing is deferred. Patient has loss of reflexes at the Achilles and reduced at the patella's. Babinski signs are absent. Sensory is intact to light touch in all four extremities. Coordination: Normal finger to nose without any ataxia, dysmetria or tremor. There is no pronator drift. Strength is adequate, 5/5 in bilateral upper extremities with exception of left triceps Grade 5- residual weakness from prior stroke. ASSESSMENT: 1. Acute ischemic stroke occurring on 06/15/2021, symptom onset at 1:30 p.m. TPA administered at 3:45 p.m. as directed by [facility] Stroke Neurology. Patient had recovery of symptoms within 20 minutes. MRI does not show any evidence of stroke. Patient's diagnosis is deemed to be stroke treated with TPA with resolution, considered to be TIA at this point. PLAN: 1. Normalized blood pressure, start low dose 81 mg aspirin in addition to Plavix 75 mg daily, continue atorvastatin 40 mg daily, PT/OT, continue telemetry monitoring. Patient will need to establish care with primary care provider to manage her current medical problems. Optimize diabetes, hypertension, hyperlipidemia. Follow-up with the Neurology Clinic four to six weeks after discharge.
--- NOTE | 2021-06-18 08:13 | ECHO ---
ECHOCARDIOGRAM DATE OF PROCEDURE: 06/16/2021 Age: 61 Gender: Female Height: 62 inches Weight: 152 pounds Body Surface Area: 1.7 m2 PATIENT LOCATION: Inpatient PCU Room 3227. REFERRING PHYSICIAN: Isabel Méndez DO. INDICATION: Murmur/CVA cardiac source of embolic material? MEASUREMENTS: 2D Measurements: RV 2.9 cm LV 4.3 cm Septum 1.2 cm Posterior wall 1.2 cm Aortic Root 3.6 cm LA 3.1 cm LVEF 75% Doppler Measurements: AV 2.15 m/s LVOT 1.2 m/s Mean AV gradient 9 mmHg Dimensionless index 0.5 MV-E 96, A 98, EA ratio 1 Early mitral deceleration time 229 msec E prime medial 7.7, A prime medial 10, E prime lateral 9.1 Average E/E prime ratio 11.4/PCWP 16 mmHg PV 1.2 m/s Pulmonary artery acceleration time 130 msec PASP 24 mmHg IVC 1.7 cm COMMENTS: Normal sinus rhythm without intraventricular conduction disturbance. M-mode and 2-dimensional echocardiography was performed with pulse, continuous wave, color flow, and tissue Doppler studies. Borderline concentric left ventricular hypertrophy with hyperkinetic wall motion. Mildly dilated left atrium with grade 1 LV diastolic dysfunction and currently normal estimated mean left atrial pressure. Normal right heart chamber sizes and motion and estimated pulmonary arterial pressure. Normal IVC size and collapse against an elevated central venous pressure. Normal aortic dimensions. Mild aortic valvular sclerosis without stenosis and no more than trace insufficiency. Mild degenerative changes of a mitral valvular apparatus without inflow tract obstruction and only trace insufficiency. Normal appearing tricuspid valve with trace insufficiency. No apparent intracardiac mass or pericardial effusion. MTDD
== END 2021-06-16 15:24 | disposition home or self-care (01) | DRG 45 ==
LOC: M ED 14:42 → M ED INP 18:03 → M PCU 06-15 17:21
PROVIDERS: ADMIT Internal Medicine; ATTEND Internal Medicine
DX: I63.9 Cerebral infarction, unspecified (principal); Z66 Do not resuscitate; R53.1 Weakness; R47.81 Slurred speech; E11.9 Type 2 diabetes mellitus without complications; J44.9 Chronic obstructive pulmonary disease, unspecified; K21.9 Gastro-esophageal reflux disease without esophagitis; I50.32 Chronic diastolic (congestive) heart failure; G43.909 Migraine, unspecified, not intractable, without status migrainosus; I25.10 Atherosclerotic heart disease of native coronary artery without angina pectoris; E78.5 Hyperlipidemia, unspecified; I13.0 Hypertensive heart and chronic kidney disease with heart failure and stage 1 through stage 4 chronic kidney disease, or unspecified chronic kidney disease; N18.9 Chronic kidney disease, unspecified; M79.7 Fibromyalgia; Z90.49 Acquired absence of other specified parts of digestive tract; Z90.79 Acquired absence of other genital organ(s); F10.11 Alcohol abuse, in remission; F17.210 Nicotine dependence, cigarettes, uncomplicated; E87.6 Hypokalemia

== ENCOUNTER 2021-08-02 15:02 | Inpatient (IN) | payer OTHER ==
[~2021-08-02] VITALS: Ht 157.5 cm; Wt 65.6 kg
[~2021-08-02 15:02] MED LIST changes: +ASPI-551 PO; +ATOR80TA59 PO; +MECL-58 PO; +PEPC1TAB5 PO
[2021-08-02 16:32] LABS: BASO # 0.1 10^3/uL (0.0-0.2); BASO % 0.8 % (0.0-1.0); EOS # 0.2 10^3/uL (0.0-0.5); EOS % 2.8 % (0.0-3.0); HEMATOCRIT 36.3 % (36.0-47.0); HEMOGLOBIN 12.5 g/dl (12.0-15.5); LYMPH # 2.6 10^3/uL (1.5-5.0); LYMPH % 33.7 % (24.0-44.0); MEAN CORPUSCULAR HEMOGLOBIN 29.4 pg (27.0-33.0); MEAN CORPUSCULAR HGB CONC 34.4 g/dl (32.0-36.5); MEAN CORPUSCULAR VOLUME 85.4 fl (80.0-96.0); MONO # 0.6 10^3/uL (0.0-0.8); MONO % 7.9 % (2.0-8.0); NEUTROPHILS # 4.2 10^3/uL (1.5-8.5); NEUTROPHILS % 54.5 % (36.0-66.0); PLATELET COUNT, AUTOMATED 175 10^3/uL (150-450); RED BLOOD COUNT 4.25 10^6/uL (4.00-5.40); WHITE BLOOD COUNT 7.8 10^3/uL (4.0-10.0)
[2021-08-02 16:56] LABS: CK-MB VALUE MASS < 1.0 NG/ML (<3.6); CPK CREATINE PHOSPHOKINASE 38 U/L (26-192); MB/CK RELATIVE INDEX 2.63 (< OR =4)
[2021-08-02 17:03] LABS: BLOOD UREA NITROGEN 14 MG/DL (7-18); CALCIUM LEVEL 9.6 MG/DL (8.8-10.2); CARBON DIOXIDE LEVEL 30 MEQ/L (21-32); CHLORIDE LEVEL 103 MEQ/L (98-107); GLOMERULAR FILTRATION RATE > 60.0 (>45); GLUCOSE, FASTING 341 MG/DL (70-100); POTASSIUM SERUM 3.7 MEQ/L (3.5-5.1); SODIUM LEVEL 139 MEQ/L (136-145)
[2021-08-02 18:23] LABS: RSV AMPLIFICATION NEGATIVE (NEGATIVE)
[2021-08-02] MEDS ORDERED: FAMO1TAB11 PO (19:29)
[2021-08-02] MEDS ORDERED: ATOR80TA59 PO (19:29)
[2021-08-02] MEDS ORDERED: ASPI81TA26 PO (19:29)
[2021-08-02] MEDS ORDERED: HOME MED LIST COMPLETE! XX SCH (19:30)
[2021-08-02] MEDS ORDERED: ACETAMINOPHEN TAB 650MG DOSE (2X325MG) PO PRN (20:05)
[2021-08-02] MEDS ORDERED: GLUCOSE 4GM CHEW TABLET PO PRN (21:40)
[2021-08-02] MEDS ORDERED: MECLIZINE 25 MG TABLET PO PRN (21:40)
[2021-08-02] MEDS ORDERED: DEXTROSE 50% 50 ML SYRINGE IV PRN (21:40)
[2021-08-02] MEDS ORDERED: GLUCAGON INJ 1MG VIAL SC PRN (21:40)
[2021-08-02 23:06] VITALS: BP 108/64
[2021-08-02] MEDS: HumaLOG INSULIN (NovoLOG) PER UNIT SC SCH (23:40)
[2021-08-02 23:44] LABS: C REACTIVE PROTEIN QUANTITATIV < 0.30 MG/DL (0.00-0.30)
[2021-08-02] MEDS: ATORVASTATIN 20 MG TAB PO SCH (23:48)
[2021-08-02] MEDS: ASPIRIN 81MG ENTERIC TABLET PO SCH (23:48)
[2021-08-02] MEDS: LEVEMIR (INSULIN DETEMIR) 1 UNITS/0.01ML SC SCH (23:49)
[2021-08-03 00:13] LABS: ERYTHROCYTE SEDIMENTATION RATE 46 mm/hr (0-30)
[2021-08-03 04:40] VITALS: BP 117/75
[2021-08-03 05:22] LABS: HEMATOCRIT 37.2 % (36.0-47.0); HEMOGLOBIN 12.6 g/dl (12.0-15.5); MEAN CORPUSCULAR HGB CONC 33.9 g/dl (32.0-36.5); MEAN CORPUSCULAR VOLUME 85.7 fl (80.0-96.0); PLATELET COUNT, AUTOMATED 183 10^3/uL (150-450); RED BLOOD COUNT 4.34 10^6/uL (4.00-5.40); WHITE BLOOD COUNT 9.2 10^3/uL (4.0-10.0)
[2021-08-03 05:42] LABS: BLOOD UREA NITROGEN 18 MG/DL (7-18); CALCIUM LEVEL 9.6 MG/DL (8.8-10.2); CARBON DIOXIDE LEVEL 30 MEQ/L (21-32); CHLORIDE LEVEL 105 MEQ/L (98-107); CREATININE FOR GFR 0.81 MG/DL (0.55-1.30); GLOMERULAR FILTRATION RATE > 60.0 (>45); GLUCOSE, FASTING 218 MG/DL (70-100); POTASSIUM SERUM 3.3 MEQ/L (3.5-5.1); SODIUM LEVEL 140 MEQ/L (136-145)
[2021-08-03 05:44] LABS: ERYTHROCYTE SEDIMENTATION RATE 49 mm/hr (0-30)
[2021-08-03 07:49] VITALS: BP 127/63
[2021-08-03] MEDS: HumaLOG INSULIN (NovoLOG) PER UNIT SC SCH ×4 (08:35→21:00)
[2021-08-03] MEDS: CLOPIDOGREL 75 MG TAB PO SCH (08:36)
[2021-08-03] MEDS: LEVEMIR (INSULIN DETEMIR) 1 UNITS/0.01ML SC SCH ×2 (08:36→21:18)
[2021-08-03] MEDS: FAMOTIDINE 20 MG TAB PO SCH (08:36)
[2021-08-03] MEDS: LOSARTAN 50MG TABLET PO SCH (08:37)
[2021-08-03] MEDS: GABAPENTIN 100 MG CAP PO SCH ×2 (09:35→21:17)
[2021-08-03] MEDS: DULoxetine 30MG CAPSULE (CYMBALTA) PO SCH (10:59)
[2021-08-03] MEDS: ONDANSETRON 4MG/2ML VIAL IV PRN ×2 (11:24→17:29)
[2021-08-03 12:35] VITALS: BP 106/66
[2021-08-03] MEDS: traMADol 50 MG TAB PO PRN ×2 (15:52→23:59)
[2021-08-03 16:23] VITALS: BP 138/71
[2021-08-03 20:00] VITALS: BP 129/69
[2021-08-03] MEDS: ATORVASTATIN 20 MG TAB PO SCH (21:17)
[2021-08-03] MEDS: ASPIRIN 81MG ENTERIC TABLET PO SCH (21:17)
[2021-08-04] VITALS: BP 130/74
[2021-08-04 04:00] VITALS: BP 147/77
[2021-08-04 04:01] LABS: HEMATOCRIT 36.8 % (36.0-47.0); HEMOGLOBIN 12.4 g/dl (12.0-15.5); MEAN CORPUSCULAR HEMOGLOBIN 28.9 pg (27.0-33.0); MEAN CORPUSCULAR HGB CONC 33.7 g/dl (32.0-36.5); MEAN CORPUSCULAR VOLUME 85.8 fl (80.0-96.0); PLATELET COUNT, AUTOMATED 171 10^3/uL (150-450); RED BLOOD COUNT 4.29 10^6/uL (4.00-5.40); WHITE BLOOD COUNT 9.2 10^3/uL (4.0-10.0)
[2021-08-04 04:19] LABS: BLOOD UREA NITROGEN 21 MG/DL (7-18); CARBON DIOXIDE LEVEL 32 MEQ/L (21-32); CHLORIDE LEVEL 102 MEQ/L (98-107); CREATININE FOR GFR 0.98 MG/DL (0.55-1.30); GLOMERULAR FILTRATION RATE > 60.0 (>45); GLUCOSE, FASTING 210 MG/DL (70-100); POTASSIUM SERUM 3.8 MEQ/L (3.5-5.1); SODIUM LEVEL 139 MEQ/L (136-145)
[2021-08-04] MEDS ORDERED: CIPROFLOXACIN 500MG TABLET PO SCH (06:00)
[2021-08-04] MEDS: traMADol 50 MG TAB PO PRN (06:22)
[2021-08-04] MEDS: HumaLOG INSULIN (NovoLOG) PER UNIT SC SCH (07:30)
[2021-08-04 08:00] VITALS: BP 140/65
[2021-08-04] MEDS ORDERED: CYMB1CAP5 PO (08:54)
[2021-08-04] MEDS ORDERED: CIPR-249 PO (08:54)
[2021-08-04] MEDS ORDERED: TRAM50TA2 PO (08:54)
[2021-08-04] MEDS ORDERED: GABA-1171 PO (08:54)
[2021-08-04 09:48] VITALS: BP 140/65
[2021-08-04] MEDS: DULoxetine 30MG CAPSULE (CYMBALTA) PO SCH (09:48)
[2021-08-04] MEDS: LOSARTAN 50MG TABLET PO SCH (09:48)
[2021-08-04] MEDS: GABAPENTIN 100 MG CAP PO SCH (09:49)
[2021-08-04] MEDS: FAMOTIDINE 20 MG TAB PO SCH (09:49)
[2021-08-04] MEDS: LEVEMIR (INSULIN DETEMIR) 1 UNITS/0.01ML SC SCH (09:50)
[2021-08-04] MEDS: CLOPIDOGREL 75 MG TAB PO SCH (09:50)
== END 2021-08-04 15:20 | disposition home or self-care (01) | DRG 48 ==
LOC: M ED 15:02 → EDBD 15:02 → M ED INP 20:02 → M PCU 22:55
PROVIDERS: ADMIT Family Medicine; ATTEND Internal Medicine
DX: E11.40 Type 2 diabetes mellitus with diabetic neuropathy, unspecified (principal); I11.0 Hypertensive heart disease with heart failure; A04.0 Enteropathogenic Escherichia coli infection; I50.32 Chronic diastolic (congestive) heart failure; J44.9 Chronic obstructive pulmonary disease, unspecified; K52.9 Noninfective gastroenteritis and colitis, unspecified; Z86.73 Personal history of transient ischemic attack (TIA), and cerebral infarction without residual deficits; Z79.4 Long term (current) use of insulin; K21.9 Gastro-esophageal reflux disease without esophagitis; G43.909 Migraine, unspecified, not intractable, without status migrainosus; E78.5 Hyperlipidemia, unspecified; M79.7 Fibromyalgia; Z79.82 Long term (current) use of aspirin; Z79.899 Other long term (current) drug therapy; Z88.8 Allergy status to other drugs, medicaments and biological substances; K57.30 Diverticulosis of large intestine without perforation or abscess without bleeding

== ENCOUNTER 2021-09-20 23:05 | Emergency (ER) | payer OTHER ==
[~2021-09-20] VITALS: Ht 157.5 cm; Wt 61.4 kg
[~2021-09-20 23:05] MED LIST changes: +CYMB1CAP5 PO; +FAMO1TAB11 PO; +GABA-1171 PO
[2021-09-20 23:21] VITALS: BP 133/75
[2021-09-21] MEDS ORDERED: NEUR100C PO (01:55)
== END 2021-09-21 03:00 | disposition home or self-care (01) ==
LOC: M ED 23:05
DX: M79.7 Fibromyalgia (principal); G60.9 Hereditary and idiopathic neuropathy, unspecified; E11.9 Type 2 diabetes mellitus without complications; I10 Essential (primary) hypertension; H81.4 Vertigo of central origin; Z88.8 Allergy status to other drugs, medicaments and biological substances; Z79.84 Long term (current) use of oral hypoglycemic drugs; Z79.899 Other long term (current) drug therapy

== ENCOUNTER 2021-11-02 17:50 | Emergency (ER) | payer OTHER ==
[~2021-11-02] VITALS: Ht 157.5 cm; Wt 61.4 kg
[~2021-11-02 17:50] MED LIST changes: +NEUR100C PO
[2021-11-02] MEDS ORDERED: NS 1,000 ML IV ONE ×2 (18:05→20:15)
[2021-11-02] MEDS ORDERED: MORPHINE 4 MG/ML 1ML VIAL/SYRINGE (J2270) IV PRN (18:05)
[2021-11-02 18:30] LABS: BASO # 0.1 10^3/uL (0.0-0.2); BASO % 1.1 % (0.0-1.0); EOS # 0.2 10^3/uL (0.0-0.5); EOS % 2.8 % (0.0-3.0); HEMATOCRIT 42.8 % (36.0-47.0); HEMOGLOBIN 14.2 g/dl (12.0-15.5); LYMPH # 1.3 10^3/uL (1.5-5.0); LYMPH % 19.3 % (24.0-44.0); MEAN CORPUSCULAR HEMOGLOBIN 28.6 pg (27.0-33.0); MEAN CORPUSCULAR HGB CONC 33.2 g/dl (32.0-36.5); MEAN CORPUSCULAR VOLUME 86.1 fl (80.0-96.0); MONO # 0.7 10^3/uL (0.0-0.8); MONO % 10.4 % (2.0-8.0); NEUTROPHILS # 4.3 10^3/uL (1.5-8.5); NEUTROPHILS % 65.9 % (36.0-66.0); PLATELET COUNT, AUTOMATED 166 10^3/uL (150-450); RED BLOOD COUNT 4.97 10^6/uL (4.00-5.40); WHITE BLOOD COUNT 6.5 10^3/uL (4.0-10.0)
[2021-11-02 19:00] LABS: ACETONE/KETONE 1.12 MG/DL (<2.81); BILIRUBIN,DIRECT 0.2 MG/DL (0.0-0.2); BILIRUBIN,TOTAL 0.4 MG/DL (0.2-1.0); TOTAL PROTEIN 7.4 GM/DL (6.4-8.2)
[2021-11-02 19:04] LABS: HEMOGLOBIN A1c 11.1 %
[2021-11-02 19:49] LABS: VENOUS BASE EXCESS -0.7 (-2.0-2.0); VENOUS HCO3 28.4 MEQ/L (23.0-27.0); VENOUS O2 SATURATION 39.4 % (60.0-80.0); VENOUS PARTIAL PRESSURE CO2 66.3 mmHg (38.0-50.0); VENOUS PARTIAL PRESSURE O2 24.5 mmHg (30.0-50.0); VENOUS STANDARD HCO3 22.3 MEQ/L; VENOUS TOTAL CO2 30.5 MEQ/L (24.0-28.0)
[2021-11-02] MEDS ORDERED: HumaLOG INSULIN (NovoLOG) PER UNIT SC STA (20:14)
[2021-11-02] MEDS ORDERED: ISOVUE-370 76% 100ML VIAL As Ordered ONE (20:27)
[2021-11-02] MEDS: GASTROGRAFIN SOLUTION 30ML PO SCH ×2 (21:10→21:44)
[2021-11-02] MEDS ORDERED: MAGNESIUM CITRATE 300 ML BTL PO ONE (23:35)
[2021-11-03 00:16] VITALS: BP 135/71
== END 2021-11-03 00:22 | disposition home or self-care (01) ==
LOC: M ED 17:50
DX: K59.00 Constipation, unspecified (principal); R94.31 Abnormal electrocardiogram [ECG] [EKG]; E11.9 Type 2 diabetes mellitus without complications; I10 Essential (primary) hypertension; E78.5 Hyperlipidemia, unspecified; F41.8 Other specified anxiety disorders; F32.A Depression, unspecified; G43.909 Migraine, unspecified, not intractable, without status migrainosus; J45.909 Unspecified asthma, uncomplicated; J44.9 Chronic obstructive pulmonary disease, unspecified; I50.9 Heart failure, unspecified; F17.200 Nicotine dependence, unspecified, uncomplicated; Z79.4 Long term (current) use of insulin; Z79.899 Other long term (current) drug therapy; Z88.8 Allergy status to other drugs, medicaments and biological substances
CPT/HCPCS: 74021; 74177; 80047; 80076; 81001; 82010; 82803; 83036; 83605; 83690; 85025; 93005; 93041; 96361; 96374; 99285; J1815; J2270; Q9963; Q9967

== ENCOUNTER 2021-12-15 07:22 | Emergency (ER) | payer OTHER ==
[~2021-12-15] VITALS: Ht 157.5 cm; Wt 58.2 kg
[2021-12-15] MEDS ORDERED: NS 1,000 ML IV ONE (07:40)
[2021-12-15] MEDS ORDERED: METOCLOPRAMIDE INJ 10MG/2ML VIAL (J2765 PER 1) IV ONE (07:40)
[2021-12-15 08:16] LABS: BASO # 0.1 10^3/uL (0.0-0.2); BASO % 0.9 % (0.0-1.0); EOS # 0.2 10^3/uL (0.0-0.5); EOS % 1.7 % (0.0-3.0); HEMATOCRIT 38.2 % (36.0-47.0); LYMPH # 2.7 10^3/uL (1.5-5.0); LYMPH % 27.6 % (24.0-44.0); MEAN CORPUSCULAR HEMOGLOBIN 29.4 pg (27.0-33.0); MEAN CORPUSCULAR VOLUME 86.4 fl (80.0-96.0); MONO # 0.9 10^3/uL (0.0-0.8); MONO % 9.2 % (2.0-8.0); NEUTROPHILS # 5.9 10^3/uL (1.5-8.5); NEUTROPHILS % 60.4 % (36.0-66.0); PLATELET COUNT, AUTOMATED 202 10^3/uL (150-450); RED BLOOD COUNT 4.42 10^6/uL (4.00-5.40); WHITE BLOOD COUNT 9.7 10^3/uL (4.0-10.0)
[2021-12-15 08:57] LABS: ALBUMIN 3.1 GM/DL (3.2-5.2); ALT/SGPT 17 U/L (12-78); BILIRUBIN,DIRECT 0.1 MG/DL (0.0-0.2); BILIRUBIN,TOTAL 0.4 MG/DL (0.2-1.0); BLOOD UREA NITROGEN 16 MG/DL (7-18); CALCIUM LEVEL 9.6 MG/DL (8.8-10.2); CARBON DIOXIDE LEVEL 28 MEQ/L (21-32); CHLORIDE LEVEL 104 MEQ/L (98-107); CREATININE FOR GFR 0.86 MG/DL (0.55-1.30); GLOMERULAR FILTRATION RATE > 60.0 (>45); GLUCOSE, FASTING 240 MG/DL (70-100); LIPASE 663 U/L (73-393); POTASSIUM SERUM 3.6 MEQ/L (3.5-5.1); SODIUM LEVEL 138 MEQ/L (136-145); TOTAL PROTEIN 7.3 GM/DL (6.4-8.2)
[2021-12-15] MEDS ORDERED: ISOVUE-370 76% 100ML VIAL As Ordered ONE (09:21)
[2021-12-15 12:02] VITALS: BP 165/80
== END 2021-12-15 12:06 | disposition home or self-care (01) ==
LOC: M ED 07:22
DX: R11.2 Nausea with vomiting, unspecified (principal); R19.7 Diarrhea, unspecified; R10.9 Unspecified abdominal pain; E11.9 Type 2 diabetes mellitus without complications; I10 Essential (primary) hypertension; E78.5 Hyperlipidemia, unspecified; F17.200 Nicotine dependence, unspecified, uncomplicated; Z86.73 Personal history of transient ischemic attack (TIA), and cerebral infarction without residual deficits; Z88.8 Allergy status to other drugs, medicaments and biological substances; Z79.4 Long term (current) use of insulin; Z79.899 Other long term (current) drug therapy
CPT/HCPCS: 74177; 80048; 80076; 83690; 85025; 96361; 96374; 99284; J2765; Q9967

== ENCOUNTER 2022-03-04 05:48 | Emergency (ER) | payer OTHER ==
[~2022-03-04] VITALS: Ht 157.5 cm; Wt 58.2 kg
[~2022-03-04 05:48] MED LIST changes: +ALBU2.5V10 INH; -ALBU83IN INH
[2022-03-04] MEDS ORDERED: traMADol 50 MG TAB PO ONE (07:20)
[2022-03-04] MEDS ORDERED: TRAM50TA2 PO (08:43)
[2022-03-04 08:55] VITALS: BP 120/75
== END 2022-03-04 09:16 | disposition home or self-care (01) ==
LOC: M ED 05:48 → EDBD 05:48 → M ED 09:16
DX: M25.561 Pain in right knee (principal); M79.672 Pain in left foot; S93.402A Sprain of unspecified ligament of left ankle, initial encounter; W18.39XA Other fall on same level, initial encounter; Y92.89 Other specified places as the place of occurrence of the external cause; E11.9 Type 2 diabetes mellitus without complications; I10 Essential (primary) hypertension; I50.9 Heart failure, unspecified; J44.9 Chronic obstructive pulmonary disease, unspecified; J45.909 Unspecified asthma, uncomplicated; N18.9 Chronic kidney disease, unspecified; E78.5 Hyperlipidemia, unspecified; F32.A Depression, unspecified; F41.9 Anxiety disorder, unspecified; K21.9 Gastro-esophageal reflux disease without esophagitis; M79.7 Fibromyalgia; I69.352 Hemiplegia and hemiparesis following cerebral infarction affecting left dominant side; Z88.8 Allergy status to other drugs, medicaments and biological substances; Z79.899 Other long term (current) drug therapy; Z79.82 Long term (current) use of aspirin; Z79.4 Long term (current) use of insulin; Z79.01 Long term (current) use of anticoagulants; F17.200 Nicotine dependence, unspecified, uncomplicated

== ENCOUNTER 2022-03-10 21:59 | Inpatient (IN) | payer OTHER ==
[~2022-03-10] VITALS: Ht 157.5 cm; Wt 58.5 kg
[~2022-03-10 21:59] MED LIST changes: -ASMA220A2 INH; +MOME220A2 INH
[2022-03-10 22:12] VITALS: BP 145/78
[2022-03-10] MEDS ORDERED: ISOVUE-370 76% 100ML VIAL As Ordered ONE (22:16)
[2022-03-10 22:30] LABS: BASO # 0.1 10^3/uL (0.0-0.2); BASO % 0.8 % (0.0-1.0); EOS # 0.1 10^3/uL (0.0-0.5); EOS % 0.8 % (0.0-3.0); HEMATOCRIT 40.6 % (36.0-47.0); HEMOGLOBIN 14.3 g/dl (12.0-15.5); LYMPH % 23.1 % (24.0-44.0); MEAN CORPUSCULAR HEMOGLOBIN 29.9 pg (27.0-33.0); MEAN CORPUSCULAR HGB CONC 35.2 g/dl (32.0-36.5); MEAN CORPUSCULAR VOLUME 84.9 fl (80.0-96.0); MONO # 0.6 10^3/uL (0.0-0.8); MONO % 7.2 % (2.0-8.0); NEUTROPHILS # 5.8 10^3/uL (1.5-8.5); NEUTROPHILS % 67.8 % (36.0-66.0); PLATELET COUNT, AUTOMATED 291 10^3/uL (150-450); RED BLOOD COUNT 4.78 10^6/uL (4.00-5.40); WHITE BLOOD COUNT 8.6 10^3/uL (4.0-10.0)
[2022-03-10 22:40] LABS: INR 0.97; PROTHROMBIN TIME 13.3 SECONDS (12.7-14.5)
[2022-03-10 22:41] LABS: PARTIAL THROMBOPLASTIN TIME 29.8 SECONDS (25.9-37.0)
[2022-03-10 23:00] LABS: BLOOD UREA NITROGEN 17 MG/DL (7-18); CALCIUM LEVEL 10.3 MG/DL (8.8-10.2); CARBON DIOXIDE LEVEL 24 MEQ/L (21-32); CHLORIDE LEVEL 101 MEQ/L (98-107); CREATININE FOR GFR 0.98 MG/DL (0.55-1.30); GLOMERULAR FILTRATION RATE > 60.0 (>45); GLUCOSE, FASTING 246 MG/DL (70-100); POTASSIUM SERUM 3.8 MEQ/L (3.5-5.1); SODIUM LEVEL 135 MEQ/L (136-145)
[2022-03-11] MEDS ORDERED: GABA-282 PO (00:10)
[2022-03-11 00:22] LABS: RSV AMPLIFICATION NEGATIVE (NEGATIVE)
[2022-03-11] MEDS ORDERED: GLUCOSE 4GM CHEW TABLET PO PRN (00:45)
[2022-03-11] MEDS ORDERED: DEXTROSE 50% 50 ML SYRINGE IV PRN (00:45)
[2022-03-11] MEDS ORDERED: GLUCAGON INJ 1MG VIAL SC PRN (00:45)
[2022-03-11] MEDS ORDERED: ONDA-83 PO (02:02)
[2022-03-11] MEDS ORDERED: PANT40TA29 PO (02:02)
[2022-03-11] MEDS ORDERED: HYDR-3490 PO (02:02)
[2022-03-11] MEDS ORDERED: INCR1INH INH (02:02)
[2022-03-11] MEDS ORDERED: LOSA100T45 PO (02:02)
[2022-03-11] MEDS ORDERED: HOME MED LIST COMPLETE! XX SCH (02:05)
[2022-03-11] MEDS: HEPARIN SOD (PORCINE) 5000UNITS/ML 1ML VIAL/SYRINGE SQ SCH ×3 (06:00→21:20)
[2022-03-11] MEDS: CLOPIDOGREL 75 MG TAB PO SCH (07:36)
[2022-03-11] MEDS: PANTOPRAZOLE 40MG TAB (PROTONIX) PO SCH (07:36)
[2022-03-11] MEDS: INSULIN LISPRO (NovoLOG) PER UNIT SC SCH ×3 (07:37→17:26)
[2022-03-11] MEDS: LOSARTAN 50MG TABLET PO SCH (07:38)
[2022-03-11] MEDS: TIOTROPIUM INHALER/CAPSULE (SPIRIVA) INH SCH (08:42)
[2022-03-11] MEDS: LEVEMIR (INSULIN DETEMIR) 1 UNITS/0.01ML SC SCH ×2 (10:59→21:20)
[2022-03-11] MEDS: ACETAMINOPHEN TAB 650MG DOSE (2X325MG) PO PRN ×2 (12:59→21:21)
[2022-03-11 15:03] VITALS: BP 124/79
[2022-03-11] MEDS: GABAPENTIN 300 MG CAP PO SCH ×2 (16:43→21:19)
[2022-03-11] MEDS ORDERED: ASPIRIN 81MG ENTERIC TABLET PO SCH (21:00)
[2022-03-11] MEDS ORDERED: ATORVASTATIN 20 MG TAB PO SCH (21:00)
[2022-03-11 22:00] VITALS: BP 130/83
[2022-03-12 05:50] VITALS: BP 123/83
[2022-03-12] MEDS: HEPARIN SOD (PORCINE) 5000UNITS/ML 1ML VIAL/SYRINGE SQ SCH (05:50)
[2022-03-12 06:38] LABS: HEMATOCRIT 41.4 % (36.0-47.0); HEMOGLOBIN 13.8 g/dl (12.0-15.5); MEAN CORPUSCULAR HEMOGLOBIN 28.8 pg (27.0-33.0); MEAN CORPUSCULAR HGB CONC 33.3 g/dl (32.0-36.5); MEAN CORPUSCULAR VOLUME 86.4 fl (80.0-96.0); PLATELET COUNT, AUTOMATED 297 10^3/uL (150-450); RED BLOOD COUNT 4.79 10^6/uL (4.00-5.40); WHITE BLOOD COUNT 9.8 10^3/uL (4.0-10.0)
[2022-03-12 07:17] LABS: CREATININE FOR GFR 1.17 MG/DL (0.55-1.30); GLOMERULAR FILTRATION RATE 49.9 (>45); MAGNESIUM LEVEL 1.7 MG/DL (1.8-2.4); PHOSPHORUS LEVEL 3.7 MG/DL (2.5-4.9); POTASSIUM SERUM 3.4 MEQ/L (3.5-5.1)
[2022-03-12] MEDS: TIOTROPIUM INHALER/CAPSULE (SPIRIVA) INH SCH (07:27)
[2022-03-12] MEDS ORDERED: POTASSIUM CHLORIDE 10MEQ SR TABLET PO ONE (08:00)
[2022-03-12] MEDS ORDERED: MAG SULF 1GM/100ML (MAG RUN) 1 GM in IV 1 EA IV ONE (08:00)
[2022-03-12] MEDS: INSULIN LISPRO (NovoLOG) PER UNIT SC SCH ×2 (08:41→12:44)
[2022-03-12] MEDS: LEVEMIR (INSULIN DETEMIR) 1 UNITS/0.01ML SC SCH (08:41)
[2022-03-12 08:42] VITALS: BP 123/83
[2022-03-12] MEDS: LOSARTAN 50MG TABLET PO SCH (08:42)
[2022-03-12] MEDS: PANTOPRAZOLE 40MG TAB (PROTONIX) PO SCH (08:42)
[2022-03-12] MEDS: CLOPIDOGREL 75 MG TAB PO SCH (08:42)
[2022-03-12] MEDS: GABAPENTIN 300 MG CAP PO SCH (08:42)
== END 2022-03-12 14:36 | disposition home or self-care (01) | DRG 47 ==
LOC: M ED 21:59 → EDBD 21:59 → M ED INP 03-11 04:58 → ENRESERV 03-11 13:15 → M MSPAV 03-11 14:58
PROVIDERS: ADMIT Internal Medicine; ATTEND Internal Medicine
DX: G45.9 Transient cerebral ischemic attack, unspecified (principal); I25.10 Atherosclerotic heart disease of native coronary artery without angina pectoris; I50.32 Chronic diastolic (congestive) heart failure; I11.0 Hypertensive heart disease with heart failure; E11.9 Type 2 diabetes mellitus without complications; J44.9 Chronic obstructive pulmonary disease, unspecified; K21.9 Gastro-esophageal reflux disease without esophagitis; E78.5 Hyperlipidemia, unspecified; F17.210 Nicotine dependence, cigarettes, uncomplicated; Z20.822 Contact with and (suspected) exposure to COVID-19; Z90.49 Acquired absence of other specified parts of digestive tract; Z90.79 Acquired absence of other genital organ(s); R20.0 Anesthesia of skin; R53.1 Weakness; Z79.82 Long term (current) use of aspirin; Z79.4 Long term (current) use of insulin; Z88.8 Allergy status to other drugs, medicaments and biological substances; Z79.899 Other long term (current) drug therapy; I69.334 Monoplegia of upper limb following cerebral infarction affecting left non-dominant side

== ENCOUNTER 2023-10-15 21:47 | Emergency (ER) | payer OTHER ==
[~2023-10-15] VITALS: Ht 157.5 cm; Wt 65.4 kg
[~2023-10-15 21:47] MED LIST changes: +CIPR0.3S37 OD; -CIPR0.3S6 OD; +CLOP75TA99 PO; +HYDR-3490 PO; +INCR1INH INH; +LOSA100T46 PO; +MONT-5 PO; +ONDA-83 PO; -PLAV1TAB2 PO; -SING10TA32 PO
[2023-10-15 22:03] VITALS: TEMP 97.5
[2023-10-16] MEDS: LEVEMIR (INSULIN DETEMIR) 1 UNITS/0.01ML SC ONE (00:44)
[2023-10-16] MEDS: NS 500 ML IV ONE (00:46)
[2023-10-16 01:02] LABS: BASO % 0.5 % (0.0-1.0); EOS # 0.2 10^3/uL (0.0-0.5); EOS % 2.8 % (0.0-3.0); HEMATOCRIT 38.5 % (36.0-47.0); HEMOGLOBIN 12.8 g/dl (12.0-15.5); LYMPH # 2.2 10^3/uL (1.5-5.0); LYMPH % 29.3 % (24.0-44.0); MEAN CORPUSCULAR HEMOGLOBIN 29.2 pg (27.0-33.0); MEAN CORPUSCULAR HGB CONC 33.2 g/dl (32.0-36.5); MEAN CORPUSCULAR VOLUME 87.7 fl (80.0-96.0); MONO # 0.6 10^3/uL (0.0-0.8); MONO % 8.1 % (2.0-8.0); NEUTROPHILS # 4.3 10^3/uL (1.5-8.5); NEUTROPHILS % 58.9 % (36.0-66.0); PLATELET COUNT, AUTOMATED 158 10^3/uL (150-450); RED BLOOD COUNT 4.39 10^6/uL (4.00-5.40); WHITE BLOOD COUNT 7.4 10^3/uL (4.0-10.0)
[2023-10-16 01:25] LABS: HEMOGLOBIN A1c 11.6 % (4.0-6.0)
[2023-10-16] MEDS ORDERED: ISOVUE-370 76% 100ML VIAL As Ordered ONE (01:37)
[2023-10-16 02:43] LABS: BLOOD UREA NITROGEN 14 MG/DL (9-23); CALCIUM LEVEL 8.1 MG/DL (8.3-10.6); CARBON DIOXIDE LEVEL 30 MMOL/L (20-31); CHLORIDE LEVEL 104 MMOL/L (98-107); CREATININE FOR GFR 0.69 MG/DL (0.55-1.30); GLOMERULAR FILTRATION RATE > 60.0 (>45); GLUCOSE, FASTING 284 MG/DL (74-106); POTASSIUM SERUM 4.2 MMOL/L (3.5-5.1); SODIUM LEVEL 137 MMOL/L (136-145)
[2023-10-16] MEDS ORDERED: LOSA100T46 PO (04:11)
[2023-10-16] MEDS ORDERED: ATOR80TA59 PO (04:11)
[2023-10-16] MEDS ORDERED: ADME100I2 SQ (04:11)
[2023-10-16] MEDS ORDERED: HYDR-3490 PO (04:11)
[2023-10-16] MEDS ORDERED: LEVO1TAB40 PO (04:11)
[2023-10-16] MEDS ORDERED: BASA100I SQ (04:11)
[2023-10-16] MEDS ORDERED: CLOP75TA2 PO (04:11)
[2023-10-16] MEDS: LevoFLOXacin IV 750 MG in IV 1 EA IV ONE (05:03)
[2023-10-16 06:30] VITALS: BP 141/72; O2SAT 95
== END 2023-10-16 07:01 | disposition home or self-care (01) ==
LOC: EDBD 21:47 → M ED 21:47
DX: S90.425A Blister (nonthermal), left lesser toe(s), initial encounter (principal); N39.0 Urinary tract infection, site not specified; E11.65 Type 2 diabetes mellitus with hyperglycemia; I10 Essential (primary) hypertension; E78.5 Hyperlipidemia, unspecified; G43.909 Migraine, unspecified, not intractable, without status migrainosus; H81.4 Vertigo of central origin; Z79.84 Long term (current) use of oral hypoglycemic drugs; Z79.4 Long term (current) use of insulin; Z88.8 Allergy status to other drugs, medicaments and biological substances; Z76.0 Encounter for issue of repeat prescription; Z79.82 Long term (current) use of aspirin; Z79.02 Long term (current) use of antithrombotics/antiplatelets; Z79.811 Long term (current) use of aromatase inhibitors; Z79.899 Other long term (current) drug therapy; Y92.9 Unspecified place or not applicable; Y93.9 Activity, unspecified; Y99.9 Unspecified external cause status
CPT/HCPCS: 73701; 80047; 80048; 81001; 83036; 85025; 86140; 87088; 87186; 96365; 96366; 96372; 99284; J1815; J1956; Q9967

== ENCOUNTER 2023-11-03 23:04 | Emergency (ER) | payer OTHER ==
[~2023-11-03] VITALS: Ht 157.5 cm; Wt 64.1 kg
[~2023-11-03 23:04] MED LIST changes: +LEVO1TAB40 PO
[2023-11-03 23:22] VITALS: TEMP 97.8
[2023-11-03 23:47] LABS: VENOUS BASE EXCESS 4.7 (-2.0-2.0); VENOUS HCO3 29.7 MMOL/L (23.0-27.0); VENOUS O2 SATURATION 89.6 % (60.0-80.0); VENOUS PARTIAL PRESSURE CO2 45.2 mmHg (38.0-50.0); VENOUS PARTIAL PRESSURE O2 52.2 mmHg (30.0-50.0); VENOUS PH 7.435 UNITS (7.330-7.430); VENOUS STANDARD HCO3 28.5 MMOL/L; VENOUS TOTAL CO2 31.1 MMOL/L (24.0-28.0)
[2023-11-04 00:01] LABS: INR 1.08; PARTIAL THROMBOPLASTIN TIME 30.1 SECONDS (24.8-34.2); PROTHROMBIN TIME 13.7 SECONDS (12.5-14.5)
[2023-11-04 00:19] LABS: AMYLASE 71 U/L (30-118)
[2023-11-04 00:20] LABS: ALBUMIN 2.8 G/DL (3.2-5.2); ALKALINE PHOSPHATASE 116 U/L (46-116); ALT/SGPT 11 U/L (7.0-40); AST/SGOT 21 U/L (<34); BILIRUBIN,DIRECT 0.2 MG/DL (<0.4); BILIRUBIN,TOTAL 0.6 MG/DL (0.3-1.2); BLOOD UREA NITROGEN 13 MG/DL (9-23); CALCIUM LEVEL 8.9 MG/DL (8.3-10.6); CARBON DIOXIDE LEVEL 30 MMOL/L (20-31); CHLORIDE LEVEL 103 MMOL/L (98-107); CREATININE FOR GFR 0.73 MG/DL (0.55-1.30); GLOMERULAR FILTRATION RATE > 60.0 (>45); GLUCOSE, FASTING 292 MG/DL (74-106); POTASSIUM SERUM 3.6 MMOL/L (3.5-5.1); SODIUM LEVEL 138 MMOL/L (136-145); TOTAL PROTEIN 7.4 G/DL (5.7-8.2)
[2023-11-04 00:27] LABS: PROCALCITONIN <0.04 ng/ml
[2023-11-04 00:29] LABS: RSV AMPLIFICATION NEGATIVE (NEGATIVE)
[2023-11-04 00:45] VITALS: BP 165/96; O2SAT 97
[2023-11-04 00:45] LABS: BASO # 0.1 10^3/uL (0.0-0.2); BASO % 0.7 % (0.0-1.0); EOS # 0.2 10^3/uL (0.0-0.5); EOS % 2.1 % (0.0-3.0); HEMATOCRIT 37.5 % (36.0-47.0); HEMOGLOBIN 12.8 g/dl (12.0-15.5); LYMPH # 1.7 10^3/uL (1.5-5.0); MEAN CORPUSCULAR HGB CONC 34.1 g/dl (32.0-36.5); MONO # 0.5 10^3/uL (0.0-0.8); MONO % 4.7 % (2.0-8.0); NEUTROPHILS # 7.8 10^3/uL (1.5-8.5); NEUTROPHILS % 75.2 % (36.0-66.0); PLATELET COUNT, AUTOMATED 210 10^3/uL (150-450); RED BLOOD COUNT 4.41 10^6/uL (4.00-5.40); WHITE BLOOD COUNT 10.4 10^3/uL (4.0-10.0)
[2023-11-04 00:59] LABS: APPEARANCE, URINE HAZY (CLEAR); BACTERIA, URINE AUTO NEGATIVE (NEGATIVE); BILIRUBIN, URINE AUTO NEGATIVE (NEGATIVE); BLOOD, URINE BLOOD 1+ (NEGATIVE); COLOR, URINE YELLOW (YELLOW); GLUCOSE, URINE (UA) AUTO 2+ mg/dL (NEGATIVE); KETONE, URINE AUTO NEGATIVE (NEGATIVE); LEUKOCYTE ESTERASE, URINE AUTO TRACE (NEGATIVE); NITRITE, URINE AUTO NEGATIVE (NEGATIVE); PROTEIN, URINE AUTO 3+ mg/dL (NEGATIVE); RBC, URINE AUTO 5 /HPF (0-3); SPECIFIC GRAVITY URINE AUTO 1.012 (1.002-1.035); SQUAMOUS EPITHELIAL CELL UR AU 6 /HPF (0-6); UROBILINOGEN, URINE AUTO 0.2 mg/dL (0.0-2.0); WBC, URINE AUTO 5 /HPF (0-3)
[2023-11-04] MEDS: ONDANSETRON 4MG 2ML VIAL IV ONE (01:07)
[2023-11-04] MEDS: NS 1,000 ML IV ONE (01:09)
[2023-11-04 01:25] VITALS: BP 187/91
[2023-11-04] MEDS: METOPROLOL TART 25 MG TABLET PO ONE (01:25)
[2023-11-04] MEDS ORDERED: ONDA4TAB6 PO (01:54)
[2023-11-04] MEDS: LEVEMIR (INSULIN DETEMIR) 1 UNITS/0.01ML SC ONE (02:08)
[2023-11-07] MEDS ORDERED: NITR1CAP11 PO (07:29)
== END 2023-11-04 02:27 | disposition home or self-care (01) ==
LOC: M ED 23:04 → EEVIPCON 23:04 → EDBD 23:04 → M ED 11-04 02:27
DX: A09 Infectious gastroenteritis and colitis, unspecified (principal); G60.9 Hereditary and idiopathic neuropathy, unspecified; I45.81 Long QT syndrome; I25.2 Old myocardial infarction; G43.909 Migraine, unspecified, not intractable, without status migrainosus; N18.9 Chronic kidney disease, unspecified; Z86.79 Personal history of other diseases of the circulatory system; Z91.048 Other nonmedicinal substance allergy status; Z88.8 Allergy status to other drugs, medicaments and biological substances; Z79.01 Long term (current) use of anticoagulants; Z79.82 Long term (current) use of aspirin; Z79.02 Long term (current) use of antithrombotics/antiplatelets; Z79.811 Long term (current) use of aromatase inhibitors; Z79.899 Other long term (current) drug therapy; M19.071 Primary osteoarthritis, right ankle and foot; M19.072 Primary osteoarthritis, left ankle and foot
CPT/HCPCS: 71045; 73630; 80048; 80076; 81001; 82150; 82803; 83605; 84145; 85025; 85610; 85730; 86140; 87040; 87088; 87186; 87631; 93005; 93041; 94760; 96374; 99284; J1815; J2405

== ENCOUNTER 2023-12-02 18:30 | Emergency (ER) | payer OTHER ==
[~2023-12-02] VITALS: Ht 157.5 cm; Wt 64.1 kg
[~2023-12-02 18:30] MED LIST changes: +NITR1CAP11 PO
[2023-12-02 21:42] LABS: BASO # 0.1 10^3/uL (0.0-0.2); BASO % 0.8 % (0.0-1.0); EOS # 0.1 10^3/uL (0.0-0.5); EOS % 1.6 % (0.0-3.0); HEMATOCRIT 36.7 % (36.0-47.0); HEMOGLOBIN 12.1 g/dl (12.0-15.5); LYMPH # 1.7 10^3/uL (1.5-5.0); LYMPH % 19.6 % (24.0-44.0); MEAN CORPUSCULAR HEMOGLOBIN 28.3 pg (27.0-33.0); MEAN CORPUSCULAR VOLUME 85.7 fl (80.0-96.0); MONO # 0.7 10^3/uL (0.0-0.8); NEUTROPHILS # 6.1 10^3/uL (1.5-8.5); NEUTROPHILS % 69.7 % (36.0-66.0); PLATELET COUNT, AUTOMATED 184 10^3/uL (150-450); RED BLOOD COUNT 4.28 10^6/uL (4.00-5.40); WHITE BLOOD COUNT 8.8 10^3/uL (4.0-10.0)
[2023-12-02 22:05] LABS: ALBUMIN 2.3 G/DL (3.2-5.2); ALKALINE PHOSPHATASE 116 U/L (46-116); ALT/SGPT 21 U/L (7.0-40); AST/SGOT 32 U/L (<34); BILIRUBIN,TOTAL 0.3 MG/DL (0.3-1.2); BLOOD UREA NITROGEN 18 MG/DL (9-23); CALCIUM LEVEL 8.8 MG/DL (8.3-10.6); CARBON DIOXIDE LEVEL 29 MMOL/L (20-31); CHLORIDE LEVEL 103 MMOL/L (98-107); CREATININE FOR GFR 0.71 MG/DL (0.55-1.30); GLOMERULAR FILTRATION RATE > 60.0 (>45); GLUCOSE, FASTING 359 MG/DL (74-106); POTASSIUM SERUM 4.4 MMOL/L (3.5-5.1); SODIUM LEVEL 138 MMOL/L (136-145); TOTAL PROTEIN 7.3 G/DL (5.7-8.2)
[2023-12-03] MEDS: NS 1,000 ML IV SCH (00:37)
[2023-12-03] MEDS: METOCLOPRAMIDE INJ 10MG/2ML VIAL IV ONE (00:37)
[2023-12-03 00:52] LABS: PROCALCITONIN <0.04 ng/ml
[2023-12-03] MEDS ORDERED: ISOVUE-370 76% 100ML VIAL As Ordered ONE (02:04)
[2023-12-03] MEDS ORDERED: VENTAER INH (07:59)
[2023-12-03] MEDS ORDERED: LYRI150C PO (07:59)
[2023-12-03] MEDS ORDERED: CLOP75TA2 PO (07:59)
[2023-12-03] MEDS ORDERED: ADME100I2 SC (07:59)
[2023-12-03] MEDS ORDERED: BASA100I SC (08:01)
[2023-12-03] MEDS ORDERED: HOME MED LIST COMPLETE! XX SCH (08:05)
[2023-12-03] MEDS: MORPHINE 2 MG/ML 1ML VIAL IV ONE (08:55)
[2023-12-03] MEDS ORDERED: DEXTROSE 50% 50ML SYRINGE IV PRN (10:20)
[2023-12-03] MEDS ORDERED: GLUCOSE 4GM CHEW TABLET PO PRN (10:20)
[2023-12-03] MEDS ORDERED: ALBUTEROL 90 MCG/ACT 8GM HFA INHALER INH PRN (10:20)
[2023-12-03] MEDS ORDERED: GLUCAGON INJ 1MG VIAL SC PRN (10:20)
[2023-12-03] MEDS ORDERED: MORPHINE 2 MG/ML 1ML VIAL IV PRN (10:20)
[2023-12-03 10:54] VITALS: BP 206/100
[2023-12-03] MEDS: PREGABALIN 75 MG CAP(LYRICA) PO SCH (10:54)
[2023-12-03] MEDS: PANTOPRAZOLE 40MG TAB (PROTONIX) PO SCH (10:54)
[2023-12-03] MEDS: LOSARTAN 50MG TABLET PO SCH (10:54)
[2023-12-03] MEDS: INSULIN LISPRO (NovoLOG) PER UNIT SC SCH (12:00)
[2023-12-03] MEDS: LOSARTAN 50MG TABLET PO ONE (12:14)
[2023-12-03] MEDS: MORPHINE 2 MG/ML 1ML VIAL IV PRN (15:51)
[2023-12-03 15:57] VITALS: BP 181/84; TEMP 98; O2SAT 96
[2023-12-03] MEDS ORDERED: INSULIN LISPRO (NovoLOG) PER UNIT SC SCH (21:00)
[2023-12-03] MEDS ORDERED: ATORVASTATIN 20 MG TAB PO SCH (21:00)
== END 2023-12-03 16:01 | disposition short-term general hospital (02) ==
LOC: EDBD 18:30 → M ED 18:30
DX: R26.2 Difficulty in walking, not elsewhere classified (principal); M87.077 Idiopathic aseptic necrosis of right toe(s); M87.078 Idiopathic aseptic necrosis of left toe(s); E11.9 Type 2 diabetes mellitus without complications; E78.5 Hyperlipidemia, unspecified; K21.9 Gastro-esophageal reflux disease without esophagitis; J44.9 Chronic obstructive pulmonary disease, unspecified; I10 Essential (primary) hypertension; I70.201 Unspecified atherosclerosis of native arteries of extremities, right leg; K55.1 Chronic vascular disorders of intestine; Z86.79 Personal history of other diseases of the circulatory system; F17.200 Nicotine dependence, unspecified, uncomplicated; Z79.52 Long term (current) use of systemic steroids; Z79.02 Long term (current) use of antithrombotics/antiplatelets; Z79.811 Long term (current) use of aromatase inhibitors; Z79.4 Long term (current) use of insulin; Z79.899 Other long term (current) drug therapy; Z91.048 Other nonmedicinal substance allergy status; Z88.8 Allergy status to other drugs, medicaments and biological substances
CPT/HCPCS: 73630; 73706; 80053; 83605; 84145; 85025; 86140; 96374; 96375; 99285; J2765; Q9967

== ENCOUNTER 2023-12-23 14:47 | Inpatient (IN) | payer OTHER ==
[~2023-12-23] VITALS: Ht 157.5 cm; Wt 72.6 kg
[~2023-12-23 14:47] MED LIST changes: +ADME100I2 SC; +BASA100I SC; +LYRI150C PO; +VENTAER INH
[2023-12-23] MEDS: MORPHINE 4 MG/ML 1ML VIAL IV ONE (15:58)
[2023-12-23 16:00] LABS: BASO # 0.1 10^3/uL (0.0-0.2); BASO % 0.5 % (0.0-1.0); EOS # 0.1 10^3/uL (0.0-0.5); EOS % 1.3 % (0.0-3.0); HEMATOCRIT 28.8 % (36.0-47.0); HEMOGLOBIN 9.9 g/dl (12.0-15.5); LYMPH # 1.2 10^3/uL (1.5-5.0); LYMPH % 12.3 % (24.0-44.0); MEAN CORPUSCULAR HEMOGLOBIN 28.9 pg (27.0-33.0); MEAN CORPUSCULAR HGB CONC 34.4 g/dl (32.0-36.5); MEAN CORPUSCULAR VOLUME 84.2 fl (80.0-96.0); MONO % 10.1 % (2.0-8.0); NEUTROPHILS # 7.3 10^3/uL (1.5-8.5); NEUTROPHILS % 75.4 % (36.0-66.0); PLATELET COUNT, AUTOMATED 159 10^3/uL (150-450); RED BLOOD COUNT 3.42 10^6/uL (4.00-5.40); WHITE BLOOD COUNT 9.7 10^3/uL (4.0-10.0)
[2023-12-23 16:05] LABS: ERYTHROCYTE SEDIMENTATION RATE 103 mm/hr (0-30)
[2023-12-23 16:24] LABS: ALBUMIN 2.3 G/DL (3.2-5.2); ALKALINE PHOSPHATASE 110 U/L (46-116); ALT/SGPT 21 U/L (7.0-40); AST/SGOT 33 U/L (<34); BILIRUBIN,DIRECT < 0.1 MG/DL (<0.4); BILIRUBIN,TOTAL 0.2 MG/DL (0.3-1.2); BLOOD UREA NITROGEN 45 MG/DL (9-23); CARBON DIOXIDE LEVEL 32 MMOL/L (20-31); CHLORIDE LEVEL 94 MMOL/L (98-107); CREATININE FOR GFR 1.44 MG/DL (0.55-1.30); GLUCOSE, FASTING 344 MG/DL (74-106); POTASSIUM SERUM 3.3 MMOL/L (3.5-5.1); SODIUM LEVEL 132 MMOL/L (136-145); TOTAL PROTEIN 6.8 G/DL (5.7-8.2)
[2023-12-23 16:35] LABS: PROCALCITONIN 0.17 ng/ml
[2023-12-23] MEDS: NS 500 ML IV ONE (17:45)
[2023-12-23] MEDS: POTASSIUM CHLORIDE 10MEQ SR TABLET PO ONE (17:45)
[2023-12-23] MEDS: CEFTAROLINE FOSAMIL 400 MG in D5W MINI-BAG PLUS 50 ML IV ONE (18:20)
[2023-12-23] MEDS ORDERED: INSU100I24 SC (19:14)
[2023-12-23] MEDS ORDERED: ELIQ2.5T PO (19:14)
[2023-12-23] MEDS ORDERED: NICO21DI38 TD (19:14)
[2023-12-23] MEDS ORDERED: AMLO1TAB24 PO (19:14)
[2023-12-23] MEDS ORDERED: ONDA-83 PO (19:14)
[2023-12-23] MEDS ORDERED: FAMO20TA5 PO (19:14)
[2023-12-23] MEDS ORDERED: INSU100V12 SC (19:19)
[2023-12-23] MEDS ORDERED: HOME MED LIST COMPLETE! XX SCH (19:20)
[2023-12-23] MEDS: NS 1,000 ML IV SCH ×2 (19:36→20:42)
[2023-12-23 19:39] LABS: INR 1.17; PARTIAL THROMBOPLASTIN TIME 43.4 SECONDS (24.8-34.2); PROTHROMBIN TIME 14.5 SECONDS (12.5-14.5)
[2023-12-23] MEDS ORDERED: ACETAMINOPHEN TAB 650MG DOSE (2X325MG) PO PRN (19:55)
[2023-12-23] MEDS ORDERED: GLUCOSE 4 GM CHEW PO PRN (20:00)
[2023-12-23] MEDS ORDERED: GLUCAGON INJ 1MG VIAL SC PRN (20:00)
[2023-12-23] MEDS ORDERED: DEXTROSE 50% 50ML SYRINGE IV PRN (20:00)
[2023-12-23] MEDS: LEVEMIR (INSULIN DETEMIR) 1 UNITS/0.01ML SC SCH (20:43)
[2023-12-23] MEDS: INSULIN LISPRO (NovoLOG) PER UNIT SC SCH (20:43)
[2023-12-23] MEDS: ATORVASTATIN 20 MG TAB PO SCH (20:43)
[2023-12-23] MEDS: PREGABALIN 75 MG CAP(LYRICA) PO SCH (20:43)
[2023-12-23] MEDS: ALBUTEROL 90 MCG/ACT 8GM HFA INHALER INH SCH (20:48)
[2023-12-23 22:35] VITALS: BP 146/76; TEMP 98.6
[2023-12-23] MEDS: PIPERACILLIN/TAZOBACTAM SOD 3.375 GM in D5W MINI-BAG PLUS 50 ML IV SCH (22:48)
[2023-12-23] MEDS: ONDANSETRON 4MG TAB PO SCH (22:48)
[2023-12-23] MEDS: HYDROMORPHONE HCL 0.5 MG/ 0.5 ML SYRINGE IV PRN (23:15)
[2023-12-23] MEDS: NICOTINE 21MG/24HR 1 EA TRANSDERMAL TD PRN (23:51)
[2023-12-24] MEDS ORDERED: CLINDAMYCIN 600 MG in IV 1 EA IV SCH
[2023-12-24] MEDS: VANCOMYCIN HCL 1,000 MG, VIAL MATE ADAPTER 1 EACH in D5W 250 ML IV ONE (00:03)
[2023-12-24 06:15] LABS: HEMATOCRIT 28.2 % (36.0-47.0); HEMOGLOBIN 9.5 g/dl (12.0-15.5); MEAN CORPUSCULAR HEMOGLOBIN 28.7 pg (27.0-33.0); MEAN CORPUSCULAR HGB CONC 33.7 g/dl (32.0-36.5); MEAN CORPUSCULAR VOLUME 85.2 fl (80.0-96.0); PLATELET COUNT, AUTOMATED 165 10^3/uL (150-450); RED BLOOD COUNT 3.31 10^6/uL (4.00-5.40); WHITE BLOOD COUNT 10.2 10^3/uL (4.0-10.0)
[2023-12-24 06:38] LABS: CALCIUM LEVEL 7.7 MG/DL (8.3-10.6); CREATININE FOR GFR 1.27 MG/DL (0.55-1.30); GLOMERULAR FILTRATION RATE 45.1 (>45); POTASSIUM SERUM 3.8 MMOL/L (3.5-5.1)
[2023-12-24 06:45] VITALS: BP 118/75; TEMP 97.9
[2023-12-24] MEDS: FAMOTIDINE 20 MG TAB PO SCH (09:13)
[2023-12-24] MEDS: DULoxetine 30MG CAPSULE (CYMBALTA) PO SCH (09:13)
[2023-12-24] MEDS: VANCOMYCIN HCL 1,000 MG, VIAL MATE ADAPTER 1 EACH in D5W 250 ML IV SCH (09:16)
[2023-12-24] MEDS: PANTOPRAZOLE 40MG TAB (PROTONIX) PO SCH (09:37)
[2023-12-24] MEDS: PERCOCET 5MG/325MG TAB PO PRN (10:20)
[2023-12-24 10:22] LABS: HEMOGLOBIN A1c 9.9 % (4.0-6.0)
[2023-12-24] MEDS: oxyCODONE 5MG TAB PO SCH (12:33)
[2023-12-24 14:15] VITALS: BP 130/64
[2023-12-24 14:28] VITALS: BP 110/64; TEMP 97.2; O2SAT 93
[2023-12-24] MEDS: INSULIN LISPRO (NovoLOG) PER UNIT SC SCH ×2 (17:36→20:16)
[2023-12-24] MEDS: APIXABAN 2.5 MG TAB (ELIQUIS) PO SCH (19:37)
[2023-12-24] MEDS: LEVEMIR (INSULIN DETEMIR) 1 UNITS/0.01ML SC SCH (20:13)
[2023-12-24 20:44] VITALS: BP 147/58; TEMP 97.7; O2SAT 90
[2023-12-25 06:27] VITALS: BP 151/87; TEMP 97.5; O2SAT 90
[2023-12-25 07:25] LABS: BASO % 0.4 % (0.0-1.0); EOS # 0.1 10^3/uL (0.0-0.5); EOS % 1.3 % (0.0-3.0); HEMOGLOBIN 9.3 g/dl (12.0-15.5); LYMPH # 1.7 10^3/uL (1.5-5.0); LYMPH % 18.9 % (24.0-44.0); MEAN CORPUSCULAR HEMOGLOBIN 28.4 pg (27.0-33.0); MEAN CORPUSCULAR HGB CONC 32.1 g/dl (32.0-36.5); MEAN CORPUSCULAR VOLUME 88.4 fl (80.0-96.0); MONO % 10.8 % (2.0-8.0); NEUTROPHILS # 6.3 10^3/uL (1.5-8.5); NEUTROPHILS % 68.3 % (36.0-66.0); PLATELET COUNT, AUTOMATED 157 10^3/uL (150-450); RED BLOOD COUNT 3.28 10^6/uL (4.00-5.40); WHITE BLOOD COUNT 9.2 10^3/uL (4.0-10.0)
[2023-12-25 07:39] LABS: VANCOMYCIN RANDOM 9.1 UG/ML
[2023-12-25 07:50] LABS: CALCIUM LEVEL 8.1 MG/DL (8.3-10.6); CREATININE FOR GFR 1.09 MG/DL (0.55-1.30); GLOMERULAR FILTRATION RATE 53.8 (>45); POTASSIUM SERUM 3.8 MMOL/L (3.5-5.1)
[2023-12-25] MEDS: amLODIPine 5 MG TAB PO SCH (08:10)
[2023-12-25] MEDS: VANCOMYCIN HCL 500 MG in D5W MINI-BAG PLUS 100 ML IV SCH (09:49)
[2023-12-25 15:25] VITALS: BP 125/87; TEMP 97.9; O2SAT 94
[2023-12-25] MEDS: METOPROLOL TART 25 MG TABLET PO ONE (16:05)
[2023-12-25] MEDS: CLOPIDOGREL 75 MG TAB PO SCH (18:29)
[2023-12-25 20:11] VITALS: BP 123/67; TEMP 97.1; O2SAT 91
[2023-12-25] MEDS: APIXABAN 5 MG TAB (ELIQUIS) PO SCH (20:41)
[2023-12-25] MEDS: METOPROLOL TART 25 MG TABLET PO SCH (20:42)
[2023-12-26] VITALS (7 sets, daily range): BP systolic 114–135; BP diastolic 60–71; TEMP 97.1–97.9; O2SAT 92–96
[2023-12-26] MEDS ORDERED: METOPROLOL TART 25 MG TABLET PO SCH
[2023-12-26] MEDS: HYDROMORPHONE HCL 0.5 MG/ 0.5 ML SYRINGE IV PRN (04:41)
[2023-12-26 05:27] LABS: BASO % 0.4 % (0.0-1.0); EOS # 0.1 10^3/uL (0.0-0.5); EOS % 1.7 % (0.0-3.0); HEMATOCRIT 25.8 % (36.0-47.0); HEMOGLOBIN 8.5 g/dl (12.0-15.5); LYMPH # 1.4 10^3/uL (1.5-5.0); MEAN CORPUSCULAR HEMOGLOBIN 28.6 pg (27.0-33.0); MEAN CORPUSCULAR HGB CONC 32.9 g/dl (32.0-36.5); MEAN CORPUSCULAR VOLUME 86.9 fl (80.0-96.0); MONO # 0.9 10^3/uL (0.0-0.8); MONO % 10.8 % (2.0-8.0); NEUTROPHILS # 5.8 10^3/uL (1.5-8.5); NEUTROPHILS % 69.5 % (36.0-66.0); PLATELET COUNT, AUTOMATED 144 10^3/uL (150-450); RED BLOOD COUNT 2.97 10^6/uL (4.00-5.40); WHITE BLOOD COUNT 8.3 10^3/uL (4.0-10.0)
[2023-12-26 05:47] LABS: CALCIUM LEVEL 7.8 MG/DL (8.3-10.6); CREATININE FOR GFR 1.27 MG/DL (0.55-1.30); GLOMERULAR FILTRATION RATE 45.1 (>45); POTASSIUM SERUM 4.2 MMOL/L (3.5-5.1)
[2023-12-26] MEDS: LEVEMIR (INSULIN DETEMIR) 1 UNITS/0.01ML SC SCH (08:11)
[2023-12-26] MEDS: INSULIN LISPRO (NovoLOG) PER UNIT SC SCH ×2 (08:12)
[2023-12-26 10:21] LABS: PROCALCITONIN 0.14 ng/ml
[2023-12-27 03:51] VITALS: BP 152/74; TEMP 98.4; O2SAT 92
[2023-12-27 05:57] LABS: BASO % 0.5 % (0.0-1.0); EOS # 0.2 10^3/uL (0.0-0.5); EOS % 1.9 % (0.0-3.0); HEMATOCRIT 24.4 % (36.0-47.0); HEMOGLOBIN 8.1 g/dl (12.0-15.5); LYMPH # 1.4 10^3/uL (1.5-5.0); LYMPH % 17.7 % (24.0-44.0); MEAN CORPUSCULAR HEMOGLOBIN 28.8 pg (27.0-33.0); MEAN CORPUSCULAR HGB CONC 33.2 g/dl (32.0-36.5); MEAN CORPUSCULAR VOLUME 86.8 fl (80.0-96.0); MONO # 0.8 10^3/uL (0.0-0.8); MONO % 9.6 % (2.0-8.0); NEUTROPHILS # 5.6 10^3/uL (1.5-8.5); NEUTROPHILS % 69.7 % (36.0-66.0); PLATELET COUNT, AUTOMATED 154 10^3/uL (150-450); RED BLOOD COUNT 2.81 10^6/uL (4.00-5.40)
[2023-12-27 06:23] LABS: CREATININE FOR GFR 1.34 MG/DL (0.55-1.30); GLOMERULAR FILTRATION RATE 42.4 (>45); POTASSIUM SERUM 3.9 MMOL/L (3.5-5.1)
[2023-12-27 07:18] VITALS: BP 136/74; TEMP 97.9; O2SAT 95
[2023-12-27 11:51] VITALS: BP 128/63; TEMP 97.5; O2SAT 95
[2023-12-27 18:49] VITALS: BP 130/68; TEMP 97.5; O2SAT 94
[2023-12-28 07:07] LABS: BASO # 0.1 10^3/uL (0.0-0.2); BASO % 0.6 % (0.0-1.0); EOS # 0.2 10^3/uL (0.0-0.5); EOS % 2.3 % (0.0-3.0); HEMATOCRIT 24.7 % (36.0-47.0); LYMPH # 1.9 10^3/uL (1.5-5.0); LYMPH % 22.5 % (24.0-44.0); MEAN CORPUSCULAR HEMOGLOBIN 28.2 pg (27.0-33.0); MEAN CORPUSCULAR HGB CONC 32.4 g/dl (32.0-36.5); MONO # 0.8 10^3/uL (0.0-0.8); MONO % 9.6 % (2.0-8.0); NEUTROPHILS # 5.4 10^3/uL (1.5-8.5); NEUTROPHILS % 63.8 % (36.0-66.0); PLATELET COUNT, AUTOMATED 181 10^3/uL (150-450); RED BLOOD COUNT 2.84 10^6/uL (4.00-5.40); WHITE BLOOD COUNT 8.4 10^3/uL (4.0-10.0)
[2023-12-28 07:37] LABS: CALCIUM LEVEL 7.8 MG/DL (8.3-10.6); CREATININE FOR GFR 1.32 MG/DL (0.55-1.30); GLOMERULAR FILTRATION RATE 43.1 (>45); POTASSIUM SERUM 4.1 MMOL/L (3.5-5.1)
[2023-12-28 07:56] VITALS: BP 157/77; TEMP 97.4; O2SAT 96
[2023-12-28 09:25] VITALS: BP 157/77
[2023-12-28 12:00] VITALS: BP 153/77; TEMP 97.6; O2SAT 94
[2023-12-28] MEDS ORDERED: CEFA500C2 PO (12:39)
[2023-12-28] MEDS ORDERED: ELIQ5TAB PO (12:39)
[2023-12-28] MEDS ORDERED: PERCOCET PO (12:39)
[2023-12-28] MEDS ORDERED: PROBCAP14 PO (12:41)
== END 2023-12-28 15:07 | disposition home health service (06) | DRG 383 ==
LOC: M ED 14:47 → EDBD 14:47 → M ED INP 19:51 → ENRESERV 21:06 → M MS5PR 22:31 → M PCU 12-25 16:14
PROVIDERS: ADMIT Preventive Medicine Undersea and Hyperbaric Medicine; ATTEND Internal Medicine Nephrology
PROC: 0JBQ0ZZ Excision of Right Foot Subcutaneous Tissue and Fascia, Open Approach (ICD-10-PCS; principal; 2023-12-24)
DX: L03.115 Cellulitis of right lower limb (principal); N17.9 Acute kidney failure, unspecified; E11.52 Type 2 diabetes mellitus with diabetic peripheral angiopathy with gangrene; I50.32 Chronic diastolic (congestive) heart failure; I48.0 Paroxysmal atrial fibrillation; I70.221 Atherosclerosis of native arteries of extremities with rest pain, right leg; Z86.73 Personal history of transient ischemic attack (TIA), and cerebral infarction without residual deficits; J45.909 Unspecified asthma, uncomplicated; I25.10 Atherosclerotic heart disease of native coronary artery without angina pectoris; E78.5 Hyperlipidemia, unspecified; J44.9 Chronic obstructive pulmonary disease, unspecified; K21.9 Gastro-esophageal reflux disease without esophagitis; F17.200 Nicotine dependence, unspecified, uncomplicated; Z88.8 Allergy status to other drugs, medicaments and biological substances; Z79.899 Other long term (current) drug therapy; Z79.4 Long term (current) use of insulin; Z86.718 Personal history of other venous thrombosis and embolism

== ENCOUNTER → 2024-01-12 | Outpatient (REF) | payer OTHER ==
[~2024-01-12] MED LIST changes: +AMLO1TAB24 PO; +CEFA500C2 PO; +ELIQ2.5T PO; +ELIQ5TAB PO; +FAMO20TA5 PO; +INSU100I24 SC; +INSU100V12 SC; +NICO21DI38 TD; +PERCOCET PO; +PROBCAP14 PO
[2024-01-12 18:35] LABS: ALBUMIN 2.3 G/DL (3.2-5.2); ALKALINE PHOSPHATASE 149 U/L (46-116); ALT/SGPT 18 U/L (7.0-40); AST/SGOT 27 U/L (<34); BILIRUBIN,TOTAL 0.7 MG/DL (0.3-1.2); BLOOD UREA NITROGEN 14 MG/DL (9-23); CALCIUM LEVEL 8.6 MG/DL (8.3-10.6); CARBON DIOXIDE LEVEL 30 MMOL/L (20-31); CHLORIDE LEVEL 100 MMOL/L (98-107); CHOLESTEROL LEVEL 149 MG/DL (<200); CHOLESTEROL RISK RATIO 3.77 (<5); CREATININE FOR GFR 1.21 MG/DL (0.55-1.30); GLOMERULAR FILTRATION RATE 47.7 (>45); GLUCOSE, FASTING 97 MG/DL (74-106); HDL CHOLESTEROL 39.5 MG/DL (>40); LDL CHOLESTEROL 86.5 MG/DL (<100); NON-HDL-C 109.5 MG/DL; POTASSIUM SERUM 3.6 MMOL/L (3.5-5.1); SODIUM LEVEL 136 MMOL/L (136-145); TOTAL PROTEIN 7.3 G/DL (5.7-8.2); TRIGLYCERIDES LEVEL 115 MG/DL (<150)
[2024-01-12 18:37] LABS: THYROID STIMULATING HORMONE 4.182 uIU/ML (0.55-4.78); TOTAL 25(OH) VITAMIN D 7.2 NG/ML (20.0-100.0)
[2024-01-12 18:39] LABS: HEMOGLOBIN A1c 9.7 % (4.0-6.0)
[2024-01-12 19:07] LABS: HIV 1&2 SCREEN NEGATIVE (NEGATIVE)
[2024-01-12 19:15] LABS: HEPATITIS C VIRUS ABY INDEX 0.07 INDEX (<0.8)
== END ==
LOC: M LAB REF 16:25
PROVIDERS: ATTEND Physician Assistant
DX: R19.7 Diarrhea, unspecified (principal); Z79.4 Long term (current) use of insulin; E55.9 Vitamin D deficiency, unspecified; Z11.9 Encounter for screening for infectious and parasitic diseases, unspecified

== ENCOUNTER 2024-01-21 04:26 | Emergency (ER) | payer OTHER ==
[~2024-01-21] VITALS: Ht 157.5 cm; Wt 73.2 kg
[2024-01-21 06:38] LABS: BASO % 0.5 % (0.0-1.0); EOS % 0.3 % (0.0-3.0); HEMATOCRIT 31.2 % (36.0-47.0); HEMOGLOBIN 10.2 g/dl (12.0-15.5); LYMPH % 12.9 % (24.0-44.0); MEAN CORPUSCULAR HEMOGLOBIN 28.2 pg (27.0-33.0); MEAN CORPUSCULAR HGB CONC 32.7 g/dl (32.0-36.5); MEAN CORPUSCULAR VOLUME 86.2 fl (80.0-96.0); MONO # 0.4 10^3/uL (0.0-0.8); MONO % 5.7 % (2.0-8.0); NEUTROPHILS # 6.2 10^3/uL (1.5-8.5); PLATELET COUNT, AUTOMATED 245 10^3/uL (150-450); RED BLOOD COUNT 3.62 10^6/uL (4.00-5.40); WHITE BLOOD COUNT 7.8 10^3/uL (4.0-10.0)
[2024-01-21] MEDS: ONDANSETRON 4MG 2ML VIAL IV ONE (07:01)
[2024-01-21] MEDS: MORPHINE 4 MG/ML 1ML VIAL IV ONE (07:02)
[2024-01-21 07:04] LABS: ERYTHROCYTE SEDIMENTATION RATE 128 mm/hr (0-30)
[2024-01-21 07:26] LABS: PROCALCITONIN 0.05 ng/ml
[2024-01-21 07:28] LABS: BLOOD UREA NITROGEN 13 MG/DL (9-23); CALCIUM LEVEL 8.4 MG/DL (8.3-10.6); CARBON DIOXIDE LEVEL 29 MMOL/L (20-31); CHLORIDE LEVEL 97 MMOL/L (98-107); CREATININE FOR GFR 0.94 MG/DL (0.55-1.30); GLOMERULAR FILTRATION RATE > 60.0 (>45); GLUCOSE, FASTING 430 MG/DL (74-106); POTASSIUM SERUM 3.5 MMOL/L (3.5-5.1); SODIUM LEVEL 134 MMOL/L (136-145)
[2024-01-21] MEDS ORDERED: OXYC-517 (07:48)
[2024-01-21] MEDS: INSULIN LISPRO (NovoLOG) PER UNIT SC STA (08:34)
[2024-01-21] MEDS: NS 1,000 ML IV ONE (08:44)
[2024-01-21 09:34] LABS: HEMOGLOBIN A1c 9.3 % (4.0-6.0)
[2024-01-21] MEDS ORDERED: CEPH500C PO (10:08)
[2024-01-21] MEDS ORDERED: GLUCMIS7 XX (10:08)
[2024-01-21 10:24] VITALS: BP 158/81; TEMP 97; O2SAT 94
== END 2024-01-21 10:33 | disposition home or self-care (01) ==
LOC: M ED 04:26
DX: M79.671 Pain in right foot (principal); M79.672 Pain in left foot; E11.65 Type 2 diabetes mellitus with hyperglycemia; M87.074 Idiopathic aseptic necrosis of right foot; M87.075 Idiopathic aseptic necrosis of left foot; M77.31 Calcaneal spur, right foot; I10 Essential (primary) hypertension; J44.9 Chronic obstructive pulmonary disease, unspecified; F17.200 Nicotine dependence, unspecified, uncomplicated; Z86.79 Personal history of other diseases of the circulatory system; Z86.718 Personal history of other venous thrombosis and embolism; Z88.8 Allergy status to other drugs, medicaments and biological substances; Z91.048 Other nonmedicinal substance allergy status; Z79.52 Long term (current) use of systemic steroids; Z79.02 Long term (current) use of antithrombotics/antiplatelets; Z79.01 Long term (current) use of anticoagulants; Z79.4 Long term (current) use of insulin; Z79.899 Other long term (current) drug therapy
CPT/HCPCS: 73620; 80048; 83036; 83605; 84145; 85025; 85652; 86140; 87040; 87070; 87077; 87186; 96361; 96374; 96375; 99284; J1815; J2405

== ENCOUNTER 2024-01-29 19:53 | Inpatient (IN) | payer OTHER ==
[~2024-01-29] VITALS: Ht 157.5 cm; Wt 63.9 kg
[~2024-01-29 19:53] MED LIST changes: +CEPH500C PO; +GLUCMIS7 XX; +NITR100C3 PO; -NITR1CAP11 PO; +ONDA-282 PO; -ONDA4TAB6 PO; +OXYC-517
[2024-01-29] MEDS: NS 1,000 ML IV ONE (20:23)
[2024-01-29] MEDS: MORPHINE 4 MG/ML 1ML VIAL IV ONE (20:24)
[2024-01-29] MEDS ORDERED: VANCOMYCIN HCL 1,000 MG in IV FLUID PLACE HOLDER 1 EA IV ONE (20:25)
[2024-01-29 20:38] LABS: BASO # 0.1 10^3/uL (0.0-0.2); BASO % 0.6 % (0.0-1.0); EOS # 0.1 10^3/uL (0.0-0.5); HEMATOCRIT 29.8 % (36.0-47.0); HEMOGLOBIN 9.8 g/dl (12.0-15.5); LYMPH # 1.2 10^3/uL (1.5-5.0); LYMPH % 12.2 % (24.0-44.0); MEAN CORPUSCULAR HEMOGLOBIN 27.1 pg (27.0-33.0); MEAN CORPUSCULAR HGB CONC 32.9 g/dl (32.0-36.5); MEAN CORPUSCULAR VOLUME 82.5 fl (80.0-96.0); MONO # 0.8 10^3/uL (0.0-0.8); NEUTROPHILS # 7.6 10^3/uL (1.5-8.5); NEUTROPHILS % 77.9 % (36.0-66.0); PLATELET COUNT, AUTOMATED 200 10^3/uL (150-450); RED BLOOD COUNT 3.61 10^6/uL (4.00-5.40); WHITE BLOOD COUNT 9.8 10^3/uL (4.0-10.0)
[2024-01-29] MEDS ORDERED: ISOVUE-370 76% 100ML VIAL As Ordered ONE (20:48)
[2024-01-29 21:02] LABS: ALBUMIN 1.7 G/DL (3.2-5.2); BILIRUBIN,TOTAL 0.6 MG/DL (0.3-1.2); CALCIUM LEVEL 8.1 MG/DL (8.3-10.6); CREATININE FOR GFR 1.14 MG/DL (0.55-1.30); GLOMERULAR FILTRATION RATE 51.1 (>45); MAGNESIUM LEVEL 1.5 MG/DL (1.8-2.4); POTASSIUM SERUM 4.3 MMOL/L (3.5-5.1); TOTAL PROTEIN 7.1 G/DL (5.7-8.2)
[2024-01-29] MEDS: MAG SULF 1GM/100ML (MAG RUN) 1 GM in IV 1 EA IV ONE (21:49)
[2024-01-29] MEDS: VANCOMYCIN HCL 1,000 MG, VIAL MATE ADAPTER 1 EACH in D5W 250 ML IV ONE (22:00)
[2024-01-29 22:48] LABS: ERYTHROCYTE SEDIMENTATION RATE 129 mm/hr (0-30)
[2024-01-29 22:56] LABS: C REACTIVE PROTEIN QUANTITATIV 14.8 MG/DL (<1.0)
[2024-01-29] MEDS ORDERED: ALBUTEROL SULFATE 2.5MG/0.5ML INH NEB SOLN NEB PRN (23:00)
[2024-01-29] MEDS ORDERED: PERCOCET 5MG/325MG TAB PO PRN ×2 (23:00)
[2024-01-29] MEDS ORDERED: GLUCAGON INJ 1MG VIAL SC PRN (23:00)
[2024-01-29] MEDS ORDERED: DEXTROSE 50% 50ML SYRINGE IV PRN (23:00)
[2024-01-29] MEDS ORDERED: GLUCOSE 4 GM CHEW PO PRN (23:00)
[2024-01-29 23:05] LABS: PROCALCITONIN 0.18 ng/ml
[2024-01-29] MEDS: PIPERACILLIN/TAZOBACTAM SOD 4.5 GM in D5W MINI-BAG PLUS 50 ML IV ONE (23:11)
[2024-01-29] MEDS: INSULIN LISPRO (NovoLOG) PER UNIT SC SCH (23:41)
[2024-01-29] MEDS: LEVEMIR (INSULIN DETEMIR) 1 UNITS/0.01ML SC SCH (23:42)
[2024-01-29] MEDS ORDERED: CETI-24 PO (23:50)
[2024-01-29] MEDS ORDERED: HOME MED LIST COMPLETE! XX SCH (23:50)
[2024-01-30] VITALS (7 sets, daily range): BP systolic 119–184; BP diastolic 70–89; TEMP 96.6–97.2; O2SAT 92–97
[2024-01-30] MEDS: HYDROMORPHONE HCL 0.5 MG/ 0.5 ML SYRINGE IV PRN (01:15)
[2024-01-30] MEDS ORDERED: ONDANSETRON 4MG TAB PO PRN (03:10)
[2024-01-30] MEDS ORDERED: ALBUTEROL 90 MCG/ACT 8GM HFA INHALER INH PRN (03:10)
[2024-01-30] MEDS ORDERED: NICOTINE 21MG/24HR 1 EA TRANSDERMAL TD PRN (03:10)
[2024-01-30 06:58] LABS: ALBUMIN 1.4 G/DL (3.2-5.2); CALCIUM LEVEL 7.9 MG/DL (8.3-10.6); CREATININE FOR GFR 1.2 MG/DL (0.55-1.30); GLOMERULAR FILTRATION RATE 48.1 (>45); MAGNESIUM LEVEL 1.7 MG/DL (1.8-2.4); PHOSPHORUS LEVEL 3.2 MG/DL (2.4-5.1); POTASSIUM SERUM 2.7 MMOL/L (3.5-5.1)
[2024-01-30] MEDS: KCL 10MEQ/100ML SWI (KRUN) 10 MEQ in IV 1 EA IV SCH ×2 (07:30→11:38)
[2024-01-30] MEDS: POTASSIUM CHLORIDE 10MEQ SR TABLET PO STA (07:32)
[2024-01-30] MEDS: TIOTROPIUM INHALER/CAPSULE (SPIRIVA) INH SCH (07:43)
[2024-01-30] MEDS: PREGABALIN 75 MG CAP(LYRICA) PO SCH (07:54)
[2024-01-30] MEDS: FAMOTIDINE 20 MG TAB PO SCH (09:13)
[2024-01-30] MEDS: CETIRIZINE (ZyrTEC) 10 MG TAB PO SCH (09:13)
[2024-01-30] MEDS: MAG SULF 1GM/100ML (MAG RUN) 1 GM in IV 1 EA IV SCH (09:37)
[2024-01-30 10:58] LABS: CALCIUM LEVEL 7.8 MG/DL (8.3-10.6); CREATININE FOR GFR 1.18 MG/DL (0.55-1.30); GLOMERULAR FILTRATION RATE 49.1 (>45); POTASSIUM SERUM 3.4 MMOL/L (3.5-5.1)
[2024-01-30] MEDS: PIPERACILLIN/TAZOBACTAM SOD 4.5 GM in D5W MINI-BAG PLUS 50 ML IV SCH (13:03)
[2024-01-30] MEDS ORDERED: fentaNYL 100 MCG/2 ML INJECTION As Ordered ONE (13:54)
[2024-01-30] MEDS ORDERED: propofoL 200 MG/20 ML VIAL As Ordered ONE (13:54)
[2024-01-30] MEDS ORDERED: MIDAZOLAM INJ 2MG/2ML VIAL As Ordered ONE (13:54)
[2024-01-30] MEDS: LIDOCAINE 1% MDV 20ML VIAL As Ordered ONE (14:02)
[2024-01-30] MEDS: VANCOMYCIN HCL 1,000 MG, VIAL MATE ADAPTER 1 EACH in D5W 250 ML IV ONE (14:58)
[2024-01-30] MEDS: INSULIN LISPRO (NovoLOG) PER UNIT SC SCH ×2 (17:00→20:24)
[2024-01-30] MEDS: POTASSIUM CHLORIDE 10MEQ SR TABLET PO SCH (20:36)
[2024-01-30] MEDS: ATORVASTATIN 20 MG TAB PO SCH (20:36)
[2024-01-30] MEDS: PANTOPRAZOLE 40MG TAB (PROTONIX) PO SCH (20:36)
[2024-01-30] MEDS: VANCOMYCIN HCL 1,000 MG, VIAL MATE ADAPTER 1 EACH in D5W 250 ML IV SCH (23:12)
[2024-01-31 03:35] VITALS: BP 159/79; TEMP 97.3; O2SAT 94
[2024-01-31 06:28] LABS: BASO # 0.1 10^3/uL (0.0-0.2); BASO % 0.6 % (0.0-1.0); EOS # 0.1 10^3/uL (0.0-0.5); EOS % 0.5 % (0.0-3.0); HEMOGLOBIN 8.8 g/dl (12.0-15.5); LYMPH # 0.9 10^3/uL (1.5-5.0); LYMPH % 9.7 % (24.0-44.0); MEAN CORPUSCULAR HEMOGLOBIN 26.8 pg (27.0-33.0); MEAN CORPUSCULAR HGB CONC 32.6 g/dl (32.0-36.5); MEAN CORPUSCULAR VOLUME 82.3 fl (80.0-96.0); MONO # 0.5 10^3/uL (0.0-0.8); MONO % 5.7 % (2.0-8.0); NEUTROPHILS # 7.8 10^3/uL (1.5-8.5); NEUTROPHILS % 83.2 % (36.0-66.0); PLATELET COUNT, AUTOMATED 230 10^3/uL (150-450); RED BLOOD COUNT 3.28 10^6/uL (4.00-5.40); WHITE BLOOD COUNT 9.4 10^3/uL (4.0-10.0)
[2024-01-31 06:52] LABS: C REACTIVE PROTEIN QUANTITATIV 9.1 MG/DL (<1.0)
[2024-01-31 06:54] LABS: ALBUMIN 1.4 G/DL (3.2-5.2); BILIRUBIN,TOTAL 0.4 MG/DL (0.3-1.2); CALCIUM LEVEL 7.6 MG/DL (8.3-10.6); CREATININE FOR GFR 1.18 MG/DL (0.55-1.30); GLOMERULAR FILTRATION RATE 49.1 (>45); MAGNESIUM LEVEL 1.8 MG/DL (1.8-2.4); POTASSIUM SERUM 4.3 MMOL/L (3.5-5.1); TOTAL PROTEIN 6.1 G/DL (5.7-8.2)
[2024-01-31] MEDS ORDERED: POTASSIUM CHLORIDE 10MEQ SR TABLET PO SCH (07:40)
[2024-01-31 08:00] VITALS: BP 133/69; TEMP 97.6; O2SAT 93
[2024-01-31] MEDS: amLODIPine 5 MG TAB PO SCH (09:12)
[2024-01-31] MEDS: VANCOMYCIN HCL 1,000 MG, VIAL MATE ADAPTER 1 EACH in D5W 250 ML IV SCH (12:11)
[2024-01-31 12:13] VITALS: BP 106/59; TEMP 96.7; O2SAT 94
[2024-01-31] MEDS: APIXABAN 2.5 MG TAB (ELIQUIS) PO SCH (14:00)
[2024-01-31] MEDS: CLOPIDOGREL 75 MG TAB PO SCH (14:39)
[2024-01-31 20:35] VITALS: BP 135/78; TEMP 97.9; O2SAT 97
[2024-01-31] MEDS: LEVEMIR (INSULIN DETEMIR) 1 UNITS/0.01ML SC SCH (21:29)
[2024-01-31] MEDS: NS 1,000 ML IV SCH (23:43)
[2024-02-01 04:24] VITALS: BP 141/75; TEMP 97.2; O2SAT 98
[2024-02-01 06:55] LABS: BASO # 0.1 10^3/uL (0.0-0.2); BASO % 0.5 % (0.0-1.0); EOS # 0.2 10^3/uL (0.0-0.5); HEMATOCRIT 28.3 % (36.0-47.0); HEMOGLOBIN 9.2 g/dl (12.0-15.5); LYMPH # 2.5 10^3/uL (1.5-5.0); LYMPH % 24.7 % (24.0-44.0); MEAN CORPUSCULAR HEMOGLOBIN 27.5 pg (27.0-33.0); MEAN CORPUSCULAR HGB CONC 32.5 g/dl (32.0-36.5); MEAN CORPUSCULAR VOLUME 84.5 fl (80.0-96.0); MONO % 9.4 % (2.0-8.0); NEUTROPHILS # 6.5 10^3/uL (1.5-8.5); PLATELET COUNT, AUTOMATED 241 10^3/uL (150-450); RED BLOOD COUNT 3.35 10^6/uL (4.00-5.40); WHITE BLOOD COUNT 10.3 10^3/uL (4.0-10.0)
[2024-02-01 07:29] LABS: ALBUMIN 1.4 G/DL (3.2-5.2); BILIRUBIN,TOTAL 0.2 MG/DL (0.3-1.2); CALCIUM LEVEL 8.1 MG/DL (8.3-10.6); CREATININE FOR GFR 1.21 MG/DL (0.55-1.30); GLOMERULAR FILTRATION RATE 47.7 (>45); MAGNESIUM LEVEL 1.8 MG/DL (1.8-2.4); POTASSIUM SERUM 4.3 MMOL/L (3.5-5.1); TOTAL PROTEIN 6.4 G/DL (5.7-8.2)
[2024-02-01] MEDS: DULoxetine 30MG CAPSULE (CYMBALTA) PO SCH (08:11)
[2024-02-01] MEDS: POTASSIUM CHLORIDE 10MEQ SR TABLET PO SCH (08:14)
[2024-02-01 13:00] VITALS: BP 123/79; TEMP 97.9; O2SAT 98
[2024-02-01 13:02] VITALS: BP 123/79; O2SAT 94
[2024-02-01] MEDS: traMADol 50 MG TAB PO PRN (13:42)
[2024-02-01] MEDS: VANCOMYCIN HCL 1,000 MG, VIAL MATE ADAPTER 1 EACH in D5W 250 ML IV SCH (13:43)
[2024-02-01] MEDS: ONDANSETRON 4MG 2ML VIAL IV PRN (16:53)
[2024-02-01 20:14] VITALS: BP 124/73; TEMP 97.7; O2SAT 93
[2024-02-01] MEDS: CEFEPIME HCL 2 GM in D5W MINI-BAG PLUS 50 ML IV SCH (21:16)
[2024-02-02 04:28] VITALS: BP 127/79; TEMP 98.1; O2SAT 94
[2024-02-02 08:19] LABS: CALCIUM LEVEL 8.1 MG/DL (8.3-10.6); CREATININE FOR GFR 1.3 MG/DL (0.55-1.30); GLOMERULAR FILTRATION RATE 43.9 (>45); POTASSIUM SERUM 4.2 MMOL/L (3.5-5.1)
[2024-02-02] MEDS: ACETAMINOPHEN 500 MG TAB PO SCH (08:19)
[2024-02-02] MEDS: traMADol 50 MG TAB PO ONE (08:21)
[2024-02-02 12:30] VITALS: BP 114/68; TEMP 97.5; O2SAT 92
[2024-02-02] MEDS: SODIUM CHLORIDE 0.9% INJ 10 ML SYR IV SCH (16:57)
[2024-02-02 20:31] VITALS: BP 117/70; TEMP 97.5; O2SAT 93
[2024-02-02] MEDS: SODIUM CHLORIDE 0.9% INJ 10 ML SYR IV PRN (22:09)
[2024-02-03 04:30] VITALS: BP 116/60; TEMP 97.2; O2SAT 94
[2024-02-03 09:28] LABS: CALCIUM LEVEL 7.9 MG/DL (8.3-10.6); CREATININE FOR GFR 1.26 MG/DL (0.55-1.30); GLOMERULAR FILTRATION RATE 45.5 (>45); POTASSIUM SERUM 4.6 MMOL/L (3.5-5.1)
[2024-02-03 12:31] VITALS: BP 117/69; TEMP 97.3; O2SAT 95
[2024-02-03 19:52] VITALS: BP 130/80; TEMP 97.9; O2SAT 96
[2024-02-04 04:06] VITALS: BP 131/79; TEMP 97.5; O2SAT 94
[2024-02-04 09:39] LABS: BLOOD UREA NITROGEN 23 MG/DL (9-23); CALCIUM LEVEL 8.5 MG/DL (8.3-10.6); CARBON DIOXIDE LEVEL 31 MMOL/L (20-31); CHLORIDE LEVEL 103 MMOL/L (98-107); CREATININE FOR GFR 1.22 MG/DL (0.55-1.30); GLOMERULAR FILTRATION RATE > 60.0 (>45); GLUCOSE, FASTING 115 MG/DL (74-106); POTASSIUM SERUM 4.8 MMOL/L (3.5-5.1); SODIUM LEVEL 138 MMOL/L (136-145)
[2024-02-04 12:00] VITALS: BP 127/72; TEMP 97.2; O2SAT 94
[2024-02-04 17:25] LABS: BASO % 0.4 % (0.0-1.0); EOS # 0.2 10^3/uL (0.0-0.5); EOS % 2.6 % (0.0-3.0); HEMATOCRIT 26.4 % (36.0-47.0); HEMOGLOBIN 8.4 g/dl (12.0-15.5); LYMPH # 1.7 10^3/uL (1.5-5.0); LYMPH % 20.4 % (24.0-44.0); MEAN CORPUSCULAR HEMOGLOBIN 26.7 pg (27.0-33.0); MEAN CORPUSCULAR HGB CONC 31.8 g/dl (32.0-36.5); MEAN CORPUSCULAR VOLUME 83.8 fl (80.0-96.0); MONO # 0.8 10^3/uL (0.0-0.8); MONO % 9.6 % (2.0-8.0); NEUTROPHILS # 5.6 10^3/uL (1.5-8.5); NEUTROPHILS % 66.5 % (36.0-66.0); PLATELET COUNT, AUTOMATED 292 10^3/uL (150-450); RED BLOOD COUNT 3.15 10^6/uL (4.00-5.40); WHITE BLOOD COUNT 8.5 10^3/uL (4.0-10.0)
[2024-02-04 17:33] LABS: ERYTHROCYTE SEDIMENTATION RATE > 130 mm/hr (0-30)
[2024-02-04 18:33] LABS: ALBUMIN 1.3 G/DL (3.2-5.2); ALKALINE PHOSPHATASE 106 U/L (46-116); ALT/SGPT 15 U/L (7.0-40); AST/SGOT 26 U/L (<34); BILIRUBIN,TOTAL < 0.2 MG/DL (0.3-1.2); BLOOD UREA NITROGEN 24 MG/DL (9-23); CALCIUM LEVEL 8.1 MG/DL (8.3-10.6); CARBON DIOXIDE LEVEL 27 MMOL/L (20-31); CHLORIDE LEVEL 99 MMOL/L (98-107); CREATININE FOR GFR 1.22 MG/DL (0.55-1.30); GLOMERULAR FILTRATION RATE 47.2 (>45); GLUCOSE, FASTING 189 MG/DL (74-106); POTASSIUM SERUM 4.8 MMOL/L (3.5-5.1); SODIUM LEVEL 131 MMOL/L (136-145); TOTAL PROTEIN 6.5 G/DL (5.7-8.2)
[2024-02-04 19:59] VITALS: BP 125/73; TEMP 97.3; O2SAT 95
[2024-02-05 04:12] VITALS: BP 130/79; TEMP 97.5; O2SAT 95
[2024-02-05] MEDS: LEVEMIR (INSULIN DETEMIR) 1 UNITS/0.01ML SC SCH (08:46)
[2024-02-05] MEDS: PREGABALIN 75 MG CAP(LYRICA) PO SCH (08:46)
[2024-02-05 12:40] VITALS: BP 129/72; TEMP 97.7; O2SAT 96
[2024-02-05 19:37] VITALS: BP 126/75; TEMP 97.5; O2SAT 95
[2024-02-06 04:10] VITALS: BP 113/67; TEMP 97.7; O2SAT 93
[2024-02-06 08:06] LABS: BASO # 0.1 10^3/uL (0.0-0.2); BASO % 0.7 % (0.0-1.0); EOS # 0.2 10^3/uL (0.0-0.5); EOS % 2.4 % (0.0-3.0); HEMATOCRIT 27.5 % (36.0-47.0); HEMOGLOBIN 8.8 g/dl (12.0-15.5); LYMPH # 2.5 10^3/uL (1.5-5.0); LYMPH % 25.8 % (24.0-44.0); MEAN CORPUSCULAR HEMOGLOBIN 26.7 pg (27.0-33.0); MEAN CORPUSCULAR VOLUME 83.6 fl (80.0-96.0); MONO # 0.9 10^3/uL (0.0-0.8); NEUTROPHILS % 61.5 % (36.0-66.0); PLATELET COUNT, AUTOMATED 348 10^3/uL (150-450); RED BLOOD COUNT 3.29 10^6/uL (4.00-5.40); WHITE BLOOD COUNT 9.8 10^3/uL (4.0-10.0)
[2024-02-06 08:14] LABS: ERYTHROCYTE SEDIMENTATION RATE 118 mm/hr (0-30)
[2024-02-06 08:38] LABS: C REACTIVE PROTEIN QUANTITATIV 5.4 MG/DL (<1.0)
[2024-02-06 08:39] LABS: CALCIUM LEVEL 8.4 MG/DL (8.3-10.6); CREATININE FOR GFR 1.26 MG/DL (0.55-1.30); GLOMERULAR FILTRATION RATE 45.5 (>45); POTASSIUM SERUM 4.1 MMOL/L (3.5-5.1)
[2024-02-06 08:47] LABS: PROCALCITONIN 3.37 ng/ml
[2024-02-06 11:56] VITALS: BP 116/67; TEMP 97.7; O2SAT 97
[2024-02-06] MEDS: VANCOMYCIN HCL 750 MG, VIAL MATE ADAPTER 1 EACH in D5W 250 ML IV SCH (14:04)
[2024-02-06 19:40] VITALS: BP 114/62; TEMP 98.1; O2SAT 96
[2024-02-06] MEDS: PREGABALIN 50 MG CAP (LYRICA) PO SCH (20:17)
[2024-02-07 04:19] VITALS: BP 116/64; TEMP 97.7; O2SAT 95
[2024-02-07 08:14] LABS: CALCIUM LEVEL 8.6 MG/DL (8.3-10.6); CREATININE FOR GFR 1.16 MG/DL (0.55-1.30); GLOMERULAR FILTRATION RATE 50.1 (>45); POTASSIUM SERUM 4.3 MMOL/L (3.5-5.1)
[2024-02-07 12:27] VITALS: BP 138/75; TEMP 97.5; O2SAT 95
[2024-02-07 18:19] LABS: ANA SCREEN, IFA NEGATIVE (NEGATIVE)
[2024-02-07 19:10] VITALS: BP 114/59; TEMP 97.5; O2SAT 96
[2024-02-08 04:15] VITALS: BP 132/74; TEMP 98.1; O2SAT 94
[2024-02-08 06:44] LABS: BASO # 0.1 10^3/uL (0.0-0.2); BASO % 0.7 % (0.0-1.0); EOS # 0.2 10^3/uL (0.0-0.5); EOS % 2.1 % (0.0-3.0); HEMATOCRIT 27.5 % (36.0-47.0); LYMPH # 2.7 10^3/uL (1.5-5.0); LYMPH % 27.5 % (24.0-44.0); MEAN CORPUSCULAR HGB CONC 32.7 g/dl (32.0-36.5); MEAN CORPUSCULAR VOLUME 82.6 fl (80.0-96.0); MONO # 0.9 10^3/uL (0.0-0.8); NEUTROPHILS # 5.9 10^3/uL (1.5-8.5); PLATELET COUNT, AUTOMATED 320 10^3/uL (150-450); RED BLOOD COUNT 3.33 10^6/uL (4.00-5.40); WHITE BLOOD COUNT 9.9 10^3/uL (4.0-10.0)
[2024-02-08 07:21] LABS: CALCIUM LEVEL 8.4 MG/DL (8.3-10.6); CREATININE FOR GFR 1.07 MG/DL (0.55-1.30); POTASSIUM SERUM 4.3 MMOL/L (3.5-5.1)
[2024-02-08 12:00] VITALS: BP 109/57; TEMP 96.3; O2SAT 98
[2024-02-08 17:25] VITALS: TEMP 101.7
[2024-02-08 20:07] VITALS: BP 129/77; TEMP 97.5; O2SAT 99
[2024-02-09] VITALS (7 sets, daily range): BP systolic 113–140; BP diastolic 65–81; TEMP 97.5–97.9; O2SAT 95–98
[2024-02-09 06:54] LABS: BASO # 0.1 10^3/uL (0.0-0.2); BASO % 0.8 % (0.0-1.0); EOS # 0.2 10^3/uL (0.0-0.5); EOS % 2.4 % (0.0-3.0); HEMATOCRIT 27.5 % (36.0-47.0); HEMOGLOBIN 8.9 g/dl (12.0-15.5); LYMPH # 2.8 10^3/uL (1.5-5.0); LYMPH % 30.1 % (24.0-44.0); MEAN CORPUSCULAR HEMOGLOBIN 26.9 pg (27.0-33.0); MEAN CORPUSCULAR HGB CONC 32.4 g/dl (32.0-36.5); MEAN CORPUSCULAR VOLUME 83.1 fl (80.0-96.0); MONO # 0.8 10^3/uL (0.0-0.8); MONO % 8.9 % (2.0-8.0); NEUTROPHILS # 5.3 10^3/uL (1.5-8.5); NEUTROPHILS % 56.7 % (36.0-66.0); PLATELET COUNT, AUTOMATED 312 10^3/uL (150-450); RED BLOOD COUNT 3.31 10^6/uL (4.00-5.40); WHITE BLOOD COUNT 9.4 10^3/uL (4.0-10.0)
[2024-02-09 07:24] LABS: CALCIUM LEVEL 8.9 MG/DL (8.3-10.6); CREATININE FOR GFR 1.21 MG/DL (0.55-1.30); GLOMERULAR FILTRATION RATE 47.7 (>45); POTASSIUM SERUM 4.6 MMOL/L (3.5-5.1)
[2024-02-09 07:36] LABS: PROCALCITONIN 0.37 ng/ml
[2024-02-09] MEDS: LEVEMIR (INSULIN DETEMIR) 1 UNITS/0.01ML SC SCH (20:51)
[2024-02-09] MEDS: LevoFLOXacin 750 MG TABLET PO SCH (20:53)
[2024-02-09] MEDS: DOXYCYCLINE HYCLATE 100MG TABLET PO SCH (20:54)
[2024-02-10 04:06] VITALS: BP 124/68; TEMP 97.3; O2SAT 96
[2024-02-10 06:02] LABS: BASO # 0.1 10^3/uL (0.0-0.2); BASO % 0.6 % (0.0-1.0); EOS # 0.2 10^3/uL (0.0-0.5); HEMATOCRIT 33.5 % (36.0-47.0); LYMPH # 2.1 10^3/uL (1.5-5.0); LYMPH % 19.5 % (24.0-44.0); MEAN CORPUSCULAR HEMOGLOBIN 26.8 pg (27.0-33.0); MEAN CORPUSCULAR HGB CONC 32.5 g/dl (32.0-36.5); MEAN CORPUSCULAR VOLUME 82.5 fl (80.0-96.0); MONO # 0.9 10^3/uL (0.0-0.8); MONO % 7.9 % (2.0-8.0); NEUTROPHILS # 7.6 10^3/uL (1.5-8.5); NEUTROPHILS % 69.4 % (36.0-66.0); PLATELET COUNT, AUTOMATED 313 10^3/uL (150-450); RED BLOOD COUNT 4.06 10^6/uL (4.00-5.40)
[2024-02-10 06:05] LABS: CALCIUM LEVEL 8.7 MG/DL (8.3-10.6); CREATININE FOR GFR 1.01 MG/DL (0.55-1.30); GLOMERULAR FILTRATION RATE 58.7 (>45); POTASSIUM SERUM 4.3 MMOL/L (3.5-5.1)
[2024-02-10 06:11] LABS: HEMOGLOBIN 10.9 g/dl (12.0-15.5)
[2024-02-10 08:19] VITALS: BP 134/81
[2024-02-10] MEDS: PERCOCET 5MG/325MG TAB PO PRN (08:21)
[2024-02-10 13:15] VITALS: BP 116/64; TEMP 97.5; O2SAT 98
[2024-02-10 20:35] VITALS: BP 130/74; TEMP 97; O2SAT 97
[2024-02-11 04:42] VITALS: BP 150/85; TEMP 97.5; O2SAT 97
[2024-02-11 08:17] VITALS: BP 150/85
[2024-02-11] MEDS: PERCOCET 5MG/325MG TAB PO PRN (08:18)
[2024-02-11] MEDS ORDERED: PREG100CA PO (09:35)
[2024-02-11] MEDS ORDERED: DOXY100T PO (09:35)
[2024-02-11] MEDS ORDERED: PERCOCET PO (09:35)
[2024-02-11] MEDS ORDERED: INSU100V12 SC (09:35)
[2024-02-11] MEDS ORDERED: LEVO1TAB40 PO (09:35)
== END 2024-02-11 13:20 | DRG 314 ==
LOC: M ED 19:53 → EDBD 19:53 → M ED INP 21:50 → M PCU 01-30 01:02 → M MS5PR 01-31 20:27
PROVIDERS: ADMIT Internal Medicine; ATTEND Internal Medicine
PROC: 0Y6P0Z0 Detachment at Right 1st Toe, Complete, Open Approach (ICD-10-PCS; principal; 2024-01-30 14:00)
PROC: 30233N1 Transfusion of Nonautologous Red Blood Cells into Peripheral Vein, Percutaneous Approach (ICD-10-PCS; 2024-02-09)
DX: E11.52 Type 2 diabetes mellitus with diabetic peripheral angiopathy with gangrene (principal); A48.0 Gas gangrene; E46 Unspecified protein-calorie malnutrition; I11.0 Hypertensive heart disease with heart failure; E87.1 Hypo-osmolality and hyponatremia; M86.8X7 Other osteomyelitis, ankle and foot; E11.42 Type 2 diabetes mellitus with diabetic polyneuropathy; E11.621 Type 2 diabetes mellitus with foot ulcer; I50.32 Chronic diastolic (congestive) heart failure; I48.0 Paroxysmal atrial fibrillation; E11.69 Type 2 diabetes mellitus with other specified complication; E83.42 Hypomagnesemia; L97.529 Non-pressure chronic ulcer of other part of left foot with unspecified severity; R13.12 Dysphagia, oropharyngeal phase; D63.8 Anemia in other chronic diseases classified elsewhere; E78.5 Hyperlipidemia, unspecified; E87.6 Hypokalemia; I25.10 Atherosclerotic heart disease of native coronary artery without angina pectoris; J44.9 Chronic obstructive pulmonary disease, unspecified; J45.909 Unspecified asthma, uncomplicated; Z88.8 Allergy status to other drugs, medicaments and biological substances; Z79.899 Other long term (current) drug therapy; Z86.718 Personal history of other venous thrombosis and embolism; Z87.891 Personal history of nicotine dependence; G89.29 Other chronic pain; Z86.73 Personal history of transient ischemic attack (TIA), and cerebral infarction without residual deficits

== ENCOUNTER → 2024-02-16 | Outpatient (REF) | payer MEDICAID, OTHER ==
[~2024-02-16] MED LIST changes: +CETI-24 PO; +DOXY100T PO; +PREG100CA PO
== END ==
LOC: SKLAB2 12:51
PROVIDERS: ATTEND Internal Medicine
DX: Z79.2 Long term (current) use of antibiotics (principal); R91.8 Other nonspecific abnormal finding of lung field

== ENCOUNTER → 2024-02-23 | Outpatient (REF) | payer MEDICAID, OTHER ==
[2024-02-23 12:14] LABS: BASO # 0.1 10^3/uL (0.0-0.2); BASO % 0.9 % (0.0-1.0); EOS # 0.3 10^3/uL (0.0-0.5); EOS % 3.8 % (0.0-3.0); HEMATOCRIT 29.7 % (36.0-47.0); HEMOGLOBIN 9.7 g/dl (12.0-15.5); LYMPH % 25.3 % (24.0-44.0); MEAN CORPUSCULAR HEMOGLOBIN 26.6 pg (27.0-33.0); MEAN CORPUSCULAR HGB CONC 32.7 g/dl (32.0-36.5); MEAN CORPUSCULAR VOLUME 81.6 fl (80.0-96.0); MONO # 0.9 10^3/uL (0.0-0.8); MONO % 11.4 % (2.0-8.0); NEUTROPHILS # 4.6 10^3/uL (1.5-8.5); NEUTROPHILS % 58.2 % (36.0-66.0); PLATELET COUNT, AUTOMATED 150 10^3/uL (150-450); RED BLOOD COUNT 3.64 10^6/uL (4.00-5.40); WHITE BLOOD COUNT 7.9 10^3/uL (4.0-10.0)
[2024-02-23 12:27] LABS: ERYTHROCYTE SEDIMENTATION RATE > 130 mm/hr (0-30)
[2024-02-23 12:35] LABS: C REACTIVE PROTEIN QUANTITATIV 2.5 MG/DL (<1.0)
[2024-02-23 12:37] LABS: BILIRUBIN,TOTAL 0.2 MG/DL (0.3-1.2); CALCIUM LEVEL 8.6 MG/DL (8.3-10.6); GLOMERULAR FILTRATION RATE 59.4 (>45); TOTAL PROTEIN 6.4 G/DL (5.7-8.2)
== END ==
LOC: SKLAB2 11:34
PROVIDERS: ATTEND Internal Medicine
DX: E11.621 Type 2 diabetes mellitus with foot ulcer (principal); L97.509 Non-pressure chronic ulcer of other part of unspecified foot with unspecified severity

== ENCOUNTER → 2024-03-01 | Outpatient (REF) | payer MEDICAID, OTHER ==
[~2024-03-01] MED LIST changes: +APAP325T4 PO; +BACTDSTA PO; +DESI13CR2 TOP; +FERR325T3 PO; +HUMA100I3 SC; +HYDR-3713 PO; +INSU100I60 INJ; +INSU100V6 SQ; +JUVEPOW4 PO; +LOPE1CAP5 PO; +MELA5TAB58 PO; +NYST10006 TOP; +PREG150C2 PO; +RISATAB3 PO; +SFHMOMUDC PO
[2024-03-01 06:47] LABS: BASO # 0.1 10^3/uL (0.0-0.2); BASO % 0.7 % (0.0-1.0); EOS # 0.4 10^3/uL (0.0-0.5); EOS % 4.9 % (0.0-3.0); HEMATOCRIT 29.4 % (36.0-47.0); HEMOGLOBIN 9.5 g/dl (12.0-15.5); LYMPH # 2.4 10^3/uL (1.5-5.0); LYMPH % 31.5 % (24.0-44.0); MEAN CORPUSCULAR HEMOGLOBIN 27.1 pg (27.0-33.0); MEAN CORPUSCULAR HGB CONC 32.3 g/dl (32.0-36.5); MONO # 0.9 10^3/uL (0.0-0.8); MONO % 11.4 % (2.0-8.0); NEUTROPHILS # 3.9 10^3/uL (1.5-8.5); PLATELET COUNT, AUTOMATED 167 10^3/uL (150-450); WHITE BLOOD COUNT 7.6 10^3/uL (4.0-10.0)
[2024-03-01 06:52] LABS: ERYTHROCYTE SEDIMENTATION RATE 118 mm/hr (0-30)
[2024-03-01 07:12] LABS: C REACTIVE PROTEIN QUANTITATIV 2.5 MG/DL (<1.0)
[2024-03-01 07:14] LABS: BILIRUBIN,TOTAL 0.3 MG/DL (0.3-1.2); CALCIUM LEVEL 8.6 MG/DL (8.3-10.6); CREATININE FOR GFR 1.04 MG/DL (0.55-1.30); GLOMERULAR FILTRATION RATE 56.8 (>45); PERCENT SATURATION 21.1 % (13.2-45.0); POTASSIUM SERUM 4.1 MMOL/L (3.5-5.1); TOTAL PROTEIN 6.4 G/DL (5.7-8.2)
[2024-03-01 07:16] LABS: FERRITIN 302.7 NG/ML (7.3-270.7)
== END ==
LOC: SKLAB2 07:00
PROVIDERS: ATTEND Internal Medicine
DX: E11.621 Type 2 diabetes mellitus with foot ulcer (principal); L97.509 Non-pressure chronic ulcer of other part of unspecified foot with unspecified severity; D64.9 Anemia, unspecified

== ENCOUNTER → 2024-03-06 | Outpatient (REF) | payer MEDICARE, OTHER ==
[~2024-03-06] MED LIST changes: +GABA-1490 PO; -GABA600T4 PO; +METO1TAB87 PO; +NORV5TAB PO
[2024-03-06 12:33] LABS: BASO # 0.1 10^3/uL (0.0-0.2); BASO % 0.7 % (0.0-1.0); EOS # 0.3 10^3/uL (0.0-0.5); EOS % 2.9 % (0.0-3.0); HEMATOCRIT 28.6 % (36.0-47.0); HEMOGLOBIN 9.2 g/dl (12.0-15.5); LYMPH # 1.9 10^3/uL (1.5-5.0); LYMPH % 22.2 % (24.0-44.0); MEAN CORPUSCULAR HEMOGLOBIN 26.8 pg (27.0-33.0); MEAN CORPUSCULAR HGB CONC 32.2 g/dl (32.0-36.5); MEAN CORPUSCULAR VOLUME 83.4 fl (80.0-96.0); MONO # 0.8 10^3/uL (0.0-0.8); MONO % 9.3 % (2.0-8.0); NEUTROPHILS # 5.5 10^3/uL (1.5-8.5); NEUTROPHILS % 64.4 % (36.0-66.0); PLATELET COUNT, AUTOMATED 165 10^3/uL (150-450); RED BLOOD COUNT 3.43 10^6/uL (4.00-5.40); WHITE BLOOD COUNT 8.5 10^3/uL (4.0-10.0)
[2024-03-06 12:41] LABS: ERYTHROCYTE SEDIMENTATION RATE 119 mm/hr (0-30)
[2024-03-06 13:06] LABS: ALBUMIN 2.1 G/DL (3.2-5.2); ALKALINE PHOSPHATASE 95 U/L (46-116); ALT/SGPT 27 U/L (7.0-40); AST/SGOT 37 U/L (<34); BILIRUBIN,TOTAL 0.2 MG/DL (0.3-1.2); BLOOD UREA NITROGEN 46 MG/DL (9-23); CALCIUM LEVEL 8.7 MG/DL (8.3-10.6); CARBON DIOXIDE LEVEL 27 MMOL/L (20-31); CHLORIDE LEVEL 104 MMOL/L (98-107); CREATININE FOR GFR 0.94 MG/DL (0.55-1.30); GLOMERULAR FILTRATION RATE > 60.0 (>45); GLUCOSE, FASTING 271 MG/DL (74-106); POTASSIUM SERUM 4.8 MMOL/L (3.5-5.1); SODIUM LEVEL 135 MMOL/L (136-145); TOTAL PROTEIN 6.6 G/DL (5.7-8.2)
== END ==
LOC: SKLAB2 10:51
PROVIDERS: ATTEND Internal Medicine
DX: L03.115 Cellulitis of right lower limb (principal)

== ENCOUNTER → 2024-03-14 | Outpatient (REF) | payer MEDICAID, OTHER ==
[~2024-03-14] MED LIST changes: -GABA-1490 PO; +GABA600T4 PO; -METO1TAB87 PO; -NORV5TAB PO
[2024-03-14 07:17] LABS: BASO % 0.5 % (0.0-1.0); EOS # 0.4 10^3/uL (0.0-0.5); EOS % 4.2 % (0.0-3.0); HEMATOCRIT 29.7 % (36.0-47.0); HEMOGLOBIN 9.6 g/dl (12.0-15.5); LYMPH # 1.6 10^3/uL (1.5-5.0); LYMPH % 18.5 % (24.0-44.0); MEAN CORPUSCULAR HEMOGLOBIN 27.1 pg (27.0-33.0); MEAN CORPUSCULAR HGB CONC 32.3 g/dl (32.0-36.5); MEAN CORPUSCULAR VOLUME 83.9 fl (80.0-96.0); MONO # 0.9 10^3/uL (0.0-0.8); MONO % 10.2 % (2.0-8.0); NEUTROPHILS # 5.8 10^3/uL (1.5-8.5); PLATELET COUNT, AUTOMATED 145 10^3/uL (150-450); RED BLOOD COUNT 3.54 10^6/uL (4.00-5.40); WHITE BLOOD COUNT 8.8 10^3/uL (4.0-10.0)
[2024-03-14 07:35] LABS: ERYTHROCYTE SEDIMENTATION RATE 108 mm/hr (0-30)
[2024-03-14 07:44] LABS: ALBUMIN 2.4 G/DL (3.2-5.2); ALKALINE PHOSPHATASE 98 U/L (46-116); ALT/SGPT 25 U/L (7.0-40); AST/SGOT 34 U/L (<34); BILIRUBIN,TOTAL 0.3 MG/DL (0.3-1.2); BLOOD UREA NITROGEN 42 MG/DL (9-23); CALCIUM LEVEL 8.8 MG/DL (8.3-10.6); CARBON DIOXIDE LEVEL 28 MMOL/L (20-31); CHLORIDE LEVEL 103 MMOL/L (98-107); CREATININE FOR GFR 0.93 MG/DL (0.55-1.30); GLOMERULAR FILTRATION RATE > 60.0 (>45); GLUCOSE, FASTING 208 MG/DL (74-106); POTASSIUM SERUM 3.9 MMOL/L (3.5-5.1); SODIUM LEVEL 138 MMOL/L (136-145); TOTAL PROTEIN 6.8 G/DL (5.7-8.2)
== END ==
LOC: SKLAB2 07:00
PROVIDERS: ATTEND Internal Medicine
DX: L03.115 Cellulitis of right lower limb (principal)

== ENCOUNTER 2024-04-02 17:13 | Inpatient (IN) | payer MEDICAID, MEDICARE, OTHER ==
[~2024-04-02] VITALS: Ht 157.5 cm; Wt 75.5 kg
[~2024-04-02 17:13] MED LIST changes: -APAP325T4 PO; -DESI13CR2 TOP; -FERR325T3 PO; -HUMA100I3 SC; -INSU100V6 SQ; -JUVEPOW4 PO; -LOPE1CAP5 PO; -MELA5TAB58 PO; -PREG150C2 PO; -RISATAB3 PO; -SFHMOMUDC PO
[2024-04-02 17:59] LABS: BASO # 0.1 10^3/uL (0.0-0.2); BASO % 0.6 % (0.0-1.0); EOS # 0.2 10^3/uL (0.0-0.5); EOS % 0.9 % (0.0-3.0); HEMATOCRIT 31.2 % (36.0-47.0); HEMOGLOBIN 10.2 g/dl (12.0-15.5); LYMPH % 6.2 % (24.0-44.0); MEAN CORPUSCULAR HEMOGLOBIN 28.3 pg (27.0-33.0); MEAN CORPUSCULAR HGB CONC 32.7 g/dl (32.0-36.5); MEAN CORPUSCULAR VOLUME 86.7 fl (80.0-96.0); MONO # 0.9 10^3/uL (0.0-0.8); MONO % 5.2 % (2.0-8.0); NEUTROPHILS # 14.6 10^3/uL (1.5-8.5); NEUTROPHILS % 86.5 % (36.0-66.0); PLATELET COUNT, AUTOMATED 253 10^3/uL (150-450); WHITE BLOOD COUNT 16.9 10^3/uL (4.0-10.0)
[2024-04-02] MEDS: IPRATROPIUM 0.5MG/ALBUTEROL 2.5MG INH SOL UD 3ML (DUONEB) NEB PRN (17:59)
[2024-04-02] MEDS: methylPREDNISolone 125MG 2ML VIAL IV ONE (18:05)
[2024-04-02] MEDS: ACETAMINOPHEN TAB 650MG DOSE (2X325MG) PO ONE (18:05)
[2024-04-02] MEDS: CEFEPIME HCL 2 GM in D5W MINI-BAG PLUS 50 ML IV ONE (18:05)
[2024-04-02 18:11] LABS: ABG BASE EXCESS -2.2 (-2.0-2.0); ABG HCO3 21.7 MMOL/L (22.0-26.0); ABG O2 SATURATION 90.4 % (95.0-99.0); ABG PARTIAL PRESSURE CO2 34.1 mmHg (35.0-45.0); ABG PARTIAL PRESSURE O2 60.2 mmHg (75.0-100.0); ABG STANDARD HCO3 22.5 MMOL/L. (22.0-26.0); ABG TOTAL CO2 22.8 MMOL/L (23.0-31.0); ABG pH (ARTERIAL) 7.422 UNITS (7.350-7.450)
[2024-04-02 18:25] LABS: ALBUMIN 2.6 G/DL (3.2-5.2); BILIRUBIN,DIRECT 0.1 MG/DL (<0.4); BILIRUBIN,TOTAL 0.4 MG/DL (0.3-1.2); CALCIUM LEVEL 8.6 MG/DL (8.3-10.6); CREATININE FOR GFR 1.27 MG/DL (0.55-1.30); MB/CK RELATIVE INDEX 1.37 (< OR =4); POTASSIUM SERUM 4.2 MMOL/L (3.5-5.1); TOTAL PROTEIN 7.8 G/DL (5.7-8.2)
[2024-04-02 18:28] LABS: THYROID STIMULATING HORMONE 2.868 uIU/ML (0.55-4.78)
[2024-04-02] MEDS ORDERED: ISOVUE-370 76% 100ML VIAL As Ordered ONE (18:41)
[2024-04-02] MEDS: NS 500 ML IV ONE (19:00)
[2024-04-02] MEDS: METOPROLOL 5 MG/5 ML VIAL IV STA (19:00)
[2024-04-02 19:56] LABS: CK-MB VALUE MASS 1.9 NG/ML (<3.6)
[2024-04-02 20:00] LABS: MB/CK RELATIVE INDEX 1.38 (< OR =4)
[2024-04-02] MEDS: NS 1,000 ML IV SCH (20:53)
[2024-04-02] MEDS ORDERED: MOM 30ML SUSPENSION UDC PO PRN (21:00)
[2024-04-02] MEDS ORDERED: ALBUTEROL SULFATE 2.5MG/0.5ML INH NEB SOLN NEB PRN (21:00)
[2024-04-02] MEDS ORDERED: SFHMOMUDC PO (21:34)
[2024-04-02] MEDS ORDERED: LOPE1CAP5 PO (21:34)
[2024-04-02] MEDS ORDERED: RISATAB3 PO (21:34)
[2024-04-02] MEDS ORDERED: DESI13CR2 TOP (21:34)
[2024-04-02] MEDS ORDERED: APAP325T4 PO (21:34)
[2024-04-02] MEDS ORDERED: HUMA100I3 SC (21:34)
[2024-04-02] MEDS ORDERED: INSU100V6 SQ (21:58)
[2024-04-02] MEDS ORDERED: JUVEPOW4 PO (21:58)
[2024-04-02] MEDS ORDERED: FERR325T3 PO (21:58)
[2024-04-02] MEDS ORDERED: MELA5TAB58 PO (21:58)
[2024-04-02] MEDS ORDERED: PREG150C2 PO (21:58)
[2024-04-02] MEDS ORDERED: HOME MED LIST COMPLETE! XX SCH (22:00)
[2024-04-02] MEDS: VANCOMYCIN HCL 750 MG, VIAL MATE ADAPTER 1 EACH in D5W 250 ML IV ONE (22:29)
[2024-04-02] MEDS: APIXABAN 2.5 MG TAB (ELIQUIS) PO SCH (22:30)
[2024-04-02] MEDS: VANCOMYCIN HCL 500 MG in D5W MINI-BAG PLUS 100 ML IV ONE (23:46)
[2024-04-03] MEDS: NS 500 ML IV ONE (00:46)
[2024-04-03] MEDS: PIPERACILLIN/TAZOBACTAM SOD 4.5 GM in D5W MINI-BAG PLUS 50 ML IV SCH (01:28)
[2024-04-03] MEDS: IPRATROPIUM 0.5MG/ALBUTEROL 2.5MG INH SOL UD 3ML (DUONEB) NEB SCH (01:32)
[2024-04-03] MEDS: LR 1,000 ML IV SCH (02:25)
[2024-04-03 06:58] LABS: HEMATOCRIT 27.8 % (36.0-47.0); HEMOGLOBIN 8.9 g/dl (12.0-15.5); MEAN CORPUSCULAR HEMOGLOBIN 28.2 pg (27.0-33.0); PLATELET COUNT, AUTOMATED 208 10^3/uL (150-450); RED BLOOD COUNT 3.16 10^6/uL (4.00-5.40); WHITE BLOOD COUNT 20.9 10^3/uL (4.0-10.0)
[2024-04-03 07:18] LABS: CREATININE FOR GFR 1.48 MG/DL (0.55-1.30); GLOMERULAR FILTRATION RATE 37.7 (>45); POTASSIUM SERUM 4.3 MMOL/L (3.5-5.1)
[2024-04-03 07:46] LABS: C REACTIVE PROTEIN QUANTITATIV 4.9 MG/DL (<1.0)
[2024-04-03 07:46] LABS: CK-MB VALUE MASS 30.9 NG/ML (<3.6)
[2024-04-03 07:47] LABS: VENOUS BASE EXCESS -7.3 (-2.0-2.0); VENOUS HCO3 18.8 MMOL/L (23.0-27.0); VENOUS O2 SATURATION 76.2 % (60.0-80.0); VENOUS PARTIAL PRESSURE CO2 40.5 mmHg (38.0-50.0); VENOUS PARTIAL PRESSURE O2 45.7 mmHg (30.0-50.0); VENOUS PH 7.285 UNITS (7.330-7.430); VENOUS STANDARD HCO3 18.1 MMOL/L; VENOUS TOTAL CO2 20.1 MMOL/L (24.0-28.0)
[2024-04-03 07:51] LABS: ERYTHROCYTE SEDIMENTATION RATE 74 mm/hr (0-30)
[2024-04-03 07:54] LABS: C REACTIVE PROTEIN QUANTITATIV 10.9 MG/DL (<1.0)
[2024-04-03 08:07] LABS: MB/CK RELATIVE INDEX 8.28 (< OR =4)
[2024-04-03] MEDS ORDERED: BALMEX CREAM 60GM TOP SCH (09:00)
[2024-04-03] MEDS: guaiFENesin ER TABLET 600 MG TAB PO SCH (09:10)
[2024-04-03] MEDS: NS 1,000 ML IV ONE ×2 (09:11→10:30)
[2024-04-03] MEDS ORDERED: VANCOMYCIN HCL 1,000 MG, VIAL MATE ADAPTER 1 EACH in NS 250 ML IV SCH (10:00)
[2024-04-03 10:03] LABS: CK-MB VALUE MASS 38.5 NG/ML (<3.6)
[2024-04-03 10:06] LABS: MB/CK RELATIVE INDEX 7.09 (< OR =4)
[2024-04-03] MEDS: LACTOBACILLUS ACIDOPHILUS CAP (BACID) PO SCH (10:31)
[2024-04-03] MEDS: CLOPIDOGREL 75 MG TAB PO SCH (10:31)
[2024-04-03] MEDS: DULoxetine 30MG CAPSULE (CYMBALTA) PO SCH (10:31)
[2024-04-03] MEDS: FERROUS SULFATE 325MG TAB PO SCH (10:31)
[2024-04-03] MEDS: PREGABALIN 75 MG CAP(LYRICA) PO SCH (10:31)
[2024-04-03] MEDS: ADVAIR HFA 115/21MCG INHALER INH SCH (11:10)
[2024-04-03] MEDS: IPRATROPIUM 0.5MG/ALBUTEROL 2.5MG INH SOL UD 3ML (DUONEB) NEB ONE (11:22)
[2024-04-03 12:19] LABS: ABG BASE EXCESS -7.4 (-2.0-2.0); ABG HCO3 16.7 MMOL/L (22.0-26.0); ABG PARTIAL PRESSURE CO2 28.8 mmHg (35.0-45.0); ABG PARTIAL PRESSURE O2 92.6 mmHg (75.0-100.0); ABG STANDARD HCO3 18.4 MMOL/L. (22.0-26.0); ABG TOTAL CO2 17.5 MMOL/L (23.0-31.0)
[2024-04-03] MEDS ORDERED: GLUCOSE 4 GM CHEW PO PRN (12:20)
[2024-04-03] MEDS ORDERED: DEXTROSE 50% 50ML SYRINGE IV PRN (12:20)
[2024-04-03] MEDS ORDERED: GLUCAGON INJ 1MG VIAL SC PRN (12:20)
[2024-04-03 12:37] LABS: CK-MB VALUE MASS 36.5 NG/ML (<3.6)
[2024-04-03 12:38] LABS: MB/CK RELATIVE INDEX 5.63 (< OR =4)
[2024-04-03] MEDS: NS 1,000 ML IV SCH (13:48)
[2024-04-03] MEDS: INSULIN LISPRO (NovoLOG) PER UNIT SC SCH ×2 (13:48→20:13)
[2024-04-03] MEDS: VANCOMYCIN HCL 1,000 MG, VIAL MATE ADAPTER 1 EACH in NS 250 ML IV SCH (13:48)
[2024-04-03 14:34] VITALS: BP 143/87; TEMP 97.8; O2SAT 98
[2024-04-03 14:57] VITALS: BP 121/80; TEMP 98.4; O2SAT 94
[2024-04-03 16:32] VITALS: BP 132/81; TEMP 98.4; O2SAT 95
[2024-04-03 20:00] VITALS: BP 128/76; TEMP 97.2; O2SAT 95
[2024-04-03] MEDS: LEVEMIR (INSULIN DETEMIR) 1 UNITS/0.01ML SC SCH (20:22)
[2024-04-03] MEDS: PANTOPRAZOLE 40MG TAB (PROTONIX) PO SCH (20:23)
[2024-04-03] MEDS: ATORVASTATIN 20 MG TAB PO SCH (20:23)
[2024-04-03] MEDS: RAMELTEON 8 MG TAB (ROZEREM) PO SCH (20:23)
[2024-04-03] MEDS: NYSTATIN 100,000 UNITS/GM TOPICAL PWD 15GM TOP SCH (23:29)
[2024-04-03] MEDS: BALMEX CREAM 60GM TOP SCH (23:29)
[2024-04-03 23:41] VITALS: BP 129/74; TEMP 97; O2SAT 94
[2024-04-04] VITALS (47 sets, daily range): BP systolic 95–173; BP diastolic 61–111; TEMP 96.9–97.3; O2SAT 84–99
[2024-04-04 05:27] LABS: BASO # 0.1 10^3/uL (0.0-0.2); BASO % 0.3 % (0.0-1.0); EOS # 0.1 10^3/uL (0.0-0.5); EOS % 0.2 % (0.0-3.0); HEMATOCRIT 24.1 % (36.0-47.0); HEMOGLOBIN 7.9 g/dl (12.0-15.5); LYMPH # 1.4 10^3/uL (1.5-5.0); LYMPH % 6.4 % (24.0-44.0); MEAN CORPUSCULAR HEMOGLOBIN 28.5 pg (27.0-33.0); MEAN CORPUSCULAR HGB CONC 32.8 g/dl (32.0-36.5); MONO # 1.5 10^3/uL (0.0-0.8); MONO % 6.7 % (2.0-8.0); NEUTROPHILS % 85.5 % (36.0-66.0); PLATELET COUNT, AUTOMATED 184 10^3/uL (150-450); RED BLOOD COUNT 2.77 10^6/uL (4.00-5.40); WHITE BLOOD COUNT 22.2 10^3/uL (4.0-10.0)
[2024-04-04 06:01] LABS: ALBUMIN 2.1 G/DL (3.2-5.2); BILIRUBIN,TOTAL 0.3 MG/DL (0.3-1.2); CALCIUM LEVEL 7.9 MG/DL (8.3-10.6); CREATININE FOR GFR 1.5 MG/DL (0.55-1.30); GLOMERULAR FILTRATION RATE 37.1 (>45); POTASSIUM SERUM 3.8 MMOL/L (3.5-5.1); TOTAL PROTEIN 6.7 G/DL (5.7-8.2)
[2024-04-04] MEDS: AZITHROMYCIN INJ 500 MG, VIAL MATE ADAPTER 1 EACH in NS 250 ML IV SCH (08:33)
[2024-04-04] MEDS: DOXYCYCLINE HYCLATE 100MG TABLET PO SCH (13:19)
[2024-04-04] MEDS: TIOTROPIUM INHALER/CAPSULE (SPIRIVA) INH SCH (13:24)
[2024-04-04] MEDS: predniSONE 20 MG TAB PO SCH (17:55)
[2024-04-04 18:22] LABS: ABG BASE EXCESS -7.8 (-2.0-2.0); ABG HCO3 16.9 MMOL/L (22.0-26.0); ABG O2 SATURATION 91.3 % (95.0-99.0); ABG PARTIAL PRESSURE CO2 31.6 mmHg (35.0-45.0); ABG PARTIAL PRESSURE O2 63.3 mmHg (75.0-100.0); ABG TOTAL CO2 17.9 MMOL/L (23.0-31.0); ABG pH (ARTERIAL) 7.347 UNITS (7.350-7.450)
[2024-04-04] MEDS: LORazepam 2 MG/ML 1ML VIAL IV STA (18:29)
[2024-04-04] MEDS ORDERED: MIDAZOLAM 5MG/ML 1ML VIAL As Ordered ONE (19:20)
[2024-04-04] MEDS: MIDAZOLAM 5MG/ML 1ML VIAL IV STA (19:23)
[2024-04-04] MEDS: ETOMIDATE INJ 20MG/10ML VIAL IV STA (19:23)
[2024-04-04] MEDS: ROCURONIUM BROMIDE 50MG/5ML VIAL IV STA (19:24)
[2024-04-04] MEDS: propofoL 1,000 MG in IV 1 EA IV SCH (19:45)
[2024-04-04] MEDS ORDERED: FUROSEMIDE 20MG/2ML VIAL As Ordered ONE (20:22)
[2024-04-04] MEDS: MIDAZOLAM 100MG/100ML-0.9%NACL 100 MG in IV 1 EA IV SCH (21:04)
[2024-04-04] MEDS: FUROSEMIDE 20MG/2ML VIAL IV ONE (21:11)
[2024-04-04 21:16] LABS: VENOUS BASE EXCESS -7.3 (-2.0-2.0); VENOUS HCO3 20.8 MMOL/L (23.0-27.0); VENOUS PARTIAL PRESSURE CO2 56.1 mmHg (38.0-50.0); VENOUS PARTIAL PRESSURE O2 110.7 mmHg (30.0-50.0); VENOUS PH 7.188 UNITS (7.330-7.430); VENOUS STANDARD HCO3 18.4 MMOL/L; VENOUS TOTAL CO2 22.6 MMOL/L (24.0-28.0)
[2024-04-04] MEDS: METOPROLOL TART 12.5 MG PER 1/2 TAB PO SCH (23:25)
[2024-04-04] MEDS: FLUTICASONE PROP 0.05% NASAL SPRAY 16 GM (FLONASE) NARES SCH (23:26)
[2024-04-05] VITALS (40 sets, daily range): BP systolic 95–143; BP diastolic 59–81; TEMP 96.3–98.8; O2SAT 93–99
[2024-04-05] MEDS: INSULIN LISPRO (NovoLOG) PER UNIT SC SCH
[2024-04-05] MEDS: PANTOPRAZOLE 40MG VIAL IV SCH (00:01)
[2024-04-05] MEDS: LEVEMIR (INSULIN DETEMIR) 1 UNITS/0.01ML SC ONE (00:03)
[2024-04-05 05:40] LABS: C REACTIVE PROTEIN QUANTITATIV 9.3 MG/DL (<1.0)
[2024-04-05 05:52] LABS: BASO % 0.3 % (0.0-1.0); EOS % 0.2 % (0.0-3.0); HEMATOCRIT 21.2 % (36.0-47.0); LYMPH # 0.7 10^3/uL (1.5-5.0); MEAN CORPUSCULAR HEMOGLOBIN 28.6 pg (27.0-33.0); MEAN CORPUSCULAR HGB CONC 32.1 g/dl (32.0-36.5); MEAN CORPUSCULAR VOLUME 89.1 fl (80.0-96.0); MONO # 0.8 10^3/uL (0.0-0.8); MONO % 8.3 % (2.0-8.0); NEUTROPHILS # 8.2 10^3/uL (1.5-8.5); NEUTROPHILS % 83.1 % (36.0-66.0); PLATELET COUNT, AUTOMATED 166 10^3/uL (150-450); RED BLOOD COUNT 2.38 10^6/uL (4.00-5.40); WHITE BLOOD COUNT 9.9 10^3/uL (4.0-10.0)
[2024-04-05 05:53] LABS: HEMOGLOBIN 6.8 g/dl (12.0-15.5)
[2024-04-05 06:08] LABS: ALBUMIN 1.8 G/DL (3.2-5.2); BILIRUBIN,TOTAL 0.2 MG/DL (0.3-1.2); CALCIUM LEVEL 7.5 MG/DL (8.3-10.6); CREATININE FOR GFR 1.28 MG/DL (0.55-1.30); GLOMERULAR FILTRATION RATE 44.6 (>45); MAGNESIUM LEVEL 1.9 MG/DL (1.8-2.4); TOTAL PROTEIN 5.9 G/DL (5.7-8.2)
[2024-04-05 06:37] LABS: HEMATOCRIT 21.1 % (36.0-47.0); MEAN CORPUSCULAR HEMOGLOBIN 28.4 pg (27.0-33.0); MEAN CORPUSCULAR HGB CONC 31.8 g/dl (32.0-36.5); MEAN CORPUSCULAR VOLUME 89.4 fl (80.0-96.0); PLATELET COUNT, AUTOMATED 162 10^3/uL (150-450); RED BLOOD COUNT 2.36 10^6/uL (4.00-5.40); WHITE BLOOD COUNT 9.6 10^3/uL (4.0-10.0)
[2024-04-05 06:46] LABS: HEMOGLOBIN 6.7 g/dl (12.0-15.5)
[2024-04-05] MEDS ORDERED: NS 1,000 ML IV SCH (06:50)
[2024-04-05] MEDS: FUROSEMIDE 20MG/2ML VIAL IV ONE (08:16)
[2024-04-05] MEDS: MAG SULF 1GM/100ML (MAG RUN) 1 GM in IV 1 EA IV ONE (08:16)
[2024-04-05] MEDS: FUROSEMIDE 40MG/4ML VIAL IV ONE (11:50)
[2024-04-05 19:43] LABS: URINE STREP PNEUMONIAE ANTIGEN NOT DETECTED (NOT DETECT)
[2024-04-06] VITALS (29 sets, daily range): BP systolic 125–164; BP diastolic 71–98; TEMP 96.1–98.1; O2SAT 92–96
[2024-04-06 05:01] LABS: BASO # 0.1 10^3/uL (0.0-0.2); BASO % 0.6 % (0.0-1.0); EOS # 0.1 10^3/uL (0.0-0.5); EOS % 1.6 % (0.0-3.0); HEMATOCRIT 29.6 % (36.0-47.0); LYMPH # 1.6 10^3/uL (1.5-5.0); MEAN CORPUSCULAR HEMOGLOBIN 28.7 pg (27.0-33.0); MEAN CORPUSCULAR HGB CONC 32.8 g/dl (32.0-36.5); MEAN CORPUSCULAR VOLUME 87.6 fl (80.0-96.0); MONO # 0.8 10^3/uL (0.0-0.8); MONO % 9.6 % (2.0-8.0); NEUTROPHILS % 68.8 % (36.0-66.0); PLATELET COUNT, AUTOMATED 173 10^3/uL (150-450); RED BLOOD COUNT 3.38 10^6/uL (4.00-5.40); WHITE BLOOD COUNT 8.7 10^3/uL (4.0-10.0)
[2024-04-06 05:11] LABS: HEMOGLOBIN 9.7 g/dl (12.0-15.5)
[2024-04-06 05:22] LABS: C REACTIVE PROTEIN QUANTITATIV 8.2 MG/DL (<1.0)
[2024-04-06 05:24] LABS: ALBUMIN 1.8 G/DL (3.2-5.2); BILIRUBIN,TOTAL 0.3 MG/DL (0.3-1.2); CALCIUM LEVEL 7.8 MG/DL (8.3-10.6); CREATININE FOR GFR 1.14 MG/DL (0.55-1.30); GLOMERULAR FILTRATION RATE 50.9 (>45); MAGNESIUM LEVEL 1.9 MG/DL (1.8-2.4); POTASSIUM SERUM 3.9 MMOL/L (3.5-5.1)
[2024-04-07] VITALS (26 sets, daily range): BP systolic 142–189; BP diastolic 73–103; TEMP 97.4–98.7; O2SAT 93–97
[2024-04-07 04:23] LABS: BASO # 0.1 10^3/uL (0.0-0.2); BASO % 0.5 % (0.0-1.0); EOS # 0.1 10^3/uL (0.0-0.5); EOS % 0.4 % (0.0-3.0); HEMATOCRIT 31.3 % (36.0-47.0); HEMOGLOBIN 10.4 g/dl (12.0-15.5); LYMPH # 1.7 10^3/uL (1.5-5.0); LYMPH % 11.7 % (24.0-44.0); MEAN CORPUSCULAR HGB CONC 33.2 g/dl (32.0-36.5); MEAN CORPUSCULAR VOLUME 87.2 fl (80.0-96.0); MONO # 1.4 10^3/uL (0.0-0.8); MONO % 9.6 % (2.0-8.0); NEUTROPHILS # 10.6 10^3/uL (1.5-8.5); NEUTROPHILS % 75.7 % (36.0-66.0); PLATELET COUNT, AUTOMATED 214 10^3/uL (150-450); RED BLOOD COUNT 3.59 10^6/uL (4.00-5.40); WHITE BLOOD COUNT 14.1 10^3/uL (4.0-10.0)
[2024-04-07 04:45] LABS: ALBUMIN 1.9 G/DL (3.2-5.2); ALKALINE PHOSPHATASE 111 U/L (46-116); ALT/SGPT 38 U/L (7.0-40); AST/SGOT 70 U/L (<34); BILIRUBIN,TOTAL 0.4 MG/DL (0.3-1.2); BLOOD UREA NITROGEN 25 MG/DL (9-23); CALCIUM LEVEL 8.2 MG/DL (8.3-10.6); CARBON DIOXIDE LEVEL 24 MMOL/L (20-31); CHLORIDE LEVEL 111 MMOL/L (98-107); CREATININE FOR GFR 0.92 MG/DL (0.55-1.30); GLOMERULAR FILTRATION RATE > 60.0 (>45); GLUCOSE, FASTING 115 MG/DL (74-106); MAGNESIUM LEVEL 1.8 MG/DL (1.8-2.4); POTASSIUM SERUM 3.9 MMOL/L (3.5-5.1); SODIUM LEVEL 141 MMOL/L (136-145); TOTAL PROTEIN 6.3 G/DL (5.7-8.2)
[2024-04-07] MEDS: LevoFLOXacin 750 MG TABLET PO SCH (05:18)
[2024-04-07] MEDS: BACTRIM 160MG/800MG DS TAB PO SCH (09:00)
[2024-04-07] MEDS: FUROSEMIDE 20 MG TAB PO SCH (17:19)
[2024-04-07] MEDS: INSULIN LISPRO (NovoLOG) PER UNIT SC SCH (21:00)
[2024-04-07] MEDS: PANTOPRAZOLE 40MG TAB (PROTONIX) PO SCH (21:09)
[2024-04-07] MEDS: ACETAMINOPHEN TAB 650MG DOSE (2X325MG) PO PRN (21:09)
[2024-04-07] MEDS: METOPROLOL TART 25 MG TABLET PO SCH (21:09)
[2024-04-08] VITALS (13 sets, daily range): BP systolic 136–170; BP diastolic 66–98; TEMP 97.2–97.7; O2SAT 90–97
[2024-04-08 05:47] LABS: BASO # 0.1 10^3/uL (0.0-0.2); BASO % 0.4 % (0.0-1.0); EOS % 0.2 % (0.0-3.0); HEMATOCRIT 36.7 % (36.0-47.0); HEMOGLOBIN 11.8 g/dl (12.0-15.5); LYMPH # 1.4 10^3/uL (1.5-5.0); LYMPH % 9.4 % (24.0-44.0); MEAN CORPUSCULAR HEMOGLOBIN 28.6 pg (27.0-33.0); MEAN CORPUSCULAR HGB CONC 32.2 g/dl (32.0-36.5); MEAN CORPUSCULAR VOLUME 88.9 fl (80.0-96.0); MONO # 1.3 10^3/uL (0.0-0.8); MONO % 8.4 % (2.0-8.0); NEUTROPHILS # 11.8 10^3/uL (1.5-8.5); NEUTROPHILS % 79.3 % (36.0-66.0); PLATELET COUNT, AUTOMATED 248 10^3/uL (150-450); RED BLOOD COUNT 4.13 10^6/uL (4.00-5.40); WHITE BLOOD COUNT 14.9 10^3/uL (4.0-10.0)
[2024-04-08 05:59] LABS: ALKALINE PHOSPHATASE 123 U/L (46-116); ALT/SGPT 37 U/L (7.0-40); AST/SGOT 64 U/L (<34); BILIRUBIN,TOTAL 0.5 MG/DL (0.3-1.2); BLOOD UREA NITROGEN 24 MG/DL (9-23); CALCIUM LEVEL 8.6 MG/DL (8.3-10.6); CARBON DIOXIDE LEVEL 26 MMOL/L (20-31); CHLORIDE LEVEL 112 MMOL/L (98-107); CREATININE FOR GFR 0.85 MG/DL (0.55-1.30); GLOMERULAR FILTRATION RATE > 60.0 (>45); GLUCOSE, FASTING 111 MG/DL (74-106); MAGNESIUM LEVEL 1.7 MG/DL (1.8-2.4); POTASSIUM SERUM 4.3 MMOL/L (3.5-5.1); SODIUM LEVEL 143 MMOL/L (136-145); TOTAL PROTEIN 6.7 G/DL (5.7-8.2)
[2024-04-08] MEDS: MAG SULF 1GM/100ML (MAG RUN) 1 GM in IV 1 EA IV ONE ×2 (07:06→09:11)
[2024-04-08] MEDS: INSULIN LISPRO (NovoLOG) PER UNIT SC SCH (09:05)
[2024-04-08] MEDS: amLODIPine 5 MG TAB PO SCH (09:07)
[2024-04-08] MEDS: BETHANECHOL 10 MG TAB PO ONE (18:45)
[2024-04-09 03:10] VITALS: BP 153/86; TEMP 97.2; O2SAT 91
[2024-04-09 06:30] LABS: BASO # 0.1 10^3/uL (0.0-0.2); BASO % 0.5 % (0.0-1.0); EOS # 0.3 10^3/uL (0.0-0.5); EOS % 1.9 % (0.0-3.0); HEMATOCRIT 37.8 % (36.0-47.0); LYMPH # 2.5 10^3/uL (1.5-5.0); LYMPH % 17.8 % (24.0-44.0); MEAN CORPUSCULAR HEMOGLOBIN 28.4 pg (27.0-33.0); MEAN CORPUSCULAR HGB CONC 31.7 g/dl (32.0-36.5); MEAN CORPUSCULAR VOLUME 89.4 fl (80.0-96.0); MONO # 1.5 10^3/uL (0.0-0.8); MONO % 10.6 % (2.0-8.0); NEUTROPHILS % 65.5 % (36.0-66.0); PLATELET COUNT, AUTOMATED 266 10^3/uL (150-450); RED BLOOD COUNT 4.23 10^6/uL (4.00-5.40); WHITE BLOOD COUNT 13.8 10^3/uL (4.0-10.0)
[2024-04-09 06:42] LABS: C REACTIVE PROTEIN QUANTITATIV 2.7 MG/DL (<1.0)
[2024-04-09 06:44] LABS: ALBUMIN 2.1 G/DL (3.2-5.2); BILIRUBIN,TOTAL 0.3 MG/DL (0.3-1.2); CALCIUM LEVEL 8.7 MG/DL (8.3-10.6); CREATININE FOR GFR 1.11 MG/DL (0.55-1.30); GLOMERULAR FILTRATION RATE 52.5 (>45); POTASSIUM SERUM 3.9 MMOL/L (3.5-5.1); TOTAL PROTEIN 6.8 G/DL (5.7-8.2)
[2024-04-09] MEDS: BETHANECHOL 10 MG TAB PO SCH (09:38)
[2024-04-09 12:00] VITALS: BP 148/83; TEMP 97.3; O2SAT 93
[2024-04-09 20:00] VITALS: BP 134/69; TEMP 97.3; O2SAT 98
[2024-04-10 03:10] VITALS: BP 136/69; TEMP 97.9; O2SAT 94
[2024-04-10 06:25] LABS: BASO # 0.1 10^3/uL (0.0-0.2); BASO % 0.8 % (0.0-1.0); EOS # 0.5 10^3/uL (0.0-0.5); HEMATOCRIT 34.1 % (36.0-47.0); LYMPH # 2.5 10^3/uL (1.5-5.0); LYMPH % 25.3 % (24.0-44.0); MEAN CORPUSCULAR HEMOGLOBIN 28.9 pg (27.0-33.0); MEAN CORPUSCULAR HGB CONC 32.3 g/dl (32.0-36.5); MEAN CORPUSCULAR VOLUME 89.5 fl (80.0-96.0); MONO # 1.1 10^3/uL (0.0-0.8); MONO % 11.1 % (2.0-8.0); NEUTROPHILS # 5.5 10^3/uL (1.5-8.5); NEUTROPHILS % 54.2 % (36.0-66.0); PLATELET COUNT, AUTOMATED 228 10^3/uL (150-450); RED BLOOD COUNT 3.81 10^6/uL (4.00-5.40)
[2024-04-10 06:46] LABS: C REACTIVE PROTEIN QUANTITATIV 1.7 MG/DL (<1.0)
[2024-04-10 06:48] LABS: BILIRUBIN,TOTAL 0.2 MG/DL (0.3-1.2); CALCIUM LEVEL 8.3 MG/DL (8.3-10.6); CREATININE FOR GFR 1.31 MG/DL (0.55-1.30); GLOMERULAR FILTRATION RATE 43.4 (>45); MAGNESIUM LEVEL 1.7 MG/DL (1.8-2.4); POTASSIUM SERUM 4.2 MMOL/L (3.5-5.1); TOTAL PROTEIN 6.4 G/DL (5.7-8.2)
[2024-04-10] MEDS: MAG SULF 1GM/100ML (MAG RUN) 1 GM in IV 1 EA IV SCH (08:12)
[2024-04-10 08:14] VITALS: BP 137/71
[2024-04-10] MEDS ORDERED: METO1TAB87 PO (08:33)
[2024-04-10] MEDS ORDERED: NORV5TAB PO (08:33)
== END 2024-04-10 12:08 | DRG 871 ==
LOC: EDBD 17:13 → M ED 17:13 → M ED INP 20:58 → M PCU 04-03 14:39 → M ICU 04-04 19:11 → M PCU 04-08 00:53 → M MSPAV 04-08 16:07
PROVIDERS: ADMIT Internal Medicine; ATTEND Internal Medicine
PROC: B246ZZZ Ultrasonography of Right and Left Heart (ICD-10-PCS; 2024-04-03)
PROC: 0BH17EZ Insertion of Endotracheal Airway into Trachea, Via Natural or Artificial Opening (ICD-10-PCS; 2024-04-04)
PROC: 04HL33Z Insertion of Infusion Device into Left Femoral Artery, Percutaneous Approach (ICD-10-PCS; 2024-04-04)
PROC: 0DJ08ZZ Inspection of Upper Intestinal Tract, Via Natural or Artificial Opening Endoscopic (ICD-10-PCS; 2024-04-04)
PROC: 5A1945Z Respiratory Ventilation, 24-96 Consecutive Hours (ICD-10-PCS; 2024-04-04)
PROC: 30233N1 Transfusion of Nonautologous Red Blood Cells into Peripheral Vein, Percutaneous Approach (ICD-10-PCS; principal; 2024-04-05)
DX: A41.59 Other Gram-negative sepsis (principal); J96.21 Acute and chronic respiratory failure with hypoxia; J15.69 Pneumonia due to other Gram-negative bacteria; I21.A1 Myocardial infarction type 2; E87.20 Acidosis, unspecified; N17.9 Acute kidney failure, unspecified; I50.32 Chronic diastolic (congestive) heart failure; D62 Acute posthemorrhagic anemia; J44.0 Chronic obstructive pulmonary disease with (acute) lower respiratory infection; J81.1 Chronic pulmonary edema; J98.11 Atelectasis; E11.42 Type 2 diabetes mellitus with diabetic polyneuropathy; I73.9 Peripheral vascular disease, unspecified; E11.51 Type 2 diabetes mellitus with diabetic peripheral angiopathy without gangrene; E78.5 Hyperlipidemia, unspecified; E11.621 Type 2 diabetes mellitus with foot ulcer; R33.9 Retention of urine, unspecified; I25.10 Atherosclerotic heart disease of native coronary artery without angina pectoris; R65.20 Severe sepsis without septic shock; I48.0 Paroxysmal atrial fibrillation; D63.8 Anemia in other chronic diseases classified elsewhere; I11.0 Hypertensive heart disease with heart failure; K21.9 Gastro-esophageal reflux disease without esophagitis; Z11.52 Encounter for screening for COVID-19; Z89.411 Acquired absence of right great toe; Z89.421 Acquired absence of other right toe(s); Z86.73 Personal history of transient ischemic attack (TIA), and cerebral infarction without residual deficits; Z86.718 Personal history of other venous thrombosis and embolism; Z90.49 Acquired absence of other specified parts of digestive tract; Z90.79 Acquired absence of other genital organ(s); Z95.828 Presence of other vascular implants and grafts; Z87.891 Personal history of nicotine dependence

== ENCOUNTER → 2024-04-14 | Outpatient (REF) ==
[~2024-04-14] MED LIST changes: +APAP325T4 PO; +DESI13CR2 TOP; +FERR325T3 PO; +HUMA100I3 SC; +INSU100V6 SQ; +JUVEPOW4 PO; +LOPE1CAP5 PO; +MELA5TAB58 PO; +METO1TAB87 PO; +NORV5TAB PO; +PREG150C2 PO; +RISATAB3 PO; +SFHMOMUDC PO
[2024-04-14 13:45] LABS: HEMATOCRIT 32.3 % (36.0-47.0); HEMOGLOBIN 10.4 g/dl (12.0-15.5); MEAN CORPUSCULAR HEMOGLOBIN 28.9 pg (27.0-33.0); MEAN CORPUSCULAR HGB CONC 32.2 g/dl (32.0-36.5); MEAN CORPUSCULAR VOLUME 89.7 fl (80.0-96.0); PLATELET COUNT, AUTOMATED 131 10^3/uL (150-450); WHITE BLOOD COUNT 8.1 10^3/uL (4.0-10.0)
[2024-04-14 14:12] LABS: BLOOD UREA NITROGEN 35 MG/DL (9-23); CALCIUM LEVEL 8.8 MG/DL (8.3-10.6); CARBON DIOXIDE LEVEL 28 MMOL/L (20-31); CHLORIDE LEVEL 109 MMOL/L (98-107); CREATININE FOR GFR 0.87 MG/DL (0.55-1.30); GLOMERULAR FILTRATION RATE > 60.0 (>45); GLUCOSE, FASTING 190 MG/DL (74-106); SODIUM LEVEL 141 MMOL/L (136-145)
== END ==
LOC: SKLAB2 12:57
PROVIDERS: ATTEND Internal Medicine
DX: I10 Essential (primary) hypertension (principal)

== ENCOUNTER → 2024-04-15 | Outpatient (REF) | payer MEDICARE ==
[~2024-04-15] MED LIST changes: +GABA-1490 PO; -GABA600T4 PO
[2024-04-15 07:20] LABS: BASO # 0.1 10^3/uL (0.0-0.2); BASO % 0.6 % (0.0-1.0); EOS # 0.3 10^3/uL (0.0-0.5); EOS % 3.1 % (0.0-3.0); HEMATOCRIT 29.6 % (36.0-47.0); HEMOGLOBIN 9.8 g/dl (12.0-15.5); LYMPH # 1.6 10^3/uL (1.5-5.0); LYMPH % 17.4 % (24.0-44.0); MEAN CORPUSCULAR HEMOGLOBIN 29.3 pg (27.0-33.0); MEAN CORPUSCULAR HGB CONC 33.1 g/dl (32.0-36.5); MEAN CORPUSCULAR VOLUME 88.6 fl (80.0-96.0); MONO % 10.6 % (2.0-8.0); NEUTROPHILS # 6.1 10^3/uL (1.5-8.5); NEUTROPHILS % 67.9 % (36.0-66.0); PLATELET COUNT, AUTOMATED 122 10^3/uL (150-450); RED BLOOD COUNT 3.34 10^6/uL (4.00-5.40)
[2024-04-15 07:42] LABS: BLOOD UREA NITROGEN 30 MG/DL (9-23); CALCIUM LEVEL 8.4 MG/DL (8.3-10.6); CARBON DIOXIDE LEVEL 27 MMOL/L (20-31); CHLORIDE LEVEL 112 MMOL/L (98-107); CREATININE FOR GFR 0.76 MG/DL (0.55-1.30); GLOMERULAR FILTRATION RATE > 60.0 (>45); GLUCOSE, FASTING 159 MG/DL (74-106); POTASSIUM SERUM 3.7 MMOL/L (3.5-5.1); SODIUM LEVEL 141 MMOL/L (136-145)
== END ==
LOC: SKLAB2 07:00
PROVIDERS: ATTEND Internal Medicine
DX: J18.9 Pneumonia, unspecified organism (principal)

== ENCOUNTER → 2024-04-20 | Outpatient (REF) ==
[~2024-04-20] MED LIST changes: -GABA-1490 PO; +GABA600T4 PO
[2024-04-20 15:59] LABS: BASO # 0.1 10^3/uL (0.0-0.2); EOS # 0.2 10^3/uL (0.0-0.5); EOS % 3.5 % (0.0-3.0); HEMATOCRIT 30.1 % (36.0-47.0); HEMOGLOBIN 9.9 g/dl (12.0-15.5); LYMPH # 1.3 10^3/uL (1.5-5.0); LYMPH % 22.4 % (24.0-44.0); MEAN CORPUSCULAR HEMOGLOBIN 29.3 pg (27.0-33.0); MEAN CORPUSCULAR HGB CONC 32.9 g/dl (32.0-36.5); MEAN CORPUSCULAR VOLUME 89.1 fl (80.0-96.0); MONO # 0.8 10^3/uL (0.0-0.8); NEUTROPHILS # 3.5 10^3/uL (1.5-8.5); NEUTROPHILS % 58.9 % (36.0-66.0); PLATELET COUNT, AUTOMATED 127 10^3/uL (150-450); RED BLOOD COUNT 3.38 10^6/uL (4.00-5.40); WHITE BLOOD COUNT 5.9 10^3/uL (4.0-10.0)
[2024-04-20 16:06] LABS: ERYTHROCYTE SEDIMENTATION RATE 91 mm/hr (0-30)
[2024-04-20 16:20] LABS: BLOOD UREA NITROGEN 44 MG/DL (9-23); CALCIUM LEVEL 8.8 MG/DL (8.3-10.6); CARBON DIOXIDE LEVEL 32 MMOL/L (20-31); CHLORIDE LEVEL 103 MMOL/L (98-107); CREATININE FOR GFR 0.98 MG/DL (0.55-1.30); GLOMERULAR FILTRATION RATE > 60.0 (>45); GLUCOSE, FASTING 139 MG/DL (74-106); POTASSIUM SERUM 3.8 MMOL/L (3.5-5.1); SODIUM LEVEL 139 MMOL/L (136-145)
== END ==
LOC: SKLAB2 14:37
PROVIDERS: ATTEND Internal Medicine
DX: E11.621 Type 2 diabetes mellitus with foot ulcer (principal); L97.519 Non-pressure chronic ulcer of other part of right foot with unspecified severity

== ENCOUNTER → 2024-05-01 | Outpatient (REF) ==
[~2024-05-01] MED LIST changes: +GABA-1172 PO; +GABA-1490 PO; -GABA-282 PO; -GABA600T4 PO
[2024-05-01 07:14] LABS: BLOOD UREA NITROGEN 57 MG/DL (9-23); CALCIUM LEVEL 8.7 MG/DL (8.3-10.6); CARBON DIOXIDE LEVEL 32 MMOL/L (20-31); CHLORIDE LEVEL 96 MMOL/L (98-107); CREATININE FOR GFR 0.95 MG/DL (0.55-1.30); GLOMERULAR FILTRATION RATE > 60.0 (>45); GLUCOSE, FASTING 219 MG/DL (74-106); POTASSIUM SERUM 4.3 MMOL/L (3.5-5.1); SODIUM LEVEL 130 MMOL/L (136-145)
== END ==
LOC: SKLAB2 07:00
PROVIDERS: ATTEND Internal Medicine
DX: I10 Essential (primary) hypertension (principal)

== ENCOUNTER → 2024-05-02 | Outpatient (REF) ==
[~2024-05-02] MED LIST changes: -GABA-1172 PO; +GABA-282 PO
[2024-05-02 10:00] LABS: HEMATOCRIT 30.1 % (36.0-47.0); HEMOGLOBIN 9.9 g/dl (12.0-15.5); MEAN CORPUSCULAR HGB CONC 32.9 g/dl (32.0-36.5); MEAN CORPUSCULAR VOLUME 88.3 fl (80.0-96.0); PLATELET COUNT, AUTOMATED 133 10^3/uL (150-450); RED BLOOD COUNT 3.41 10^6/uL (4.00-5.40); WHITE BLOOD COUNT 7.6 10^3/uL (4.0-10.0)
[2024-05-02 10:18] LABS: BLOOD UREA NITROGEN 51 MG/DL (9-23); CALCIUM LEVEL 8.5 MG/DL (8.3-10.6); CARBON DIOXIDE LEVEL 31 MMOL/L (20-31); CHLORIDE LEVEL 97 MMOL/L (98-107); CREATININE FOR GFR 0.92 MG/DL (0.55-1.30); GLOMERULAR FILTRATION RATE > 60.0 (>45); GLUCOSE, FASTING 171 MG/DL (74-106); POTASSIUM SERUM 3.8 MMOL/L (3.5-5.1); SODIUM LEVEL 131 MMOL/L (136-145)
== END ==
LOC: SKLAB2 07:51
PROVIDERS: ATTEND Internal Medicine
DX: R58 Hemorrhage, not elsewhere classified (principal)

== ENCOUNTER → 2024-05-09 | Outpatient (REF) | payer MEDICAID, MEDICARE | LOC: SKLAB5 08:27 | PROVIDERS: ATTEND Internal Medicine | DX: Z53.8 Procedure and treatment not carried out for other reasons (principal) ==

== ENCOUNTER → 2024-05-11 | Outpatient (REF) | payer MEDICARE, MEDICAID ==
[2024-05-11 13:54] LABS: CREATININE, URINE 38.5 MG/DL
[2024-05-11 14:06] LABS: MAU/CREAT RATIO 3927.2 MCG/MG (0.0-30.0)
== END ==
LOC: SKLAB5 12:16
PROVIDERS: ATTEND Internal Medicine
DX: E11.9 Type 2 diabetes mellitus without complications (principal)

== ENCOUNTER → 2024-05-17 | Outpatient (CLI) | payer MEDICARE, MEDICAID ==
[~2024-05-17] MED LIST changes: +GABA-1172 PO; -GABA-282 PO
== END ==
LOC: M RAD 11:03
PROVIDERS: ATTEND Nurse Practitioner Family
DX: J18.9 Pneumonia, unspecified organism (principal)

== ENCOUNTER → 2024-05-18 | Outpatient (REF) | payer MEDICARE, MEDICAID ==
[2024-05-18 08:41] LABS: BASO % 0.4 % (0.0-1.0); EOS # 0.1 10^3/uL (0.0-0.5); EOS % 1.1 % (0.0-3.0); HEMATOCRIT 27.6 % (36.0-47.0); LYMPH # 1.7 10^3/uL (1.5-5.0); LYMPH % 15.7 % (24.0-44.0); MEAN CORPUSCULAR HEMOGLOBIN 28.8 pg (27.0-33.0); MEAN CORPUSCULAR HGB CONC 32.6 g/dl (32.0-36.5); MEAN CORPUSCULAR VOLUME 88.2 fl (80.0-96.0); MONO # 1.2 10^3/uL (0.0-0.8); MONO % 10.9 % (2.0-8.0); NEUTROPHILS # 7.7 10^3/uL (1.5-8.5); NEUTROPHILS % 71.5 % (36.0-66.0); PLATELET COUNT, AUTOMATED 135 10^3/uL (150-450); RED BLOOD COUNT 3.13 10^6/uL (4.00-5.40); WHITE BLOOD COUNT 10.8 10^3/uL (4.0-10.0)
[2024-05-18 09:08] LABS: ALBUMIN 2.1 G/DL (3.2-5.2); BILIRUBIN,TOTAL 0.4 MG/DL (0.3-1.2); CALCIUM LEVEL 8.9 MG/DL (8.3-10.6); CREATININE FOR GFR 1.23 MG/DL (0.55-1.30); GLOMERULAR FILTRATION RATE 46.6 (>45); POTASSIUM SERUM 3.8 MMOL/L (3.5-5.1); TOTAL PROTEIN 6.3 G/DL (5.7-8.2)
== END ==
LOC: SKLAB5 05-17 07:07
PROVIDERS: ATTEND Internal Medicine
DX: J18.9 Pneumonia, unspecified organism (principal)

== ENCOUNTER 2024-12-12 02:00 | Inpatient (IN) | payer MEDICARE, MEDICAID ==
[~2024-12-12] VITALS: Ht 157.5 cm; Wt 60.2 kg
[2024-12-12 06:24] LABS: VENOUS BASE EXCESS 0.5 (-2.0-2.0); VENOUS HCO3 27.2 MMOL/L (23.0-27.0); VENOUS O2 SATURATION 54.1 % (60.0-80.0); VENOUS PARTIAL PRESSURE CO2 52.6 mmHg (38.0-50.0); VENOUS PARTIAL PRESSURE O2 30.3 mmHg (30.0-50.0); VENOUS PH 7.332 UNITS (7.330-7.430); VENOUS TOTAL CO2 28.8 MMOL/L (24.0-28.0)
[2024-12-12] MEDS ORDERED: VANCOMYCIN HCL 900 MG in IV FLUID PLACE HOLDER 1 EA IV ONE (06:25)
[2024-12-12 06:33] LABS: BASO # 0.1 10^3/uL (0.0-0.2); BASO % 0.5 % (0.0-1.0); EOS # 0.1 10^3/uL (0.0-0.5); EOS % 1.2 % (0.0-3.0); HEMATOCRIT 36.3 % (36.0-47.0); LYMPH # 2.6 10^3/uL (1.5-5.0); LYMPH % 26.9 % (24.0-44.0); MEAN CORPUSCULAR HEMOGLOBIN 28.5 pg (27.0-33.0); MEAN CORPUSCULAR HGB CONC 33.1 g/dl (32.0-36.5); MEAN CORPUSCULAR VOLUME 86.2 fl (80.0-96.0); MONO # 0.6 10^3/uL (0.0-0.8); MONO % 6.6 % (2.0-8.0); NEUTROPHILS # 6.2 10^3/uL (1.5-8.5); NEUTROPHILS % 64.5 % (36.0-66.0); PLATELET COUNT, AUTOMATED 340 10^3/uL (150-450); RED BLOOD COUNT 4.21 10^6/uL (4.00-5.40); WHITE BLOOD COUNT 9.7 10^3/uL (4.0-10.0)
[2024-12-12 06:59] LABS: C REACTIVE PROTEIN QUANTITATIV 6.41 MG/DL (<1.0); CALCIUM LEVEL 8.4 MG/DL (8.3-10.6); CK-MB VALUE MASS 1.4 NG/ML (<3.6); CREATININE FOR GFR 1.43 MG/DL (0.55-1.30); GLOMERULAR FILTRATION RATE 40.7 (>45); MB/CK RELATIVE INDEX 2.02 (< OR =4)
[2024-12-12 07:02] LABS: THYROID STIMULATING HORMONE 2.649 uIU/ML (0.55-4.78)
[2024-12-12] MEDS: PIPERACILLIN/TAZOBACTAM SOD 4.5 GM in DEXTROSE 5% (D5W) ADV/MINI-BAG 50 ML IV ONE (07:28)
[2024-12-12] MEDS ORDERED: ISOVUE-370 76% 100ML VIAL As Ordered ONE (08:00)
[2024-12-12] MEDS: POTASSIUM CHLORIDE 10MEQ SR TABLET PO ONE (09:14)
[2024-12-12] MEDS: VANCOMYCIN HCL 1,250 MG, VIAL MATE ADAPTER 1 EACH in NS 250 ML IV ONE (09:15)
[2024-12-12] MEDS ORDERED: AMLO1TAB24 PO (10:33)
[2024-12-12] MEDS ORDERED: LANTINJ4 SQ ×2 (10:42→10:43)
[2024-12-12] MEDS ORDERED: JARD1TAB PO (10:44)
[2024-12-12] MEDS ORDERED: HOME MED LIST COMPLETE! XX SCH (10:50)
[2024-12-12 10:59] LABS: INR 1.15; PARTIAL THROMBOPLASTIN TIME 34.1 SECONDS (24.8-34.2)
[2024-12-12 11:11] LABS: PROCALCITONIN 0.48 ng/ml
[2024-12-12] MEDS ORDERED: GLUCOSE 4 GM CHEW PO PRN (11:20)
[2024-12-12] MEDS ORDERED: DEXTROSE 50% 50ML SYRINGE IV PRN (11:20)
[2024-12-12] MEDS ORDERED: GLUCAGON INJ 1MG VIAL SC PRN (11:20)
[2024-12-12] MEDS: NS (Normal Saline) 0.9% 1,000 ML IV SCH (11:44)
[2024-12-12] MEDS: DULoxetine 30MG CAPSULE (CYMBALTA) PO SCH (11:45)
[2024-12-12] MEDS: CLOPIDOGREL 75 MG TAB PO SCH (11:45)
[2024-12-12] MEDS: APIXABAN 2.5 MG TAB (ELIQUIS) PO SCH (11:45)
[2024-12-12] MEDS: PREGABALIN 75 MG CAP(LYRICA) PO SCH (11:45)
[2024-12-12] MEDS: DOXYCYCLINE HYCLATE 100MG TABLET PO SCH (11:45)
[2024-12-12] MEDS: NICOTINE 14 MG/24 HR TRANSDERMAL TD SCH (11:46)
[2024-12-12] MEDS: IPRATROPIUM 0.5MG/ALBUTEROL 2.5MG INH SOL UD 3ML NEB SCH (12:00)
[2024-12-12] MEDS: LOSARTAN 50MG TABLET PO SCH (12:30)
[2024-12-12] MEDS: cefTRIAXone SOD 1 GM in DEXTROSE 5% (D5W) ADV/MINI-BAG 50 ML IV SCH (12:31)
[2024-12-12] MEDS: LanTUS (INSULIN GLARGINE INJ) 1 UNITS/0.01 ML SC SCH ×2 (12:31→20:59)
[2024-12-12] MEDS: REMDESIVIR 200 MG in NS 250 ML IV ONE (13:21)
[2024-12-12 17:27] VITALS: BP 140/85; TEMP 97.7; O2SAT 97
[2024-12-12] MEDS: INSULIN LISPRO (NovoLOG) PER UNIT SC SCH ×2 (18:32→20:58)
[2024-12-12 19:07] LABS: CK-MB VALUE MASS < 1.0 NG/ML (<3.6)
[2024-12-12 19:08] LABS: CPK CREATINE PHOSPHOKINASE 56 U/L (34-145); MB/CK RELATIVE INDEX 1.78 (< OR =4)
[2024-12-12 20:19] VITALS: BP 136/76; TEMP 98.1; O2SAT 97
[2024-12-12] MEDS: ACETAMINOPHEN 325 MG TAB PO PRN (20:50)
[2024-12-12] MEDS: ATORVASTATIN 20 MG TAB PO SCH (20:51)
[2024-12-12] MEDS: amLODIPine 5 MG TAB PO SCH (20:52)
[2024-12-12] MEDS: PANTOPRAZOLE 40MG TAB (PROTONIX) PO SCH (20:53)
[2024-12-13 04:13] VITALS: BP 115/67; TEMP 98.4; O2SAT 95
[2024-12-13 06:00] LABS: HEMATOCRIT 27.7 % (36.0-47.0); HEMOGLOBIN 9.2 g/dl (12.0-15.5); MEAN CORPUSCULAR HEMOGLOBIN 28.9 pg (27.0-33.0); MEAN CORPUSCULAR HGB CONC 33.2 g/dl (32.0-36.5); MEAN CORPUSCULAR VOLUME 87.1 fl (80.0-96.0); PLATELET COUNT, AUTOMATED 304 10^3/uL (150-450); RED BLOOD COUNT 3.18 10^6/uL (4.00-5.40)
[2024-12-13 06:23] LABS: CPK CREATINE PHOSPHOKINASE 64 U/L (34-145)
[2024-12-13] MEDS: LIDOCAINE 5% (LIDODERM) PATCH TD PRN (06:24)
[2024-12-13 06:37] LABS: CK-MB VALUE MASS 1.7 NG/ML (<3.6); MB/CK RELATIVE INDEX 2.65 (< OR =4)
[2024-12-13 06:41] LABS: ALBUMIN 1.7 G/DL (3.2-5.2); ALKALINE PHOSPHATASE 107 U/L (35-104); ALT/SGPT 23 U/L (7.0-40); AST/SGOT 31 U/L (<34); BILIRUBIN,TOTAL < 0.2 MG/DL (0.3-1.2); BLOOD UREA NITROGEN 32 MG/DL (9-23); CALCIUM LEVEL 8.1 MG/DL (8.3-10.6); CARBON DIOXIDE LEVEL 24 MMOL/L (20-31); CHLORIDE LEVEL 105 MMOL/L (98-107); CREATININE FOR GFR 1.51 MG/DL (0.55-1.30); GLOMERULAR FILTRATION RATE 38.1 (>45); GLUCOSE, FASTING 202 MG/DL (74-106); POTASSIUM SERUM 4.3 MMOL/L (3.5-5.1); SODIUM LEVEL 138 MMOL/L (136-145); TOTAL PROTEIN 6.5 G/DL (5.7-8.2)
[2024-12-13] MEDS: TIOTROPIUM BROM 2.5MCG/ACTUATION 4GM INH IH SCH (07:18)
[2024-12-13 08:01] VITALS: BP 118/64
[2024-12-13] MEDS: dexAMETHasone 20MG/5ML VIAL IV SCH (08:02)
[2024-12-13] MEDS: INSULIN LISPRO (NovoLOG) PER UNIT SC SCH (08:03)
[2024-12-13] MEDS: LanTUS (INSULIN GLARGINE INJ) 1 UNITS/0.01 ML SC SCH (08:04)
[2024-12-13 10:29] VITALS: O2SAT 94
[2024-12-13 10:36] VITALS: O2SAT 91
[2024-12-13] MEDS ORDERED: DOXY100T PO (10:46)
[2024-12-13] MEDS ORDERED: CEFD1CAP9 PO (10:46)
[2024-12-13] MEDS ORDERED: PRED20TA PO (10:46)
[2024-12-13] MEDS ORDERED: NICO14PA TD (10:46)
[2024-12-13 12:00] VITALS: BP 144/88; TEMP 97.9; O2SAT 98
[2024-12-13] MEDS ORDERED: REMDESIVIR 100 MG in NS 100 ML IV SCH (13:00)
== END 2024-12-13 14:55 | disposition home or self-care (01) | DRG 177 ==
LOC: EDBD 02:00 → M ED 02:00 → M ED INP 10:11 → EEVIPCON 10:11 → M MSPAV 17:31
PROVIDERS: ADMIT Internal Medicine; ATTEND Internal Medicine
DX: U07.1 COVID-19 (principal); J96.01 Acute respiratory failure with hypoxia; J15.9 Unspecified bacterial pneumonia; I50.32 Chronic diastolic (congestive) heart failure; L03.115 Cellulitis of right lower limb; I24.89 Other forms of acute ischemic heart disease; N17.9 Acute kidney failure, unspecified; J44.1 Chronic obstructive pulmonary disease with (acute) exacerbation; E11.51 Type 2 diabetes mellitus with diabetic peripheral angiopathy without gangrene; I11.0 Hypertensive heart disease with heart failure; E78.5 Hyperlipidemia, unspecified; I25.10 Atherosclerotic heart disease of native coronary artery without angina pectoris; K21.9 Gastro-esophageal reflux disease without esophagitis; I48.0 Paroxysmal atrial fibrillation; Z86.73 Personal history of transient ischemic attack (TIA), and cerebral infarction without residual deficits; Z86.718 Personal history of other venous thrombosis and embolism; F17.210 Nicotine dependence, cigarettes, uncomplicated; Z79.4 Long term (current) use of insulin; Z79.899 Other long term (current) drug therapy; Z88.8 Allergy status to other drugs, medicaments and biological substances

== ENCOUNTER 2025-04-22 16:33 | Inpatient (IN) | payer MEDICARE, MEDICAID ==
[~2025-04-22] VITALS: Ht 157.5 cm; Wt 62.4 kg
[~2025-04-22 16:33] MED LIST changes: +CEFD1CAP9 PO; +ERGO500029 PO; +JARD1TAB PO; +LANTINJ4 SQ; +NICO14PA TD; +PRED20TA PO; +PREG-35 PO; -PREG100CA PO
[2025-04-22] MEDS ORDERED: ISOVUE-370 76% 100 ML VIAL As Ordered ONE (17:10)
[2025-04-22 17:35] LABS: BASO # 0.1 10^3/uL (0.0-0.2); BASO % 0.7 % (0.0-1.0); EOS # 0.1 10^3/uL (0.0-0.5); EOS % 1.2 % (0.0-3.0); LYMPH # 1.9 10^3/uL (1.5-5.0); LYMPH % 19.4 % (24.0-44.0); MONO # 0.6 10^3/uL (0.0-0.8); MONO % 6.2 % (2.0-8.0); NEUTROPHILS # 7.0 10^3/uL (1.5-8.5); NEUTROPHILS % 72.1 % (36.0-66.0); PLATELET COUNT, AUTOMATED 183 10^3/uL (150-450)
[2025-04-22 17:40] LABS: ERYTHROCYTE SEDIMENTATION RATE 87 mm/hr (0-30)
[2025-04-22 17:50] LABS: INR 1.04
[2025-04-22 17:58] LABS: KETONE, URINE AUTO RFX NEGATIVE (NEGATIVE); LEUKOCYTE ESTERASE UR AUTO RFX NEGATIVE (NEGATIVE); MUCUS, URINE RFX SMALL (NEGATIVE); NITRITE, URINE AUTO RFX NEGATIVE (NEGATIVE); RBC, URINE AUTO RFX 3 /HPF (0-3); SQUAM EPITHELIAL CELL UR AURFX 7 /HPF (0-6)
[2025-04-22 17:59] LABS: WBC, URINE AUTO RFX 42 /HPF (0-3)
[2025-04-22 18:01] LABS: ALT/SGPT 16 U/L (7.0-40); AST/SGOT 21 U/L (<34); CALCIUM LEVEL 9.5 MG/DL (8.3-10.6); CARBON DIOXIDE LEVEL 26 MMOL/L (20-31); CHLORIDE LEVEL 104 MMOL/L (98-107); CK-MB VALUE MASS 2.2 NG/ML (<3.6); CPK CREATINE PHOSPHOKINASE 42 U/L (34-145); CREATININE FOR GFR 1.36 MG/DL (0.55-1.30); GLOMERULAR FILTRATION RATE 43.0 (>45); MB/CK RELATIVE INDEX 5.23 (< OR =4); POTASSIUM SERUM 4.2 MMOL/L (3.5-5.1); SODIUM LEVEL 142 MMOL/L (136-145)
[2025-04-22 18:50] LABS: C REACTIVE PROTEIN QUANTITATIV < 0.50 MG/DL (<1.0)
[2025-04-22] MEDS: ASPIRIN 81 MG CHEWABLE TABLET PO ONE (20:58)
[2025-04-22] MEDS ORDERED: DEXTROSE 50% 50 ML SYRINGE IV PRN (22:55)
[2025-04-22] MEDS ORDERED: GLUCAGON INJ 1 MG VIAL SC PRN (22:55)
[2025-04-22] MEDS ORDERED: GLUCOSE 4 GM CHEW PO PRN (22:55)
[2025-04-23 00:18] VITALS: BP 160/90; TEMP 98.7; O2SAT 95
[2025-04-23] MEDS: NS (Normal Saline) 0.9% 1,000 ML IV SCH (00:26)
[2025-04-23] MEDS ORDERED: HOME MED LIST COMPLETE! XX SCH (02:05)
[2025-04-23 04:29] VITALS: BP 137/79; TEMP 98.2; O2SAT 95
[2025-04-23 06:14] LABS: BASO # 0.1 10^3/uL (0.0-0.2); BASO % 0.8 % (0.0-1.0); EOS # 0.2 10^3/uL (0.0-0.5); EOS % 1.9 % (0.0-3.0); ESTIMATED AVERAGE GLUCOSE 275.0 MG/DL (60-110); LYMPH # 2.9 10^3/uL (1.5-5.0); LYMPH % 30.0 % (24.0-44.0); MONO # 0.6 10^3/uL (0.0-0.8); MONO % 6.7 % (2.0-8.0); NEUTROPHILS # 5.8 10^3/uL (1.5-8.5); NEUTROPHILS % 60.3 % (36.0-66.0); PLATELET COUNT, AUTOMATED 180 10^3/uL (150-450)
[2025-04-23 06:35] LABS: CALCIUM LEVEL 8.7 MG/DL (8.3-10.6); CARBON DIOXIDE LEVEL 28.0 MMOL/L (20-31); CHLORIDE LEVEL 108.0 MMOL/L (98-107); CREATININE FOR GFR 1.31 MG/DL (0.55-1.30); GLOMERULAR FILTRATION RATE 44.9 (>45); MAGNESIUM LEVEL 1.9 MG/DL (1.8-2.4); POTASSIUM SERUM 3.8 MMOL/L (3.5-5.1); SODIUM LEVEL 145.0 MMOL/L (136-145)
[2025-04-23] MEDS ORDERED: ALBUTEROL 90 MCG/ACT 8 GM HFA INHALER INH PRN (07:50)
[2025-04-23 08:17] VITALS: BP 148/68; TEMP 98.1; O2SAT 95
[2025-04-23] MEDS: TIOTROPIUM BROM 2.5MCG/ACTUATION 4GM INH INH SCH (08:35)
[2025-04-23] MEDS ORDERED: APIXABAN 5 MG TAB PO SCH (09:00)
[2025-04-23] MEDS: INSULIN GLARGINE-YFGN 1 UNITS/0.01 ML SC SCH (09:01)
[2025-04-23] MEDS: APIXABAN 2.5 MG TAB PO SCH (09:02)
[2025-04-23] MEDS: ASPIRIN 81 MG ENTERIC TABLET PO SCH (09:02)
[2025-04-23] MEDS: FAMOTIDINE 20 MG TAB PO SCH (09:02)
[2025-04-23] MEDS: INSULIN LISPRO (NovoLOG) PER UNIT SC SCH ×2 (09:02→21:07)
[2025-04-23 16:03] VITALS: BP 167/71; TEMP 97.6; O2SAT 95
[2025-04-23 20:04] VITALS: BP 169/86; TEMP 97.9; O2SAT 93
[2025-04-23] MEDS: ATORVASTATIN 20 MG TAB PO SCH (20:26)
[2025-04-24 03:20] VITALS: BP 168/86; TEMP 97.4; O2SAT 93
[2025-04-24] MEDS ORDERED: LANTINJ4 SC (08:04)
[2025-04-24] MEDS ORDERED: ASPI81TAEC PO (08:06)
[2025-04-24 08:58] VITALS: BP 151/78; TEMP 98.3; O2SAT 100
[2025-04-24] MEDS: INSULIN GLARGINE-YFGN 1 UNITS/0.01 ML SC SCH (09:19)
[2025-04-24 09:21] VITALS: BP 151/78
[2025-04-24] MEDS: amLODIPine 5 MG TAB PO SCH (09:21)
== END 2025-04-24 11:47 | disposition home or self-care (01) | DRG 65 ==
LOC: EDBD 16:33 → M ED 16:33 → M ED INP 22:44 → M PCU 04-23 00:15 → M ED INP 04-23 11:11 → M PCU 04-23 11:24
PROVIDERS: ADMIT Student in an Organized Health Care Education/Training Program; ATTEND Internal Medicine
DX: I63.9 Cerebral infarction, unspecified (principal); I13.0 Hypertensive heart and chronic kidney disease with heart failure and stage 1 through stage 4 chronic kidney disease, or unspecified chronic kidney disease; I50.32 Chronic diastolic (congestive) heart failure; E11.51 Type 2 diabetes mellitus with diabetic peripheral angiopathy without gangrene; J44.9 Chronic obstructive pulmonary disease, unspecified; E11.22 Type 2 diabetes mellitus with diabetic chronic kidney disease; N18.9 Chronic kidney disease, unspecified; E78.5 Hyperlipidemia, unspecified; I25.10 Atherosclerotic heart disease of native coronary artery without angina pectoris; I48.91 Unspecified atrial fibrillation; K21.9 Gastro-esophageal reflux disease without esophagitis; Z79.01 Long term (current) use of anticoagulants; M25.512 Pain in left shoulder; E55.9 Vitamin D deficiency, unspecified; Z89.421 Acquired absence of other right toe(s); Z86.718 Personal history of other venous thrombosis and embolism; F17.200 Nicotine dependence, unspecified, uncomplicated; Z79.4 Long term (current) use of insulin; Z79.899 Other long term (current) drug therapy; Z88.8 Allergy status to other drugs, medicaments and biological substances

== ENCOUNTER 2025-06-07 19:49 | Emergency (ER) | payer MEDICARE, MEDICAID ==
[~2025-06-07] VITALS: Ht 157.5 cm; Wt 59.1 kg
[~2025-06-07 19:49] MED LIST changes: +ASPI81TAEC PO
[2025-06-07 19:57] VITALS: TEMP 98.4
[2025-06-07] MEDS: NS 500 ML IV ONE (21:26)
[2025-06-07 21:29] LABS: VENOUS BASE EXCESS 5.4 (-2.0-2.0); VENOUS HCO3 31.6 MMOL/L (23.0-27.0); VENOUS O2 SATURATION 83.1 % (60.0-80.0); VENOUS PARTIAL PRESSURE CO2 53.1 mmHg (38.0-50.0); VENOUS PARTIAL PRESSURE O2 46.2 mmHg (30.0-50.0); VENOUS PH 7.392 UNITS (7.330-7.430); VENOUS STANDARD HCO3 29.0 MMOL/L; VENOUS TOTAL CO2 33.2 MMOL/L (24.0-28.0)
[2025-06-07] MEDS: IPRATROPIUM 0.5 MG/ALBUTEROL 2.5 MG INH SOL UD 3 ML NEB SCH (21:29)
[2025-06-07 21:33] LABS: BASO # 0.1 10^3/uL (0.0-0.2); BASO % 0.9 % (0.0-1.0); EOS # 0.2 10^3/uL (0.0-0.5); EOS % 2.2 % (0.0-3.0); LYMPH # 2.2 10^3/uL (1.5-5.0); LYMPH % 21.9 % (24.0-44.0); MONO # 0.8 10^3/uL (0.0-0.8); MONO % 8.3 % (2.0-8.0); NEUTROPHILS # 6.5 10^3/uL (1.5-8.5); NEUTROPHILS % 65.9 % (36.0-66.0); PLATELET COUNT, AUTOMATED 282 10^3/uL (150-450)
[2025-06-07 21:56] LABS: APPEARANCE, URINE CLEAR (CLEAR); BACTERIA, URINE AUTO 1+ (NEGATIVE); BILIRUBIN, URINE AUTO NEGATIVE (NEGATIVE); BLOOD, URINE BLOOD NEGATIVE (NEGATIVE); GLUCOSE, URINE (UA) AUTO 3+ mg/dL (NEGATIVE); KETONE, URINE AUTO NEGATIVE (NEGATIVE); LEUKOCYTE ESTERASE, URINE AUTO NEGATIVE (NEGATIVE); NITRITE, URINE AUTO NEGATIVE (NEGATIVE); PROTEIN, URINE AUTO 3+ mg/dL (NEGATIVE); RBC, URINE AUTO 4 /HPF (0-3); SPECIFIC GRAVITY URINE AUTO 1.021 (1.002-1.035); SQUAMOUS EPITHELIAL CELL UR AU 4 /HPF (0-6); UROBILINOGEN, URINE AUTO 0.2 mg/dL (0.0-2.0); WBC, URINE AUTO 2 /HPF (0-3)
[2025-06-07 22:00] LABS: ACETONE/KETONE 0.06 MMOL/L (0.02-0.27); CALCIUM LEVEL 8.7 MG/DL (8.3-10.6); CARBON DIOXIDE LEVEL 32.0 MMOL/L (20-31); CHLORIDE LEVEL 99.0 MMOL/L (98-107); CREATININE FOR GFR 1.48 MG/DL (0.55-1.30); GLOMERULAR FILTRATION RATE 38.8 (>45); POTASSIUM SERUM 3.9 MMOL/L (3.5-5.1); SODIUM LEVEL 139.0 MMOL/L (136-145)
[2025-06-07 22:03] LABS: OSMOLALITY SERUM 315.0 MOSM/KG (280-301)
[2025-06-07 22:30] VITALS: O2SAT 96
[2025-06-07] MEDS: NS (Normal Saline) 0.9% 1,000 ML IV ONE (22:48)
[2025-06-07 23:04] VITALS: BP 184/90
[2025-06-07] MEDS ORDERED: BENZ200C70 PO (23:20)
[2025-06-07] MEDS ORDERED: AMOX875T2 PO (23:23)
[2025-06-07] MEDS: AUGMENTIN 875 MG TAB PO ONE (23:46)
== END 2025-06-08 | disposition home or self-care (01) ==
LOC: M ED 19:49
DX: J44.1 Chronic obstructive pulmonary disease with (acute) exacerbation (principal); E11.9 Type 2 diabetes mellitus without complications; Z86.79 Personal history of other diseases of the circulatory system; Z87.891 Personal history of nicotine dependence; Z88.8 Allergy status to other drugs, medicaments and biological substances; Z91.048 Other nonmedicinal substance allergy status; Z79.52 Long term (current) use of systemic steroids; Z79.01 Long term (current) use of anticoagulants; Z79.82 Long term (current) use of aspirin; Z79.899 Other long term (current) drug therapy

== ENCOUNTER 2025-07-10 18:17 | Emergency (ER) | payer MEDICARE, MEDICAID ==
[~2025-07-10 18:17] MED LIST changes: +AMOX875T2 PO; +BENZ200C70 PO
[2025-07-10 20:12] LABS: BASO # 0.1 10^3/uL (0.0-0.2); BASO % 1.2 % (0.0-1.0); EOS # 0.2 10^3/uL (0.0-0.5); EOS % 2.1 % (0.0-3.0); LYMPH # 1.8 10^3/uL (1.5-5.0); LYMPH % 23.0 % (24.0-44.0); MONO # 0.6 10^3/uL (0.0-0.8); MONO % 7.9 % (2.0-8.0); NEUTROPHILS # 4.9 10^3/uL (1.5-8.5); NEUTROPHILS % 65.0 % (36.0-66.0); PLATELET COUNT, AUTOMATED 201 10^3/uL (150-450)
[2025-07-10] MEDS: FLUORESCEIN OPHTH 1 MG STRIP OS ONE (20:13)
[2025-07-10] MEDS: amLODIPine 10 MG TAB PO ONE (20:13)
[2025-07-10] MEDS: TETRACAINE 0.5% OPHTH SOLN 4ML OS ONE (20:13)
[2025-07-10] MEDS: hydrALAZINE 20 MG/ML 1 ML VIAL IV ONE (20:13)
[2025-07-10 20:42] LABS: CK-MB VALUE MASS 2.0 NG/ML (<3.6)
[2025-07-10 20:43] LABS: CPK CREATINE PHOSPHOKINASE 38.0 U/L (34-145); MB/CK RELATIVE INDEX 5.26 (< OR =4)
[2025-07-10 20:44] LABS: ALT/SGPT 14.0 U/L (7.0-40); AST/SGOT 22.0 U/L (<34); CALCIUM LEVEL 9.1 MG/DL (8.3-10.6); CARBON DIOXIDE LEVEL 29.0 MMOL/L (20-31); CHLORIDE LEVEL 103.0 MMOL/L (98-107); CREATININE FOR GFR 1.43 MG/DL (0.55-1.30); GLOMERULAR FILTRATION RATE 40.5 (>45); POTASSIUM SERUM 3.3 MMOL/L (3.5-5.1); SODIUM LEVEL 141.0 MMOL/L (136-145)
[2025-07-10] MEDS ORDERED: ISOVUE-370 76% 100 ML VIAL As Ordered ONE (20:54)
[2025-07-10 21:03] LABS: D-DIMER QUANT 1.14 ug/mL (<0.5); INR 0.93
[2025-07-10 23:06] LABS: CK-MB VALUE MASS 1.6 NG/ML (<3.6)
[2025-07-10 23:42] LABS: CPK CREATINE PHOSPHOKINASE 40.0 U/L (34-145); MB/CK RELATIVE INDEX 4.0 (< OR =4)
[2025-07-11 03:47] LABS: KETONE, URINE AUTO RFX NEGATIVE (NEGATIVE); LEUKOCYTE ESTERASE UR AUTO RFX NEGATIVE (NEGATIVE); MUCUS, URINE RFX SMALL (NEGATIVE); NITRITE, URINE AUTO RFX NEGATIVE (NEGATIVE); RBC, URINE AUTO RFX 0 /HPF (0-3); SQUAM EPITHELIAL CELL UR AURFX 4 /HPF (0-6); WBC, URINE AUTO RFX 4 /HPF (0-3)
[2025-07-11] MEDS: SCOPOLAMINE 1MG TRANSDERMAL PATCH TOP ONE (06:16)
[2025-07-11 08:00] VITALS: BP 122/74; O2SAT 96
[2025-07-11 08:15] VITALS: TEMP 97
[2025-07-11] MEDS ORDERED: CIPR0.3S37 OS (20:21)
== END 2025-07-11 08:42 | disposition home or self-care (01) ==
LOC: M ED 18:17 → EDBD 18:17 → M ED 07-11 08:42
DX: H10.32 Unspecified acute conjunctivitis, left eye (principal); R53.1 Weakness; R53.81 Other malaise; R06.02 Shortness of breath; I26.99 Other pulmonary embolism without acute cor pulmonale; I45.10 Unspecified right bundle-branch block; R22.41 Localized swelling, mass and lump, right lower limb; M51.34 Other intervertebral disc degeneration, thoracic region; M19.011 Primary osteoarthritis, right shoulder; M19.012 Primary osteoarthritis, left shoulder; I10 Essential (primary) hypertension; J44.9 Chronic obstructive pulmonary disease, unspecified; F17.200 Nicotine dependence, unspecified, uncomplicated; Z79.52 Long term (current) use of systemic steroids; Z79.899 Other long term (current) drug therapy; Z79.1 Long term (current) use of non-steroidal anti-inflammatories (NSAID); Z79.01 Long term (current) use of anticoagulants; Z79.82 Long term (current) use of aspirin; Z79.02 Long term (current) use of antithrombotics/antiplatelets; Z86.79 Personal history of other diseases of the circulatory system
CPT/HCPCS: 70450; 71045; 71275; 80053; 81001; 82550; 82553; 83880; 84484; 85025; 85379; 85610; 85652; 85730; 86850; 86900; 86901; 87486; 87581; 87633; 87798; 93005; 93971; 96374; 99285; J0360; Q9967